=== PATIENT | male | born 1960 | race Caucasian/White ===

== ENCOUNTER 2018-09-13 06:09 | Day surgery (SDC) | payer MEDICARE, BC, OTHER ==
[2018-09-09 17:41] VITALS: BMI 38.8
[~2018-09-13 06:09] MED LIST: DEXAMETHASONE SOD PHOSPHATE 10 MG/ML 1 ML VIAL IV ONE; HEPARIN SODIUM,PORCINE 5,000 UNIT/ML 1 ML VIAL SQ ONE; HYDROmorphone 1 MG/ML 1 ML SYRINGE IVP PRN; LACTATED RINGERS 1,000 ML IV SCH; MIDAZOLAM 2 MG/2 ML VIAL IV PRN; ONDANSETRON 4 MG/2 ML VIAL IVP ONE; Pre Op ABX Message 1 EACH MISC MISCELLANE ONE; SCOPOLAMINE 1.5MG/72HR PATCH TRANSDERM ONE
[2018-09-13] MEDS ORDERED: LIDOCAINE 1% 20 ML VIAL (10MG/ML) FOR IV START INTRADERMA ONE (06:43)
[2018-09-13 06:55] VITALS: TEMP 98.6
[2018-09-13] MEDS ORDERED: SODIUM CHLORIDE 0.9% IV ONE ×2 (08:05)
[2018-09-13] MEDS ORDERED: CEFAZOLIN IV ONE ×2 (08:05)
[2018-09-13] MEDS ORDERED: BUPIVACAINE-EPI 0.5%-1:200,000 10 ML VIAL SQ ONE (08:20)
[2018-09-13] MEDS ORDERED: NALOXONE 0.4 MG/ML 1 ML VIAL IV PRN (09:11)
[2018-09-13] MEDS ORDERED: HYDROcodone/APAP 5-325MG 1 EACH TAB PO PRN (09:11)
[2018-09-13 09:15] VITALS: RESP 16
--- NOTE | 2018-09-13 09:23 | P.OP ---
Date of Procedure: 09/13/18 Procedure(s) Performed: PREOPERATIVE DIAGNOSIS: Posterior neck mass POSTOPERATIVE DIAGNOSIS: Posterior neck sebaceous cyst 8 cm PROCEDURE: Excision posterior neck mass ANESTHESIA: MAC SURGEON: Jefferson Morris M.D. SPECIMENS: Sebaceous cyst ENDOSCOPIC PROCEDURE: The patient was placed on the operating table in the right decubitus position. The posterior neck was prepped and draped in usual sterile fashion. The skin was localized. An elliptical incision was made encompassing a small depression in the skin that was thought to possibly be the initiating site of the sebaceous cyst. The skin was incised using a scalpel. Dissection took place using both blunt dissection and sharp dissection and cautery. The sebaceous cyst was fully excised. This was quite large measuring 8 cm in diameter and about 6 cm in height. This was fully dissected and excised. The saphenous tissues were then reapproximated using 3-0 Vicryl sutures and the skin using a 4-0 nylon suture. Sterile dressings were applied. The patient was taken to the recovery room in stable condition per anesthesia guidelines.
[2018-09-13 09:40] VITALS: BP 129/89; PULSE 90
--- NOTE | 2018-09-17 19:13 | CDI ---
Outpatient Documentation Clarification Form Date: 09/17/18 [employer] Vice President Name: Libra Servin Phone: If any questions, call Maren Estevez [facility] at [phone] Patient Name: Marques Herman Admit Date: 09/13/18 Discharge Date: 09/13/18 ATTENTION: The [facility] Coding Staff appreciate your assistance in clarifying documentation. Please respond to the clarification below the line at the bottom and electronically sign. The [facility] Coding staff will review the response and follow-up if needed. Please note: Queries are made part of the Legal Health Record. If you have any questions, please contact the [facility]. Dear Dr. Morris, What is the size of the closure? Thank you for your kind consideration. MTDD
== END 2018-09-13 10:03 | disposition home or self-care (01) ==
LOC: OR 06:09
PROVIDERS: ATTEND Surgery
DX: L72.0 Epidermal cyst (principal); L92.3 Foreign body granuloma of the skin and subcutaneous tissue; F79 Unspecified intellectual disabilities; H91.90 Unspecified hearing loss, unspecified ear; E66.01 Morbid (severe) obesity due to excess calories; Z68.38 Body mass index [BMI] 38.0-38.9, adult; Z79.899 Other long term (current) drug therapy; Z91.048 Other nonmedicinal substance allergy status; Z85.828 Personal history of other malignant neoplasm of skin
CPT/HCPCS: 11426; 12044; 88304; J1644; J1100; J2405; J0690; 88305

== ENCOUNTER 2020-01-19 00:50 | Emergency (ER) | payer MEDICARE, BC, OTHER ==
[2020-01-19] MEDS ORDERED: IBUPROFEN 600 MG TAB PO STA (01:03)
[2020-01-19] MEDS ORDERED: ACETAMINOPHEN TAB 500 MG TAB PO STA (01:03)
[2020-01-19 01:19] LABS: Basophils % (A) 0 %; Eosinophils % (A) 0 %; HCT 36.7 % (39.0-53.0); HGB 12.2 gm/dL (13.0-17.5); Lymphocytes # (A) 0.3 k/uL (1.0-4.8); Lymphocytes % (A) 3 %; MCH 29.3 pg (25.0-35.0); MCHC 33.3 g/dL (31.0-37.0); Mean Platelet Volume 8.6; Monocytes # (A) 0.4 k/uL (0-1.0); Monocytes % (A) 5 %; Neutrophils # (A) 7.1 k/uL (1.3-7.7); Neutrophils % (A) 90 %; Platelet Count 120 k/uL (150-450); RBC 4.17 m/uL (4.30-5.90); RDW 14.5 % (11.5-15.5); WBC 7.9 k/uL (3.8-10.6)
[2020-01-19] MEDS: SODIUM CHLORIDE 0.9% 500 ML 500 ML IV SCH ×2 (01:22→02:20)
[2020-01-19 01:28] LABS: INR 1.1 (<1.2); Partial Thromboplastin Time 28.7 sec (22.0-30.0); Prothrombin Time 10.8 sec (9.0-12.0)
[2020-01-19 01:29] LABS: Albumin 3.7 g/dL (3.5-5.0); Calcium 8.7 mg/dL (8.4-10.2); Potassium 3.6 mmol/L (3.5-5.1); Total Bilirubin 0.9 mg/dL (0.2-1.3); Total Protein 6.2 g/dL (6.3-8.2)
[2020-01-19] MEDS ORDERED: OSELTAMIVIR 75 MG CAP PO STA (01:33)
[2020-01-19 01:45] LABS: Appearance,Urine Clear (Clear); Bacteria,Urine Rare /hpf; Bilirubin,Urine Negative (Negative); Blood,Urine Moderate (Negative); Color,Urine Yellow; Glucose,Urine (UA) Negative (Negative); Ketones,Urine 1+ (Negative); Leukocyte Esterase,Urine Negative (Negative); Mucus,Urine Rare /hpf; Nitrite,Urine Negative (Negative); PH, Urine 5.5 (5.0-8.0); Protein,Urine 1+ (Negative); RBC,Urine <1 /hpf (0-5); Specific Gravity,Urine 1.033 (1.001-1.035); Squamous Epithelial Cell,Urine 1 /hpf (0-4); WBC,Urine 1 /hpf (0-5)
--- NOTE | 2020-01-19 01:58 | XR ---
EXAMINATION TYPE: XR chest 2V DATE OF EXAM: 01/19/2020 COMPARISON: 10/01/2016 HISTORY: Abdominal pain TECHNIQUE: FINDINGS: There is no heart failure nor confluent pneumonic infiltrate. Costophrenic angles are clear . There are chest leads. Bony thorax is intact. IMPRESSION: No active cardiopulmonary disease. No change
[2020-01-19] MEDS ORDERED: IBUPROFEN 200 MG TAB PO STA (02:05)
--- NOTE | 2020-01-19 03:08 | ED ---
General Adult HPI - General Source: EMS, RN notes reviewed, old records reviewed Mode of arrival: EMS Limitations: no limitations <Luis Fernando Mancera - Last Filed: 01/19/20 03:01> <Charline Bob - Last Filed: 01/19/20 22:48> - General Chief complaint: Weakness Stated complaint: Weakness Time Seen by Provider: 01/19/20 01:01 - History of Present Illness Initial comments: 59-year-old male patient past history significant for developmental delay, presents to ED for chief complaint of weakness. Caregiver mother reports that patient was not eating much today. Reports that she went to check on him before he went to bed he was sitting on a chair and she states that he was weak and will not stand up. At that time she noted that she felt warm. There is 4 days been having some mild coughing. Denies any other complaints at this time. Systemic: Pt denies fatigue, rash. Pt denies weakness, night sweats, weight l oss. Neuro: Pt denies headache, visual disturbances, syncope or pre-syncope. HEENT: Pt denies ocular discharge or irritation, otalgia, rhinorrhea, pharyngitis or notable lymphadenopathy. Cardiopulmonary: Pt denies chest pain, SOB, heart palpitations, dyspnea on exertion. Abdominal/GI: Pt denies abdominal pain, n/v/d. : Pt denies dysuria, burning w/ urination, frequency/urgency. Denies new onset urinary or bowel incontinence. MSK: Pt denies myalgia, loss of strength or function in extremities. Neuro: Pt denies new onset weakness, paresthesias. (Luis Fernando Mancera) - Related Data Home Medications Medication Instructions Recorded Confirmed Topiramate [Topamax] 100 mg PO BID 10/01/16 01/19/20 cloZAPine [Clozapine Odt] 200 mg PO HS 01/19/20 01/19/20 Previous Rx's Medication Instructions Recorded Oseltamivir [Tamiflu] 75 mg PO Q12HR 5 Days #10 cap 01/19/20 Allergies Allergy/AdvReac Type Severity Reaction Status Date / Time silicone AdvReac Body Verified 01/19/20 18:22 rejected finger implants Review of Systems ROS Other: All systems not noted in ROS Statement are negative. <Luis Fernando Mancera - Last Filed: 01/19/20 03:01> ROS Other: All systems not noted in ROS Statement are negative. <Charline Bob - Last Filed: 01/19/20 22:48> ROS Statement: Those systems with pertinent positive or pertinent negative responses have been documented in the HPI. 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 MASS ON POSTERIOR SCALP CURRENTLY. History of Any Multi-Drug Resistant Organisms: None Reported Additional Past Surgical History / Comment(s): RT Hand Surgery. Past Anesthesia/Blood Transfusion Reactions: No Reported Reaction Past Psychological History: No Psychological Hx Reported Smoking Status: Never smoker - Past Family History Mother Family Medical History: Cancer <Luis Fernando Mancera - Last Filed: 01/19/20 03:01> General Exam Limitations: no limitations <Luis Fernando Mancera - Last Filed: 01/19/20 03:01> - General Exam Comments Initial Comments: Constitutional: NAD, Pt has pleasant affect. HEENT: NC/AT, trachea midline, neck supple, no lymphadenopathy. Posterior pharynx non erythematous, without exudates. External ears appear normal, without discharge. Mucous membranes moist. Eyes PERRLA, EOM intact. There is no scleral icterus. No pallor noted. Cardiopulmonary: RRR, no murmurs, rubs or gallops, no JVD noted. Lungs CTAB in anterior and posterior white. No peripheral edema. Abdominal exam: Abdomen soft and non-distended. Abdomen non-tender to palpation in all 4 quadrants. Bowel sounds active in LLQ. No hepatosplenomegaly. No ecchymosis Neuro: CN II-XII grossly intact. No nuchal rigidity. No raccon eyes, no cm sign, no hemotympanum. No cervical spinal tenderness. MSK: No posterior calf tenderness bilaterally, homans sign negative bilaterally. Posterior tibialis and radial pulse +2 bilaterally. Sensation intact in upper and lower extremities. Full active ROM in upper and lower extremities, 5/5 stregnth. (Luis Fernando Mancera) Course Vital Signs 01/19/20 01/19/20 01/19/20 00:51 01:50 02:17 Temperature 102.0 F H 103 F H 99.2 F Pulse Rate 117 H 120 H 115 H Respiratory 22 22 18 Rate Blood Pressure 116/90 125/69 118/60 O2 Sat by Pulse 98 98 96 Oximetry 01/19/20 03:16 Temperature 99.6 F Pulse Rate 108 H Respiratory 24 Rate Blood Pressure 124/78 O2 Sat by Pulse 98 Oximetry Procedures - [place] Protocol (Time Out) Nurse: Nikolas Rosado <Luis Fernando Mancera - Last Filed: 01/19/20 03:01> Medical Decision Making - Lab Data Result diagrams: 01/19/20 00:56 01/19/20 00:56 - EKG Data -: EKG Interpreted by Me (and Dr. Bob ) <Luis Fernando Mancera - Last Filed: 01/19/20 03:01> - Lab Data Result diagrams: 01/19/20 00:56 01/19/20 00:56 <Charline Bob - Last Filed: 01/19/20 22:48> - Medical Decision Making 59-year-old male patient past history significant for developmental delay, pre sents to ED for chief complaint of weakness. Caregiver mother reports that patient was not eating much today. Reports that she went to check on him before he went to bed he was sitting on a chair and she states that he was weak and will not stand up. At that time she noted that she felt warm. There is 4 days been having some mild coughing. Denies any other complaints at this time. Patient vital signs with fever, tachycardia. Physical exam didn't swing acute pathology. Further history taking with family, patient is at his baseline currently. Range of motion of upper and lower extremities is intact. Laboratory investigations were obtained, these were significant for influenza A being positive. Kidney function at baseline. Chest x-ray displayed no acute process. Patient history and paramedics, fluids. Vital signs within acceptable limits. Patient initiated on Tamiflu. Patient is ambulatory, family is comfortable discharge. Patient discharged with close outpatient follow-up. Return to ED if condition worsens. Case discussed with Dr. Bob. (Luis Fernando Mancera) I was available for consultation in the emergency department. The history and physical exam were done by the midlevel provider. I was consulted for this patients care. I reviewed the case with the midlevel provider and based on their presentation of the patient, I agree with the assessment, medical decision making and plan of care as documented. Chart was dictated using Involv[employer] dictation software. Attempts were made to correct any dictation errors however some typographical errors may persist. (Charline Bob) - Lab Data Lab Results 01/19/20 01/19/20 01/19/20 Range/Units 00:56 00:56 00:56 WBC 7.9 (3.8-10.6) k/uL RBC 4.17 L (4.30-5.90) m/uL Hgb 12.2 L (13.0-17.5) gm/dL Hct 36.7 L (39.0-53.0) % MCV 88.0 (80.0-100.0) fL MCH 29.3 (25.0-35.0) pg MCHC 33.3 (31.0-37.0) g/dL RDW 14.5 (11.5-15.5) % Plt Count 120 L (150-450) k/uL Neutrophils % 90 % Lymphocytes % 3 % Monocytes % 5 % Eosinophils % 0 % Basophils % 0 % Neutrophils # 7.1 (1.3-7.7) k/uL Lymphocytes # 0.3 L (1.0-4.8) k/uL Monocytes # 0.4 (0-1.0) k/uL Eosinophils # 0.0 (0-0.7) k/uL Basophils # 0.0 (0-0.2) k/uL PT (9.0-12.0) sec INR (<1.2) APTT (22.0-30.0) sec Sodium 141 (137-145) mmol/L Potassium 3.6 (3.5-5.1) mmol/L Chloride 114 H (98-107) mmol/L Carbon Dioxide 18 L (22-30) mmol/L Anion Gap 9 mmol/L BUN 24 H (9-20) mg/dL Creatinine 1.64 H (0.66-1.25) mg/dL Est GFR (CKD-EPI)AfAm 51 (>60 ml/min/1.73 sqM) Est GFR (CKD-EPI)NonAf 45 (>60 ml/min/1.73 sqM) Glucose 129 H (74-99) mg/dL Plasma Lactic Acid Marco A (0.7-2.0) mmol/L Calcium 8.7 (8.4-10.2) mg/dL Total Bilirubin 0.9 (0.2-1.3) mg/dL AST 30 (17-59) U/L ALT 21 (4-49) U/L Alkaline Phosphatase 27 L (38-126) U/L Troponin I (0.000-0.034) ng/mL Total Protein 6.2 L (6.3-8.2) g/dL Albumin 3.7 (3.5-5.0) g/dL Urine Color Urine Appearance (Clear) Urine pH (5.0-8.0) Ur Specific [place] (1.001-1.035) Urine Protein (Negative) Urine Glucose (UA) (Negative) Urine Ketones (Negative) Urine Blood (Negative) Urine Nitrite (Negative) Urine Bilirubin (Negative) Urine Urobilinogen (<2.0) mg/dL Ur Leukocyte Esterase (Negative) Urine RBC (0-5) /hpf Urine WBC (0-5) /hpf Ur Squamous Epith Cells (0-4) /hpf Urine Bacteria (None) /hpf Urine Mucus (None) /hpf Influenza Type A RNA Detected H (Not Detectd) Influenza Type B (PCR) Not Detected (Not Detectd) 01/19/20 01/19/20 01/19/20 Range/Units 00:56 00:56 00:56 WBC (3.8-10.6) k/uL RBC (4.30-5.90) m/uL Hgb (13.0-17.5) gm/dL Hct (39.0-53.0) % MCV (80.0-100.0) fL MCH (25.0-35.0) pg MCHC (31.0-37.0) g/dL RDW (11.5-15.5) % Plt Count (150-450) k/uL Neutrophils % % Lymphocytes % % Monocytes % % Eosinophils % % Basophils % % Neutrophils # (1.3-7.7) k/uL Lymphocytes # (1.0-4.8) k/uL Monocytes # (0-1.0) k/uL Eosinophils # (0-0.7) k/uL Basophils # (0-0.2) k/uL PT 10.8 (9.0-12.0) sec INR 1.1 (<1.2) APTT 28.7 (22.0-30.0) sec Sodium (137-145) mmol/L Potassium (3.5-5.1) mmol/L Chloride (98-107) mmol/L Carbon Dioxide (22-30) mmol/L Anion Gap mmol/L BUN (9-20) mg/dL Creatinine (0.66-1.25) mg/dL Est GFR (CKD-EPI)AfAm (>60 ml/min/1.73 sqM) Est GFR (CKD-EPI)NonAf (>60 ml/min/1.73 sqM) Glucose (74-99) mg/dL Plasma Lactic Acid Marco A 1.1 (0.7-2.0) mmol/L Calcium (8.4-10.2) mg/dL Total Bilirubin (0.2-1.3) mg/dL AST (17-59) U/L ALT (4-49) U/L Alkaline Phosphatase (38-126) U/L Troponin I 0.015 (0.000-0.034) ng/mL Total Protein (6.3-8.2) g/dL Albumin (3.5-5.0) g/dL Urine Color Urine Appearance (Clear) Urine pH (5.0-8.0) Ur Specific [place] (1.001-1.035) Urine Protein (Negative) Urine Glucose (UA) (Negative) Urine Ketones (Negative) Urine Blood (Negative) Urine Nitrite (Negative) Urine Bilirubin (Negative) Urine Urobilinogen (<2.0) mg/dL Ur Leukocyte Esterase (Negative) Urine RBC (0-5) /hpf Urine WBC (0-5) /hpf Ur Squamous Epith Cells (0-4) /hpf Urine Bacteria (None) /hpf Urine Mucus (None) /hpf Influenza Type A RNA (Not Detectd) Influenza Type B (PCR) (Not Detectd) 01/19/20 Range/Units 01:29 WBC (3.8-10.6) k/uL RBC (4.30-5.90) m/uL Hgb (13.0-17.5) gm/dL Hct (39.0-53.0) % MCV (80.0-100.0) fL MCH (25.0-35.0) pg MCHC (31.0-37.0) g/dL RDW (11.5-15.5) % Plt Count (150-450) k/uL Neutrophils % % Lymphocytes % % Monocytes % % Eosinophils % % Basophils % % Neutrophils # (1.3-7.7) k/uL Lymphocytes # (1.0-4.8) k/uL Monocytes # (0-1.0) k/uL Eosinophils # (0-0.7) k/uL Basophils # (0-0.2) k/uL PT (9.0-12.0) sec INR (<1.2) APTT (22.0-30.0) sec Sodium (137-145) mmol/L Potassium (3.5-5.1) mmol/L Chloride (98-107) mmol/L Carbon Dioxide (22-30) mmol/L Anion Gap mmol/L BUN (9-20) mg/dL Creatinine (0.66-1.25) mg/dL Est GFR (CKD-EPI)AfAm (>60 ml/min/1.73 sqM) Est GFR (CKD-EPI)NonAf (>60 ml/min/1.73 sqM) Glucose (74-99) mg/dL Plasma Lactic Acid Marco A (0.7-2.0) mmol/L Calcium (8.4-10.2) mg/dL Total Bilirubin (0.2-1.3) mg/dL AST (17-59) U/L ALT (4-49) U/L Alkaline Phosphatase (38-126) U/L Troponin I (0.000-0.034) ng/mL Total Protein (6.3-8.2) g/dL Albumin (3.5-5.0) g/dL Urine Color Yellow Urine Appearance Clear (Clear) Urine pH 5.5 (5.0-8.0) Ur Specific [place] 1.033 (1.001-1.035) Urine Protein 1+ H (Negative) Urine Glucose (UA) Negative (Negative) Urine Ketones 1+ H (Negative) Urine Blood Moderate H (Negative) Urine Nitrite Negative (Negative) Urine Bilirubin Negative (Negative) Urine Urobilinogen 2.0 (<2.0) mg/dL Ur Leukocyte Esterase Negative (Negative) Urine RBC <1 (0-5) /hpf Urine WBC 1 (0-5) /hpf Ur Squamous Epith Cells 1 (0-4) /hpf Urine Bacteria Rare H (None) /hpf Urine Mucus Rare H (None) /hpf Influenza Type A RNA (Not Detectd) Influenza Type B (PCR) (Not Detectd) - EKG Data EKG Comments: Ventricular rate 117, UT interval 176, QRS 102, QT/QTc 330/460 sinus tachycardia, no concern for acute ischemia. (Luis Fernando Mancera) Disposition Is patient prescribed a controlled substance at d/c from ED?: No <Luis Fernando Mancera - Last Filed: 01/19/20 03:01> <Charline Bob - Last Filed: 01/19/20 22:48> Clinical Impression: Influenza A Disposition: HOME SELF-CARE Condition: Stable Instructions (If sedation given, give patient instructions): Influenza (ED) Additional Instructions: Follow up with PCP tomorrow. Take tamiflu as directed. Use tylenol and motrin, lots of fluids. Return to ED if condition worsens Prescriptions: Oseltamivir [Tamiflu] 75 mg PO Q12HR 5 Days #10 cap Referrals: Jignesh Nielsen DO [Primary Care Provider] - 1-2 days
[2020-01-19 03:18] VITALS: BP 124/78; PULSE 108; RESP 24; TEMP 99.6
== END 2020-01-19 03:18 | disposition home or self-care (01) ==
LOC: EC 00:50
DX: J10.1 Influenza due to other identified influenza virus with other respiratory manifestations (principal); Z85.828 Personal history of other malignant neoplasm of skin; Z79.899 Other long term (current) drug therapy; Z91.048 Other nonmedicinal substance allergy status
CPT/HCPCS: 36415; 71046; 80053; 81001; 83605; 84484; 85025; 85610; 85730; 87502; 93005; 96360; 99285

== ENCOUNTER 2020-01-19 16:10 | Inpatient (IN) | payer MEDICARE, BC, OTHER ==
[2020-01-19] MEDS ORDERED: ACETAMINOPHEN TAB 500 MG TAB PO STA (16:29)
[2020-01-19] MEDS ORDERED: KETOROLAC 30 MG/ML 1 ML VIAL IVP STA (16:30)
[2020-01-19] MEDS ORDERED: SODIUM CHLORIDE 0.9% 1,000 ML IV STA ×2 (16:32→18:05)
[2020-01-19] MEDS ORDERED: IPRATROPIUM-ALBUTEROL 3 ML NEB INHALATION STA (16:36)
[2020-01-19] MEDS: SODIUM CHLORIDE 0.9% 1,000 ML IV STA ×2 (16:42→22:30)
[2020-01-19 16:55] LABS: Basophils % (A) 0 %; Eosinophils % (A) 0 %; HCT 35.8 % (39.0-53.0); Lymphocytes # (A) 0.3 k/uL (1.0-4.8); Lymphocytes % (A) 3 %; MCH 29.7 pg (25.0-35.0); MCHC 33.7 g/dL (31.0-37.0); MCV 88.3 fL (80.0-100.0); Mean Platelet Volume 8.8; Monocytes # (A) 0.2 k/uL (0-1.0); Monocytes % (A) 3 %; Neutrophils # (A) 7.9 k/uL (1.3-7.7); Neutrophils % (A) 93 %; Platelet Count 101 k/uL (150-450); RBC 4.05 m/uL (4.30-5.90); RDW 14.6 % (11.5-15.5); WBC 8.5 k/uL (3.8-10.6)
[2020-01-19 17:07] LABS: Albumin 3.5 g/dL (3.5-5.0); Calcium 8.3 mg/dL (8.4-10.2); Potassium 3.5 mmol/L (3.5-5.1); Total Protein 5.8 g/dL (6.3-8.2)
--- NOTE | 2020-01-19 17:31 | XR ---
EXAMINATION TYPE: XR chest 2V DATE OF EXAM: 01/19/2020 COMPARISON: 01/19/2020 HISTORY: 59 year-old male shortness of breath TECHNIQUE: AP and lateral views FINDINGS: Heart upper limits of normal in size. Diffuse interstitial densities and peribronchial cuffing. No fr ank consolidation or sizable effusion. IMPRESSION: Interstitial changes. Correlate for possible mild pulmonary vascular congestion versus atypical pneum onias or interstitial pneumonitis.
[2020-01-19] MEDS ORDERED: PIPERACILLIN-TAZOBACTAM 4.5 GM in SODIUM CHLORIDE 0.9% 100 ML IVPB STA (17:57)
--- NOTE | 2020-01-19 18:00 | ED ---
Fever HPI - General Chief Complaint: Fever Stated Complaint: Weakness Time Seen by Provider: 01/19/20 16:22 Source: EMS Mode of arrival: EMS Limitations: altered mental status, physical limitation - History of Present Illness Initial Comments: This 59-year-old white male presents with a complaint of cough as well as shortness of breath and fever. He had symptoms start yesterday. He's been very weak as well. He was seen in the emergency department yesterday and was diagnosed with influenza. Since yesterday, mother relates that he is worse. He is weak to the point that he cannot stand up at this point in time. His temperature at home was 102. He is developmentally delayed and therefore history is somewhat limited. He denies having any chest pain or other areas of pain. No other complaints or modifying factors. - Related Data Home Medications Medication Instructions Recorded Confirmed Topiramate [Topamax] 100 mg PO BID 10/01/16 09/13/18 cloZAPine [Fazaclo] 300 mg PO HS 09/09/18 09/13/18 Previous Rx's Medication Instructions Recorded Hydrocodone/Acetaminophen [[place] 1 - 2 each PO Q4HR PRN #10 tab 09/13/18 5-325] Oseltamivir [Tamiflu] 75 mg PO Q12HR 5 Days #10 cap 01/19/20 Allergies Allergy/AdvReac Type Severity Reaction Status Date / Time silicone AdvReac Body Verified 09/13/18 06:40 rejected finger implants Review of Systems ROS Statement: Those systems with pertinent positive or pertinent negative responses have been documented in the HPI. ROS Other: All systems not noted in ROS Statement are negative. 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 MASS ON POSTERIOR SCALP CURRENTLY. History of Any Multi-Drug Resistant Organisms: None Reported Additional Past Surgical History / Comment(s): RT Hand Surgery. Past Anesthesia/Blood Transfusion Reactions: No Reported Reaction Past Psychological History: No Psychological Hx Reported Smoking Status: Never smoker Past Alcohol Use History: None Reported Past Drug Use History: None Reported - Past Family History Mother Family Medical History: Cancer General Exam - General Exam Comments Initial Comments: GENERAL: The patient is well nourished and well hydrated. VITAL SIGNS: Heart rate, blood pressure, respiratory rate reviewed as recorded in nurse's notes. EYES: Pupils are round and reactive. Extraocular movements are intact. No conjunctival / lid redness or swelling. ENT: No external evidence of injury, swelling, or ecchymosis. Airway is patent. Throat is clear. NECK: Nontender. No swelling or evidence of injury. No subcutaneous emphysema. Trachea is midline. No thyroid mass. HEART: Regular rate and rhythm. Good peripheral pulses. LUNGS/CHEST: Wheezing noted bilateral, patient is tachypneic. No ecchymosis, subcutaneous emphysema, or tenderness. ABDOMEN: Abdomen soft without tenderness. No palpable masses or organomegaly. No peritoneal signs. No abdominal wall swelling or ecchymosis. EXTREMITIES: No extremity tenderness. Normal muscle tone and function. No thorac olumbar tenderness. NEUROLOGIC: Sensation is grossly intact. Cranial nerve exam reveals face is sym metrical, tongue is midline, speech is clear. SKIN: No abrasions or ecchymosis is noted. No induration or masses noted. PSYCHIATRIC: Alert and pleasant, developmentally delayed. Limitations: altered mental status, physical limitation Course Vital Signs 01/19/20 01/19/20 01/19/20 16:15 16:50 17:05 Temperature 104.2 F H Pulse Rate 129 H 124 H 126 H Respiratory 19 Rate Blood Pressure 128/52 O2 Sat by Pulse 97 Oximetry Procedures - [place] Protocol (Time Out) Nurse: Sofía Brown Medical Decision Making - Medical Decision Making The patient is seen and examined. All diagnostics were reviewed. The EKG shows a sinus tachycardia at a heart rate of 128. There is no acute ST-T wave changes identified. The GA intervals 136, QRS duration is 100, and the QTC intervals 513. The laboratory shows a decreased CO2 consistent with dehydration. The lactic acid is mildly elevated. The patient is minimally anemic as well. He has chronic renal insufficiency. Old records were reviewed from yesterday. He did have a positive influenza at that time. The chest x-ray shows interstitial pneumonitis versus possible fluid overload versus other per radiologyplease see report for details. It is felt as though he likely does have an interstitial pneumonitis likely due to the influenza. He does receive multiple breathing treatments. He seems improved on recheck. He is still weak and cannot walk though. It is felt as though he would require admission for further treatment. The case is discussed with Dr. García and he is agreeable with admission and would like Zosyn started. - Lab Data Result diagrams: 01/19/20 16:23 01/19/20 16:23 Lab Results 01/19/20 01/19/20 01/19/20 Range/Units 16:23 16:23 16:23 WBC 8.5 (3.8-10.6) k/uL RBC 4.05 L (4.30-5.90) m/uL Hgb 12.0 L (13.0-17.5) gm/dL Hct 35.8 L (39.0-53.0) % MCV 88.3 (80.0-100.0) fL MCH 29.7 (25.0-35.0) pg MCHC 33.7 (31.0-37.0) g/dL RDW 14.6 (11.5-15.5) % Plt Count 101 L (150-450) k/uL Neutrophils % 93 % Lymphocytes % 3 % Monocytes % 3 % Eosinophils % 0 % Basophils % 0 % Neutrophils # 7.9 H (1.3-7.7) k/uL Lymphocytes # 0.3 L (1.0-4.8) k/uL Monocytes # 0.2 (0-1.0) k/uL Eosinophils # 0.0 (0-0.7) k/uL Basophils # 0.0 (0-0.2) k/uL Sodium 141 (137-145) mmol/L Potassium 3.5 (3.5-5.1) mmol/L Chloride 115 H (98-107) mmol/L Carbon Dioxide 15 L (22-30) mmol/L Anion Gap 11 mmol/L BUN 24 H (9-20) mg/dL Creatinine 1.75 H (0.66-1.25) mg/dL Est GFR (CKD-EPI)AfAm 48 (>60 ml/min/1.73 sqM) Est GFR (CKD-EPI)NonAf 41 (>60 ml/min/1.73 sqM) Glucose 117 H (74-99) mg/dL Plasma Lactic Acid Marco A 2.6 H* (0.7-2.0) mmol/L Calcium 8.3 L (8.4-10.2) mg/dL Total Bilirubin 1.0 (0.2-1.3) mg/dL AST 57 (17-59) U/L ALT 24 (4-49) U/L Alkaline Phosphatase 25 L (38-126) U/L Total Protein 5.8 L (6.3-8.2) g/dL Albumin 3.5 (3.5-5.0) g/dL Disposition Clinical Impression: Interstitial pneumonitis, Hyperpyrexia, Dehydration, Sinus tachycardia, Prolonged QT syndrome, Renal insufficiency, Anemia, Influenza, Weakness, Inability to walk Disposition: ADMITTED IP TO THIS [facility] Condition: Fair Is patient prescribed a controlled substance at d/c from ED?: No Referrals: Jignesh Nielsen DO [Primary Care Provider] - 1-2 days Time of Disposition: 18:08 Decision Date: 01/19/20 Decision Time: 18:08
[2020-01-19] MEDS ORDERED: ALBUTEROL NEBULIZED 2.5 MG/3 ML INHALATION STA (18:10)
[2020-01-19] MEDS ORDERED: MORPHINE SULFATE 4 MG/ML SYRINGE IV PRN (18:37)
[2020-01-19] MEDS ORDERED: NALOXONE 0.4 MG/ML 1 ML VIAL IV PRN (18:37)
[2020-01-19] MEDS ORDERED: ACETAMINOPHEN TAB 325 MG TAB PO PRN (18:37)
[2020-01-19] MEDS: IPRATROPIUM-ALBUTEROL 3 ML NEB INHALATION SCH ×2 (20:19→23:24)
[2020-01-19 21:30] LABS: Glucose,Whole Blood 139 mg/dL (75-99)
[2020-01-19] MEDS: OSELTAMIVIR 75 MG CAP PO SCH (22:28)
[2020-01-19] MEDS: methylPREDNISolone SOD SUCCI 125 MG/2 ML VIAL IV SCH (22:28)
[2020-01-19] MEDS: TOPIRAMATE 100 MG TAB PO SCH (22:29)
[2020-01-19] MEDS: cloZAPine 100 MG TAB PO SCH (23:23)
[2020-01-20] MEDS: IPRATROPIUM-ALBUTEROL 3 ML NEB INHALATION SCH ×5 (02:52→20:07)
[2020-01-20 07:52] LABS: Glucose,Whole Blood 150 mg/dL (75-99)
[2020-01-20] MEDS: OSELTAMIVIR 75 MG CAP PO SCH (08:40)
[2020-01-20] MEDS: TOPIRAMATE 100 MG TAB PO SCH ×2 (08:40→20:43)
[2020-01-20] MEDS: ENOXAPARIN 40 MG/0.4 ML SYRINGE SQ SCH (08:41)
[2020-01-20] MEDS: methylPREDNISolone SOD SUCCI 125 MG/2 ML VIAL IV SCH ×3 (08:41→17:45)
[2020-01-20] MEDS: PANTOPRAZOLE 40 MG TABLET PO SCH (08:41)
[2020-01-20 12:04] LABS: Glucose,Whole Blood 176 mg/dL (75-99)
[2020-01-20 16:54] LABS: Glucose,Whole Blood 365 mg/dL (75-99)
[2020-01-20 18:00] LABS: Glucose,Whole Blood 340 mg/dL (75-99)
[2020-01-20] MEDS ORDERED: INSULIN ASPART (NovoLOG) 100 UNIT/ML VIAL SQ ONE (18:20)
--- NOTE | 2020-01-20 19:18 | P.HPIM ---
History of Present Illness H&P Date: 01/20/20 Chief Complaint: Fever or chills History of presenting complaint: This is a pleasant 59-year-old patient of Dr. Nielsen. History is obtained with his sister the bedside. Patient has been mentally handicapped since childhood. Normally able to walk unassisted. She is hard of hearing. Able to see a few words and there has basically medication. 2 nights ago which was found by the mother to be on the floor. Had a fever of 102. Decreased appetite came to the ER. Found to be positive for influenza A. Sent home on Topamax. Patient started having more chills and rigors. Poor congestion the chest was admitted from the ER again. This time antibiotics were added. IV fluids were given. This morning patient did tolerate some breakfast. Feels a bit better. Review of systems: GEN.: Febrile chills tired EYES: None HEENT: Decreased hearing NECK: None RESPIRATORY: Congested chest CARDIOVASCULAR: None GASTROINTESTINAL: None GENITOURINARY: None MUSCULOSKELETAL: None LYMPHATICS: None HEMATOLOGICAL: None PSYCHIATRY: Able to answer simple questions NEUROLOGICAL: None Past medical history to include: Mentally handicapped, hard of hearing Social history: Does not smoke or drink cold. Lives with mother. Physical examination: VITAL SIGNS: 104.2, 129, 19, 128/52, 97% room air-upon presentation GENERAL: BMI 35.9, laying in bed, tired. EYES: Pupils equal. Conjunctiva normal. HEENT: External appearance of nose and ears normal, oral cavity grossly normal. NECK: JVD not raised; masses not palpable. HEART: First and second heart sounds are normal; no edema. LUNGS: Respiratory rate increased, decreased breath sounds. ABDOMEN: Soft, nontender, liver spleen not palpable, no masses palpable. PSYCH: Answering simple questionsl. NEUROLOGICAL: Cranial nerves grossly intact; no facial asymmetry, power and sensation grossly intact. LYMPHATICS: No lymph nodes palpable in the axilla and neck INVESTIGATIONS, reviewed in the clinical context: White count 8.5 hemoglobin 12 platelets 101 potassium 3.5 x 12 15 BUN 24 crit 1.75 Lactic acid 2.6 Influenza type A RNA detected EKG tracing personally reviewed by me--sinus tachycardia Chest x-ray film personally reviewed by me-bilateral infiltrates Assessment: -Acute bilateral influenza A pneumonitis with possible secondary bacterial infection -Severe sepsis, POA from above -Chronic mental retardation -Obesity BMI 35.9 -Chronic hard of hearing -Thrombocytopenia likely from underlying sepsis -Possibly acute kidney injury from sepsis -Metabolic acidosis from sepsis Plan: -Patient has been on Tamiflu. IV fluids. Has started to eat better this morning. Also in IV Zosyn. Add bicarbonate. Care was discussed with sister the bedside. Repeat labs in the morning. Check pro calcitonin. Past Medical History Past Medical History: Cancer, Hearing Disorder / Deafness, Skin Disorder Additional Past Medical History / Comment(s): "Mentally Challenged"-has outbursts, "DEVELOPMENTALLY DELAYED, LEARNING DISABILITY." MULT SKIN CANCER RE MOVALS, BASAL CELL. MASS ON POSTERIOR SCALP CURRENTLY. History of Any Multi-Drug Resistant Organisms: None Reported Additional Past Surgical History / Comment(s): RT Hand Surgery. Past Anesthesia/Blood Transfusion Reactions: No Reported Reaction Past Psychological History: Unable to Obtain Additional Psychological History / Comment(s): "HX OUTBURSTS" "mentally challanged" Smoking Status: Never smoker Past Alcohol Use History: None Reported Past Drug Use History: None Reported - Past Family History Mother Family Medical History: Cancer Medications and Allergies Home Medications Medication Instructions Recorded Confirmed Type Topiramate [Topamax] 100 mg PO BID 10/01/16 01/19/20 History Oseltamivir [Tamiflu] 75 mg PO Q12HR 5 Days #10 cap 01/19/20 01/19/20 Rx cloZAPine [Clozapine Odt] 200 mg PO HS 01/19/20 01/19/20 History Allergies Allergy/AdvReac Type Severity Reaction Status Date / Time silicone AdvReac Body Verified 01/19/20 18:22 rejected finger implants Physical Exam Vitals: Vital Signs Temp Pulse Pulse Resp BP BP Pulse Ox 01/20/20 07:00 98.2 F 104 H 16 127/78 95 01/20/20 03:06 118 H 01/20/20 02:52 112 H 01/20/20 00:00 114 H 20 01/19/20 23:32 114 H 01/19/20 23:24 112 H 01/19/20 21:00 98.8 F 104 H 20 95/60 95 01/19/20 19:09 115 H 01/19/20 19:00 99.2 F 116 H 22 114/65 93 L 02/24/20 18:58 112 H 01/19/20 17:05 126 H 01/19/20 16:50 124 H 01/19/20 16:15 104.2 F H 129 H 19 128/52 97 Intake and Output 01/19/20 01/20/20 01/20/20 22:59 06:59 14:59 Other: Voiding Method Urinal # Voids 1 2 Weight 113.398 kg Results CBC & Chem 7: 01/19/20 16:23 01/19/20 16:23 Labs: Abnormal Lab Results - Last 24 Hours (Table) 01/19/20 01/19/20 01/19/20 Range/Units 16:23 16:23 16:23 RBC 4.05 L (4.30-5.90) m/uL Hgb 12.0 L (13.0-17.5) gm/dL Hct 35.8 L (39.0-53.0) % Plt Count 101 L (150-450) k/uL Neutrophils # 7.9 H (1.3-7.7) k/uL Lymphocytes # 0.3 L (1.0-4.8) k/uL Chloride 115 H (98-107) mmol/L Carbon Dioxide 15 L (22-30) mmol/L BUN 24 H (9-20) mg/dL Creatinine 1.75 H (0.66-1.25) mg/dL Glucose 117 H (74-99) mg/dL POC Glucose (mg/dL) (75-99) mg/dL Plasma Lactic Acid Marco A 2.6 H* (0.7-2.0) mmol/L Calcium 8.3 L (8.4-10.2) mg/dL Alkaline Phosphatase 25 L (38-126) U/L Total Protein 5.8 L (6.3-8.2) g/dL 01/19/20 01/20/20 Range/Units 21:22 07:27 RBC (4.30-5.90) m/uL Hgb (13.0-17.5) gm/dL Hct (39.0-53.0) % Plt Count (150-450) k/uL Neutrophils # (1.3-7.7) k/uL Lymphocytes # (1.0-4.8) k/uL Chloride (98-107) mmol/L Carbon Dioxide (22-30) mmol/L BUN (9-20) mg/dL Creatinine (0.66-1.25) mg/dL Glucose (74-99) mg/dL POC Glucose (mg/dL) 139 H 150 H (75-99) mg/dL Plasma Lactic Acid Marco A (0.7-2.0) mmol/L Calcium (8.4-10.2) mg/dL Alkaline Phosphatase (38-126) U/L Total Protein (6.3-8.2) g/dL Thrombosis Risk Factor Assmnt - Choose All That Apply Each Risk Factor Represents 2 Points: Age 61-74 years Thrombosis Risk Factor Assessment Total Risk Factor Score: 2 Thrombosis Risk Factor Assessment Level: Low Risk
[2020-01-20] MEDS: cloZAPine 100 MG TAB PO SCH (20:43)
[2020-01-20] MEDS: OSELTAMIVIR 60 MG/10 ML ORAL SYRINGE PO SCH (20:45)
[2020-01-20] MEDS: LACTATED RINGERS 1,000 ML IV SCH (20:46)
[2020-01-20] MEDS: SODIUM BICARBONATE TAB 650 MG TAB PO SCH (20:53)
[2020-01-20] MEDS: INSULIN ASPART (NovoLOG) 100 UNIT/ML VIAL SQ SCH (20:53)
[2020-01-20 21:03] LABS: Glucose,Whole Blood 173 mg/dL (75-99)
[2020-01-20] MEDS: predniSONE 20 MG TAB PO SCH (21:15)
[2020-01-21] MEDS: SODIUM BICARBONATE TAB 650 MG TAB PO SCH ×4 (00:34→22:59)
[2020-01-21] MEDS: IPRATROPIUM-ALBUTEROL 3 ML NEB INHALATION SCH ×6 (00:41→19:53)
[2020-01-21] MEDS: LACTATED RINGERS 1,000 ML IV SCH ×3 (03:48→19:53)
[2020-01-21 06:54] LABS: Glucose,Whole Blood 151 mg/dL (75-99)
[2020-01-21] MEDS: predniSONE 20 MG TAB PO SCH (08:26)
[2020-01-21] MEDS: PANTOPRAZOLE 40 MG TABLET PO SCH (08:26)
[2020-01-21] MEDS: OSELTAMIVIR 60 MG/10 ML ORAL SYRINGE PO SCH ×2 (08:26→20:00)
[2020-01-21] MEDS: TOPIRAMATE 100 MG TAB PO SCH ×2 (08:26→20:00)
[2020-01-21] MEDS: INSULIN ASPART (NovoLOG) 100 UNIT/ML VIAL SQ SCH ×4 (08:27→22:11)
[2020-01-21] MEDS: ENOXAPARIN 40 MG/0.4 ML SYRINGE SQ SCH (08:27)
[2020-01-21 09:13] LABS: Calcium 8.8 mg/dL (8.4-10.2); Potassium 3.3 mmol/L (3.5-5.1)
--- NOTE | 2020-01-21 11:37 | CDI ---
Documentation Clarification Form Date: 01/21/2020 11:26:27 AM From: Susu Branch CCS, CCDS Admit Date: 01/19/2020 06:38:00 PM Patient Name: Marques Herman Visit Number: [id number] Discharge Date: ATTENTION: The Clinical Documentation Specialists (CDI) and [facility] Coding Staff appreciate your assistance in clarifying documentation. Please respond to the clarification below the line at the bottom and electronically sign. The CDI & [facility] Coding staff will review the response and follow-up if needed. Please note: Queries are made part of the Legal Health Record. If you have any questions, please contact the author of this message via ITS. Dr. Akbar García: Patient was admitted with Sepsis secondary to Influenza A & pneumonitis & possible acute renal failure. Per the 01/19 ED note the patient has chronic renal insufficiency, nos with GFR 41. History/Risk Factors: Mentally handicapped since childhood, [place], Obesity w/BMI 35.9. Clinical Indicators: Presented to the ED on 01/19, diagnosed with influenza, treated with IV infusion & discharged home, returned same day, admitted for Influenza A & pneumonitis with IV fluid hydration, IV antibiotics & Tamiflu. Patients Baseline BUN/CR/GFR: Unknown or not documented. LAB 01/19: BUN 24, Cr 1.75, GFR 41. 01/21: BUN 37, Cr 1.58, GFR 47 Treatment 01/19: IV fluid bolus 1,000 mls @ 999/hr x2, IV fluid 1,000 mls @ 100/hr, INH Albuterol, IV Zosyn, Tamiflu. 01/21 Started NaBicarb po 650 mg TID. In order to capture the severity of condition, please clarify if the condition signifies: CKD Stage 2 (GFR 60-89) CKD Stage 3 (GFR 30-59) Other, please specify Unable to determine (Last Revision: February 2018) unable to determine MTDD
[2020-01-21 11:41] LABS: Glucose,Whole Blood 258 mg/dL (75-99)
[2020-01-21 17:06] LABS: Glucose,Whole Blood 184 mg/dL (75-99)
[2020-01-21] MEDS: cloZAPine 100 MG TAB PO SCH (20:00)
--- NOTE | 2020-01-21 20:43 | P.PN ---
Progress Note - Text Progress Note Date: 01/21/20 Chief Complaint: Fever or chills History of presenting complaint: This is a pleasant 59-year-old patient of Dr. Nielsen. History is obtained with his sister the bedside. Patient has been mentally handicapped since childhood. Normally able to walk unassisted. She is hard of hearing. Able to see a few words and there has basically medication. 2 nights ago which was found by the mother to be on the floor. Had a fever of 102. Decreased appetite came to the ER. Found to be positive for influenza A. Sent home on Topamax. Patient started having more chills and rigors. Poor congestion the chest was admitted from the ER again. This time antibiotics were added. IV fluids were given. This morning patient did tolerate some breakfast. Feels a bit better. Admitted with acute influenza A pneumonitis, secondary bacterial infection causing sepsis. Today-doing better. Did tolerate his meals. Less congested. Sister the bedside. Overall feeling better. Review of systems: Was done for constitutional, cardiovascular, GI, pulmonary. relevant finding as above Active Medications Acetaminophen (Tylenol Tab) 650 mg PO Q6HR PRN PRN Reason: Mild Pain or Fever > 100.5 Albuterol/Ipratropium (Duoneb 0.5 Mg-3 Mg/3 Ml Soln) 3 ml INHALATION RT-Q4H [facility] Last Admin: 01/21/20 19:53 Dose: 3 ml Documented by: Clozapine (Clozaril) 200 mg PO [facility] Stop: 01/28/20 23:00 Last Admin: 01/21/20 20:00 Dose: 200 mg Documented by: Enoxaparin Sodium (Lovenox) 40 mg SQ DAILY [facility] Last Admin: 01/21/20 08:27 Dose: 40 mg Documented by: Lactated Ringer's (Lactated Ringers) 1,000 mls @ 125 mls/hr IV .Q8H [facility] Last Admin: 01/21/20 19:53 Dose: 125 mls/hr Documented by: Insulin Aspart (Novolog) 0 unit SQ ACHS [facility]; Protocol Last Admin: 01/21/20 17:21 Dose: 4 unit Documented by: Morphine Sulfate (Morphine Sulfate (Inj)) 4 mg IV Q4HR PRN PRN Reason: Severe Pain Naloxone HCl (Narcan) 0.2 mg IV Q2M PRN PRN Reason: Opioid Reversal Ondansetron HCl (Zofran) 4 mg IVP Q8HR PRN PRN Reason: Nausea And Vomiting Oseltamivir Phosphate (Tamiflu) 30 mg PO Q12HR [facility] Stop: 01/23/20 21:01 Last Admin: 01/21/20 20:00 Dose: 30 mg Documented by: Pantoprazole Sodium (Protonix) 40 mg PO AC-BRKFST [facility] Last Admin: 01/21/20 08:26 Dose: 40 mg Documented by: Prednisone () 40 mg PO DAILY [facility] Last Admin: 01/21/20 08:26 Dose: 40 mg Documented by: Sodium Bicarbonate (Sodium Bicarbonate Tab) 650 mg PO TID [facility] Last Admin: 01/21/20 17:21 Dose: 650 mg Documented by: Topiramate (Topamax) 100 mg PO BID [facility] Last Admin: 01/21/20 20:00 Dose: 100 mg Documented by: Physical examination: VITAL SIGNS: 98.1, 99, 16, 127/69, her percent on room air GENERAL: Sitting upon a chair, looking better.. EYES: Pupils equal. Conjunctiva normal. HEENT: External appearance of nose and ears normal, oral cavity grossly normal. NECK: JVD not raised; masses not palpable. HEART: First and second heart sounds are normal; no edema. LUNGS: Respiratory rate increased, improved air entry ABDOMEN: Soft, nontender, liver spleen not palpable, no masses palpable. PSYCH: Answering simple questionsl. INVESTIGATIONS, reviewed in the clinical context: Potassium 3.3 bun 37 creatinine 1.58 Previous testing White count 8.5 hemoglobin 12 platelets 101 potassium 3.5 x 12 15 BUN 24 crit 1.75 Lactic acid 2.6 Influenza type A RNA detected EKG tracing personally reviewed by me--sinus tachycardia Chest x-ray film personally reviewed by me-bilateral infiltrates Pro calcitonin 4.67 Assessment: -Acute bilateral influenza A pneumonitis with possible secondary bacterial infection, improving -Severe sepsis, POA from above, improving -Chronic mental retardation -Obesity BMI 35.9 -Chronic hard of hearing -Thrombocytopenia likely from underlying sepsis -Possibly acute kidney injury from sepsis, improving -Metabolic acidosis from sepsis Plan: Acute current treatment plan. We'll cut back on IV fluids later today. Repeat labs in the morning. Continue with Tamiflu. IV antibiotics. Care discussed systems the bedside. Overall improved.
[2020-01-21 21:51] LABS: Glucose,Whole Blood 128 mg/dL (75-99)
[2020-01-22] MEDS: ONDANSETRON 4 MG/2 ML VIAL IVP PRN ×2 (01:45→09:12)
[2020-01-22] MEDS: IPRATROPIUM-ALBUTEROL 3 ML NEB INHALATION SCH ×6 (02:03→21:24)
[2020-01-22] MEDS ORDERED: IPRATROPIUM-ALBUTEROL 3 ML NEB ONE (04:00)
[2020-01-22 05:13] LABS: Glucose,Whole Blood 181 mg/dL (75-99)
[2020-01-22 05:13] LABS: Glucose,Whole Blood 192 mg/dL (75-99)
[2020-01-22 07:20] LABS: Glucose,Whole Blood 150 mg/dL (75-99)
[2020-01-22] MEDS: OSELTAMIVIR 60 MG/10 ML ORAL SYRINGE PO SCH ×2 (07:32→21:55)
[2020-01-22] MEDS: TOPIRAMATE 100 MG TAB PO SCH ×2 (07:32→21:55)
[2020-01-22] MEDS: predniSONE 20 MG TAB PO SCH (07:32)
[2020-01-22] MEDS: PANTOPRAZOLE 40 MG TABLET PO SCH (07:32)
[2020-01-22] MEDS: ENOXAPARIN 40 MG/0.4 ML SYRINGE SQ SCH (07:33)
[2020-01-22] MEDS: SODIUM BICARBONATE TAB 650 MG TAB PO SCH ×3 (07:33→21:54)
[2020-01-22] MEDS ORDERED: FUROSEMIDE 10 MG/ML 4 ML VIAL IV STA ×2 (07:34→15:41)
--- NOTE | 2020-01-22 08:13 | XR ---
EXAMINATION TYPE: XR chest 2V DATE OF EXAM: 01/22/2020 COMPARISON: Prior chest x-ray 01/19/2020 HISTORY: Shortness of breath TECHNIQUE: Frontal and lateral views of the chest are obtained. FINDINGS: Lung volumes are low, patient is rotated. Heart size may be accentuated by rotation. There is no evident pneumothorax or pleural effusion. Interstitium appears prominently. IMPRESSION: Expiratory rotated exam. Correlate for pulmonary venous hypertension and interstitial ed padmini.
[2020-01-22] MEDS: INSULIN ASPART (NovoLOG) 100 UNIT/ML VIAL SQ SCH ×4 (08:38→23:45)
--- NOTE | 2020-01-22 08:40 | CT ---
EXAMINATION TYPE: CT angio chest DATE OF EXAM: 01/22/2020 COMPARISON: Chest x-ray earlier today and older x-rays HISTORY: Weakness, difficulty in breathing, fever. Influenza possible pneumonia. CT DLP: 1115.70 mGycm. Automated Exposure Control for Dose Reduction was Utilized. CONTRAST: CTA scan of the thorax is performed with IV Contrast, patient injected with 80 mL of Isovue 370, pulm onary embolism protocol. MIP Images are created on CT scanner and reviewed. FINDINGS: LUNGS: There is significant artifact related to patient's inability to hold breath, this is noted to lower sensitivity for evaluation for subcentimeter nodules. There is tiny right pleural effusion. The re is bibasilar linear atelectasis and/or scarring near diaphragms. No suspicious focal consolidation . No large pulmonary masses. No pneumothorax bilaterally. MEDIASTINUM: There is poor contrast opacification of the pulmonary arteries with most dense contrast in the SVC. There is no large saddle central pulmonary embolism, smaller segmental and subsegmental P E cannot be excluded on this exam. There are no greater than 1 cm hilar or mediastinal lymph nodes. Tiny pericardial effusion is seen. Cardiomegaly is noted. OTHER: Most striking finding is debris filled distended stomach with debris filled distended esophagu s extending to the level of thoracic inlet. Correlate clinically. In the posterior upper thoracic soft tissues there are oval low dense lesions abutting the skin surfa ce thought to reflect sebaceous cysts or other benign etiology. There is prominent multilevel anterior and lateral spurring of the spine raising concern for underlyi ng DISH is disc space heights are fairly well-maintained. IMPRESSION: 1. Markedly suboptimal study without large saddle central pulmonary embolism, smaller segmental and s ubsegmental PE cannot be excluded on this exam. 2. Cardiomegaly with tiny right pleural effusion. Areas of groundglass opacity or mild edema thought present. Correlate for CHF exacerbation. No obvious suspicious focal consolidation. 3. Dilated debris-filled esophagus and debris-filled distended stomach is most striking finding. Poor ly clinically. Differential includes proximal small bowel obstruction, gastroparesis, gastric outlet obstruction, other etiologies not excluded.
[2020-01-22 09:06] LABS: Calcium 8.5 mg/dL (8.4-10.2); Potassium 3.8 mmol/L (3.5-5.1)
--- NOTE | 2020-01-22 11:56 | P.CRDCN ---
History of Present Illness Consult date: 01/22/20 Requesting physician: Akbar García Consult reason: shortness of breath Chief complaint: Cough, fever, shortness of breath and weakness History of present illness: This is a pleasant 59-year-old gentleman who is developmentally delayed, most of the history was obtained from the medical record. He apparently has been dealing with a cough, associated shortness of breath and fever with persistent weakness over the past few days. In the emergency room he was diagnosed with influenza. His temperature at home prior to coming to the emergency room was 102. His chest x-ray on presentation here showed interstitial changes, possible mild pulmonary vascular congestion versus atypical pneumonia. EKG on presentation here shows a sinus tachycardia with left anterior fascicular block. Repeat chest x-ray showed pulmonary venous hypertension and interstitial edema. A CTA of the chest was performed, which was a markedly suboptimal study without large saddle central pulmonary embolism, small segmental and subsegmental PE cannot entirely be excluded. Cardiomegaly with tiny right-sided pleural effusion is noted. Areas of groundglass a pacer the or mild edema thought to be present. Dilated debris-filled esophagus and debris-filled distended stomach is the most striking finding. Blood pressure 106/60 with a heart rate of 120, temperature 97.8. White blood cell count 8.5, hemoglobin 12.0, platelet count 100. Sodium 144, potassium 3.8, BUN this morning is 45 with a creatinine of 2.28 was 24 and 1.7 on admission. Plasma lactic acid 2.2. Pro calcitonin 4.6 no BNP level performed. Blood cultures were performed with no growth after 48 hours. At the time of my examination, patient is quite short of breath, significant scattered rhonchi throughout. 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 MASS ON POSTERIOR SCALP CURRENTLY. History of Any Multi-Drug Resistant Organisms: None Reported Additional Past Surgical History / Comment(s): RT Hand Surgery. Past Anesthesia/Blood Transfusion Reactions: No Reported Reaction Past Psychological History: Unable to Obtain Additional Psychological History / Comment(s): "HX OUTBURSTS" "mentally challanged" Smoking Status: Never smoker Past Alcohol Use History: None Reported Past Drug Use History: None Reported - Past Family History Mother Family Medical History: Cancer Medications and Allergies Home Medications Medication Instructions Recorded Confirmed Type Topiramate [Topamax] 100 mg PO BID 10/01/16 01/19/20 History Oseltamivir [Tamiflu] 75 mg PO Q12HR 5 Days #10 cap 01/19/20 01/19/20 Rx cloZAPine [Clozapine Odt] 200 mg PO HS 01/19/20 01/19/20 History Allergies Allergy/AdvReac Type Severity Reaction Status Date / Time silicone AdvReac Body Verified 01/19/20 18:22 rejected finger implants Physical Exam Vitals: Vital Signs Temp Pulse Pulse Resp BP BP Pulse Ox 01/22/20 08:00 30 H 01/22/20 07:11 128 H 01/22/20 07:01 120 H 01/22/20 07:00 97.8 F 127 H 106/65 01/22/20 03:15 116 H 01/22/20 03:00 118 H 01/22/20 02:55 129 H 142/83 01/22/20 00:52 24 01/21/20 21:12 98.0 F 114 H 22 125/71 95 01/21/20 20:05 102 H 01/21/20 19:53 100 01/21/20 16:18 90 01/21/20 16:06 89 20 99 01/21/20 15:41 16 01/21/20 14:12 98.1 F 90 16 127/69 100 Intake and Output 01/21/20 01/22/20 01/22/20 22:59 06:59 14:59 Other: Voiding Method Urinal Urinal # Voids 3 # Bowel Movements 2 PHYSICAL EXAMINATION: GENERAL: 59-year-old gentleman in respiratory distress at the time of my examination HEENT: Head is atraumatic, normocephalic. Pupils equal, round. Sclera anicteric. Conjunctiva are clear. Mucous membranes of the mouth are moist. Neck is supple. There is no elevated jugular venous pressure. No carotid bruit is heard. HEART EXAMINATION: Heart S1 and S2, tachycardic CHEST EXAMINATION: Lungs reveal scattered coarse rhonchi throughout, expiratory wheezing heard throughout ABDOMEN: Soft, nontender. Bowel sounds are heard. No organomegaly noted. EXTREMITIES: 2+ peripheral pulses with trace evidence of peripheral edema and no calf tenderness noted. NEUROLOGIC patient is awake, alert and oriented 2 . . Results 01/19/20 16:23 01/22/20 08:23 Comprehensive Metabolic Panel 01/22/20 Range/Units 08:23 Sodium 144 (137-145) mmol/L Potassium 3.8 (3.5-5.1) mmol/L Chloride 116 H (98-107) mmol/L Carbon Dioxide 18 L (22-30) mmol/L BUN 45 H (9-20) mg/dL Creatinine 2.20 H (0.66-1.25) mg/dL Glucose 166 H (74-99) mg/dL Calcium 8.5 (8.4-10.2) mg/dL Current Medications Generic Name Dose Route Start Last Admin Trade Name Freq PRN Reason Stop Dose Admin Acetaminophen 650 mg 01/19/20 18:37 Tylenol Tab PO Q6HR PRN Mild Pain or Fever > 100.5 Albuterol/Ipratropium 3 ml 01/19/20 20:00 01/22/20 11:31 Duoneb 0.5 Mg-3 Mg/3 Ml Soln INHALATION 3 ml RT-Q4H [facility] Administration Clozapine 200 mg 01/19/20 21:00 01/21/20 20:00 Clozaril PO 01/28/20 23:00 200 mg HS [facility] Administration Enoxaparin Sodium 40 mg 01/20/20 09:00 01/22/20 07:33 Lovenox SQ 40 mg DAILY [facility] Administration Ceftriaxone Sodium 1 gm/ 50 mls @ 100 mls/hr 01/21/20 21:00 01/21/20 22:18 Sodium Chloride IVPB 100 mls/hr HS [facility] Administration Insulin Aspart 0 unit 01/20/20 21:00 01/22/20 08:38 Novolog SQ Not Given ACHS [facility] Protocol Morphine Sulfate 4 mg 01/19/20 18:37 01/22/20 01:46 Morphine Sulfate (Inj) IV 4 mg Q4HR PRN Administration Severe Pain Naloxone HCl 0.2 mg 01/19/20 18:37 Narcan IV Q2M PRN Opioid Reversal Ondansetron HCl 4 mg 01/19/20 18:37 01/22/20 09:12 Zofran IVP 4 mg Q8HR PRN Administration Nausea And Vomiting Oseltamivir Phosphate 30 mg 01/20/20 21:00 01/22/20 07:32 Tamiflu PO 01/23/20 21:01 30 mg Q12HR [facility] Administration Pantoprazole Sodium 40 mg 01/20/20 07:30 01/22/20 07:32 Protonix PO 40 mg AC-BRKFST [facility] Administration Prednisone 40 mg 01/20/20 21:00 01/22/20 07:32 PO 40 mg DAILY [facility] Administration Sodium Bicarbonate 650 mg 01/20/20 19:30 01/22/20 07:33 Sodium Bicarbonate Tab PO 650 mg TID [facility] Administration Topiramate 100 mg 01/19/20 21:00 01/22/20 07:32 Topamax PO 100 mg BID [facility] Administration Intake and Output 01/21/20 01/22/20 01/22/20 22:59 06:59 14:59 Other: Voiding Method Urinal Urinal # Voids 3 # Bowel Movements 2 01/19/20 16:23 01/22/20 08:23 EKG Interpretations (text) EKG shows a sinus tachycardia with left anterior fascicular block Assessment and Plan Plan: Assessment and plan #1 influenza A #2 acute bilateral pneumonia #3 developmentally delayed #4 sinus tachycardia, likely secondary to underlying sepsis #5 acute renal failure, likely secondary to diuresis #6 hypokalemia Plan Patient does not appear to be in congestive cardiac failure, we will obtain a BNP level. Obtain an echocardiogram with Doppler study. Continue Tamiflu and IV antibiotics. Further recommendations to follow. DNP note has been reviewed, I agree with a documented findings and plan of care. Patient was seen and examined.
[2020-01-22 12:05] LABS: Glucose,Whole Blood 239 mg/dL (75-99)
[2020-01-22] MEDS ORDERED: IPRATROPIUM-ALBUTEROL 3 ML NEB INHALATION PRN (12:13)
[2020-01-22] MEDS ORDERED: SODIUM CHLORIDE 0.9% 1,000 ML IV ONE (12:52)
[2020-01-22 13:24] LABS: ABG Base Excess -9.6 mmol/L; ABG HCO3 15 mmol/L (21-25); ABG Oxygen Saturation 99.7 % (94-97); ABG PCO2 24 mmHg (35-45); ABG PO2 215 mmHg (83-108); ABG TCO2 16 mmol/L (19-24); Allen Test Performed? Yes
--- NOTE | 2020-01-22 13:29 | US ---
EXAMINATION TYPE: US venous doppler duplex LE DATE OF EXAM: 01/22/2020 1:10 PM COMPARISON: NONE CLINICAL HISTORY: rule out DVT. rule out DVT SIDE PERFORMED: bilateral TECHNIQUE: The lower extremity deep venous system is examined utilizing real time linear array sonog penny with graded compression, doppler sonography and color-flow sonography. VESSELS IMAGED: External Iliac Vein (EIV) Common Femoral Vein Deep Femoral Vein Greater Saphenous Vein * Femoral Vein Popliteal Vein Small Saphenous Vein * Proximal Calf Veins (* superficial vessels) Technical limitations due to patient's body habitus Right Leg: no evidence of DVT as visualized Left Leg: no evidence of DVT as visualized IMPRESSION: 1. Lower extremity venous ultrasound negative for deep venous thrombosis
--- NOTE | 2020-01-22 13:50 | P.CNPUL ---
History of Present Illness Consult date: 01/22/20 Reason for consult: dyspnea, hypoxemia, abnormal CXR/CT Chief complaint: Shortness of breath, fever History of present illness: 59-year-old white male patient of Dr. Nielsen with history of developmental delay, hearing disorder, basal cell skin cancer with removal, who resides at home with his mother, was brought in per EMS on O2 2019 for altered mental status, cough, shortness of breath and fever. In addition patient had been very weak. He was diagnosed with influenza A the day prior during his visit to the e mergency department, chest x-ray displayed no acute process, kidney function was at baseline, patient does have history of chronic kidney disease, no leukocytosis, patient was ambulatory, he was discharged home on Tamiflu. However his symptoms continued to progress and he returned to the emergency department by EMS later that day on O2 2019. This time patient was unable to ambulate related to weakness, his temperature was 102F, he denied any chest pain or pain in any other areas. He is a poor historian, and he is currently having increased difficulty breathing, most of the information was obtained from the chart, and the nursing staff, his family is not around. Chest x-ray in the ED showed interstitial changes, mild pulmonary vascular congestion versus atypical pneumonia or interstitial pneumonitis, KG shows sinus tachycardia with a rate of 128, a small to be hypoxemic, he was placed on supplemental oxygen, he is currently on 5 L with a pulse ox of 96%, he was initially placed on medical surgical floor with Tamiflu and IV Rocephin for empiric antibiotic coverage. His admission blood work showed a white blood cell count of 8.5, hemoglobin of 12.0, sodium of 141, potassium is 3.5, chloride was 115, CO2 is 15, acute on chronic kidney failure, with BUN of 24, and creatinine of 1.75, plasma lactic acid was 2.0, proBNP was 553, pro calcitonin level was elevated at 4.67. Pat ient's dyspnea continued to worsen, CT angiogram of the chest was obtained which was a suboptimal study with a lot of artifact related to patient's inability to hold breath it showed tiny right pleural effusion, linear atelectasis, no suspicious focal consolidation, no large pulmonary masses, no large saddle central pulmonary embolism, could not exclude smaller segmental and subsegmental pulmonary embolisms, tiny pericardial effusion, and of note she was noted to have old distended stomach with debris-filled a distended esophagus extending to the level of thoracic inlet. There my evaluation patient is very tachypneic, dyspneic, he is in sinus mechanism with a rate of 134, he has a fever of 100.8F, there is a suspicion of aspiration, patient has audible wheezing and congestion in the upper airways, his respirations are rapid and shallow, he was placed on BiPAP support with pressures of 12 and 6 and FiO2 of 50%, blood gases pending. Review of Systems All systems: negative Constitutional: Reports weakness, Denies chills, Denies fever Eyes: denies blurred vision, denies pain Ears, nose, mouth and throat: Denies headache, Denies sore throat Cardiovascular: Denies chest pain, Denies shortness of breath Respiratory: Reports congestion, Reports cough with sputum, Reports dyspnea, Denies cough Gastrointestinal: Denies abdominal pain, Denies diarrhea, Denies nausea, Denies vomiting Musculoskeletal: Denies myalgias Integumentary: Denies pruritus, Denies rash Neurological: Denies numbness, Denies weakness Psychiatric: Denies anxiety, Denies depression Endocrine: Denies fatigue, Denies weight change Past Medical History Past Medical History: Cancer, Hearing Disorder / Deafness, Skin Disorder Additional Past Medical History / Comment(s): "Mentally Challenged"-has outbursts, "DEVELOPMENTALLY DELAYED, LEARNING DISABILITY." MULT SKIN CANCER REMOVALS, BASAL CELL. MASS ON POSTERIOR SCALP CURRENTLY. History of Any Multi-Drug Resistant Organisms: None Reported Additional Past Surgical History / Comment(s): RT Hand Surgery. Past Anesthesia/Blood Transfusion Reactions: No Reported Reaction Past Psychological History: Unable to Obtain Additional Psychological History / Comment(s): "HX OUTBURSTS" "mentally challanged" Smoking Status: Never smoker Past Alcohol Use History: None Reported Past Drug Use History: None Reported - Past Family History Mother Family Medical History: Cancer Medications and Allergies Home Medications Medication Instructions Recorded Confirmed Type Topiramate [Topamax] 100 mg PO BID 10/01/16 01/19/20 History Oseltamivir [Tamiflu] 75 mg PO Q12HR 5 Days #10 cap 01/19/20 01/19/20 Rx cloZAPine [Clozapine Odt] 200 mg PO HS 01/19/20 01/19/20 History Allergies Allergy/AdvReac Type Severity Reaction Status Date / Time silicone AdvReac Body Verified 01/19/20 18:22 rejected finger implants Physical Exam Vitals: Vital Signs Temp Pulse Pulse Resp BP BP Pulse Ox 01/22/20 12:00 100.8 F H 134 H 36 H 126/76 96 01/22/20 11:46 131 H 01/22/20 11:32 133 H 01/22/20 11:00 100.7 F H 117 H 24 134/94 92 L 01/22/20 08:00 30 H 01/22/20 07:11 128 H 01/22/20 07:01 120 H 01/22/20 07:00 97.8 F 127 H 106/65 01/22/20 03:15 116 H 01/22/20 03:00 118 H 01/22/20 02:55 129 H 142/83 01/22/20 00:52 24 01/21/20 21:12 98.0 F 114 H 22 125/71 95 01/21/20 20:05 102 H 01/21/20 19:53 100 01/21/20 16:18 90 01/21/20 16:06 89 20 99 01/21/20 15:41 16 01/21/20 14:12 98.1 F 90 16 127/69 100 Intake and Output 01/21/20 01/22/20 01/22/20 22:59 06:59 14:59 Other: Voiding Method Urinal Urinal # Voids 3 # Bowel Movements 2 GENERAL EXAM: Alert, 59-year-old obese white male, with chronic developmental delay, very tachypneic and short of breath, unable to give much history, is only given limited verbal responses, comfortable in no apparent distress. HEAD: Normocephalic/atraumatic. EYES: Normal reaction of pupils, equal size. Conjunctiva pink, sclera white. NOSE: Clear with pink turbinates. THROAT: No erythema or exudates. NECK: No masses, no JVD, no thyroid enlargement, no adenopathy. CHEST: No chest wall deformity. Symmetrical expansion. LUNGS: Equal air entry with diffuse wheezes and rhonchi, patient does have an effective cough and she is able to bring up some brown colored sputum CVS: Regular rate and rhythm, normal S1 and S2, no gallops, no murmurs, no rubs ABDOMEN: Soft, nontender. No hepatosplenomegaly, normal bowel sounds, no guarding or rigidity. EXTREMITIES: No clubbing, no edema, no cyanosis, 2+ pulses and upper and lower extremities. MUSCULOSKELETAL: Muscle strength and tone normal. SPINE: No scoliosis or deformity SKIN: No rashes CENTRAL NERVOUS SYSTEM: Alert and oriented -2. No focal deficits, tone is normal in all 4 extremities. PSYCHIATRIC: Alert and oriented -2. Appropriate affect. Intact judgment and insight. Results - Laboratory Findings CBC and BMP: 01/19/20 16:23 01/22/20 08:23 Abnormal lab findings: Abnormal Labs 01/19/20 01/19/20 01/19/20 16:23 16:23 16:23 RBC 4.05 L Hgb 12.0 L Hct 35.8 L Plt Count 101 L Neutrophils # 7.9 H Lymphocytes # 0.3 L Potassium Chloride 115 H Carbon Dioxide 15 L BUN 24 H Creatinine 1.75 H Glucose 117 H POC Glucose (mg/dL) Plasma Lactic Acid Marco A 2.6 H* Calcium 8.3 L Alkaline Phosphatase 25 L Total Protein 5.8 L Procalcitonin 01/19/20 01/19/20 01/20/20 19:17 21:22 07:27 RBC Hgb Hct Plt Count Neutrophils # Lymphocytes # Potassium Chloride Carbon Dioxide BUN Creatinine Glucose POC Glucose (mg/dL) 139 H 150 H Plasma Lactic Acid Marco A Calcium Alkaline Phosphatase Total Protein Procalcitonin 4.67 H 01/20/20 01/20/20 01/20/20 12:00 16:50 17:57 RBC Hgb Hct Plt Count Neutrophils # Lymphocytes # Potassium Chloride Carbon Dioxide BUN Creatinine Glucose POC Glucose (mg/dL) 176 H 365 H 340 H Plasma Lactic Acid Marco A Calcium Alkaline Phosphatase Total Protein Procalcitonin 01/20/20 01/21/20 01/21/20 20:52 06:51 08:40 RBC Hgb Hct Plt Count Neutrophils # Lymphocytes # Potassium 3.3 L Chloride 119 H Carbon Dioxide 16 L BUN 37 H Creatinine 1.58 H Glucose 173 H POC Glucose (mg/dL) 173 H 151 H Plasma Lactic Acid Marco A Calcium Alkaline Phosphatase Total Protein Procalcitonin 01/21/20 01/21/20 01/21/20 11:38 17:04 21:10 RBC Hgb Hct Plt Count Neutrophils # Lymphocytes # Potassium Chloride Carbon Dioxide BUN Creatinine Glucose POC Glucose (mg/dL) 258 H 184 H 128 H Plasma Lactic Acid Marco A Calcium Alkaline Phosphatase Total Protein Procalcitonin 01/22/20 01/22/20 01/22/20 02:39 02:47 07:16 RBC Hgb Hct Plt Count Neutrophils # Lymphocytes # Potassium Chloride Carbon Dioxide BUN Creatinine Glucose POC Glucose (mg/dL) 192 H 181 H 150 H Plasma Lactic Acid Marco A Calcium Alkaline Phosphatase Total Protein Procalcitonin 01/22/20 01/22/20 01/22/20 08:23 08:23 12:04 RBC Hgb Hct Plt Count Neutrophils # Lymphocytes # Potassium Chloride 116 H Carbon Dioxide 18 L BUN 45 H Creatinine 2.20 H Glucose 166 H POC Glucose (mg/dL) 239 H Plasma Lactic Acid Marco A 2.2 H* Calcium Alkaline Phosphatase Total Protein Procalcitonin - Diagnostic Findings Chest x-ray: report reviewed, image reviewed CT scan - chest: report reviewed, image reviewed Additional studies: EKG reviewed Assessment and Plan Plan: Assessment: #1. Acute hypoxemic respiratory failure, multifactorial, related to acute aspiration, sepsis, and acute pulmonary emboli. Chest x-ray showed interstitial changes, possible mild pulmonary vascular congestion versus atypical pneumonia. CT angios chest was suboptimal study but showed possibility of small segmental and subsegmental PE without a large saddle central pulmonary embolism. Showed areas of groundglass opacity or mild edema with a possibility of CHF #2. Acute influenza A infection #3. Acute aspiration likely related to over distended stomach, and distended esophagus #4. Acute kidney injury likely related to ATN and sepsis #5. Chronic kidney disease, stage IIIa #6. Lactic acid acidosis related to sepsis #7. Non-anion gap metabolic acidosis related to acute on chronic kidney disease #8. Thrombocytopenia related to sepsis #9. History of developmental delay #10. Morbid obesity #11. History of multiple skin cancer removals, basal cell carcinoma Plan: Patient has been placed on BiPAP, blood gas was obtained on BiPAP settings of 12 and 6 and 50%, and showed pO2 of 215, pCO2 of 24, and pH of 7.40 consistent with compensated metabolic acidosis. We'll contact her FiO2 to 35%, patient will be given a liter bolus and IV fluids, maintenance IV will be increased to 75 ML per hour, will consider additional 2 L of IV fluid boluses, depending on how he handles the IV fluids. Echocardiogram is currently pending, IV antibiotics will be switched over to Zosyn possibility of aspiration pneumonia, keep patient nothing by mouth. CTA chest has been reviewed and possibility of pulmonary emboli in segmental and subsegmental branches could not be excluded, patient is currently on Lovenox, Doppler ultrasound of lower extremities are pending. Patient will be transferred to the intensive care unit for close monitoring, will consider possibility of adding vancomycin, Ceftin and a new set of blood cultures, urine culture, sputum culture. Keep the patient nothing by mouth. We'll continue to closely follow I performed a history & physical examination of the patient and discussed their management with my nurse practitioner, Carmelina Soliz. I reviewed the nurse practitioner's note and agree with the documented findings and plan of care. Lung sounds are positive for wheezes and congestion The findings and the impression was discussed with the patient. I attest to the documentation by the nurse practitioner. Time with Patient: Greater than 30
[2020-01-22 13:56] LABS: Glucose,Whole Blood 191 mg/dL (75-99)
[2020-01-22] MEDS ORDERED: ACETAMINOPHEN SUPPOSITORY 650 MG SUPP RECTAL PRN (14:28)
[2020-01-22 14:56] LABS: Basophils % (A) 0 %; Eosinophils % (A) 0 %; HCT 41.7 % (39.0-53.0); HGB 13.2 gm/dL (13.0-17.5); Lymphocytes # (A) 0.2 k/uL (1.0-4.8); Lymphocytes % (A) 2 %; MCH 28.6 pg (25.0-35.0); MCHC 31.8 g/dL (31.0-37.0); MCV 90.1 fL (80.0-100.0); Mean Platelet Volume 10.1; Monocytes # (A) 0.6 k/uL (0-1.0); Monocytes % (A) 4 %; Neutrophils # (A) 14.7 k/uL (1.3-7.7); Neutrophils % (A) 94 %; RBC 4.63 m/uL (4.30-5.90); RDW 14.5 % (11.5-15.5); WBC 15.6 k/uL (3.8-10.6)
[2020-01-22 15:06] LABS: Platelet Count 175 k/uL (150-450)
[2020-01-22] MEDS: SODIUM CHLORIDE 0.9% 1,000 ML IV SCH (16:03)
--- NOTE | 2020-01-22 16:31 | XR ---
EXAMINATION TYPE: XR chest 1V portable DATE OF EXAM: 01/22/2020 CLINICAL HISTORY: Difficulty breathing. Pneumonia versus CHF. TECHNIQUE: Single AP portable upright view of the chest is obtained. COMPARISON: CTA chest earlier today FINDINGS: Heart size measures upper limits of normal. Persistent perihilar bilateral Central and rig ht basilar opacities. No large pleural effusion or pneumothorax noted. Underlying scoliosis again see n. IMPRESSION: Bilateral central edema and/or infiltrates with more focal right basilar acute infiltrate and/or atelectasis noted.
--- NOTE | 2020-01-22 16:33 | XR ---
EXAMINATION TYPE: XR abdomen 1V DATE OF EXAM: 01/22/2020 3:59 PM CLINICAL HISTORY: Abdominal distention and pain. TECHNIQUE: Two portable supine images of the abdomen are obtained. COMPARISON: Abdominal x-ray and CT October 01, 2016. CTA chest earlier today. FINDINGS: Gas distended stomach redemonstrated. Below this there are gas-filled dilated small bowel l oops. In the right abdomen there are gas prominent but not suspiciously dilated bowel loops. Some gas prominent bowel loops in the pelvis are seen. Moderate narrowing and spurring both hip joints. Multi level spurring the spine. No suspicious calcifications. IMPRESSION: Overall nonspecific bowel gas pattern. Proximal to mid small bowel obstruction remains in differential.
--- NOTE | 2020-01-22 17:00 | ECHOF ---
Referral Reason:chf MEASUREMENTS -------- HEIGHT: 177.8 cm WEIGHT: 113.4 kg BP: 106/65 IVSd: 1.2 cm (0.6 - 1.1) LVIDd: 5.3 cm (3.9 - 5.3) LVPWd: 1.2 cm (0.6 - 1.1) IVSs: 1.7 cm LVIDs: 3.6 cm LVPWs: 1.4 cm Ao Diam: 3.6 cm (2.0 - 3.7) AV Cusp: 2.1 cm (1.5 - 2.6) %FS: 48.65 % EDV(Teich): 144.41 ml EF(Teich): 79.55 % ESV(Teich): 29.53 ml IVSd: 1.44 cm (0.6 - 1.1) IVSs: 1.99 cm LVIDd: 5.45 cm (3.9 - 5.3) LVIDs: 2.80 cm LVPWd: 1.58 cm (0.6 - 1.1) LVPWs: 2.10 cm SV(Teich): 114.88 ml FINDINGS -------- Resting tachycardia (HR>100bpm). Pt. Very Sob Morbid Obesity There is mild concentric left ventricular hypertrophy. Overall left ventricular systolic function i s mildly impaired with, an EF between 45 - 50 %. Could not estimate diastolic function. Lumason used Interatrial and interventricular septum intact. The aortic valve was not well visualized. The mitral valve was not well visualized. The tricuspid valve was not well visualized. The pulmonic valve was not well visualized. The aortic root, ascending aorta and aortic arch are normal. IVC Not well visulized. There is no pericardial effusion. CONCLUSIONS -------- 1. Resting tachycardia (HR>100bpm). 2. Pt. Very Sob 3. Morbid Obesity 4. There is mild concentric left ventricular hypertrophy. 5. Overall left ventricular systolic function is mildly impaired with, an EF between 45 - 50 %. 6. Lumason used 7. Interatrial and interventricular septum intact. 8. The aortic valve was not well visualized. 9. The mitral valve was not well visualized. 10. The tricuspid valve was not well visualized. 11. The pulmonic valve was not well visualized. 12. The aortic root, ascending aorta and aortic arch are normal. 13. IVC Not well visulized. 14. There is no pericardial effusion. ACCOUNT RETENTION REPRESENTATIVE: Aishwarya Jaquez RDCS
[2020-01-22 17:28] LABS: ABG Base Excess -8.9 mmol/L; ABG HCO3 17 mmol/L (21-25); ABG Oxygen Saturation 89.2 % (94-97); ABG PCO2 31 mmHg (35-45); ABG PH 7.34 (7.35-7.45); ABG TCO2 18 mmol/L (19-24); Allen Test Performed? Yes
[2020-01-22 17:32] LABS: ABG PO2 57 mmHg (83-108)
[2020-01-22 17:44] LABS: HCT 39.6 % (39.0-53.0); HGB 12.8 gm/dL (13.0-17.5); MCH 29.1 pg (25.0-35.0); MCHC 32.4 g/dL (31.0-37.0); MCV 89.9 fL (80.0-100.0); Mean Platelet Volume 9.3; Platelet Count 153 k/uL (150-450); RBC 4.41 m/uL (4.30-5.90); RDW 14.6 % (11.5-15.5)
[2020-01-22 17:58] LABS: Glucose,Whole Blood 140 mg/dL (75-99)
[2020-01-22] MEDS: methylPREDNISolone SOD SUCCI 40 MG/ML 1 ML VIAL IV SCH ×2 (18:31→23:45)
[2020-01-22 18:37] LABS: Appearance,Urine Clear (Clear); Bacteria,Urine Rare /hpf; Bilirubin,Urine Negative (Negative); Blood,Urine Small (Negative); Color,Urine Yellow; Glucose,Urine (UA) Negative (Negative); Ketones,Urine Negative (Negative); Leukocyte Esterase,Urine Negative (Negative); Mucus,Urine Rare /hpf; Nitrite,Urine Negative (Negative); Protein,Urine Trace (Negative); RBC,Urine 5 /hpf (0-5); Specific Gravity,Urine 1.018 (1.001-1.035); Urobilinogen,Urine <2.0 mg/dL (<2.0); WBC,Urine 2 /hpf (0-5)
--- NOTE | 2020-01-22 20:10 | XR ---
EXAMINATION TYPE: XR chest 1V portable DATE OF EXAM: 01/22/2020 COMPARISON: Today HISTORY: Fever and weakness. Tube placement TECHNIQUE: FINDINGS: There is some atelectasis left midlung. There is poor inspiration. There is nasogastric tub e with the tip in the stomach. There is no heart failure. There are no hilar masses. IMPRESSION: Atelectasis at the lung bases improved slightly compared to exam 4 hours ago. Nasogastric tube is in the stomach.
[2020-01-22] MEDS: PIPERACILLIN-TAZOBACTAM 3.375 GM in SODIUM CHLORIDE 0.9% 100 ML IVPB SCH (21:21)
--- NOTE | 2020-01-22 21:21 | P.PN ---
Progress Note - Text Progress Note Date: 01/22/20 Chief Complaint: Fever or chills Critical care note:-45 minutes History of presenting complaint: This is a pleasant 59-year-old patient of Dr. Nielsen. History is obtained with his sister the bedside. Patient has been mentally handicapped since childhood. Normally able to walk unassisted. She is hard of hearing. Able to see a few words and there has basically medication. 2 nights ago which was found by the mother to be on the floor. Had a fever of 102. Decreased appetite came to the ER. Found to be positive for influenza A. Sent home on Topamax. Patient started having more chills and rigors. Poor congestion the chest was admitted from the ER again. This time antibiotics were added. IV fluids were given. This morning patient did tolerate some breakfast. Feels a bit better. Admitted with acute influenza A pneumonitis, secondary bacterial infection causing sepsis. Was put on DuoNeb, IV fluids, Tamiflu, steroids, to which he was responding well. Today- this morning nurse called me that the patient was not looking good more short of breath. Had ordered a computed tomography scan of the chest chest x- ray oxygen and a dose of IV Lasix. I did move the patient to cardiology floor. Saw the patient this morning. Patient is rather short of breath and gurgling the chest. Review of systems: Could not be done as patient rather tired Active Medications Acetaminophen (Tylenol Suppository) 650 mg RECTAL Q6HR PRN PRN Reason: Fever and/ or Pain Albuterol/Ipratropium (Duoneb 0.5 Mg-3 Mg/3 Ml Soln) 3 ml INHALATION RT-QID [facility] Last Admin: 01/22/20 16:13 Dose: 3 ml Documented by: Albuterol/Ipratropium (Duoneb 0.5 Mg-3 Mg/3 Ml Soln) 3 ml INHALATION RT-Q2H PRN PRN Reason: Shortness Of Breath Or Wheezing Clozapine (Clozaril) 200 mg PO HS [facility] Stop: 01/28/20 23:00 Last Admin: 01/21/20 20:00 Dose: 200 mg Documented by: Enoxaparin Sodium (Lovenox) 60 mg SQ Q12HR [facility] Sodium Chloride (Saline 0.9%) 1,000 mls @ 75 mls/hr IV .[id number] [facility] Last Admin: 01/22/20 16:03 Dose: 75 mls/hr Documented by: Piperacillin Sod/Tazobactam (Sod 3.375 gm/ Sodium Chloride) 100 mls @ 25 mls/hr IVPB Q12HR [facility] Insulin Aspart (Novolog) 0 unit SQ Q6H [facility]; Protocol Methylprednisolone Sodium Succinate (Solu-Medrol) 40 mg IV Q8HR [facility] Last Admin: 01/22/20 18:31 Dose: 40 mg Documented by: Morphine Sulfate (Morphine Sulfate (Inj)) 4 mg IV Q4HR PRN PRN Reason: Severe Pain Last Admin: 01/22/20 01:46 Dose: 4 mg Documented by: Naloxone HCl (Narcan) 0.2 mg IV Q2M PRN PRN Reason: Opioid Reversal Ondansetron HCl (Zofran) 4 mg IVP Q8HR PRN PRN Reason: Nausea And Vomiting Last Admin: 01/22/20 09:12 Dose: 4 mg Documented by: Oseltamivir Phosphate (Tamiflu) 30 mg PO Q12HR [facility] Stop: 01/23/20 21:01 Last Admin: 01/22/20 07:32 Dose: 30 mg Documented by: Pantoprazole Sodium (Protonix) 40 mg IVP DAILY [facility] Sodium Bicarbonate (Sodium Bicarbonate Tab) 650 mg PO TID [facility] Last Admin: 01/22/20 16:20 Dose: Not Given Documented by: Topiramate (Topamax) 100 mg PO BID [facility] Last Admin: 01/22/20 07:32 Dose: 100 mg Documented by: Physical examination: VITAL SIGNS: Temperature 100.7, pulse 117, respiration 30, blood pressure 134/94, 92% on nasal cannula GENERAL: Propped up in bed, short of breath tired EYES: Pupils equal. Conjunctiva normal. HEENT: External appearance of nose and ears normal, oral cavity grossly normal. NECK: JVD unable to assess; masses not palpable. HEART: First and second heart sounds are normal; no edema. LUNGS: Respiratory rate increased, accessory muscles the working, not able to speak in full sentences, both expiratory and expiratory audible crackles upper chest ABDOMEN: Soft, nontender, liver spleen not palpable, no masses palpable. PSYCH: Awake but tired. INVESTIGATIONS, reviewed in the clinical context: Potassium 3.8 bun 45 creatinine 2.2 lactic acid 2.2 proBNP 553 Chest x-ray film personally reviewed by me-showed other underpenetration Computed tomography scan of the chest-no obvious PE. Areas of groundglass pasty stool present. Dilated debris-filled esophagus and debris-filled distended stomach. Previous testing White count 8.5 hemoglobin 12 platelets 101 potassium 3.5 x 12 15 BUN 24 crit 1.75 Lactic acid 2.6 Influenza type A RNA detected EKG tracing personally reviewed by me--sinus tachycardia Chest x-ray film personally reviewed by me-bilateral infiltrates Pro calcitonin 4.67 Assessment: -Acute aspiration bilateral pneumonia -Acute severe hypoxic respiratory failure from above -Acute gastric and esophageal distention including temporary likely cause of aspiration -Acute bilateral influenza A pneumonitis with possible secondary bacterial infection, -Acute metabolic encephalopathy from above -Severe sepsis, POA from above, -Chronic mental retardation -Obesity BMI 35.9 -Chronic hard of hearing -Thrombocytopenia likely from underlying sepsis -Possibly acute kidney injury from sepsis, improving -Metabolic acidosis from sepsis Plan: Since PE cannot be ruled out entirely this point will start the patient on Lovenox 60 mg subcu every 12 given the worsening renal function. Aspiration precautions. BiPAP is being ordered. Patient admitted nothing by mouth except for oral medications. IV Zosyn to be started. Dr. Mata from pulmonary was consulted. Spoke to [facility] to transfer the patient to ICU. Currently no family the bedside. Nephrology consultation also done. Critical care time-45 minutes
[2020-01-22] MEDS: cloZAPine 100 MG TAB PO SCH (21:54)
[2020-01-22] MEDS: ENOXAPARIN 60 MG/0.6 ML SYRINGE SQ SCH (21:55)
--- NOTE | 2020-01-22 22:30 | CONS ---
CONSULTATION REASON FOR CONSULT: Renal failure. HISTORY OF PRESENT ILLNESS: Patient is a 59-year-old male who was admitted to the hospital on 01/19/2020 with complaints of fever and weakness. He was also quite short of breath and had cough. The patient tested positive for influenza A on 01/19/2020. He is currently seen in the ICU, as patient was hypoxic and tachypneic and was therefore transferred to the ICU this morning from the floor. Serum creatinine is 2.2 mg/dL today. Previous creatinine was 1.75 on 01/19/2020, and review of previous labs on 10/01/2016 shows creatinine of 1.5. Urine output is currently borderline. Bradford catheter was just going to be placed. Blood pressure has been slightly on the lower side, although not below 100 mmHg systolic. Patient is unable to give me a history. He is currently maintained on BiPAP when he was seen. PAST MEDICAL HISTORY: Hearing loss, deafness, skin disorder. Patient is mentally challenged and developmentally delayed. He had a basal cell cancer which was removed. He also has had right hand surgery. SOCIAL HISTORY: Negative for smoking, drug abuse or alcohol abuse. MEDICATIONS: Medications prior to admission included Topamax, clozapine, Mosquero, Tamiflu. ALLERGIES: INCLUDE SILICON. Patient had rejection for finger implant. PHYSICAL EXAMINATION: Currently patient is on BiPAP. He is in respiratory distress. Blood pressure when he was seen this afternoon was 126/76, heart rate about 124 per minute. Patient is afebrile. EXAMINATION OF THE HEART: S1 and S2. EXAMINATION OF LUNGS: Decreased breath sounds at bases. ABDOMEN: Soft, non-tender. Examination of lower extremities shows edema 1+ bilaterally. CLIPPING MARKER exam cannot be assessed. LABS: Sodium 144, potassium 3.8, chloride 116. CO2 is 18, BUN 45, creatinine 2.2. Lactic acid was 2.2. ASSESSMENT: 1. Acute kidney injury secondary to underlying infection, mainly acute tubular necrosis. Check accurate I&Os. No nephrotoxic medications on board. Patient is maintained on IV fluids. Consider decreasing IV fluids, as patient appears mildly hypervolemic. 2. Lactic acidosis secondary to underlying infection and sepsis. 3. Metabolic acidosis, non gap, secondary to renal failure and lactic acidosis. 4. Influenza A. 5. Chronic kidney disease, NKF stage III, with previous creatinine 1.5 on 10/01/2016. Etiology is likely nephrosclerosis. PLAN: Consider decreasing IV fluids. IV Lasix x1. Repeat labs in a.m. Continue to avoid nephrotoxic agents. Repeat chest x-ray. Continue antibiotics and antiviral medications. May continue with the sodium bicarb as well. Thank you for this consultation. Will continue to follow the patient with you during his hospitalization. MMODL / LYDIAN: [id number] /
[2020-01-22 23:35] LABS: Glucose,Whole Blood 194 mg/dL (75-99)
[2020-01-23] MEDS: SODIUM CHLORIDE 0.9% 1,000 ML IV SCH ×2 (02:58→17:38)
[2020-01-23 03:41] LABS: Basophils % (A) 0 %; Eosinophils # (A) 0.1 k/uL (0-0.7); Eosinophils % (A) 1 %; HCT 36.5 % (39.0-53.0); Lymphocytes # (A) 0.3 k/uL (1.0-4.8); Lymphocytes % (A) 4 %; MCH 29.7 pg (25.0-35.0); MCHC 32.8 g/dL (31.0-37.0); MCV 90.7 fL (80.0-100.0); Mean Platelet Volume 10.2; Monocytes # (A) 0.3 k/uL (0-1.0); Monocytes % (A) 3 %; Neutrophils # (A) 7.5 k/uL (1.3-7.7); Neutrophils % (A) 91 %; Platelet Count 103 k/uL (150-450); RBC 4.02 m/uL (4.30-5.90); RDW 14.4 % (11.5-15.5); WBC 8.2 k/uL (3.8-10.6)
[2020-01-23 03:50] LABS: Calcium 8.1 mg/dL (8.4-10.2); Magnesium 2.6 mg/dL (1.6-2.3); Potassium 3.9 mmol/L (3.5-5.1)
[2020-01-23 06:43] LABS: Glucose,Whole Blood 166 mg/dL (75-99)
[2020-01-23] MEDS: INSULIN ASPART (NovoLOG) 100 UNIT/ML VIAL SQ SCH ×3 (06:55→17:56)
--- NOTE | 2020-01-23 06:57 | P.PN ---
Subjective Progress Note Date: 01/23/20 Principal diagnosis: Acute hypoxic respiratory failure This is a pleasant 59-year-old gentleman who is developmentally delayed, most of the history was obtained from the medical record. He apparently has been dealing with a cough, associated shortness of breath and fe florina with persistent weakness over the past few days. In the emergency room he was diagnosed with influenza. His temperature at home prior to coming to the emergency room was 102. His chest x-ray on presentation here showed interstitial changes, possible mild pulmonary vascular congestion versus a typical pneumonia. EKG on presentation here shows a sinus tachycardia with left anterior fascicular block. Repeat chest x-ray showed pulmonary venous hypertension and interstitial edema. A CTA of the chest was performed, which was a markedly suboptimal study without large saddle central pulmonary embolism, small segmental and subsegmental PE cannot entirely be excluded. Cardiomegaly with tiny right-sided pleural effusion is noted. Areas of groundglass a pacer the or mild edema thought to be present. Dilated debris-filled esophagus and debris-filled distended stomach is the most striking finding. Blood pressure 106/60 with a heart rate of 120, temperature 97.8. White blood cell count 8.5, hemoglobin 12.0, platelet count 100. Sodium 144, potassium 3.8, BUN this morning is 45 with a creatinine of 2.28 was 24 and 1.7 on admission. Plasma lactic acid 2.2. Pro calcitonin 4.6 no BNP level performed. Blood cultures were performed with no growth after 48 hours. At the time of my examination, patient is quite short of breath, significant scattered rhonchi throughout. The patient was seen today, 01/23/2020. Overall clinically he is doing better. He is requiring less oxygen. His heart rate has improved as well as. His wheezing has improved significantly. He is positive for influenza. His creatinine is worse today. I still don't believe that the patient is in congestive heart failure and we should avoid any diuretics on him at this point. The chest x-ray was reviewed today. The echocardiogram was reviewed and showed mildly impaired LV function with EF around 45% was poorly visualized intracardiac valves. Overall, from the cardiovascular standpoint of view, no n eed for any further cardiac workup and will follow-up with the patient on when necessary case Objective - Vital Signs Vital signs: Vital Signs Temp 98.9 F 01/23/20 00:00 Pulse 97 01/23/20 03:00 Resp 20 01/23/20 03:00 BP 126/80 01/23/20 03:00 Pulse Ox 98 01/23/20 03:00 Intake & Output 01/22/20 01/22/20 01/23/20 06:59 18:59 06:59 Intake Total 300 475 Output Total 2250 1445 Balance -1950 -970 Intake: Intake, IV Titration 300 475 Amount Piperacillin-Tazobactam 3 100 .375 gm In Sodium Chloride 0.9% 100 ml @ 25 mls/hr IVPB Q12HR [facility] Rx #:[id number] Sodium Chloride 0.9% 1, 300 375 000 ml @ 75 mls/hr IV . [id number] [facility] Rx#:[id number] Output: Gastric Drainage 1900 800 Urine 350 645 Other: Voiding Method Urinal Indwelling Catheter Indwelling Catheter # Voids 3 # Bowel Movements 2 - Constitutional General appearance: Present: no acute distress - Respiratory Respiratory: bilateral: diminished - Cardiovascular Rhythm: regular Heart sounds: normal: S1, S2 - Labs CBC & Chem 7: 01/23/20 03:31 01/23/20 03:31 Labs: Abnormal Lab Results - Last 24 Hours (Table) 01/22/20 01/22/20 01/22/20 Range/Units 07:16 08:23 08:23 WBC (3.8-10.6) k/uL RBC (4.30-5.90) m/uL Hgb (13.0-17.5) gm/dL Hct (39.0-53.0) % Plt Count (150-450) k/uL Neutrophils # (1.3-7.7) k/uL Lymphocytes # (1.0-4.8) k/uL D-Dimer (<0.60) mg/L FEU ABG pH (7.35-7.45) ABG pCO2 (35-45) mmHg ABG pO2 (83-108) mmHg ABG HCO3 (21-25) mmol/L ABG Total CO2 (19-24) mmol/L ABG O2 Saturation (94-97) % Sodium (137-145) mmol/L Chloride 116 H (98-107) mmol/L Carbon Dioxide 18 L (22-30) mmol/L BUN 45 H (9-20) mg/dL Creatinine 2.20 H (0.66-1.25) mg/dL Glucose 166 H (74-99) mg/dL POC Glucose (mg/dL) 150 H (75-99) mg/dL Plasma Lactic Acid Marco A 2.2 H* (0.7-2.0) mmol/L Calcium (8.4-10.2) mg/dL Magnesium (1.6-2.3) mg/dL Urine Protein (Negative) Urine Blood (Negative) Urine Bacteria (None) /hpf Urine Mucus (None) /hpf 01/22/20 01/22/20 01/22/20 Range/Units 12:04 13:07 13:19 WBC (3.8-10.6) k/uL RBC (4.30-5.90) m/uL Hgb (13.0-17.5) gm/dL Hct (39.0-53.0) % Plt Count (150-450) k/uL Neutrophils # (1.3-7.7) k/uL Lymphocytes # (1.0-4.8) k/uL D-Dimer 3.38 H (<0.60) mg/L FEU ABG pH (7.35-7.45) ABG pCO2 24 L (35-45) mmHg ABG pO2 215 H (83-108) mmHg ABG HCO3 15 L (21-25) mmol/L ABG Total CO2 16 L (19-24) mmol/L ABG O2 Saturation 99.7 H (94-97) % Sodium (137-145) mmol/L Chloride (98-107) mmol/L Carbon Dioxide (22-30) mmol/L BUN (9-20) mg/dL Creatinine (0.66-1.25) mg/dL Glucose (74-99) mg/dL POC Glucose (mg/dL) 239 H (75-99) mg/dL Plasma Lactic Acid Marco A (0.7-2.0) mmol/L Calcium (8.4-10.2) mg/dL Magnesium (1.6-2.3) mg/dL Urine Protein (Negative) Urine Blood (Negative) Urine Bacteria (None) /hpf Urine Mucus (None) /hpf 01/22/20 01/22/20 01/22/20 Range/Units 13:55 14:04 17:17 WBC 15.6 H (3.8-10.6) k/uL RBC (4.30-5.90) m/uL Hgb (13.0-17.5) gm/dL Hct (39.0-53.0) % Plt Count (150-450) k/uL Neutrophils # 14.7 H (1.3-7.7) k/uL Lymphocytes # 0.2 L (1.0-4.8) k/uL D-Dimer (<0.60) mg/L FEU ABG pH 7.34 L (7.35-7.45) ABG pCO2 31 L (35-45) mmHg ABG pO2 57 L* (83-108) mmHg ABG HCO3 17 L (21-25) mmol/L ABG Total CO2 18 L (19-24) mmol/L ABG O2 Saturation 89.2 L (94-97) % Sodium (137-145) mmol/L Chloride (98-107) mmol/L Carbon Dioxide (22-30) mmol/L BUN (9-20) mg/dL Creatinine (0.66-1.25) mg/dL Glucose (74-99) mg/dL POC Glucose (mg/dL) 191 H (75-99) mg/dL Plasma Lactic Acid Marco A (0.7-2.0) mmol/L Calcium (8.4-10.2) mg/dL Magnesium (1.6-2.3) mg/dL Urine Protein (Negative) Urine Blood (Negative) Urine Bacteria (None) /hpf Urine Mucus (None) /hpf 01/22/20 01/22/20 01/22/20 Range/Units 17:35 17:45 18:15 WBC 13.0 H (3.8-10.6) k/uL RBC (4.30-5.90) m/uL Hgb 12.8 L (13.0-17.5) gm/dL Hct (39.0-53.0) % Plt Count (150-450) k/uL Neutrophils # (1.3-7.7) k/uL Lymphocytes # (1.0-4.8) k/uL D-Dimer (<0.60) mg/L FEU ABG pH (7.35-7.45) ABG pCO2 (35-45) mmHg ABG pO2 (83-108) mmHg ABG HCO3 (21-25) mmol/L ABG Total CO2 (19-24) mmol/L ABG O2 Saturation (94-97) % Sodium (137-145) mmol/L Chloride (98-107) mmol/L Carbon Dioxide (22-30) mmol/L BUN (9-20) mg/dL Creatinine (0.66-1.25) mg/dL Glucose (74-99) mg/dL POC Glucose (mg/dL) 140 H (75-99) mg/dL Plasma Lactic Acid Marco A (0.7-2.0) mmol/L Calcium (8.4-10.2) mg/dL Magnesium (1.6-2.3) mg/dL Urine Protein Trace H (Negative) Urine Blood Small H (Negative) Urine Bacteria Rare H (None) /hpf Urine Mucus Rare H (None) /hpf 01/22/20 01/23/20 01/23/20 Range/Units 23:33 03:31 03:31 WBC (3.8-10.6) k/uL RBC 4.02 L (4.30-5.90) m/uL Hgb 12.0 L (13.0-17.5) gm/dL Hct 36.5 L (39.0-53.0) % Plt Count 103 L (150-450) k/uL Neutrophils # (1.3-7.7) k/uL Lymphocytes # 0.3 L (1.0-4.8) k/uL D-Dimer (<0.60) mg/L FEU ABG pH (7.35-7.45) ABG pCO2 (35-45) mmHg ABG pO2 (83-108) mmHg ABG HCO3 (21-25) mmol/L ABG Total CO2 (19-24) mmol/L ABG O2 Saturation (94-97) % Sodium 146 H (137-145) mmol/L Chloride 121 H (98-107) mmol/L Carbon Dioxide 17 L (22-30) mmol/L BUN 59 H (9-20) mg/dL Creatinine 2.80 H (0.66-1.25) mg/dL Glucose 176 H (74-99) mg/dL POC Glucose (mg/dL) 194 H (75-99) mg/dL Plasma Lactic Acid Marco A (0.7-2.0) mmol/L Calcium 8.1 L (8.4-10.2) mg/dL Magnesium 2.6 H (1.6-2.3) mg/dL Urine Protein (Negative) Urine Blood (Negative) Urine Bacteria (None) /hpf Urine Mucus (None) /hpf 01/23/20 Range/Units 06:42 WBC (3.8-10.6) k/uL RBC (4.30-5.90) m/uL Hgb (13.0-17.5) gm/dL Hct (39.0-53.0) % Plt Count (150-450) k/uL Neutrophils # (1.3-7.7) k/uL Lymphocytes # (1.0-4.8) k/uL D-Dimer (<0.60) mg/L FEU ABG pH (7.35-7.45) ABG pCO2 (35-45) mmHg ABG pO2 (83-108) mmHg ABG HCO3 (21-25) mmol/L ABG Total CO2 (19-24) mmol/L ABG O2 Saturation (94-97) % Sodium (137-145) mmol/L Chloride (98-107) mmol/L Carbon Dioxide (22-30) mmol/L BUN (9-20) mg/dL Creatinine (0.66-1.25) mg/dL Glucose (74-99) mg/dL POC Glucose (mg/dL) 166 H (75-99) mg/dL Plasma Lactic Acid Marco A (0.7-2.0) mmol/L Calcium (8.4-10.2) mg/dL Magnesium (1.6-2.3) mg/dL Urine Protein (Negative) Urine Blood (Negative) Urine Bacteria (None) /hpf Urine Mucus (None) /hpf Microbiology - Last 24 Hours (Table) 01/19/20 17:05 Blood Culture - Preliminary Blood No Growth after 72 hours Assessment and Plan Assessment: Assessment #1 influenza A infection #2 possible bilateral pneumonia #3 sinus tachycardia #4 developmental delay #5 mild obesity Plan #1 the patient does not seems to be in heart failure clinically #2 avoid any IV diuretics at this point in view of the worsening kidney function #3 he possibly needs some IV fluid #4 will follow-up with the patient on when necessary case
[2020-01-23] MEDS: IPRATROPIUM-ALBUTEROL 3 ML NEB INHALATION SCH ×4 (07:16→21:38)
--- NOTE | 2020-01-23 07:56 | XR ---
EXAMINATION TYPE: XR chest 1V portable DATE OF EXAM: 01/23/2020 COMPARISON: Prior chest x-ray 01/22/2020 HISTORY: Shortness of breath TECHNIQUE: Single frontal view of the chest is obtained. FINDINGS: Bibasilar increased density has developed. No evident pneumothorax. Heart is stable. NG tu be is present, catheter is coursing to the left upper quadrant, tip is not included IMPRESSION: There are basilar subsegmental atelectatic changes, correlate to exclude pneumonia.
[2020-01-23] MEDS ORDERED: IOPAMIDOL CONTRAST (ORAL USE) VIAL PO PRN (08:06)
[2020-01-23] MEDS ORDERED: SODIUM CHLORIDE 0.9% 1,000 ML IV ONE (08:11)
[2020-01-23] MEDS ORDERED: PROPOFOL 1,000 MG in EMPTY BAG 1 BAG IV SCH (08:15)
[2020-01-23] MEDS: methylPREDNISolone SOD SUCCI 40 MG/ML 1 ML VIAL IV SCH ×2 (08:59→17:55)
[2020-01-23] MEDS: PANTOPRAZOLE 40 MG/10 ML VIAL IVP SCH (08:59)
[2020-01-23] MEDS: PIPERACILLIN-TAZOBACTAM 3.375 GM in SODIUM CHLORIDE 0.9% 100 ML IVPB SCH ×2 (08:59→22:24)
--- NOTE | 2020-01-23 09:00 | P.GSCN ---
History of Present Illness Consult date: 01/23/20 Reason for Consult: Stomach dilation on CT Requesting physician: El Colmenares History of present illness: CHIEF COMPLAINT: Esophageal and stomach dilation HISTORY OF PRESENT ILLNESS: 59-year-old male who was originally admitted to the hospital secondary to influenza. Patient underwent CT of the chest revealing dilated debris-filled esophagus and debris filled distended stomach. Possible small bowel obstruction, gastroparesis, or gastric outlet obstruction per radiology dictation. Patient also had an abdominal x-ray completed yesterday revealing possible proximal to mid small bowel obstruction. General surgery was consulted for further evaluation. Patient examined this morning at the bedside with Dr. Cao. Patient remains in the intensive care unit. He is currently on Bipap. He remains lethargic. NG tube was inserted yesterday with initial return of 1900cc. Nursing reports 1200cc of drainage overnight. PAST MEDICAL HISTORY: See list. PAST SURGICAL HISTORY: See list. SOCIAL HISTORY: No illicit drug use. REVIEW OF SYSTEMS: Review of systems limited secondary to altered mental status PHYSICAL EXAM: VITAL SIGNS: Reviewed. GENERAL: Well-developed in no acute distress. On Bipap. HEENT: No sclera icterus. Extraocular movements grossly intact. Moist buccal mucosa. Head is atraumatic, normocephalic. ABDOMEN: Soft. Distended. NG tube to low intermittent suction with bilious brown drainage. NEUROLOGIC: Lethargic. Opens eyes to verbal commands. Able to nod head to questions. LABORATORY DATA: WBC 8.2. Hemoglobin 12.0. Platelet count 103. Sodium 146. Potassium 3.9. BUN 59. Creatinine 2.80. IMAGING: -CT of the chest revealing dilated debris-filled esophagus and debris filled distended stomach. Possible small bowel obstruction, gastroparesis, or gastric outlet obstruction per radiology dictation. -Abdominal x-ray completed yesterday revealing possible proximal to mid small bowel obstruction. ASSESSMENT: 1. Dilated debris-filled esophagus and distended stomach, possible small bowel obstruction 2. Acute influenza A PLAN: Patient examined at the bedside with Dr. Cao. Case discussed with NEHA Cosme from pulmonary. Plan is to intubate patient this morning. Continue NG to LIS. Continue Zosyn. Will obtain CT abdomen with oral contrast to further evaluate possible bowel obstruction Patient tentatively scheduled for exploratory laparotomy this afternoon with Dr. Cao Nurse practitioner note has been reviewed by physician. Signing provider agrees with the documented findings, assessment, and plan of care. 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 MASS ON POSTERIOR SCALP CURRENTLY. History of Any Multi-Drug Resistant Organisms: None Reported Additional Past Surgical History / Comment(s): RT Hand Surgery. Past Anesthesia/Blood Transfusion Reactions: No Reported Reaction Past Psychological History: Unable to Obtain Additional Psychological History / Comment(s): "HX OUTBURSTS" "mentally challanged" Smoking Status: Never smoker Past Alcohol Use History: None Reported Past Drug Use History: None Reported - Past Family History Mother Family Medical History: Cancer Medications and Allergies Home Medications Medication Instructions Recorded Confirmed Type Topiramate [Topamax] 100 mg PO BID 10/01/16 01/19/20 History Oseltamivir [Tamiflu] 75 mg PO Q12HR 5 Days #10 cap 01/19/20 01/19/20 Rx cloZAPine [Clozapine Odt] 200 mg PO HS 01/19/20 01/19/20 History Allergies Allergy/AdvReac Type Severity Reaction Status Date / Time silicone AdvReac Body Verified 01/19/20 18:22 rejected finger implants Surgical - Exam Vital Signs Temp Pulse Resp BP Pulse Ox 104.2 F H 129 H 19 128/52 97 01/19/20 16:15 01/19/20 16:15 01/19/20 16:15 01/19/20 16:15 01/19/20 16:15 Results - Labs 01/23/20 03:31 01/23/20 03:31 Abnormal Lab Results - Last 24 Hours (Table) 01/22/20 01/22/20 01/22/20 Range/Units 08:23 08:23 12:04 WBC (3.8-10.6) k/uL RBC (4.30-5.90) m/uL Hgb (13.0-17.5) gm/dL Hct (39.0-53.0) % Plt Count (150-450) k/uL Neutrophils # (1.3-7.7) k/uL Lymphocytes # (1.0-4.8) k/uL D-Dimer (<0.60) mg/L FEU ABG pH (7.35-7.45) ABG pCO2 (35-45) mmHg ABG pO2 (83-108) mmHg ABG HCO3 (21-25) mmol/L ABG Total CO2 (19-24) mmol/L ABG O2 Saturation (94-97) % Sodium (137-145) mmol/L Chloride 116 H (98-107) mmol/L Carbon Dioxide 18 L (22-30) mmol/L BUN 45 H (9-20) mg/dL Creatinine 2.20 H (0.66-1.25) mg/dL Glucose 166 H (74-99) mg/dL POC Glucose (mg/dL) 239 H (75-99) mg/dL Plasma Lactic Acid Marco A 2.2 H* (0.7-2.0) mmol/L Calcium (8.4-10.2) mg/dL Magnesium (1.6-2.3) mg/dL Urine Protein (Negative) Urine Blood (Negative) Urine Bacteria (None) /hpf Urine Mucus (None) /hpf 01/22/20 01/22/20 01/22/20 Range/Units 13:07 13:19 13:55 WBC (3.8-10.6) k/uL RBC (4.30-5.90) m/uL Hgb (13.0-17.5) gm/dL Hct (39.0-53.0) % Plt Count (150-450) k/uL Neutrophils # (1.3-7.7) k/uL Lymphocytes # (1.0-4.8) k/uL D-Dimer 3.38 H (<0.60) mg/L FEU ABG pH (7.35-7.45) ABG pCO2 24 L (35-45) mmHg ABG pO2 215 H (83-108) mmHg ABG HCO3 15 L (21-25) mmol/L ABG Total CO2 16 L (19-24) mmol/L ABG O2 Saturation 99.7 H (94-97) % Sodium (137-145) mmol/L Chloride (98-107) mmol/L Carbon Dioxide (22-30) mmol/L BUN (9-20) mg/dL Creatinine (0.66-1.25) mg/dL Glucose (74-99) mg/dL POC Glucose (mg/dL) 191 H (75-99) mg/dL Plasma Lactic Acid Marco A (0.7-2.0) mmol/L Calcium (8.4-10.2) mg/dL Magnesium (1.6-2.3) mg/dL Urine Protein (Negative) Urine Blood (Negative) Urine Bacteria (None) /hpf Urine Mucus (None) /hpf 01/22/20 01/22/20 01/22/20 Range/Units 14:04 17:17 17:35 WBC 15.6 H 13.0 H (3.8-10.6) k/uL RBC (4.30-5.90) m/uL Hgb 12.8 L (13.0-17.5) gm/dL Hct (39.0-53.0) % Plt Count (150-450) k/uL Neutrophils # 14.7 H (1.3-7.7) k/uL Lymphocytes # 0.2 L (1.0-4.8) k/uL D-Dimer (<0.60) mg/L FEU ABG pH 7.34 L (7.35-7.45) ABG pCO2 31 L (35-45) mmHg ABG pO2 57 L* (83-108) mmHg ABG HCO3 17 L (21-25) mmol/L ABG Total CO2 18 L (19-24) mmol/L ABG O2 Saturation 89.2 L (94-97) % Sodium (137-145) mmol/L Chloride (98-107) mmol/L Carbon Dioxide (22-30) mmol/L BUN (9-20) mg/dL Creatinine (0.66-1.25) mg/dL Glucose (74-99) mg/dL POC Glucose (mg/dL) (75-99) mg/dL Plasma Lactic Acid Marco A (0.7-2.0) mmol/L Calcium (8.4-10.2) mg/dL Magnesium (1.6-2.3) mg/dL Urine Protein (Negative) Urine Blood (Negative) Urine Bacteria (None) /hpf Urine Mucus (None) /hpf 01/22/20 01/22/20 01/22/20 Range/Units 17:45 18:15 23:33 WBC (3.8-10.6) k/uL RBC (4.30-5.90) m/uL Hgb (13.0-17.5) gm/dL Hct (39.0-53.0) % Plt Count (150-450) k/uL Neutrophils # (1.3-7.7) k/uL Lymphocytes # (1.0-4.8) k/uL D-Dimer (<0.60) mg/L FEU ABG pH (7.35-7.45) ABG pCO2 (35-45) mmHg ABG pO2 (83-108) mmHg ABG HCO3 (21-25) mmol/L ABG Total CO2 (19-24) mmol/L ABG O2 Saturation (94-97) % Sodium (137-145) mmol/L Chloride (98-107) mmol/L Carbon Dioxide (22-30) mmol/L BUN (9-20) mg/dL Creatinine (0.66-1.25) mg/dL Glucose (74-99) mg/dL POC Glucose (mg/dL) 140 H 194 H (75-99) mg/dL Plasma Lactic Acid Marco A (0.7-2.0) mmol/L Calcium (8.4-10.2) mg/dL Magnesium (1.6-2.3) mg/dL Urine Protein Trace H (Negative) Urine Blood Small H (Negative) Urine Bacteria Rare H (None) /hpf Urine Mucus Rare H (None) /hpf 01/23/20 01/23/20 01/23/20 Range/Units 03:31 03:31 06:42 WBC (3.8-10.6) k/uL RBC 4.02 L (4.30-5.90) m/uL Hgb 12.0 L (13.0-17.5) gm/dL Hct 36.5 L (39.0-53.0) % Plt Count 103 L (150-450) k/uL Neutrophils # (1.3-7.7) k/uL Lymphocytes # 0.3 L (1.0-4.8) k/uL D-Dimer (<0.60) mg/L FEU ABG pH (7.35-7.45) ABG pCO2 (35-45) mmHg ABG pO2 (83-108) mmHg ABG HCO3 (21-25) mmol/L ABG Total CO2 (19-24) mmol/L ABG O2 Saturation (94-97) % Sodium 146 H (137-145) mmol/L Chloride 121 H (98-107) mmol/L Carbon Dioxide 17 L (22-30) mmol/L BUN 59 H (9-20) mg/dL Creatinine 2.80 H (0.66-1.25) mg/dL Glucose 176 H (74-99) mg/dL POC Glucose (mg/dL) 166 H (75-99) mg/dL Plasma Lactic Acid Marco A (0.7-2.0) mmol/L Calcium 8.1 L (8.4-10.2) mg/dL Magnesium 2.6 H (1.6-2.3) mg/dL Urine Protein (Negative) Urine Blood (Negative) Urine Bacteria (None) /hpf Urine Mucus (None) /hpf Microbiology - Last 24 Hours (Table) 01/19/20 17:05 Blood Culture - Preliminary Blood No Growth after 72 hours Diabetes panel 01/22/20 01/23/20 Range/Units 08:23 03:31 Sodium 144 146 H (137-145) mmol/L Potassium 3.8 3.9 (3.5-5.1) mmol/L Chloride 116 H 121 H (98-107) mmol/L Carbon Dioxide 18 L 17 L (22-30) mmol/L BUN 45 H 59 H (9-20) mg/dL Creatinine 2.20 H 2.80 H (0.66-1.25) mg/dL Glucose 166 H 176 H (74-99) mg/dL Calcium 8.5 8.1 L (8.4-10.2) mg/dL Calcium panel 01/22/20 01/23/20 Range/Units 08:23 03:31 Calcium 8.5 8.1 L (8.4-10.2) mg/dL Pituitary panel 01/22/20 01/23/20 Range/Units 08:23 03:31 Sodium 144 146 H (137-145) mmol/L Potassium 3.8 3.9 (3.5-5.1) mmol/L Chloride 116 H 121 H (98-107) mmol/L Carbon Dioxide 18 L 17 L (22-30) mmol/L BUN 45 H 59 H (9-20) mg/dL Creatinine 2.20 H 2.80 H (0.66-1.25) mg/dL Glucose 166 H 176 H (74-99) mg/dL Calcium 8.5 8.1 L (8.4-10.2) mg/dL Adrenal panel 01/22/20 01/23/20 Range/Units 08:23 03:31 Sodium 144 146 H (137-145) mmol/L Potassium 3.8 3.9 (3.5-5.1) mmol/L Chloride 116 H 121 H (98-107) mmol/L Carbon Dioxide 18 L 17 L (22-30) mmol/L BUN 45 H 59 H (9-20) mg/dL Creatinine 2.20 H 2.80 H (0.66-1.25) mg/dL Glucose 166 H 176 H (74-99) mg/dL Calcium 8.5 8.1 L (8.4-10.2) mg/dL
--- NOTE | 2020-01-23 10:54 | CT ---
EXAMINATION TYPE: CT abdomen pelvis wo con DATE OF EXAM: 01/23/2020 COMPARISON: 10/01/2016 HISTORY: 59-year-old male distention, possible SBO CT DLP: 2164.1 mGycm. Automated exposure control for dose reduction was used. TECHNIQUE: Contiguous axial scanning of the abdomen and pelvis without IV contrast. Coronal and sagit joel reconstructions performed. FINDINGS: Generalized breathing motion artifact. Additional limitations due to large patient body habitus and a dditional streak and beam hardening artifact from the patient's arms down by their side. Heart upper limits of normal in size with trace anterior pericardial fluid. Prominent patchy consolidation at the posterior medial lung bases. No significant effusion seen. Small hiatal hernia. NG tube is present terminating in the stomach. Noncontrast, motion artifact limited appearance of the liver, gallbladder, adrenal glands, kidneys an d pancreas show no gross abnormality. Spleen enlarged at 16.1 cm. Prominent congested material, fluid, and contrast distending the stomach. Fluid-filled small bowel loops are present throughout measuring up to 5.7 cm with air-fluid levels. C ollapsed distal ileum is seen in the right side of the abdomen. Scattered mild stool. No pericolonic inflammatory change. No free fluid or free air. Bilateral flank edema. Tiny foci of air within the subcutaneous adipose anterior right lower quadrant suggests subcutaneous injections. No mesenteric or retroperitoneal lymphadenopathy. Bradford catheter decompresses the bladder. No abnormal fluid collection in the pelvis or pelvic lymphad enopathy. Bones: Degenerative changes at the hips. Sclerotic focus superior left acetabulum unchanged back to 2 016 compatible with a bone island. Degenerative changes left SI joint. DISH within the lower thoracic spine. IMPRESSION: 1. Findings compatible with high-grade small bowel obstruction at the distal third small bowel level . There are prominent artifacts and breathing motion limiting clear visualization of the transition p oint. Small bowel loops are dilated up to 5.7 cm. 2. Prominent patchy consolidation at the posterior medial lung bases. Correlate to exclude infectiou s or aspiration pneumonitis. 3. Splenomegaly (16.1 cm).
[2020-01-23] MEDS ORDERED: ENOXAPARIN 120 MG/0.8 ML SYRINGE SQ SCH (11:00)
--- NOTE | 2020-01-23 12:34 | P.PN ---
Subjective Progress Note Date: 01/23/20 Principal diagnosis: Small bowel obstruction and aspiration pneumonia 59-year-old white male patient of Dr. Nielsen with history of developmental delay, hearing disorder, basal cell skin cancer with removal, who resides at home with his mother, was brought in per EMS on O2 2019 for altered mental status, cough, shortness of breath and fever. In addition patient had been very weak. He was diagnosed with influenza A the day prior during his visit to the emergency department, chest x-ray displayed no acute process, kidney function was at baseline, patient does have history of chronic kidney disease, no leukocytosis, patient was ambulatory, he was discharged home on Tamiflu. However his symptoms continued to progress and he returned to the emergency department by EMS later that day on O2 2019. This time patient was unable to ambulate related to weakness, his temperature was 102F, he denied any chest pain or pain in any other areas. He is a poor historian, and he is currently having increased difficulty breathing, most of the information was obtained from the chart, and the nursing staff, his family is not around. Chest x-ray in the ED showed interstitial changes, mild pulmonary vascular congestion versus atypical pneumonia or interstitial pneumonitis, KG shows sinus tachycardia with a rate of 128, a small to be hypoxemic, he was placed on supplemental oxygen, he is currently on 5 L with a pulse ox of 96%, he was initially placed on medical surgical floor with Tamiflu and IV Rocephin for empiric antibiotic coverage. His admission blood work showed a white blood cell count of 8.5, hemoglobin of 12.0, sodium of 141, potassium is 3.5, chloride was 115, CO2 is 15, acute on chronic kidney failure, with BUN of 24, and creatinine of 1.75, plasma lactic acid was 2.0, proBNP was 553, pro calcitonin level was elevated at 4.67. Patient's dyspnea continued to worsen, CT angiogram of the chest was obtained which was a suboptimal study with a lot of artifact related to patient's inability to hold breath it showed tiny right pleural effusion, linear atelectasis, no suspicious focal consolidation, no large pulmonary masses, no large saddle central pulmonary embolism, could not exclude smaller segmental and subsegmental pulmonary embolisms, tiny pericardial effusion, and of note she was noted to have old distended stomach with debris-filled a distended esophagus extending to the level of thoracic inlet. There my evaluation patient is very tachypneic, dyspneic, he is in sinus mechanism with a rate of 134, he has a fever of 100.8F, there is a suspicion of aspiration, patient has audible wheezing and congestion in the upper airways, his respirations are rapid and shallow, he was placed on BiPAP support with pressures of 12 and 6 and FiO2 of 50%, blood gases pending. Patient was reevaluated today on 01/23/20, remains in the ICU. I evaluated the patient late yesterday, and recommended a nasogastric tube placement. His flat plate of the abdomen showed significant dilated bowel loops, after the nasogastric tube was placed, significant amount of fluid was drained from his stomach. Patient felt better, there was a significant relief. Consulted general surgery for possible small bowel obstruction. Patient had a CT of the abdomen and pelvis today, and it is consistent with high-grade obstruction at the level of the distal third of the small bowel. Patient is feeling better, breathing easier although he had a bit of aspiration especially involving the right lower lobe and possibly the left lower lobe. He is covered with ant ibiotics. Remains on BiPAP, surgery has been updated on his condition, and I understand the family requested Dr. medrano to see. Awaiting input from Dr. medrano whether the patient will need to go to surgery anytime soon. WBC count today is 8.2 hemoglobin is 12 electrolytes showed slightly elevated sodium BUN is up to 58 creatinine is 2.80, hence more IV fluid will be given, and would hold on diuretics. Reviewed the issues regarding his questionable pulmonary embolism, strongly doubt pulmonary embolism, there is no evidence of deep vein thrombosis, and the CT of the chest showed no proximal emboli, and the quality was very suboptimal quality for the CT of the chest. Clinically there is no evidence of pulmonary embolism. Hence Lovenox will be changed to 40 mg subcu daily. [place] placed on heparin 5000 units subcu every 12 hours. IV fluid will be increased, and the patient may receive boluses of fluids. CBC today is basically unremarkable. Bicarb is 17. Chest x-ray is consistent with aspiration pneumonia involving lower lobe. And some bibasilar atelectasis. Objective - Vital Signs Vital signs: Vital Signs Temp 98.0 F 01/23/20 08:00 Pulse 106 H 01/23/20 11:19 Resp 24 01/23/20 11:00 BP 140/99 01/23/20 11:00 Pulse Ox 96 01/23/20 11:00 Intake & Output 01/22/20 01/23/20 01/23/20 18:59 06:59 18:59 Intake Total 300 775 150 Output Total 2250 2110 160 Balance -1950 -1335 -10 Weight 123 kg Intake: Intake, IV Titration 300 775 150 Amount Piperacillin-Tazobactam 3 100 .375 gm In Sodium Chloride 0.9% 100 ml @ 25 mls/hr IVPB Q12HR [facility] Rx #:[id number] Sodium Chloride 0.9% 1, 300 675 150 000 ml @ 75 mls/hr IV . [id number] [facility] Rx#:[id number] Output: Gastric Drainage 1900 1200 Urine 350 910 160 Other: Voiding Method Indwelling Catheter Indwelling Catheter - Exam GENERAL EXAM: Alert, 59-year-old obese white male, with chronic developmental delay, in no distress, remains on BiPAP. HEAD: Normocephalic/atraumatic. HEENT: PERRLA, EOMI, no icterus, no neck masses, dry mucous membranes. CHEST: No chest wall deformity. Symmetrical expansion. LUNGS: Diminished breath sounds and crackles at the bases. No rhonchi no wheezes significantly improved compared to yesterday. CVS: Regular rate and rhythm, normal S1 and S2, no gallops, no murmurs, no rubs ABDOMEN: Soft, nontender. No hepatosplenomegaly, normal bowel sounds, no guarding or rigidity. EXTREMITIES: No clubbing, no edema, no cyanosis, 2+ pulses and upper and lower extremities. MUSCULOSKELETAL: Muscle strength and tone normal. SPINE: No scoliosis or deformity SKIN: No rashes CENTRAL NERVOUS SYSTEM: Alert and oriented -2. No focal deficits, tone is normal in all 4 extremities. PSYCHIATRIC: Alert and oriented -2. Appropriate affect. Judgment is questionable. - Labs CBC & Chem 7: 01/23/20 03:31 01/23/20 03:31 Labs: Abnormal Lab Results - Last 24 Hours (Table) 01/22/20 01/22/20 01/22/20 Range/Units 13:07 13:19 13:55 WBC (3.8-10.6) k/uL RBC (4.30-5.90) m/uL Hgb (13.0-17.5) gm/dL Hct (39.0-53.0) % Plt Count (150-450) k/uL Neutrophils # (1.3-7.7) k/uL Lymphocytes # (1.0-4.8) k/uL D-Dimer 3.38 H (<0.60) mg/L FEU ABG pH (7.35-7.45) ABG pCO2 24 L (35-45) mmHg ABG pO2 215 H (83-108) mmHg ABG HCO3 15 L (21-25) mmol/L ABG Total CO2 16 L (19-24) mmol/L ABG O2 Saturation 99.7 H (94-97) % Sodium (137-145) mmol/L Chloride (98-107) mmol/L Carbon Dioxide (22-30) mmol/L BUN (9-20) mg/dL Creatinine (0.66-1.25) mg/dL Glucose (74-99) mg/dL POC Glucose (mg/dL) 191 H (75-99) mg/dL Calcium (8.4-10.2) mg/dL Magnesium (1.6-2.3) mg/dL Urine Protein (Negative) Urine Blood (Negative) Urine Bacteria (None) /hpf Urine Mucus (None) /hpf 01/22/20 01/22/20 01/22/20 Range/Units 14:04 17:17 17:35 WBC 15.6 H 13.0 H (3.8-10.6) k/uL RBC (4.30-5.90) m/uL Hgb 12.8 L (13.0-17.5) gm/dL Hct (39.0-53.0) % Plt Count (150-450) k/uL Neutrophils # 14.7 H (1.3-7.7) k/uL Lymphocytes # 0.2 L (1.0-4.8) k/uL D-Dimer (<0.60) mg/L FEU ABG pH 7.34 L (7.35-7.45) ABG pCO2 31 L (35-45) mmHg ABG pO2 57 L* (83-108) mmHg ABG HCO3 17 L (21-25) mmol/L ABG Total CO2 18 L (19-24) mmol/L ABG O2 Saturation 89.2 L (94-97) % Sodium (137-145) mmol/L Chloride (98-107) mmol/L Carbon Dioxide (22-30) mmol/L BUN (9-20) mg/dL Creatinine (0.66-1.25) mg/dL Glucose (74-99) mg/dL POC Glucose (mg/dL) (75-99) mg/dL Calcium (8.4-10.2) mg/dL Magnesium (1.6-2.3) mg/dL Urine Protein (Negative) Urine Blood (Negative) Urine Bacteria (None) /hpf Urine Mucus (None) /hpf 01/22/20 01/22/20 01/22/20 Range/Units 17:45 18:15 23:33 WBC (3.8-10.6) k/uL RBC (4.30-5.90) m/uL Hgb (13.0-17.5) gm/dL Hct (39.0-53.0) % Plt Count (150-450) k/uL Neutrophils # (1.3-7.7) k/uL Lymphocytes # (1.0-4.8) k/uL D-Dimer (<0.60) mg/L FEU ABG pH (7.35-7.45) ABG pCO2 (35-45) mmHg ABG pO2 (83-108) mmHg ABG HCO3 (21-25) mmol/L ABG Total CO2 (19-24) mmol/L ABG O2 Saturation (94-97) % Sodium (137-145) mmol/L Chloride (98-107) mmol/L Carbon Dioxide (22-30) mmol/L BUN (9-20) mg/dL Creatinine (0.66-1.25) mg/dL Glucose (74-99) mg/dL POC Glucose (mg/dL) 140 H 194 H (75-99) mg/dL Calcium (8.4-10.2) mg/dL Magnesium (1.6-2.3) mg/dL Urine Protein Trace H (Negative) Urine Blood Small H (Negative) Urine Bacteria Rare H (None) /hpf Urine Mucus Rare H (None) /hpf 01/23/20 01/23/20 01/23/20 Range/Units 03:31 03:31 06:42 WBC (3.8-10.6) k/uL RBC 4.02 L (4.30-5.90) m/uL Hgb 12.0 L (13.0-17.5) gm/dL Hct 36.5 L (39.0-53.0) % Plt Count 103 L (150-450) k/uL Neutrophils # (1.3-7.7) k/uL Lymphocytes # 0.3 L (1.0-4.8) k/uL D-Dimer (<0.60) mg/L FEU ABG pH (7.35-7.45) ABG pCO2 (35-45) mmHg ABG pO2 (83-108) mmHg ABG HCO3 (21-25) mmol/L ABG Total CO2 (19-24) mmol/L ABG O2 Saturation (94-97) % Sodium 146 H (137-145) mmol/L Chloride 121 H (98-107) mmol/L Carbon Dioxide 17 L (22-30) mmol/L BUN 59 H (9-20) mg/dL Creatinine 2.80 H (0.66-1.25) mg/dL Glucose 176 H (74-99) mg/dL POC Glucose (mg/dL) 166 H (75-99) mg/dL Calcium 8.1 L (8.4-10.2) mg/dL Magnesium 2.6 H (1.6-2.3) mg/dL Urine Protein (Negative) Urine Blood (Negative) Urine Bacteria (None) /hpf Urine Mucus (None) /hpf Microbiology - Last 24 Hours (Table) 01/19/20 17:05 Blood Culture - Preliminary Blood No Growth after 72 hours Assessment and Plan Assessment: Impression: #1. Acute hypoxemic respiratory failure, multifactorial, related to acute aspiration, pneumonia, and small bowel obstruction high-grade as noted on CT of the abdomen and pelvis. #2. Acute influenza A infection #3. Acute aspiration likely related to over distended stomach, and distended esophagus and also related to small bowel obstruction. #4. Acute kidney injury possible sepsis, #5. Chronic kidney disease, stage IIIa #6. Lactic acid acidosis related to sepsis #7. Non-anion gap metabolic acidosis related to acute on chronic kidney disease #8. Thrombocytopenia related to sepsis #9. History of developmental delay #10. Morbid obesity #11. History of multiple skin cancer removals, basal cell carcinoma Recommendation: Continue nasogastric tube to suction Reviewed the results of the CT of the abdomen and pelvis Surgery was consulted and very well aware of the findings on the CT of the abdomen and pelvis. Antibiotics in the form of Zosyn. Continue bronchodilators. Switched to subcu heparin and monitor platelets. Pulmonary embolism is felt to be extremely less likely based on the findings so far. We'll continue to follow. Family updated on his condition. Time with Patient: Less than 30
[2020-01-23] MEDS: OSELTAMIVIR 60 MG/10 ML ORAL SYRINGE PO SCH ×2 (12:39→22:23)
[2020-01-23] MEDS: TOPIRAMATE 100 MG TAB PO SCH ×2 (12:40→22:24)
[2020-01-23] MEDS: SODIUM BICARBONATE TAB 650 MG TAB PO SCH ×3 (12:40→22:24)
[2020-01-23 12:53] LABS: Glucose,Whole Blood 153 mg/dL (75-99)
--- NOTE | 2020-01-23 12:58 | P.GSCN ---
History of Present Illness Consult date: 01/23/20 History of present illness: This is a 59-year-old male who is currently hospitalized with influenza pneumonia and UTI. Patient was noted to have distended abdomen and distended small bowel loops on x-ray NG tube was placed yesterday with large amount of drainage. History obtained through chart review and discussion with family secondary to patient having developmental delay. There are no reported bowel movements over the last 48 hours. Apparently had a small bowel movement 3 days ago. Patient denies any abdominal pain at this time. He has had a inguinal hernia repair at 5 months of age. The family denies any other past abdominal surgical history. 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 MASS ON POSTERIOR SCALP CURRENTLY. History of Any Multi-Drug Resistant Organisms: None Reported Additional Past Surgical History / Comment(s): RT Hand Surgery. Past Anesthesia/Blood Transfusion Reactions: No Reported Reaction Past Psychological History: Unable to Obtain Additional Psychological History / Comment(s): "HX OUTBURSTS" "mentally challang ed" Smoking Status: Never smoker Past Alcohol Use History: None Reported Past Drug Use History: None Reported - Past Family History Mother Family Medical History: Cancer Medications and Allergies Home Medications Medication Instructions Recorded Confirmed Type Topiramate [Topamax] 100 mg PO BID 10/01/16 01/19/20 History Oseltamivir [Tamiflu] 75 mg PO Q12HR 5 Days #10 cap 01/19/20 01/19/20 Rx cloZAPine [Clozapine Odt] 200 mg PO HS 01/19/20 01/19/20 History Allergies Allergy/AdvReac Type Severity Reaction Status Date / Time silicone AdvReac Body Verified 01/19/20 18:22 rejected finger implants Surgical - Exam Osteopathic Statement: *. No significant issues noted on an osteopathic structural exam other than those noted in the History and Physical/Consult. Vital Signs Temp Pulse Resp BP Pulse Ox 104.2 F H 129 H 19 128/52 97 01/19/20 16:15 01/19/20 16:15 01/19/20 16:15 01/19/20 16:15 01/19/20 16:15 - General well developed, well nourished, no distress - Eyes PERRL - Neck trachea midline - Respiratory On BiPAP - Abdomen Soft mildly distended no tenderness palpation - Neurologic Responds to command - Psychiatric Response to command Results - Labs 01/23/20 03:31 01/23/20 03:31 Abnormal Lab Results - Last 24 Hours (Table) 01/22/20 01/22/20 01/22/20 Range/Units 13:07 13:19 13:55 WBC (3.8-10.6) k/uL RBC (4.30-5.90) m/uL Hgb (13.0-17.5) gm/dL Hct (39.0-53.0) % Plt Count (150-450) k/uL Neutrophils # (1.3-7.7) k/uL Lymphocytes # (1.0-4.8) k/uL D-Dimer 3.38 H (<0.60) mg/L FEU ABG pH (7.35-7.45) ABG pCO2 24 L (35-45) mmHg ABG pO2 215 H (83-108) mmHg ABG HCO3 15 L (21-25) mmol/L ABG Total CO2 16 L (19-24) mmol/L ABG O2 Saturation 99.7 H (94-97) % Sodium (137-145) mmol/L Chloride (98-107) mmol/L Carbon Dioxide (22-30) mmol/L BUN (9-20) mg/dL Creatinine (0.66-1.25) mg/dL Glucose (74-99) mg/dL POC Glucose (mg/dL) 191 H (75-99) mg/dL Calcium (8.4-10.2) mg/dL Magnesium (1.6-2.3) mg/dL Urine Protein (Negative) Urine Blood (Negative) Urine Bacteria (None) /hpf Urine Mucus (None) /hpf 01/22/20 01/22/20 01/22/20 Range/Units 14:04 17:17 17:35 WBC 15.6 H 13.0 H (3.8-10.6) k/uL RBC (4.30-5.90) m/uL Hgb 12.8 L (13.0-17.5) gm/dL Hct (39.0-53.0) % Plt Count (150-450) k/uL Neutrophils # 14.7 H (1.3-7.7) k/uL Lymphocytes # 0.2 L (1.0-4.8) k/uL D-Dimer (<0.60) mg/L FEU ABG pH 7.34 L (7.35-7.45) ABG pCO2 31 L (35-45) mmHg ABG pO2 57 L* (83-108) mmHg ABG HCO3 17 L (21-25) mmol/L ABG Total CO2 18 L (19-24) mmol/L ABG O2 Saturation 89.2 L (94-97) % Sodium (137-145) mmol/L Chloride (98-107) mmol/L Carbon Dioxide (22-30) mmol/L BUN (9-20) mg/dL Creatinine (0.66-1.25) mg/dL Glucose (74-99) mg/dL POC Glucose (mg/dL) (75-99) mg/dL Calcium (8.4-10.2) mg/dL Magnesium (1.6-2.3) mg/dL Urine Protein (Negative) Urine Blood (Negative) Urine Bacteria (None) /hpf Urine Mucus (None) /hpf 01/22/20 01/22/20 01/22/20 Range/Units 17:45 18:15 23:33 WBC (3.8-10.6) k/uL RBC (4.30-5.90) m/uL Hgb (13.0-17.5) gm/dL Hct (39.0-53.0) % Plt Count (150-450) k/uL Neutrophils # (1.3-7.7) k/uL Lymphocytes # (1.0-4.8) k/uL D-Dimer (<0.60) mg/L FEU ABG pH (7.35-7.45) ABG pCO2 (35-45) mmHg ABG pO2 (83-108) mmHg ABG HCO3 (21-25) mmol/L ABG Total CO2 (19-24) mmol/L ABG O2 Saturation (94-97) % Sodium (137-145) mmol/L Chloride (98-107) mmol/L Carbon Dioxide (22-30) mmol/L BUN (9-20) mg/dL Creatinine (0.66-1.25) mg/dL Glucose (74-99) mg/dL POC Glucose (mg/dL) 140 H 194 H (75-99) mg/dL Calcium (8.4-10.2) mg/dL Magnesium (1.6-2.3) mg/dL Urine Protein Trace H (Negative) Urine Blood Small H (Negative) Urine Bacteria Rare H (None) /hpf Urine Mucus Rare H (None) /hpf 01/23/20 01/23/20 01/23/20 Range/Units 03:31 03:31 06:42 WBC (3.8-10.6) k/uL RBC 4.02 L (4.30-5.90) m/uL Hgb 12.0 L (13.0-17.5) gm/dL Hct 36.5 L (39.0-53.0) % Plt Count 103 L (150-450) k/uL Neutrophils # (1.3-7.7) k/uL Lymphocytes # 0.3 L (1.0-4.8) k/uL D-Dimer (<0.60) mg/L FEU ABG pH (7.35-7.45) ABG pCO2 (35-45) mmHg ABG pO2 (83-108) mmHg ABG HCO3 (21-25) mmol/L ABG Total CO2 (19-24) mmol/L ABG O2 Saturation (94-97) % Sodium 146 H (137-145) mmol/L Chloride 121 H (98-107) mmol/L Carbon Dioxide 17 L (22-30) mmol/L BUN 59 H (9-20) mg/dL Creatinine 2.80 H (0.66-1.25) mg/dL Glucose 176 H (74-99) mg/dL POC Glucose (mg/dL) 166 H (75-99) mg/dL Calcium 8.1 L (8.4-10.2) mg/dL Magnesium 2.6 H (1.6-2.3) mg/dL Urine Protein (Negative) Urine Blood (Negative) Urine Bacteria (None) /hpf Urine Mucus (None) /hpf Microbiology - Last 24 Hours (Table) 01/19/20 17:05 Blood Culture - Preliminary Blood No Growth after 72 hours Diabetes panel 01/23/20 Range/Units 03:31 Sodium 146 H (137-145) mmol/L Potassium 3.9 (3.5-5.1) mmol/L Chloride 121 H (98-107) mmol/L Carbon Dioxide 17 L (22-30) mmol/L BUN 59 H (9-20) mg/dL Creatinine 2.80 H (0.66-1.25) mg/dL Glucose 176 H (74-99) mg/dL Calcium 8.1 L (8.4-10.2) mg/dL Calcium panel 01/23/20 Range/Units 03:31 Calcium 8.1 L (8.4-10.2) mg/dL Pituitary panel 01/23/20 Range/Units 03:31 Sodium 146 H (137-145) mmol/L Potassium 3.9 (3.5-5.1) mmol/L Chloride 121 H (98-107) mmol/L Carbon Dioxide 17 L (22-30) mmol/L BUN 59 H (9-20) mg/dL Creatinine 2.80 H (0.66-1.25) mg/dL Glucose 176 H (74-99) mg/dL Calcium 8.1 L (8.4-10.2) mg/dL Adrenal panel 01/23/20 Range/Units 03:31 Sodium 146 H (137-145) mmol/L Potassium 3.9 (3.5-5.1) mmol/L Chloride 121 H (98-107) mmol/L Carbon Dioxide 17 L (22-30) mmol/L BUN 59 H (9-20) mg/dL Creatinine 2.80 H (0.66-1.25) mg/dL Glucose 176 H (74-99) mg/dL Calcium 8.1 L (8.4-10.2) mg/dL Assessment and Plan Assessment: Influenza Pneumonia UTI Ileus versus small bowel obstruction Plan: Patient likely has an ileus secondary to his multiple medical issues including influenza pneumonia and UTI. There are no hernias and he has no past abdominal surgical history. No plans for acute surgical intervention at this time. Recommend continuing NG tube decompression and nothing by mouth.
[2020-01-23] MEDS ORDERED: HEPARIN SODIUM,PORCINE 5,000 UNIT/ML 1 ML VIAL SQ SCH (16:00)
--- NOTE | 2020-01-23 16:21 | PN ---
PROGRESS NOTE Patient is seen for followup for acute kidney injury, mainly ATN, nonoliguric. Patient came in with shortness of breath. He was diagnosed with influenza A. His respiratory status seems to have improved slightly since yesterday. Currently patient is maintained on IV fluids. He is not on any pressors. He is maintained on BiPAP. The patient has been having abdominal pain and distention. Surgical evaluation has been obtained. Repeat CT scan was done which showed high-grade small bowel obstruction and splenomegaly. Heart rate was about 103 per minute. Patient is afebrile. Blood pressure 137/86. EXAMINATION OF THE HEART: S1 and S2. EXAMINATION OF LUNGS: Bilateral breath sounds are heard. ABDOMEN: Soft, non-tender. Examination of lower extremities shows edema 1+ bilaterally. Labs show sodium 146, potassium 3.9, chloride 121, CO2 17, BUN 59, serum creatinine 2.8, hemoglobin 12.0, white cell count 8.2. ASSESSMENT: 1. Acute kidney injury, acute tubular necrosis, nonoliguric, secondary to underlying infection. Patient is not on any nephrotoxic medications. He is maintained on IV fluids, which we will continue for now. 2. Metabolic acidosis, maintained on oral sodium bicarb. 3. Hypoxic respiratory failure secondary to underlying pneumonia and influenza. 4. Pneumonia, viral and possibly bacterial as well, maintained on antibiotics as well as Tamiflu. 5. Bowel obstruction, being followed by General Surgery. PLAN: Continue with IV fluids. Continue to avoid nephrotoxic medications. Repeat labs in a.m. MMCLARISSAL / LYDIAN: [id number] /
--- NOTE | 2020-01-23 16:24 | P.PN ---
Subjective Progress Note Date: 01/23/20 Principal diagnosis: Shortness of breath 59-year-old male with PMH of developmental delay, hearing disorder, basal cell skin cancer with removal was initially brought to the ED for altered mental status, cough, generalized weakness, shortness of breath and fever. Patient was brought to the ED prior to admission for similar symptoms, chest x-ray was within normal limits, kidney function was at baseline. Patient had no leukocytosis and was ambulatory and was able to be discharged home with Tamiflu. However, his symptoms continued to progress which prompted his return to the ED later on that day. At that time, he was noted to have a fever with T-max of 102 Fahrenheit. Chest x-ray at that time showed interstitial changes, mild pulmonary vascular congestion versus atypical pneumonia or interstitial pneumonitis. Patient was noted to be tachycardic and hypoxic for which he was placed on supplemental O2. He was restarted on Tamiflu and Rocephin IV. His dyspnea continued to worsen for which CTA chest was ordered. CTA chest showed of right-sided pleural effusion, atelectasis, no PE and distended stomach with debris-filled and distended esophagus extending to the level of thoracic outlet. Patient had an nasogastric tube placed yesterday and a significant amount of fluid was drained from the abdomen. General surgery was consulted. CT of the abdomen and pelvis was ordered which confirmed high-grade obstruction at the level of the distal third of the small bowel. Patient was seen and examined. Currently on BiPAP at a rate of 12, 14/6 FiO2 40%. Discussed with RN, 2 L initially taken out after insertion of NG tube, another 2 L throughout the day today. Patient is unable to speak but is shaking his head and nodding. He denies any pain. Patient reports his breathing is getting better. Patient denies passing any gas. No bowel movement. Objective - Vital Signs Vital signs: Vital Signs Temp 98.2 F 01/23/20 12:00 Pulse 105 H 01/23/20 13:00 Resp 21 01/23/20 13:00 BP 140/84 01/23/20 13:00 Pulse Ox 97 01/23/20 13:00 Intake & Output 01/22/20 01/23/20 01/23/20 18:59 06:59 18:59 Intake Total 300 775 750 Output Total 2250 2110 1360 Balance -1950 -1335 -610 Weight 123 kg Intake: Intake, IV Titration 300 775 750 Amount Piperacillin-Tazobactam 3 100 .375 gm In Sodium Chloride 0.9% 100 ml @ 25 mls/hr IVPB Q12HR [facility] Rx #:[id number] Sodium Chloride 0.9% 1, 300 675 650 000 ml @ 125 mls/hr IV . Q8H [facility] Rx#:[id number] Sodium Chloride 0.9% 1, 100 000 ml @ 999 mls/hr IV . Q1H1M [facility] Rx#:[id number] Output: Gastric Drainage 1900 1200 800 Urine 350 910 560 Other: Voiding Method Indwelling Catheter Indwelling Catheter Indwelling Catheter - Exam General: [non toxic], [appears distressed on BiPAP], [appears at stated age] Derm: [warm], [dry] Head: [atraumatic], [normocephalic], [symmetric], [NG tube to suction] Eyes: [EOMI], [no lid lag], [anicteric sclera] Mouth: [no lip lesion], [mucus membranes moist] Cardiovascular: [S1S2 reg], [tachycardia], [positive posterior tibial pulse bilateral], Lungs: [Coarse breath sounds bilateral], [no rhonchi, no rales] , [no accessory muscle use] Abdominal: [soft and distended], [tenderness over the epigastric area], [no guarding], [no appreciable organomegaly] Ext: [no gross muscle atrophy], [no edema], [no contractures] Neuro: [no focal neuro deficits] Psych: [Alert], [oriented], [appropriate affect] - Labs CBC & Chem 7: 01/23/20 03:31 01/23/20 03:31 Labs: Abnormal Lab Results - Last 24 Hours (Table) 01/22/20 01/22/20 01/22/20 Range/Units 14:04 17:17 17:35 WBC 15.6 H 13.0 H (3.8-10.6) k/uL RBC (4.30-5.90) m/uL Hgb 12.8 L (13.0-17.5) gm/dL Hct (39.0-53.0) % Plt Count (150-450) k/uL Neutrophils # 14.7 H (1.3-7.7) k/uL Lymphocytes # 0.2 L (1.0-4.8) k/uL ABG pH 7.34 L (7.35-7.45) ABG pCO2 31 L (35-45) mmHg ABG pO2 57 L* (83-108) mmHg ABG HCO3 17 L (21-25) mmol/L ABG Total CO2 18 L (19-24) mmol/L ABG O2 Saturation 89.2 L (94-97) % Sodium (137-145) mmol/L Chloride (98-107) mmol/L Carbon Dioxide (22-30) mmol/L BUN (9-20) mg/dL Creatinine (0.66-1.25) mg/dL Glucose (74-99) mg/dL POC Glucose (mg/dL) (75-99) mg/dL Calcium (8.4-10.2) mg/dL Magnesium (1.6-2.3) mg/dL Urine Protein (Negative) Urine Blood (Negative) Urine Bacteria (None) /hpf Urine Mucus (None) /hpf 01/22/20 01/22/20 01/22/20 Range/Units 17:45 18:15 23:33 WBC (3.8-10.6) k/uL RBC (4.30-5.90) m/uL Hgb (13.0-17.5) gm/dL Hct (39.0-53.0) % Plt Count (150-450) k/uL Neutrophils # (1.3-7.7) k/uL Lymphocytes # (1.0-4.8) k/uL ABG pH (7.35-7.45) ABG pCO2 (35-45) mmHg ABG pO2 (83-108) mmHg ABG HCO3 (21-25) mmol/L ABG Total CO2 (19-24) mmol/L ABG O2 Saturation (94-97) % Sodium (137-145) mmol/L Chloride (98-107) mmol/L Carbon Dioxide (22-30) mmol/L BUN (9-20) mg/dL Creatinine (0.66-1.25) mg/dL Glucose (74-99) mg/dL POC Glucose (mg/dL) 140 H 194 H (75-99) mg/dL Calcium (8.4-10.2) mg/dL Magnesium (1.6-2.3) mg/dL Urine Protein Trace H (Negative) Urine Blood Small H (Negative) Urine Bacteria Rare H (None) /hpf Urine Mucus Rare H (None) /hpf 01/23/20 01/23/20 01/23/20 Range/Units 03:31 03:31 06:42 WBC (3.8-10.6) k/uL RBC 4.02 L (4.30-5.90) m/uL Hgb 12.0 L (13.0-17.5) gm/dL Hct 36.5 L (39.0-53.0) % Plt Count 103 L (150-450) k/uL Neutrophils # (1.3-7.7) k/uL Lymphocytes # 0.3 L (1.0-4.8) k/uL ABG pH (7.35-7.45) ABG pCO2 (35-45) mmHg ABG pO2 (83-108) mmHg ABG HCO3 (21-25) mmol/L ABG Total CO2 (19-24) mmol/L ABG O2 Saturation (94-97) % Sodium 146 H (137-145) mmol/L Chloride 121 H (98-107) mmol/L Carbon Dioxide 17 L (22-30) mmol/L BUN 59 H (9-20) mg/dL Creatinine 2.80 H (0.66-1.25) mg/dL Glucose 176 H (74-99) mg/dL POC Glucose (mg/dL) 166 H (75-99) mg/dL Calcium 8.1 L (8.4-10.2) mg/dL Magnesium 2.6 H (1.6-2.3) mg/dL Urine Protein (Negative) Urine Blood (Negative) Urine Bacteria (None) /hpf Urine Mucus (None) /hpf 01/23/20 Range/Units 12:52 WBC (3.8-10.6) k/uL RBC (4.30-5.90) m/uL Hgb (13.0-17.5) gm/dL Hct (39.0-53.0) % Plt Count (150-450) k/uL Neutrophils # (1.3-7.7) k/uL Lymphocytes # (1.0-4.8) k/uL ABG pH (7.35-7.45) ABG pCO2 (35-45) mmHg ABG pO2 (83-108) mmHg ABG HCO3 (21-25) mmol/L ABG Total CO2 (19-24) mmol/L ABG O2 Saturation (94-97) % Sodium (137-145) mmol/L Chloride (98-107) mmol/L Carbon Dioxide (22-30) mmol/L BUN (9-20) mg/dL Creatinine (0.66-1.25) mg/dL Glucose (74-99) mg/dL POC Glucose (mg/dL) 153 H (75-99) mg/dL Calcium (8.4-10.2) mg/dL Magnesium (1.6-2.3) mg/dL Urine Protein (Negative) Urine Blood (Negative) Urine Bacteria (None) /hpf Urine Mucus (None) /hpf Microbiology - Last 24 Hours (Table) 01/19/20 17:05 Blood Culture - Preliminary Blood No Growth after 72 hours Assessment and Plan Assessment: Acute hypoxic respiratory failure secondary to influenza and possible aspiration pneumonia High-grade small bowel obstruction Sepsis Acute kidney injury on chronic kidney disease stage III Non-anion gap metabolic acidosis Anemia Lactic acidosis has resolved. Patient currently on BiPAP with FiO2 50%. He is being treated for him plans of with Tamiflu. Aspiration pneumonia is being covered by Zosyn IV. Echocardiogram shows EF 45-50% mild systolic dysfunction for which he is being treated with intermittent Lasix. He is being treated with DuoNeb scheduled and as needed for shortness of breath and wheezing. He is on Solu-Medrol IV. Pulmonology and general surgery is following the patient. He is placed on droplet precautions. NG tube to be continued. As seen on CTA chest. As above, NG tube has been inserted. Surgery is following the patient and recommended against surgical intervention at this time. Plan is to continue NG tube decompression and keep the patient nothing by mouth. Patient initially met sepsis criteria. He was febrile, tachycardic with leukocytosis and a positive source of infection. He was initially on normal saline at 125 mL per hour which will be decreased to 75. Blood cultures are negative at 72 hours. Plan is to follow final culture results. Continue IV antibiotics as above pending improvement. Patient with worsening creatinine of 2.80. His creatinine is 1.75 on admission. This is likely related to sepsis. He was also given a couple doses of Lasix intermittently. Plan is to avoid nephrotoxins and repeat BMP on a daily basis. He does have bicarbonate of 18 and chloride of 116. This could be related to infused IVF. Also related to kidney dysfunction. Lactic acid is now within normal limits. Plan is to continue normal saline as above. Repeat BMP on a daily basis. Hemoglobin is 12.8. This is baseline for patient. Likely related to chronic kidney disease. Plan is to repeat CBC on a daily basis and transfuse if hemoglobin less than 7. [Patient admitted for respiratory failure due to influenza. Found to have SBO and possible aspiration pneumonia. Prognosis is guarded.]
[2020-01-23 17:41] LABS: Glucose,Whole Blood 152 mg/dL (75-99)
[2020-01-23] MEDS: HEPARIN SODIUM,PORCINE 5,000 UNIT/ML 1 ML VIAL SQ SCH (22:23)
[2020-01-23] MEDS: cloZAPine 100 MG TAB PO SCH (22:23)
[2020-01-24 00:28] LABS: Glucose,Whole Blood 174 mg/dL (75-99)
[2020-01-24] MEDS: INSULIN ASPART (NovoLOG) 100 UNIT/ML VIAL SQ SCH ×5 (00:53→23:17)
[2020-01-24] MEDS: methylPREDNISolone SOD SUCCI 40 MG/ML 1 ML VIAL IV SCH ×3 (00:53→21:17)
[2020-01-24] MEDS: SODIUM CHLORIDE 0.9% 1,000 ML IV SCH (00:53)
[2020-01-24 06:34] LABS: Glucose,Whole Blood 133 mg/dL (75-99)
[2020-01-24 06:54] LABS: HCT 34.8 % (39.0-53.0); HGB 11.4 gm/dL (13.0-17.5); MCH 29.5 pg (25.0-35.0); MCHC 32.8 g/dL (31.0-37.0); MCV 89.9 fL (80.0-100.0); Mean Platelet Volume 9.3; Platelet Count 123 k/uL (150-450); RBC 3.87 m/uL (4.30-5.90); RDW 14.2 % (11.5-15.5); WBC 8.8 k/uL (3.8-10.6)
[2020-01-24 07:02] LABS: Calcium 8.4 mg/dL (8.4-10.2)
[2020-01-24] MEDS ORDERED: DEXTROSE 5%-0.45% NACL 1,000 ML IV SCH (07:45)
[2020-01-24] MEDS: IPRATROPIUM-ALBUTEROL 3 ML NEB INHALATION SCH ×4 (07:48→20:29)
[2020-01-24] MEDS: SODIUM BICARBONATE TAB 650 MG TAB PO SCH ×3 (08:12→21:00)
[2020-01-24] MEDS: TOPIRAMATE 100 MG TAB PO SCH ×2 (08:13→21:00)
[2020-01-24] MEDS: HEPARIN SODIUM,PORCINE 5,000 UNIT/ML 1 ML VIAL SQ SCH ×2 (08:17→21:18)
[2020-01-24] MEDS: PIPERACILLIN-TAZOBACTAM 3.375 GM in SODIUM CHLORIDE 0.9% 100 ML IVPB SCH ×3 (08:17→23:17)
[2020-01-24] MEDS: PANTOPRAZOLE 40 MG/10 ML VIAL IVP SCH (08:17)
--- NOTE | 2020-01-24 08:59 | P.PN ---
Subjective Progress Note Date: 01/24/20 Principal diagnosis: Shortness of breath 59-year-old male with PMH of developmental delay, hearing disorder, basal cell skin cancer with removal was initially brought to the ED for altered mental status, cough, generalized weakness, shortness of breath and fever. Patient was brought to the ED prior to admission for similar symptoms, chest x-ray was within normal limits, kidney function was at baseline. Patient had no leukocytosis and was ambulatory and was able to be discharged home with Tamiflu. However, his symptoms continued to progress which prompted his return to the ED later on that day. At that time, he was noted to have a fever with T-max of 102 Fahrenheit. Chest x-ray at that time showed interstitial changes, mild pulmonary vascular congestion versus atypical pneumonia or interstitial pneumonitis. Patient was noted to be tachycardic and hypoxic for which he was placed on supplemental O2. He was restarted on Tamiflu and Rocephin IV. His dyspnea continued to worsen for which CTA chest was ordered. CTA chest showed of right-sided pleural effusion, atelectasis, no PE and distended stomach with debris-filled and distended esophagus extending to the level of thoracic outlet. Patient had an nasogastric tube placed yesterday and a significant amount of fluid was drained from the abdomen. General surgery was consulted. CT of the abdomen and pelvis was ordered which confirmed high-grade obstruction at the level of the distal third of the small bowel. Patient was seen and examined. Currently on BiPAP at a rate of 12, 14/6 FiO2 40%. Discussed with RN, 2 L initially taken out after insertion of NG tube, another 2 L throughout the day today. Patient is unable to speak but is shaking his head and nodding. He denies any pain. Patient reports his breathing is getting better. Patient denies passing any gas. No bowel movement. Patient was seen and examined on 01/24/2020. He continues to be on BiPAP with FiO2 40%. Minimal drainage from NG tube currently not on suction. Patient shakes his head no when asked about pain. No bowel movement. CBC shows hemoglobin 11.4 with platelet count 123. CMP shows sodium 151, chloride 125, bicarbonate 17, BUN 69, creatinine 2.38. Glucose 134. Serum osmolality 341. Objective - Vital Signs Vital signs: Vital Signs Temp 98.3 F 01/24/20 08:00 Pulse 97 01/24/20 08:00 Resp 7 L 01/24/20 08:00 BP 136/92 01/24/20 08:00 Pulse Ox 96 01/24/20 08:00 Intake & Output 01/23/20 01/24/20 01/24/20 18:59 06:59 18:59 Intake Total 1375 1025 75 Output Total 1720 875 480 Balance -345 150 -405 Weight 124.8 kg Intake: IV 900 75 Sodium Chloride 0.9% 1, 900 75 000 ml @ 75 mls/hr IV . [id number] [facility] Rx#:[id number] Intake, IV Titration 1375 125 Amount Sodium Chloride 0.9% 1, 1275 125 000 ml @ 75 mls/hr IV . [id number] [facility] Rx#:[id number] Sodium Chloride 0.9% 1, 100 000 ml @ 999 mls/hr IV . Q1H1M [facility] Rx#:[id number] Output: Gastric Drainage 800 400 Urine 920 875 80 Other: Voiding Method Indwelling Catheter Indwelling Catheter - Exam General: [non toxic], [appears distressed on BiPAP], [appears at stated age] Derm: [warm], [dry] Head: [atraumatic], [normocephalic], [symmetric], [NG tube in place] Eyes: [EOMI], [no lid lag], [anicteric sclera] Mouth: [no lip lesion], [mucus membranes moist] Cardiovascular: [S1S2 reg], [tachycardia], [positive DP pulse bilateral], Lungs: [Coarse breath sounds bilateral], [no rhonchi, no rales] , [no accessory muscle use] Abdominal: [soft and distended], [tenderness over the epigastric area], [no gu arding], [no appreciable organomegaly] Ext: [no gross muscle atrophy], [no edema], [no contractures] Neuro: [no focal neuro deficits] Psych: [Unable to determine] - Labs CBC & Chem 7: 01/24/20 06:46 01/24/20 06:46 Labs: Abnormal Lab Results - Last 24 Hours (Table) 01/23/20 01/23/20 01/24/20 Range/Units 12:52 17:40 00:25 RBC (4.30-5.90) m/uL Hgb (13.0-17.5) gm/dL Hct (39.0-53.0) % Plt Count (150-450) k/uL Sodium (137-145) mmol/L Chloride (98-107) mmol/L Carbon Dioxide (22-30) mmol/L BUN (9-20) mg/dL Creatinine (0.66-1.25) mg/dL Glucose (74-99) mg/dL POC Glucose (mg/dL) 153 H 152 H 174 H (75-99) mg/dL Osmolality (280-301) mosm/kg 01/24/20 01/24/20 01/24/20 Range/Units 06:33 06:46 06:46 RBC 3.87 L (4.30-5.90) m/uL Hgb 11.4 L (13.0-17.5) gm/dL Hct 34.8 L (39.0-53.0) % Plt Count 123 L (150-450) k/uL Sodium 151 H (137-145) mmol/L Chloride 125 H (98-107) mmol/L Carbon Dioxide 17 L (22-30) mmol/L BUN 69 H (9-20) mg/dL Creatinine 2.38 H (0.66-1.25) mg/dL Glucose 134 H (74-99) mg/dL POC Glucose (mg/dL) 133 H (75-99) mg/dL Osmolality (280-301) mosm/kg 01/24/20 Range/Units 06:46 RBC (4.30-5.90) m/uL Hgb (13.0-17.5) gm/dL Hct (39.0-53.0) % Plt Count (150-450) k/uL Sodium (137-145) mmol/L Chloride (98-107) mmol/L Carbon Dioxide (22-30) mmol/L BUN (9-20) mg/dL Creatinine (0.66-1.25) mg/dL Glucose (74-99) mg/dL POC Glucose (mg/dL) (75-99) mg/dL Osmolality 341 H* (280-301) mosm/kg Microbiology - Last 24 Hours (Table) 01/19/20 17:05 Blood Culture - Preliminary Blood No Growth after 96 hours 01/22/20 13:07 Blood Culture - Preliminary Blood No Growth after 24 hours Assessment and Plan Assessment: Hypernatremia Acute hypoxic respiratory failure secondary to influenza and possible aspiration pneumonia High-grade small bowel obstruction Sepsis Acute kidney injury on chronic kidney disease stage III Non-anion gap metabolic acidosis Anemia Lactic acidosis has resolved. Sodium 151. Acute change. Likely hypovolemic. Patient does not look fluid overloaded. Serum osmolality elevated. Plans to obtain urine sodium. Switch normal saline to D5 half-normal saline. Plans to repeat BMP tomorrow morning. Patient currently on BiPAP with FiO2 40%. He is being treated for Influenza with Tamiflu. Aspiration pneumonia is being covered by Zosyn IV. Echocardiogram shows EF 45-50% mild systolic dysfunction for which he is being treated with intermittent Lasix. He is being treated with DuoNeb scheduled and as needed for shortness of breath and wheezing. He is on Solu-Medrol IV. Pulmonology and general surgery is following the patient. He is placed on droplet precautions. As seen on CTA chest. As above, NG tube has been inserted. Surgery is following the patient and recommended against surgical intervention at this time. Plan is to continue NG tube decompression and keep the patient nothing by mouth. Patient initially met sepsis criteria. He was febrile, tachycardic with leukocytosis and a positive source of infection. IVF was switched as above. Blood cultures are negative at 96 hours. Plan is to follow final culture results. Continue IV antibiotics as above pending improvement. Patient with worsening creatinine of 2.38. His creatinine is 1.75 on admission. This is likely related to sepsis. He was also given a couple doses of Lasix intermittently. Plan is to avoid nephrotoxins and repeat BMP on a daily basis. He does have bicarbonate of 17 and chloride of 125. This could be related to infused IVF. Also related to kidney dysfunction. Lactic acid is now within normal limits. Plan is to switch IVF as above. Continue sodium bicarbonate by mouth. Repeat BMP on a daily basis. Hemoglobin is 11.4. This is baseline for patient. Likely related to chronic kidney disease. Plan is to repeat CBC on a daily basis and transfuse if hemoglobin less than 7. [Patient admitted for respiratory failure due to influenza. Found to have SBO and possible aspiration pneumonia. Workup for hypernatremia. Prognosis is guarded.]
[2020-01-24] MEDS: DEXTROSE 5% IN WATER 1,000 ML IV SCH ×3 (10:03→23:18)
--- NOTE | 2020-01-24 10:14 | XR ---
EXAMINATION TYPE: XR chest 1V portable DATE OF EXAM: 01/24/2020 HISTORY: Aspiration pneumonia. REFERENCE: Previous study dated 01/23/2020. FINDINGS: The heart is enlarged. Bibasilar airspace disease. There is a small right effusion. The ove rall appearance is very similar to previous. Note is made of an NG tube in place with its tip in the stomach. IMPRESSION: NO SIGNIFICANT INTERVAL CHANGE IN THE APPEARANCE OF THE CHEST.
--- NOTE | 2020-01-24 11:56 | P.PN ---
Subjective Progress Note Date: 01/24/20 Principal diagnosis: Ileus VS small bowel obstruction, Influenza The patient is a 59-year-old man admitted to the hospital with influenza. He had developed nausea and vomiting and a computed tomography scan showed a markedly distended stomach and small bowel. An NG tube was inserted. He had a large volume of output initially. The patient was transferred to the ICU due to respiratory issues. Today the patient is denying pain. Typically the patient will denying any complaints from her sister. The sister feels that he does not look is ill. Objective - Vital Signs Vital signs: Vital Signs Temp 98.3 F 01/24/20 08:00 Pulse 95 01/24/20 11:04 Resp 14 01/24/20 11:00 BP 136/89 01/24/20 11:00 Pulse Ox 99 01/24/20 11:00 Intake & Output 01/23/20 01/24/20 01/24/20 18:59 06:59 18:59 Intake Total 1375 1025 275 Output Total 1720 875 630 Balance -345 150 -355 Weight 124.8 kg Intake: IV 900 275 Dextrose 5%-0.45% NaCl 1, 200 000 ml @ 100 mls/hr IV . Q10H [facility] Rx#:[id number] Sodium Chloride 0.9% 1, 900 75 000 ml @ 75 mls/hr IV . [id number] [facility] Rx#:[id number] Intake, IV Titration 1375 125 Amount Sodium Chloride 0.9% 1, 1275 125 000 ml @ 75 mls/hr IV . [id number] [facility] Rx#:[id number] Sodium Chloride 0.9% 1, 100 000 ml @ 999 mls/hr IV . Q1H1M [facility] Rx#:[id number] Output: Gastric Drainage 800 400 Urine 920 875 230 Other: Voiding Method Indwelling Catheter Indwelling Catheter Indwelling Catheter - Constitutional General appearance: Present: cooperative, no acute distress - Respiratory Respiratory: bilateral: diminished (At the bases), rhonchi - Cardiovascular Rhythm: regular - Gastrointestinal General gastrointestinal: Present: decreased bowel sounds (No active bowel sounds), distended (Softly distended). Absent: tenderness (No guarding or rebound) - Labs CBC & Chem 7: 01/24/20 06:46 01/24/20 06:46 Labs: Abnormal Lab Results - Last 24 Hours (Table) 01/23/20 01/23/20 01/24/20 Range/Units 12:52 17:40 00:25 RBC (4.30-5.90) m/uL Hgb (13.0-17.5) gm/dL Hct (39.0-53.0) % Plt Count (150-450) k/uL Sodium (137-145) mmol/L Chloride (98-107) mmol/L Carbon Dioxide (22-30) mmol/L BUN (9-20) mg/dL Creatinine (0.66-1.25) mg/dL Glucose (74-99) mg/dL POC Glucose (mg/dL) 153 H 152 H 174 H (75-99) mg/dL Osmolality (280-301) mosm/kg 01/24/20 01/24/20 01/24/20 Range/Units 06:33 06:46 06:46 RBC 3.87 L (4.30-5.90) m/uL Hgb 11.4 L (13.0-17.5) gm/dL Hct 34.8 L (39.0-53.0) % Plt Count 123 L (150-450) k/uL Sodium 151 H (137-145) mmol/L Chloride 125 H (98-107) mmol/L Carbon Dioxide 17 L (22-30) mmol/L BUN 69 H (9-20) mg/dL Creatinine 2.38 H (0.66-1.25) mg/dL Glucose 134 H (74-99) mg/dL POC Glucose (mg/dL) 133 H (75-99) mg/dL Osmolality (280-301) mosm/kg 01/24/20 Range/Units 06:46 RBC (4.30-5.90) m/uL Hgb (13.0-17.5) gm/dL Hct (39.0-53.0) % Plt Count (150-450) k/uL Sodium (137-145) mmol/L Chloride (98-107) mmol/L Carbon Dioxide (22-30) mmol/L BUN (9-20) mg/dL Creatinine (0.66-1.25) mg/dL Glucose (74-99) mg/dL POC Glucose (mg/dL) (75-99) mg/dL Osmolality 341 H* (280-301) mosm/kg Microbiology - Last 24 Hours (Table) 01/19/20 17:05 Blood Culture - Preliminary Blood No Growth after 96 hours 01/22/20 13:07 Blood Culture - Preliminary Blood No Growth after 24 hours Assessment and Plan (1) Ileus Current Visit: Yes Status: Acute Code(s): K56.7 - ILEUS, UNSPECIFIED SNOMED Code(s): 231099481 (2) Hypernatremia Current Visit: Yes Status: Acute Code(s): E87.0 - HYPEROSMOLALITY AND HYPERNATREMIA SNOMED Code(s): 544745966 (3) Influenza Current Visit: Yes Status: Acute Code(s): J11.1 - FLU DUE TO UNIDENTIFIED INFLUENZA VIRUS W OTH RESP MANIFEST SNOMED Code(s): 0726965 Plan: Currently the patient has a nonsurgical abdomen. This is likely a severe reactive ileus due to his influenza. At present I would recommend continuing IV fluids (which have been changed due to the increased sodium and chloride). NG tube decompression. Serial exams. Further recommendations to follow.
--- NOTE | 2020-01-24 12:05 | P.PN ---
Subjective Progress Note Date: 01/24/20 Principal diagnosis: Small bowel obstruction and aspiration pneumonia 59-year-old white male patient of Dr. Nielsen with history of developmental delay, hearing disorder, basal cell skin cancer with removal, who resides at home with his mother, was brought in per EMS on O2 2019 for altered mental status, cough, shortness of breath and fever. In addition patient had been very weak. He was diagnosed with influenza A the day prior during his visit to the emergency department, chest x-ray displayed no acute process, kidney function was at baseline, patient does have history of chronic kidney disease, no leukocytosis, patient was ambulatory, he was discharged home on Tamiflu. However his symptoms continued to progress and he returned to the emergency department by EMS later that day on O2 2019. This time patient was unable to ambulate related to weakness, his temperature was 102F, he denied any chest pain or pain in any other areas. He is a poor historian, and he is currently having increased difficulty breathing, most of the information was obtained from the chart, and the nursing staff, his family is not around. Chest x-ray in the ED showed interstitial changes, mild pulmonary vascular congestion versus atypical pneumonia or interstitial pneumonitis, KG shows sinus tachycardia with a rate of 128, a small to be hypoxemic, he was placed on supplemental oxygen, he is currently on 5 L with a pulse ox of 96%, he was initially placed on medical surgical floor with Tamiflu and IV Rocephin for empiric antibiotic coverage. His admission blood work showed a white blood cell count of 8.5, hemoglobin of 12.0, sodium of 141, potassium is 3.5, chloride was 115, CO2 is 15, acute on chronic kidney failure, with BUN of 24, and creatinine of 1.75, plasma lactic acid was 2.0, proBNP was 553, pro calcitonin level was elevated at 4.67. Patient's dyspnea continued to worsen, CT angiogram of the chest was obtained which was a suboptimal study with a lot of artifact related to patient's inability to hold breath it showed tiny right pleural effusion, linear atelectasis, no suspicious focal consolidation, no large pulmonary masses, no large saddle central pulmonary embolism, could not exclude smaller segmental and subsegmental pulmonary embolisms, tiny pericardial effusion, and of note she was noted to have old distended stomach with debris-filled a distended esophagus extending to the level of thoracic inlet. There my evaluation patient is very tachypneic, dyspneic, he is in sinus mechanism with a rate of 134, he has a fever of 100.8F, there is a suspicion of aspiration, patient has audible wheezing and congestion in the upper airways, his respirations are rapid and shallow, he was placed on BiPAP support with pressures of 12 and 6 and FiO2 of 50%, blood gases pending. Patient was reevaluated today on 01/23/20, remains in the ICU. I evaluated the patient late yesterday, and recommended a nasogastric tube placement. His flat plate of the abdomen showed significant dilated bowel loops, after the nasogastric tube was placed, significant amount of fluid was drained from his stomach. Patient felt better, there was a significant relief. Consulted general surgery for possible small bowel obstruction. Patient had a CT of the abdomen and pelvis today, and it is consistent with high-grade obstruction at the level of the distal third of the small bowel. Patient is feeling better, breathing easier although he had a bit of aspiration especially involving the right lower lobe and possibly the left lower lobe. He is covered with ant ibiotics. Remains on BiPAP, surgery has been updated on his condition, and I understand the family requested Dr. medrano to see. Awaiting input from Dr. medrano whether the patient will need to go to surgery anytime soon. WBC count today is 8.2 hemoglobin is 12 electrolytes showed slightly elevated sodium BUN is up to 58 creatinine is 2.80, hence more IV fluid will be given, and would hold on diuretics. Reviewed the issues regarding his questionable pulmonary embolism, strongly doubt pulmonary embolism, there is no evidence of deep vein thrombosis, and the CT of the chest showed no proximal emboli, and the quality was very suboptimal quality for the CT of the chest. Clinically there is no evidence of pulmonary embolism. Hence Lovenox will be changed to 40 mg subcu daily. [place] placed on heparin 5000 units subcu every 12 hours. IV fluid will be increased, and the patient may receive boluses of fluids. CBC today is basically unremarkable. Bicarb is 17. Chest x-ray is consistent with aspiration pneumonia involving lower lobe. And some bibasilar atelectasis. Reevaluated today on 01/24/20, patient remains in the ICU, improving with nasogastric tube suctioning, however his electrolytes are much worse today, and the patient developed hypernatremia most likely secondary to free water fluid deficit, hence I changed his IV fluid to D5W at 150 mL per hour. Patient was evaluated by surgery, planning to continue conservative measures and decompression via nasogastric tube. No plans for surgery today. Patient is off BiPAP, he is on few liters nasal cannula, feeling better, breathing easier, denies any shortness of breath cough or wheezing. His follow-up chest x-ray today showed minimal infiltrate in the right lower lobe, and possible atelectasis. CBC is relatively normal however his sodium is 151 chloride is 125 and his BUN is 69 creatinine 2.38. This is actually improved compared to creatinine yesterday of 2.80. IV fluid was changed to D5W, patient remains on oral bicarb, and he remains on antibiotics in the form of Zosyn. Objective - Vital Signs Vital signs: Vital Signs Temp 98.3 F 01/24/20 08:00 Pulse 95 01/24/20 11:04 Resp 14 01/24/20 11:00 BP 136/89 01/24/20 11:00 Pulse Ox 99 01/24/20 11:00 Intake & Output 01/23/20 01/24/20 01/24/20 18:59 06:59 18:59 Intake Total 1375 1025 275 Output Total 1720 875 630 Balance -345 150 -355 Weight 124.8 kg Intake: IV 900 275 Dextrose 5%-0.45% NaCl 1, 200 000 ml @ 100 mls/hr IV . Q10H [facility] Rx#:[id number] Sodium Chloride 0.9% 1, 900 75 000 ml @ 75 mls/hr IV . [id number] [facility] Rx#:[id number] Intake, IV Titration 1375 125 Amount Sodium Chloride 0.9% 1, 1275 125 000 ml @ 75 mls/hr IV . [id number] [facility] Rx#:[id number] Sodium Chloride 0.9% 1, 100 000 ml @ 999 mls/hr IV . Q1H1M ONE Rx#:[id number] Output: Gastric Drainage 800 400 Urine 920 875 230 Other: Voiding Method Indwelling Catheter Indwelling Catheter Indwelling Catheter - Exam GENERAL EXAM: Alert, 59-year-old obese white male, with chronic developmental delay, in no distress, on nasal cannula, asymptomatic. HEAD: Normocephalic/atraumatic. HEENT: PERRLA, EOMI, no icterus, no neck masses, dry mucous membranes. CHEST: No chest wall deformity. Symmetrical expansion. LUNGS: Diminished breath sounds and crackles at the bases. No rhonchi no wheezes CVS: Regular rate and rhythm, normal S1 and S2, no gallops, no murmurs, no rubs ABDOMEN: Soft, nontender. No hepatosplenomegaly, diminished bowel sounds. EXTREMITIES: No clubbing, no edema, no cyanosis, 2+ pulses and upper and lower extremities. MUSCULOSKELETAL: Muscle strength and tone normal. SPINE: No scoliosis or deformity SKIN: No rashes CENTRAL NERVOUS SYSTEM: Alert and oriented -2. No focal deficits, tone is normal in all 4 extremities. PSYCHIATRIC: Alert and oriented -2. Appropriate affect. Judgment is questionable. - Labs CBC & Chem 7: 01/24/20 06:46 01/24/20 06:46 Labs: Abnormal Lab Results - Last 24 Hours (Table) 01/23/20 01/23/20 01/24/20 Range/Units 12:52 17:40 00:25 RBC (4.30-5.90) m/uL Hgb (13.0-17.5) gm/dL Hct (39.0-53.0) % Plt Count (150-450) k/uL Sodium (137-145) mmol/L Chloride (98-107) mmol/L Carbon Dioxide (22-30) mmol/L BUN (9-20) mg/dL Creatinine (0.66-1.25) mg/dL Glucose (74-99) mg/dL POC Glucose (mg/dL) 153 H 152 H 174 H (75-99) mg/dL Osmolality (280-301) mosm/kg 01/24/20 01/24/20 01/24/20 Range/Units 06:33 06:46 06:46 RBC 3.87 L (4.30-5.90) m/uL Hgb 11.4 L (13.0-17.5) gm/dL Hct 34.8 L (39.0-53.0) % Plt Count 123 L (150-450) k/uL Sodium 151 H (137-145) mmol/L Chloride 125 H (98-107) mmol/L Carbon Dioxide 17 L (22-30) mmol/L BUN 69 H (9-20) mg/dL Creatinine 2.38 H (0.66-1.25) mg/dL Glucose 134 H (74-99) mg/dL POC Glucose (mg/dL) 133 H (75-99) mg/dL Osmolality (280-301) mosm/kg 01/24/20 Range/Units 06:46 RBC (4.30-5.90) m/uL Hgb (13.0-17.5) gm/dL Hct (39.0-53.0) % Plt Count (150-450) k/uL Sodium (137-145) mmol/L Chloride (98-107) mmol/L Carbon Dioxide (22-30) mmol/L BUN (9-20) mg/dL Creatinine (0.66-1.25) mg/dL Glucose (74-99) mg/dL POC Glucose (mg/dL) (75-99) mg/dL Osmolality 341 H* (280-301) mosm/kg Microbiology - Last 24 Hours (Table) 01/19/20 17:05 Blood Culture - Preliminary Blood No Growth after 96 hours 01/22/20 13:07 Blood Culture - Preliminary Blood No Growth after 24 hours Assessment and Plan Assessment: Impression: #1. Acute hypoxemic respiratory failure, multifactorial, related to acute aspiration, pneumonia, and small bowel obstruction high-grade as noted on CT of the abdomen and pelvis. #2. Acute influenza A infection #3. Acute aspiration likely related to over distended stomach, and distended esophagus and also related to small bowel obstruction. #4. Acute kidney injury possible sepsis, patient could have developed acute tubular necrosis #5. Chronic kidney disease, stage IIIa #6. Lactic acid acidosis related to sepsis #7. Non-anion gap metabolic acidosis related to acute on chronic kidney disease #8. Thrombocytopenia related to sepsis #9. History of developmental delay #10. Morbid obesity #11. History of multiple skin cancer removals, basal cell carcinoma #12 electrolytes imbalance, mostly hypernatremia secondary to free water deficit, this should be corrected with D5W at 1 50 mL per hour. Recommendation: Continue nasogastric tube to suction Continue to monitor electrolytes, and IV fluid was changed to D5W. Antibiotics in the form of Zosyn. Continue bronchodilators. Decrease Solu-Medrol to 40 mg IV push every 12 hours. Continue GI and DVT prophylaxis. Pulmonary embolism is felt to be extremely less likely based on the findings so far. Hence no need for treatment for pulmonary embolism but continue GI and DVT prophylaxis We'll continue to follow. Family updated on his condition. No plans for immediate surgery at this point as noted by the surgical note. Time with Patient: Less than 30
--- NOTE | 2020-01-24 12:12 | P.PN ---
Subjective Progress Note Date: 01/24/20 Follow-up for acute kidney injury. NG tube still to suction, on D5 water at 150 ML's an hour. Urine output of 2.5 L in the last 24 hours. Objective - Vital Signs Vital signs: Vital Signs Temp 98.3 F 01/24/20 08:00 Pulse 95 01/24/20 11:04 Resp 14 01/24/20 11:00 BP 136/89 01/24/20 11:00 Pulse Ox 99 01/24/20 11:00 Intake & Output 01/23/20 01/24/20 01/24/20 18:59 06:59 18:59 Intake Total 1375 1025 275 Output Total 1720 875 630 Balance -345 150 -355 Weight 124.8 kg Intake: IV 900 275 Dextrose 5%-0.45% NaCl 1, 200 000 ml @ 100 mls/hr IV . Q10H [facility] Rx#:[id number] Sodium Chloride 0.9% 1, 900 75 000 ml @ 75 mls/hr IV . [id number] [facility] Rx#:[id number] Intake, IV Titration 1375 125 Amount Sodium Chloride 0.9% 1, 1275 125 000 ml @ 75 mls/hr IV . [id number] [facility] Rx#:[id number] Sodium Chloride 0.9% 1, 100 000 ml @ 999 mls/hr IV . Q1H1M ONE Rx#:[id number] Output: Gastric Drainage 800 400 Urine 920 875 230 Other: Voiding Method Indwelling Catheter Indwelling Catheter Indwelling Catheter - Exam No acute distress S1-S2 heard Lungs clear Trace edema - Labs CBC & Chem 7: 01/24/20 06:46 01/24/20 06:46 Labs: Abnormal Lab Results - Last 24 Hours (Table) 01/23/20 01/23/20 01/24/20 Range/Units 12:52 17:40 00:25 RBC (4.30-5.90) m/uL Hgb (13.0-17.5) gm/dL Hct (39.0-53.0) % Plt Count (150-450) k/uL Sodium (137-145) mmol/L Chloride (98-107) mmol/L Carbon Dioxide (22-30) mmol/L BUN (9-20) mg/dL Creatinine (0.66-1.25) mg/dL Glucose (74-99) mg/dL POC Glucose (mg/dL) 153 H 152 H 174 H (75-99) mg/dL Osmolality (280-301) mosm/kg 01/24/20 01/24/20 01/24/20 Range/Units 06:33 06:46 06:46 RBC 3.87 L (4.30-5.90) m/uL Hgb 11.4 L (13.0-17.5) gm/dL Hct 34.8 L (39.0-53.0) % Plt Count 123 L (150-450) k/uL Sodium 151 H (137-145) mmol/L Chloride 125 H (98-107) mmol/L Carbon Dioxide 17 L (22-30) mmol/L BUN 69 H (9-20) mg/dL Creatinine 2.38 H (0.66-1.25) mg/dL Glucose 134 H (74-99) mg/dL POC Glucose (mg/dL) 133 H (75-99) mg/dL Osmolality (280-301) mosm/kg 01/24/20 Range/Units 06:46 RBC (4.30-5.90) m/uL Hgb (13.0-17.5) gm/dL Hct (39.0-53.0) % Plt Count (150-450) k/uL Sodium (137-145) mmol/L Chloride (98-107) mmol/L Carbon Dioxide (22-30) mmol/L BUN (9-20) mg/dL Creatinine (0.66-1.25) mg/dL Glucose (74-99) mg/dL POC Glucose (mg/dL) (75-99) mg/dL Osmolality 341 H* (280-301) mosm/kg Microbiology - Last 24 Hours (Table) 01/19/20 17:05 Blood Culture - Preliminary Blood No Growth after 96 hours 01/22/20 13:07 Blood Culture - Preliminary Blood No Growth after 24 hours Assessment and Plan Assessment: #1 nonoliguric acute kidney injury secondary to ischemic ATN. #2 hyponatremia secondary to decreased oral intake #3 small bowel obstruction #4 hypoxic respiratory failure secondary to pneumonia and influenza #5 chronic kidney disease stage III with a baseline creatinine of 1.5-1.6 MG per DL. Plan: #1 agree with IV fluids, D5 water at 150 ML's an hour. Goal sodium decrease should be around 10 ML's in 24 hours. #2 creatinine improving, sodium bicarbonate for acidosis #3 avoid nephrotoxic agents and hypotensive episodes.
[2020-01-24 12:41] LABS: Glucose,Whole Blood 191 mg/dL (75-99)
[2020-01-24 18:20] LABS: Glucose,Whole Blood 172 mg/dL (75-99)
[2020-01-24] MEDS: cloZAPine 100 MG TAB PO SCH (20:59)
[2020-01-24 23:06] LABS: Glucose,Whole Blood 134 mg/dL (75-99)
[2020-01-25] MEDS: DEXTROSE 5% IN WATER 1,000 ML IV SCH ×3 (05:39→18:03)
[2020-01-25 05:41] LABS: HCT 32.9 % (39.0-53.0); MCH 29.8 pg (25.0-35.0); MCHC 33.4 g/dL (31.0-37.0); MCV 89.1 fL (80.0-100.0); Mean Platelet Volume 9.1; Platelet Count 134 k/uL (150-450); RBC 3.69 m/uL (4.30-5.90); RDW 14.1 % (11.5-15.5); WBC 7.9 k/uL (3.8-10.6)
[2020-01-25 05:52] LABS: Potassium 3.7 mmol/L (3.5-5.1)
[2020-01-25 06:09] LABS: Glucose,Whole Blood 111 mg/dL (75-99)
--- NOTE | 2020-01-25 06:20 | XR ---
EXAMINATION TYPE: XR chest 1V portable DATE OF EXAM: 01/25/2020 HISTORY: dyspnea. REFERENCE: Previous study dated 01/24/2020. FINDINGS: There is an NG tube in place. Its tip is in the stomach. The heart is enlarged IMPRESSION: IMPROVED AERATION, RIGHT LUNG BASE.
[2020-01-25] MEDS: INSULIN ASPART (NovoLOG) 100 UNIT/ML VIAL SQ SCH ×3 (06:27→17:15)
[2020-01-25 07:47] LABS: Magnesium 3.1 mg/dL (1.6-2.3); Phosphorus 2.6 mg/dL (2.5-4.5)
[2020-01-25] MEDS: IPRATROPIUM-ALBUTEROL 3 ML NEB INHALATION SCH ×4 (07:54→20:34)
[2020-01-25] MEDS: PIPERACILLIN-TAZOBACTAM 3.375 GM in SODIUM CHLORIDE 0.9% 100 ML IVPB SCH ×2 (08:39→17:14)
[2020-01-25] MEDS: methylPREDNISolone SOD SUCCI 40 MG/ML 1 ML VIAL IV SCH ×2 (08:40→20:04)
[2020-01-25] MEDS: HEPARIN SODIUM,PORCINE 5,000 UNIT/ML 1 ML VIAL SQ SCH ×2 (08:40→20:04)
[2020-01-25] MEDS: PANTOPRAZOLE 40 MG/10 ML VIAL IVP SCH (08:40)
[2020-01-25] MEDS: TOPIRAMATE 100 MG TAB PO SCH ×2 (09:45→19:58)
[2020-01-25] MEDS: ENOXAPARIN 60 MG/0.6 ML SYRINGE SQ SCH (09:45)
[2020-01-25] MEDS: SODIUM BICARBONATE TAB 650 MG TAB PO SCH ×2 (09:45→16:55)
--- NOTE | 2020-01-25 12:22 | P.PN ---
Subjective Progress Note Date: 01/25/20 Follow-up for acute kidney injury. NG tube still to suction, on D5 water at 150 ML's an hour. Urine output of 2.9 L in the last 24 hours. Objective - Vital Signs Vital signs: Vital Signs Temp 98.6 F 01/25/20 08:00 Pulse 90 01/25/20 11:07 Resp 13 01/25/20 10:00 BP 124/71 01/25/20 10:00 Pulse Ox 97 01/25/20 10:00 Intake & Output 01/24/20 01/25/20 01/25/20 18:59 06:59 18:59 Intake Total 1475 1800 700 Output Total 1605 1300 410 Balance -130 500 290 Weight 122.3 kg Intake: IV 1475 1800 600 Dextrose 5% in Water 1, 1200 1800 600 000 ml @ 150 mls/hr IV . Q6H40M [facility] Rx#:[id number] Dextrose 5%-0.45% NaCl 1, 200 000 ml @ 100 mls/hr IV . Q10H [facility] Rx#:[id number] Sodium Chloride 0.9% 1, 75 000 ml @ 75 mls/hr IV . [id number] [facility] Rx#:[id number] Intake, IV Titration 100 Amount Piperacillin-Tazobactam 3 100 .375 gm In Sodium Chloride 0.9% 100 ml @ 25 mls/hr IVPB Q8HR [facility] Rx# :[id number] Output: Gastric Drainage 700 400 100 Urine 905 900 310 Other: Voiding Method Indwelling Catheter Indwelling Catheter Indwelling Catheter - Exam No acute distress S1-S2 heard Lungs clear Trace edema - Labs CBC & Chem 7: 01/25/20 05:10 01/25/20 05:10 Labs: Abnormal Lab Results - Last 24 Hours (Table) 01/24/20 01/24/20 01/24/20 Range/Units 12:39 18:19 23:04 RBC (4.30-5.90) m/uL Hgb (13.0-17.5) gm/dL Hct (39.0-53.0) % Plt Count (150-450) k/uL Sodium (137-145) mmol/L Chloride (98-107) mmol/L Carbon Dioxide (22-30) mmol/L BUN (9-20) mg/dL Creatinine (0.66-1.25) mg/dL Glucose (74-99) mg/dL POC Glucose (mg/dL) 191 H 172 H 134 H (75-99) mg/dL Calcium (8.4-10.2) mg/dL Magnesium (1.6-2.3) mg/dL 01/25/20 01/25/20 01/25/20 Range/Units 05:10 05:10 05:10 RBC 3.69 L (4.30-5.90) m/uL Hgb 11.0 L (13.0-17.5) gm/dL Hct 32.9 L (39.0-53.0) % Plt Count 134 L (150-450) k/uL Sodium 149 H (137-145) mmol/L Chloride 123 H (98-107) mmol/L Carbon Dioxide 20 L (22-30) mmol/L BUN 57 H (9-20) mg/dL Creatinine 2.08 H (0.66-1.25) mg/dL Glucose 112 H (74-99) mg/dL POC Glucose (mg/dL) (75-99) mg/dL Calcium 8.0 L (8.4-10.2) mg/dL Magnesium 3.1 H (1.6-2.3) mg/dL 01/25/20 Range/Units 06:07 RBC (4.30-5.90) m/uL Hgb (13.0-17.5) gm/dL Hct (39.0-53.0) % Plt Count (150-450) k/uL Sodium (137-145) mmol/L Chloride (98-107) mmol/L Carbon Dioxide (22-30) mmol/L BUN (9-20) mg/dL Creatinine (0.66-1.25) mg/dL Glucose (74-99) mg/dL POC Glucose (mg/dL) 111 H (75-99) mg/dL Calcium (8.4-10.2) mg/dL Magnesium (1.6-2.3) mg/dL Microbiology - Last 24 Hours (Table) 01/19/20 17:05 Blood Culture - Preliminary Blood No Growth after 120 hours 01/22/20 13:07 Blood Culture - Preliminary Blood No Growth after 48 hours Assessment and Plan Assessment: #1 nonoliguric acute kidney injury secondary to ischemic ATN. #2 hypernatremia secondary to decreased oral intake #3 small bowel obstruction #4 hypoxic respiratory failure secondary to pneumonia and influenza #5 chronic kidney disease stage III with a baseline creatinine of 1.5-1.6 MG per DL. Plan: #1 agree with IV fluids, D5 water at 150 ML's an hour. Goal sodium decrease should be around 10 ML's in 24 hours. #2 creatinine improving, sodium bicarbonate for acidosis #3 avoid nephrotoxic agents and hypotensive episodes.
[2020-01-25 12:24] LABS: Glucose,Whole Blood 135 mg/dL (75-99)
--- NOTE | 2020-01-25 12:43 | P.PN ---
Subjective Progress Note Date: 01/25/20 Principal diagnosis: Small bowel obstruction and aspiration pneumonia 59-year-old white male patient of Dr. Nielsen with history of developmental delay, hearing disorder, basal cell skin cancer with removal, who resides at home with his mother, was brought in per EMS on O2 2019 for altered mental status, cough, shortness of breath and fever. In addition patient had been very weak. He was diagnosed with influenza A the day prior during his visit to the emergency department, chest x-ray displayed no acute process, kidney function was at baseline, patient does have history of chronic kidney disease, no leukocytosis, patient was ambulatory, he was discharged home on Tamiflu. However his symptoms continued to progress and he returned to the emergency department by EMS later that day on O2 2019. This time patient was unable to ambulate related to weakness, his temperature was 102F, he denied any chest pain or pain in any other areas. He is a poor historian, and he is currently having increased difficulty breathing, most of the information was obtained from the chart, and the nursing staff, his family is not around. Chest x-ray in the ED showed interstitial changes, mild pulmonary vascular congestion versus atypical pneumonia or interstitial pneumonitis, KG shows sinus tachycardia with a rate of 128, a small to be hypoxemic, he was placed on supplemental oxygen, he is currently on 5 L with a pulse ox of 96%, he was initially placed on medical surgical floor with Tamiflu and IV Rocephin for empiric antibiotic coverage. His admission blood work showed a white blood cell count of 8.5, hemoglobin of 12.0, sodium of 141, potassium is 3.5, chloride was 115, CO2 is 15, acute on chronic kidney failure, with BUN of 24, and creatinine of 1.75, plasma lactic acid was 2.0, proBNP was 553, pro calcitonin level was elevated at 4.67. Patient's dyspnea continued to worsen, CT angiogram of the chest was obtained which was a suboptimal study with a lot of artifact related to patient's inability to hold breath it showed tiny right pleural effusion, linear atelectasis, no suspicious focal consolidation, no large pulmonary masses, no large saddle central pulmonary embolism, could not exclude smaller segmental and subsegmental pulmonary embolisms, tiny pericardial effusion, and of note she was noted to have old distended stomach with debris-filled a distended esophagus extending to the level of thoracic inlet. There my evaluation patient is very tachypneic, dyspneic, he is in sinus mechanism with a rate of 134, he has a fever of 100.8F, there is a suspicion of aspiration, patient has audible wheezing and congestion in the upper airways, his respirations are rapid and shallow, he was placed on BiPAP support with pressures of 12 and 6 and FiO2 of 50%, blood gases pending. Patient was reevaluated today on 01/23/20, remains in the ICU. I evaluated the patient late yesterday, and recommended a nasogastric tube placement. His flat plate of the abdomen showed significant dilated bowel loops, after the nasogastric tube was placed, significant amount of fluid was drained from his stomach. Patient felt better, there was a significant relief. Consulted general surgery for possible small bowel obstruction. Patient had a CT of the abdomen and pelvis today, and it is consistent with high-grade obstruction at the level of the distal third of the small bowel. Patient is feeling better, breathing easier although he had a bit of aspiration especially involving the right lower lobe and possibly the left lower lobe. He is covered with ant ibiotics. Remains on BiPAP, surgery has been updated on his condition, and I understand the family requested Dr. medrano to see. Awaiting input from Dr. medrano whether the patient will need to go to surgery anytime soon. WBC count today is 8.2 hemoglobin is 12 electrolytes showed slightly elevated sodium BUN is up to 58 creatinine is 2.80, hence more IV fluid will be given, and would hold on diuretics. Reviewed the issues regarding his questionable pulmonary embolism, strongly doubt pulmonary embolism, there is no evidence of deep vein thrombosis, and the CT of the chest showed no proximal emboli, and the quality was very suboptimal quality for the CT of the chest. Clinically there is no evidence of pulmonary embolism. Hence Lovenox will be changed to 40 mg subcu daily. [place] placed on heparin 5000 units subcu every 12 hours. IV fluid will be increased, and the patient may receive boluses of fluids. CBC today is basically unremarkable. Bicarb is 17. Chest x-ray is consistent with aspiration pneumonia involving lower lobe. And some bibasilar atelectasis. Reevaluated today on 01/24/20, patient remains in the ICU, improving with nasogastric tube suctioning, however his electrolytes are much worse today, and the patient developed hypernatremia most likely secondary to free water fluid deficit, hence I changed his IV fluid to D5W at 150 mL per hour. Patient was evaluated by surgery, planning to continue conservative measures and decompression via nasogastric tube. No plans for surgery today. Patient is off BiPAP, he is on few liters nasal cannula, feeling better, breathing easier, denies any shortness of breath cough or wheezing. His follow-up chest x-ray today showed minimal infiltrate in the right lower lobe, and possible atelectasis. CBC is relatively normal however his sodium is 151 chloride is 125 and his BUN is 69 creatinine 2.38. This is actually improved compared to creatinine yesterday of 2.80. IV fluid was changed to D5W, patient remains on oral bicarb, and he remains on antibiotics in the form of Zosyn. Reevaluated today on 01/25/20, patient remains in the intensive care unit, he is on few liters nasal cannula, continues to have nasogastric tube in place, and there is a significant nasogastric output over the last 24 hours. Clinically the patient is feeling better, denies any shortness of breath cough or wheezing, denies any abdominal pain or discomfort. Being followed by many consultants. No plans for surgery at least today, he was seen by Dr. medrano and by Dr. Johnson over the last few days. Plan is to continue conservative measures and nasogastric tube decompression. IV fluids remains at 1 50 mL per hour using D5W, his electrolytes are improving sodium is coming down, renal profile is also improving. Patient is not requiring BiPAP at present. Chest x-ray is also showing improvement in his by basilar airspace disease/presumptive aspiration pneumonia. Sodium is 149 chloride is 123 BUN is 57 creatinine 2.08. WBC count is 7.9 hemoglobin is 11. Objective - Vital Signs Vital signs: Vital Signs Temp 98.6 F 01/25/20 08:00 Pulse 90 01/25/20 11:07 Resp 13 01/25/20 10:00 BP 124/71 01/25/20 10:00 Pulse Ox 97 01/25/20 10:00 Intake & Output 01/24/20 01/25/20 01/25/20 18:59 06:59 18:59 Intake Total 1475 1800 700 Output Total 1605 1300 410 Balance -130 500 290 Weight 122.3 kg Intake: IV 1475 1800 600 Dextrose 5% in Water 1, 1200 1800 600 000 ml @ 150 mls/hr IV . Q6H40M [facility] Rx#:[id number] Dextrose 5%-0.45% NaCl 1, 200 000 ml @ 100 mls/hr IV . Q10H [facility] Rx#:[id number] Sodium Chloride 0.9% 1, 75 000 ml @ 75 mls/hr IV . [id number] [facility] Rx#:[id number] Intake, IV Titration 100 Amount Piperacillin-Tazobactam 3 100 .375 gm In Sodium Chloride 0.9% 100 ml @ 25 mls/hr IVPB Q8HR [facility] Rx# :[id number] Output: Gastric Drainage 700 400 100 Urine 905 900 310 Other: Voiding Method Indwelling Catheter Indwelling Catheter Indwelling Catheter - Exam GENERAL EXAM: Alert, 59-year-old obese white male, with chronic developmental delay, in no distress, on nasal cannula, asymptomatic. HEAD: Normocephalic/atraumatic. Nasogastric tube is intact, HEENT: PERRLA, EOMI, no icterus, no neck masses, dry mucous membranes. CHEST: No chest wall deformity. Symmetrical expansion. LUNGS: Diminished breath sounds and crackles at the bases. No rhonchi no wheezes CVS: Regular rate and rhythm, normal S1 and S2, no gallops, no murmurs, no rubs ABDOMEN: Soft, nontender. No hepatosplenomegaly, diminished bowel sounds. EXTREMITIES: No clubbing, no edema, no cyanosis, 2+ pulses and upper and lower extremities. MUSCULOSKELETAL: Muscle strength and tone normal. SPINE: No scoliosis or deformity SKIN: No rashes CENTRAL NERVOUS SYSTEM: Alert and oriented -2. No focal deficits, tone is normal in all 4 extremities. PSYCHIATRIC: Alert and oriented -2. Appropriate affect. Judgment is questionable. - Labs CBC & Chem 7: 01/25/20 05:10 01/25/20 05:10 Labs: Abnormal Lab Results - Last 24 Hours (Table) 01/24/20 01/24/20 01/24/20 Range/Units 12:39 18:19 23:04 RBC (4.30-5.90) m/uL Hgb (13.0-17.5) gm/dL Hct (39.0-53.0) % Plt Count (150-450) k/uL Sodium (137-145) mmol/L Chloride (98-107) mmol/L Carbon Dioxide (22-30) mmol/L BUN (9-20) mg/dL Creatinine (0.66-1.25) mg/dL Glucose (74-99) mg/dL POC Glucose (mg/dL) 191 H 172 H 134 H (75-99) mg/dL Calcium (8.4-10.2) mg/dL Magnesium (1.6-2.3) mg/dL 01/25/20 01/25/20 01/25/20 Range/Units 05:10 05:10 05:10 RBC 3.69 L (4.30-5.90) m/uL Hgb 11.0 L (13.0-17.5) gm/dL Hct 32.9 L (39.0-53.0) % Plt Count 134 L (150-450) k/uL Sodium 149 H (137-145) mmol/L Chloride 123 H (98-107) mmol/L Carbon Dioxide 20 L (22-30) mmol/L BUN 57 H (9-20) mg/dL Creatinine 2.08 H (0.66-1.25) mg/dL Glucose 112 H (74-99) mg/dL POC Glucose (mg/dL) (75-99) mg/dL Calcium 8.0 L (8.4-10.2) mg/dL Magnesium 3.1 H (1.6-2.3) mg/dL 01/25/20 01/25/20 Range/Units 06:07 12:21 RBC (4.30-5.90) m/uL Hgb (13.0-17.5) gm/dL Hct (39.0-53.0) % Plt Count (150-450) k/uL Sodium (137-145) mmol/L Chloride (98-107) mmol/L Carbon Dioxide (22-30) mmol/L BUN (9-20) mg/dL Creatinine (0.66-1.25) mg/dL Glucose (74-99) mg/dL POC Glucose (mg/dL) 111 H 135 H (75-99) mg/dL Calcium (8.4-10.2) mg/dL Magnesium (1.6-2.3) mg/dL Microbiology - Last 24 Hours (Table) 01/19/20 17:05 Blood Culture - Preliminary Blood No Growth after 120 hours 01/22/20 13:07 Blood Culture - Preliminary Blood No Growth after 48 hours Assessment and Plan Assessment: Impression: #1. Acute hypoxemic respiratory failure, multifactorial, related to acute aspiration, pneumonia, and small bowel obstruction high-grade as noted on CT of the abdomen and pelvis. #2. Acute influenza A infection #3. Acute aspiration likely related to over distended stomach, and distended esophagus and also related to small bowel obstruction. #4. Acute kidney injury possible sepsis, patient could have developed acute tubular necrosis #5. Chronic kidney disease, stage IIIa #6. Lactic acid acidosis related to sepsis #7. Non-anion gap metabolic acidosis related to acute on chronic kidney disease #8. Thrombocytopenia related to sepsis #9. History of developmental delay #10. Morbid obesity #11. History of multiple skin cancer removals, basal cell carcinoma #12 electrolytes imbalance, mostly hypernatremia secondary to free water deficit, this should be corrected with D5W at 150 mL per hour. Improving. Recommendation: Continue nasogastric tube to suction Continue to monitor electrolytes, and IV fluid was changed to D5W. Antibiotics in the form of Zosyn. Continue bronchodilators. Continue GI and DVT prophylaxis. Pulmonary embolism is felt to be extremely less likely based on the findings so far. Hence no need for treatment for pulmonary embolism but continue GI and DVT prophylaxis Patient will likely need to be placed on TPN, hence I recommended a PICC line to be placed tomorrow and start TPN tomorrow. We'll continue to follow. Family updated on his condition. Time with Patient: Greater than 30
[2020-01-25 14:10] LABS: HCT 33.9 % (39.0-53.0); HGB 11.3 gm/dL (13.0-17.5); MCH 29.3 pg (25.0-35.0); MCHC 33.4 g/dL (31.0-37.0); MCV 87.7 fL (80.0-100.0); Platelet Count 119 k/uL (150-450); RBC 3.87 m/uL (4.30-5.90); RDW 14.1 % (11.5-15.5); WBC 6.7 k/uL (3.8-10.6)
--- NOTE | 2020-01-25 14:10 | P.PN ---
Subjective Progress Note Date: 01/25/20 Principal diagnosis: SOB Patient is feeling okay, no pain, no shortness of breath or fevers. According to nursing he had a large bowel movement this morning. Objective - Vital Signs Vital signs: Vital Signs Temp 98.6 F 01/25/20 12:00 Pulse 89 01/25/20 13:00 Resp 14 01/25/20 13:00 BP 135/81 01/25/20 13:00 Pulse Ox 96 01/25/20 13:00 Intake & Output 01/24/20 01/25/20 01/25/20 18:59 06:59 18:59 Intake Total 1475 1800 1000 Output Total 1605 1300 635 Balance -130 500 365 Weight 122.3 kg Intake: IV 1475 1800 900 Dextrose 5% in Water 1, 1200 1800 900 000 ml @ 150 mls/hr IV . Q6H40M [facility] Rx#:[id number] Dextrose 5%-0.45% NaCl 1, 200 000 ml @ 100 mls/hr IV . Q10H [facility] Rx#:[id number] Sodium Chloride 0.9% 1, 75 000 ml @ 75 mls/hr IV . [id number] [facility] Rx#:[id number] Intake, IV Titration 100 Amount Piperacillin-Tazobactam 3 100 .375 gm In Sodium Chloride 0.9% 100 ml @ 25 mls/hr IVPB Q8HR [facility] Rx# :[id number] Output: Gastric Drainage 700 400 100 Urine 905 900 535 Other: Voiding Method Indwelling Catheter Indwelling Catheter Indwelling Catheter - Exam General: [non toxic], [appears distressed on BiPAP], [appears at stated age] Derm: [warm], [dry] Head: [atraumatic], [normocephalic], [symmetric], [NG tube in place] Eyes: [EOMI], [no lid lag], [anicteric sclera] Mouth: [no lip lesion], [mucus membranes moist] Cardiovascular: [S1S2 reg], [tachycardia], [positive DP pulse bilateral], Lungs: [Coarse breath sounds bilateral], [no rhonchi, no rales] , [no accessory muscle use] Abdominal: [soft and distended], [tenderness over the epigastric area], [no guarding], [no appreciable organomegaly] Ext: [no gross muscle atrophy], [no edema], [no contractures] Neuro: [no focal neuro deficits] Psych: [Unable to determine] - Labs CBC & Chem 7: 01/25/20 05:10 01/25/20 05:10 Labs: Abnormal Lab Results - Last 24 Hours (Table) 01/24/20 01/24/20 01/25/20 Range/Units 18:19 23:04 05:10 RBC 3.69 L (4.30-5.90) m/uL Hgb 11.0 L (13.0-17.5) gm/dL Hct 32.9 L (39.0-53.0) % Plt Count 134 L (150-450) k/uL Sodium (137-145) mmol/L Chloride (98-107) mmol/L Carbon Dioxide (22-30) mmol/L BUN (9-20) mg/dL Creatinine (0.66-1.25) mg/dL Glucose (74-99) mg/dL POC Glucose (mg/dL) 172 H 134 H (75-99) mg/dL Calcium (8.4-10.2) mg/dL Magnesium (1.6-2.3) mg/dL 01/25/20 01/25/20 01/25/20 Range/Units 05:10 05:10 06:07 RBC (4.30-5.90) m/uL Hgb (13.0-17.5) gm/dL Hct (39.0-53.0) % Plt Count (150-450) k/uL Sodium 149 H (137-145) mmol/L Chloride 123 H (98-107) mmol/L Carbon Dioxide 20 L (22-30) mmol/L BUN 57 H (9-20) mg/dL Creatinine 2.08 H (0.66-1.25) mg/dL Glucose 112 H (74-99) mg/dL POC Glucose (mg/dL) 111 H (75-99) mg/dL Calcium 8.0 L (8.4-10.2) mg/dL Magnesium 3.1 H (1.6-2.3) mg/dL 01/25/20 Range/Units 12:21 RBC (4.30-5.90) m/uL Hgb (13.0-17.5) gm/dL Hct (39.0-53.0) % Plt Count (150-450) k/uL Sodium (137-145) mmol/L Chloride (98-107) mmol/L Carbon Dioxide (22-30) mmol/L BUN (9-20) mg/dL Creatinine (0.66-1.25) mg/dL Glucose (74-99) mg/dL POC Glucose (mg/dL) 135 H (75-99) mg/dL Calcium (8.4-10.2) mg/dL Magnesium (1.6-2.3) mg/dL Microbiology - Last 24 Hours (Table) 01/19/20 17:05 Blood Culture - Preliminary Blood No Growth after 120 hours 01/22/20 13:07 Blood Culture - Preliminary Blood No Growth after 48 hours Assessment and Plan Plan: Hypernatremia and hyperchloremia Acute hypoxic respiratory failure secondary to influenza and possible aspiration pneumonia High-grade small bowel obstruction Sepsis Acute kidney injury on chronic kidney disease stage III Non-anion gap metabolic acidosis Anemia Lactic acidosis has resolved. Sodium improving, continue D5 in water infusion. Plans to repeat BMP tomorrow morning. Continue steroids and antibiotics for respiratory failure/pneumonia. Finished a course of Tamiflu. Continue DuoNeb scheduled and as needed for shortness of breath and wheezing. Continue on droplet precautions. Patient currently on NC 5L, was on BiPAP, currently off. FiO2 40%. Getting intermittent Lasix for fluid overload, Echocardiogram shows EF 45-50% mild systolic dysfunction. Surgery not planning intervention for the bowel obstruction. He will need nutrition through TPN, planning for a PICC line in a.m. Continue NG tube decompression and keep the patient nothing by mouth. Creatinine currently improving. Continue fluids as above. Continue bicarbonate replacement as well.
[2020-01-25 16:53] LABS: Glucose,Whole Blood 135 mg/dL (75-99)
[2020-01-25] MEDS: NYSTATIN 100,000 UNIT/GM POWD 15 GM TOPICAL SCH ×2 (17:16→21:46)
--- NOTE | 2020-01-25 19:42 | P.PN ---
Subjective Progress Note Date: 01/25/20 Principal diagnosis: Ileus VS small bowel obstruction, Influenza The patient was seen on rounds this morning. Seems to respond yes and no appropriately. Denies abdominal pain. More alert according to sister. Objective - Vital Signs Vital signs: Vital Signs Temp 98 F 01/25/20 16:00 Pulse 81 01/25/20 19:00 Resp 18 01/25/20 19:00 BP 137/75 01/25/20 19:00 Pulse Ox 94 L 01/25/20 19:00 Intake & Output 01/25/20 01/25/20 01/26/20 06:59 18:59 06:59 Intake Total 1800 2000 150 Output Total 1300 1545 100 Balance 500 455 50 Weight 122.3 kg 122.3 kg Intake: IV 1800 1800 150 Dextrose 5% in Water 1, 1800 1800 150 000 ml @ 150 mls/hr IV . Q6H40M [facility] Rx#:[id number] Intake, IV Titration 200 Amount Piperacillin-Tazobactam 3 200 .375 gm In Sodium Chloride 0.9% 100 ml @ 25 mls/hr IVPB Q8HR [facility] Rx# :[id number] Output: Gastric Drainage 400 450 Urine 900 1095 100 Other: Voiding Method Indwelling Catheter Indwelling Catheter - Constitutional General appearance: Present: cooperative, no acute distress - Respiratory Respiratory: bilateral: CTA, rhonchi - Gastrointestinal General gastrointestinal: Present: decreased bowel sounds, distended (Some tympa ny to percussion). Absent: tenderness (No peritoneal signs to deep palpation) - Labs CBC & Chem 7: 01/25/20 13:55 01/25/20 05:10 Labs: Abnormal Lab Results - Last 24 Hours (Table) 01/24/20 01/25/20 01/25/20 Range/Units 23:04 05:10 05:10 RBC 3.69 L (4.30-5.90) m/uL Hgb 11.0 L (13.0-17.5) gm/dL Hct 32.9 L (39.0-53.0) % Plt Count 134 L (150-450) k/uL Sodium 149 H (137-145) mmol/L Chloride 123 H (98-107) mmol/L Carbon Dioxide 20 L (22-30) mmol/L BUN 57 H (9-20) mg/dL Creatinine 2.08 H (0.66-1.25) mg/dL Glucose 112 H (74-99) mg/dL POC Glucose (mg/dL) 134 H (75-99) mg/dL Calcium 8.0 L (8.4-10.2) mg/dL Magnesium (1.6-2.3) mg/dL 01/25/20 01/25/20 01/25/20 Range/Units 05:10 06:07 12:21 RBC (4.30-5.90) m/uL Hgb (13.0-17.5) gm/dL Hct (39.0-53.0) % Plt Count (150-450) k/uL Sodium (137-145) mmol/L Chloride (98-107) mmol/L Carbon Dioxide (22-30) mmol/L BUN (9-20) mg/dL Creatinine (0.66-1.25) mg/dL Glucose (74-99) mg/dL POC Glucose (mg/dL) 111 H 135 H (75-99) mg/dL Calcium (8.4-10.2) mg/dL Magnesium 3.1 H (1.6-2.3) mg/dL 01/25/20 01/25/20 Range/Units 13:55 16:52 RBC 3.87 L (4.30-5.90) m/uL Hgb 11.3 L (13.0-17.5) gm/dL Hct 33.9 L (39.0-53.0) % Plt Count 119 L (150-450) k/uL Sodium (137-145) mmol/L Chloride (98-107) mmol/L Carbon Dioxide (22-30) mmol/L BUN (9-20) mg/dL Creatinine (0.66-1.25) mg/dL Glucose (74-99) mg/dL POC Glucose (mg/dL) 135 H (75-99) mg/dL Calcium (8.4-10.2) mg/dL Magnesium (1.6-2.3) mg/dL Microbiology - Last 24 Hours (Table) 01/19/20 17:05 Blood Culture - Final Blood No Growth after 144 hours 01/22/20 13:07 Blood Culture - Preliminary Blood No Growth after 72 hours Assessment and Plan (1) Ileus Current Visit: Yes Status: Acute Code(s): K56.7 - ILEUS, UNSPECIFIED SNOMED Code(s): 286067597 (2) Hypernatremia Current Visit: Yes Status: Acute Code(s): E87.0 - HYPEROSMOLALITY AND HYPERNATREMIA SNOMED Code(s): 981500316 (3) Influenza Current Visit: Yes Status: Acute Code(s): J11.1 - FLU DUE TO UNIDENTIFIED I NFLUENZA VIRUS W OTH RESP MANIFEST SNOMED Code(s): 3759476 Plan: Continue supportive care for influenza A and aspiration pneumonia. Monitor NG output. Serial exams. Currently nonsurgical. Further recommendations to follow
[2020-01-25] MEDS: cloZAPine 100 MG TAB PO SCH (19:58)
[2020-01-25 23:47] LABS: Glucose,Whole Blood 139 mg/dL (75-99)
[2020-01-26] MEDS: INSULIN ASPART (NovoLOG) 100 UNIT/ML VIAL SQ SCH ×4 (00:04→19:53)
[2020-01-26] MEDS: PIPERACILLIN-TAZOBACTAM 3.375 GM in SODIUM CHLORIDE 0.9% 100 ML IVPB SCH ×4 (00:04→23:38)
[2020-01-26] MEDS: DEXTROSE 5% IN WATER 1,000 ML IV SCH ×4 (01:42→20:24)
[2020-01-26 05:18] LABS: Prothrombin Time 10.7 sec (9.0-12.0)
[2020-01-26 05:30] LABS: Basophils % (A) 0 %; Eosinophils % (A) 0 %; HCT 35.6 % (39.0-53.0); HGB 11.6 gm/dL (13.0-17.5); Lymphocytes # (A) 0.4 k/uL (1.0-4.8); Lymphocytes % (A) 4 %; MCH 29.3 pg (25.0-35.0); MCHC 32.5 g/dL (31.0-37.0); MCV 90.3 fL (80.0-100.0); Mean Platelet Volume 8.9; Monocytes # (A) 0.3 k/uL (0-1.0); Monocytes % (A) 4 %; Neutrophils % (A) 91 %; Platelet Count 134 k/uL (150-450); RBC 3.94 m/uL (4.30-5.90); RDW 14.1 % (11.5-15.5); WBC 8.8 k/uL (3.8-10.6)
[2020-01-26 05:32] LABS: Glucose,Whole Blood 111 mg/dL (75-99)
[2020-01-26 05:33] LABS: Calcium 7.9 mg/dL (8.4-10.2); Potassium 3.9 mmol/L (3.5-5.1)
--- NOTE | 2020-01-26 08:03 | XR ---
EXAMINATION TYPE: XR chest 1V portable DATE OF EXAM: 01/26/2020 COMPARISON: 01/25/2020 HISTORY: Shortness of breath TECHNIQUE: Single frontal view of the chest is obtained. FINDINGS: NG tube stable. Bilateral infiltrate and pleural effusion stable. No pneumothorax. Heart s ize is mildly prominent. IMPRESSION: 1. Bilateral airspace disease and pleural effusion are stable without evidence of significant interva l change. Correlate for pneumonia. Underlying venous congestion not excluded.
--- NOTE | 2020-01-26 08:28 | P.PN ---
Subjective Patient is seen in follow-up for acute kidney injury and hyponatremia. Renal function continues to improve. Sodium level down to 145. Patient had 2 bowel movements this morning. Denies chest pain or shortness of breath. Vital signs are stable. General: The patient appeared well nourished and normally developed. HEENT: Head exam is unremarkable. Neck is without jugular venous distension. NG tube noted. LUNGS: Lungs are clear to auscultation and percussion. Breath sounds decreased. HEART: Rate and Rhythm are regular. First and second heart sounds normal. No murmurs, rubs or gallops. ABDOMEN: Bowel sounds present. Nontender. EXTREMITITES: No clubbing, cyanosis, or edema. Objective - Vital Signs Vital signs: Vital Signs Temp 98.0 F 01/26/20 08:00 Pulse 79 01/26/20 08:00 Resp 20 01/26/20 08:00 BP 129/78 01/26/20 08:00 Pulse Ox 94 L 01/26/20 08:00 Intake & Output 01/25/20 01/26/20 01/26/20 18:59 06:59 18:59 Intake Total 2000 1800 300 Output Total 1545 2215 185 Balance 455 -415 115 Weight 122.3 kg 121.88 kg Intake: IV 1800 1800 300 Dextrose 5% in Water 1, 1800 1800 300 000 ml @ 150 mls/hr IV . Q6H40M [facility] Rx#:[id number] Intake, IV Titration 200 Amount Piperacillin-Tazobactam 3 200 .375 gm In Sodium Chloride 0.9% 100 ml @ 25 mls/hr IVPB Q8HR [facility] Rx# :[id number] Output: Gastric Drainage 450 850 Urine 1095 1365 185 Other: Voiding Method Indwelling Catheter Indwelling Catheter Indwelling Catheter # Bowel Movements 1 - Labs CBC & Chem 7: 01/26/20 04:44 01/26/20 04:44 Labs: Abnormal Lab Results - Last 24 Hours (Table) 01/25/20 01/25/20 01/25/20 Range/Units 12:21 13:55 16:52 RBC 3.87 L (4.30-5.90) m/uL Hgb 11.3 L (13.0-17.5) gm/dL Hct 33.9 L (39.0-53.0) % Plt Count 119 L (150-450) k/uL Neutrophils # (1.3-7.7) k/uL Lymphocytes # (1.0-4.8) k/uL Chloride (98-107) mmol/L Carbon Dioxide (22-30) mmol/L BUN (9-20) mg/dL Creatinine (0.66-1.25) mg/dL Glucose (74-99) mg/dL POC Glucose (mg/dL) 135 H 135 H (75-99) mg/dL Calcium (8.4-10.2) mg/dL 01/25/20 01/26/20 01/26/20 Range/Units 23:45 04:44 04:44 RBC 3.94 L (4.30-5.90) m/uL Hgb 11.6 L (13.0-17.5) gm/dL Hct 35.6 L (39.0-53.0) % Plt Count 134 L (150-450) k/uL Neutrophils # 8.0 H (1.3-7.7) k/uL Lymphocytes # 0.4 L (1.0-4.8) k/uL Chloride 119 H (98-107) mmol/L Carbon Dioxide 20 L (22-30) mmol/L BUN 36 H (9-20) mg/dL Creatinine 1.42 H (0.66-1.25) mg/dL Glucose 121 H (74-99) mg/dL POC Glucose (mg/dL) 139 H (75-99) mg/dL Calcium 7.9 L (8.4-10.2) mg/dL 01/26/20 Range/Units 05:30 RBC (4.30-5.90) m/uL Hgb (13.0-17.5) gm/dL Hct (39.0-53.0) % Plt Count (150-450) k/uL Neutrophils # (1.3-7.7) k/uL Lymphocytes # (1.0-4.8) k/uL Chloride (98-107) mmol/L Carbon Dioxide (22-30) mmol/L BUN (9-20) mg/dL Creatinine (0.66-1.25) mg/dL Glucose (74-99) mg/dL POC Glucose (mg/dL) 111 H (75-99) mg/dL Calcium (8.4-10.2) mg/dL Microbiology - Last 24 Hours (Table) 01/19/20 17:05 Blood Culture - Final Blood No Growth after 144 hours 01/22/20 13:07 Blood Culture - Preliminary Blood No Growth after 72 hours Assessment and Plan Plan: Assessment: 1. Acute kidney injury mostly prerenal improving with IV hydration. Creatinine 1.42 today. 2. Chronic kidney disease stage III with baseline creatinine near 1.5. 3. Small bowel obstruction. Currently has NG tube. Patient had 2 bowel movements this morning. 4. Metabolic acidosis secondary to acute kidney injury. Stable. Unable to take oral sodium bicarbonate this time. 5. Hypernatremia secondary to lack of oral water intake. Plan: Maintain D5W at 150 mL an hour. Avoid nephrotoxins. Continue to monitor renal function and urine output.
--- NOTE | 2020-01-26 09:09 | P.PN ---
Subjective Progress Note Date: 01/26/20 Principal diagnosis: SOB Doing well, no overnight issues. No pain. Had 2 BMs today. Still with NG tube. Objective - Vital Signs Vital signs: Vital Signs Temp 98.0 F 01/26/20 08:00 Pulse 79 01/26/20 08:00 Resp 20 01/26/20 08:00 BP 129/78 01/26/20 08:00 Pulse Ox 94 L 01/26/20 08:00 Intake & Output 01/25/20 01/26/20 01/26/20 18:59 06:59 18:59 Intake Total 1999 1800 300 Output Total 1545 2215 185 Balance 455 -415 115 Weight 122.3 kg 121.88 kg Intake: IV 1800 1800 300 Dextrose 5% in Water 1, 1800 1800 300 000 ml @ 150 mls/hr IV . Q6H40M [facility] Rx#:[id number] Intake, IV Titration 200 Amount Piperacillin-Tazobactam 3 200 .375 gm In Sodium Chloride 0.9% 100 ml @ 25 mls/hr IVPB Q8HR [facility] Rx# :[id number] Output: Gastric Drainage 450 850 Urine 1095 1365 185 Other: Voiding Method Indwelling Catheter Indwelling Catheter Indwelling Catheter # Bowel Movements 1 - Exam General: [non toxic], [appears distressed on BiPAP], [appears at stated age] Derm: [warm], [dry] Head: [atraumatic], [normocephalic], [symmetric], [NG tube in place] Eyes: [EOMI], [no lid lag], [anicteric sclera] Mouth: [no lip lesion], [mucus membranes moist] Cardiovascular: [S1S2 reg], [tachycardia], [positive DP pulse bilateral], Lungs: [Coarse breath sounds bilateral], [no rhonchi, no rales] , [no accessory muscle use] Abdominal: [soft and distended], [tenderness over the epigastric area], [no guarding], [no appreciable organomegaly] Ext: [no gross muscle atrophy], [no edema], [no contractures] Neuro: [no focal neuro deficits] Psych: [Unable to determine] - Labs CBC & Chem 7: 01/26/20 04:44 01/26/20 04:44 Labs: Abnormal Lab Results - Last 24 Hours (Table) 01/25/20 01/25/20 01/25/20 Range/Units 12:21 13:55 16:52 RBC 3.87 L (4.30-5.90) m/uL Hgb 11.3 L (13.0-17.5) gm/dL Hct 33.9 L (39.0-53.0) % Plt Count 119 L (150-450) k/uL Neutrophils # (1.3-7.7) k/uL Lymphocytes # (1.0-4.8) k/uL Chloride (98-107) mmol/L Carbon Dioxide (22-30) mmol/L BUN (9-20) mg/dL Creatinine (0.66-1.25) mg/dL Glucose (74-99) mg/dL POC Glucose (mg/dL) 135 H 135 H (75-99) mg/dL Calcium (8.4-10.2) mg/dL 01/25/20 01/26/20 01/26/20 Range/Units 23:45 04:44 04:44 RBC 3.94 L (4.30-5.90) m/uL Hgb 11.6 L (13.0-17.5) gm/dL Hct 35.6 L (39.0-53.0) % Plt Count 134 L (150-450) k/uL Neutrophils # 8.0 H (1.3-7.7) k/uL Lymphocytes # 0.4 L (1.0-4.8) k/uL Chloride 119 H (98-107) mmol/L Carbon Dioxide 20 L (22-30) mmol/L BUN 36 H (9-20) mg/dL Creatinine 1.42 H (0.66-1.25) mg/dL Glucose 121 H (74-99) mg/dL POC Glucose (mg/dL) 139 H (75-99) mg/dL Calcium 7.9 L (8.4-10.2) mg/dL 01/26/20 Range/Units 05:30 RBC (4.30-5.90) m/uL Hgb (13.0-17.5) gm/dL Hct (39.0-53.0) % Plt Count (150-450) k/uL Neutrophils # (1.3-7.7) k/uL Lymphocytes # (1.0-4.8) k/uL Chloride (98-107) mmol/L Carbon Dioxide (22-30) mmol/L BUN (9-20) mg/dL Creatinine (0.66-1.25) mg/dL Glucose (74-99) mg/dL POC Glucose (mg/dL) 111 H (75-99) mg/dL Calcium (8.4-10.2) mg/dL Microbiology - Last 24 Hours (Table) 01/19/20 17:05 Blood Culture - Final Blood No Growth after 144 hours 01/22/20 13:07 Blood Culture - Preliminary Blood No Growth after 72 hours Assessment and Plan Plan: Hypernatremia and hyperchloremia Acute hypoxic respiratory failure secondary to influenza and possible aspiration pneumonia High-grade small bowel obstruction Sepsis Acute kidney injury on chronic kidney disease stage III Non-anion gap metabolic acidosis Anemia Lactic acidosis has resolved. Sodium improving, continue D5 in water infusion. Plans to repeat BMP tomorrow morning. Cr back to baseline. Nephro following. Continue steroids and antibiotics for respiratory failure/pneumonia. Could not finished course of Tamiflu due to being NPO sec to the bowel obstruction. Continue DuoNeb scheduled and as needed for shortness of breath and wheezing. Continue on droplet precautions. Patient currently on NC 5L, was on BiPAP, currently off. Getting intermittent Lasix for fluid overload, Echocardiogram shows EF 45-50% mild systolic dysfunction. Surgery not planning intervention for the bowel obstruction. D/W RN, will call surgery to see if patient really needs TPN, likely can take NG out and start oral feeding, patient has been having BMs and has good bowel sounds.
--- NOTE | 2020-01-26 09:26 | P.PN ---
Subjective Progress Note Date: 01/26/20 Principal diagnosis: Small bowel obstruction and aspiration pneumonia 59-year-old white male patient of Dr. Nielsen with history of developmental delay, hearing disorder, basal cell skin cancer with removal, who resides at home with his mother, was brought in per EMS on O2 2019 for altered mental status, cough, shortness of breath and fever. In addition patient had been very weak. He was diagnosed with influenza A the day prior during his visit to the emergency department, chest x-ray displayed no acute process, kidney function was at baseline, patient does have history of chronic kidney disease, no leukocytosis, patient was ambulatory, he was discharged home on Tamiflu. However his symptoms continued to progress and he returned to the emergency department by EMS later that day on O2 2019. This time patient was unable to ambulate related to weakness, his temperature was 102F, he denied any chest pain or pain in any other areas. He is a poor historian, and he is currently having increased difficulty breathing, most of the information was obtained from the chart, and the nursing staff, his family is not around. Chest x-ray in the ED showed interstitial changes, mild pulmonary vascular congestion versus atypical pneumonia or interstitial pneumonitis, KG shows sinus tachycardia with a rate of 128, a small to be hypoxemic, he was placed on supplemental oxygen, he is currently on 5 L with a pulse ox of 96%, he was initially placed on medical surgical floor with Tamiflu and IV Rocephin for empiric antibiotic coverage. His admission blood work showed a white blood cell count of 8.5, hemoglobin of 12.0, sodium of 141, potassium is 3.5, chloride was 115, CO2 is 15, acute on chronic kidney failure, with BUN of 24, and creatinine of 1.75, plasma lactic acid was 2.0, proBNP was 553, pro calcitonin level was elevated at 4.67. Patient's dyspnea continued to worsen, CT angiogram of the chest was obtained which was a suboptimal study with a lot of artifact related to patient's inability to hold breath it showed tiny right pleural effusion, linear atelectasis, no suspicious focal consolidation, no large pulmonary masses, no large saddle central pulmonary embolism, could not exclude smaller segmental and subsegmental pulmonary embolisms, tiny pericardial effusion, and of note she was noted to have old distended stomach with debris-filled a distended esophagus extending to the level of thoracic inlet. There my evaluation patient is very tachypneic, dyspneic, he is in sinus mechanism with a rate of 134, he has a fever of 100.8F, there is a suspicion of aspiration, patient has audible wheezing and congestion in the upper airways, his respirations are rapid and shallow, he was placed on BiPAP support with pressures of 12 and 6 and FiO2 of 50%, blood gases pending. Patient was reevaluated today on 01/23/20, remains in the ICU. I evaluated the patient late yesterday, and recommended a nasogastric tube placement. His flat plate of the abdomen showed significant dilated bowel loops, after the nasogastric tube was placed, significant amount of fluid was drained from his stomach. Patient felt better, there was a significant relief. Consulted general surgery for possible small bowel obstruction. Patient had a CT of the abdomen and pelvis today, and it is consistent with high-grade obstruction at the level of the distal third of the small bowel. Patient is feeling better, breathing easier although he had a bit of aspiration especially involving the right lower lobe and possibly the left lower lobe. He is covered with an tibiotics. Remains on BiPAP, surgery has been updated on his condition, and I understand the family requested Dr. medrano to see. Awaiting input from Dr. medrano whether the patient will need to go to surgery anytime soon. WBC count today is 8.2 hemoglobin is 12 electrolytes showed slightly elevated sodium BUN is up to 58 creatinine is 2.80, hence more IV fluid will be given, and would hold on diuretics. Reviewed the issues regarding his questionable pulmonary embolism, strongly doubt pulmonary embolism, there is no evidence of deep vein thrombosis, and the CT of the chest showed no proximal emboli, and the quality was very suboptimal quality for the CT of the chest. Clinically there is no evidence of pulmonary embolism. Hence Lovenox will be changed to 40 mg subcu daily. [place] placed on heparin 5000 units subcu every 12 hours. IV fluid will be increased, and the patient may receive boluses of fluids. CBC today is basically unremarkable. Bicarb is 17. Chest x-ray is consistent with aspiration pneumonia involving lower lobe. And some bibasilar atelectasis. Reevaluated today on 01/24/20, patient remains in the ICU, improving with nasogastric tube suctioning, however his electrolytes are much worse today, and the patient developed hypernatremia most likely secondary to free water fluid deficit, hence I changed his IV fluid to D5W at 150 mL per hour. Patient was evaluated by surgery, planning to continue conservative measures and decompression via nasogastric tube. No plans for surgery today. Patient is off BiPAP, he is on few liters nasal cannula, feeling better, breathing easier, denies any shortness of breath cough or wheezing. His follow-up chest x-ray tod laly showed minimal infiltrate in the right lower lobe, and possible atelectasis. CBC is relatively normal however his sodium is 151 chloride is 125 and his BUN is 69 creatinine 2.38. This is actually improved compared to creatinine yesterday of 2.80. IV fluid was changed to D5W, patient remains on oral bicarb, and he remains on antibiotics in the form of Zosyn. Reevaluated today on 01/25/20, patient remains in the intensive care unit, he is on few liters nasal cannula, continues to have nasogastric tube in place, and there is a significant nasogastric output over the last 24 hours. Clinically the patient is feeling better, denies any shortness of breath cough or wheezing, denies any abdominal pain or discomfort. Being followed by many consultants. No plans for surgery at least today, he was seen by Dr. medrano and by Dr. Johnson over the last few days. Plan is to continue conservative measures and nasogastric tube decompression. IV fluids remains at 1 50 mL per hour using D5W, his electrolytes are improving sodium is coming down, renal profile is also improving. Patient is not requiring BiPAP at present. Chest x-ray is also showing improvement in his by basilar airspace disease/presumptive aspiration pneumonia. Sodium is 149 chloride is 123 BUN is 57 creatinine 2.08. WBC count is 7.9 hemoglobin is 11. On 01/26/2020 patient seen in follow-up in the intensive care unit, he is awake and alert, oriented to person and place. Answers questions appropriate, in no acute distress. Room air pulse ox is 94%, patient is afebrile, he is in sinus mechanism with a controlled rate in the heart rate of 79 BPM, hemodynamically stable, breathing is nonlabored, comfortable, not required BiPAP support for last 2 days, D5W infusing at a rate of 150 ML per hour. No other drips, remains on Zosyn for antibiotic coverage. Abdomen is soft, nontender, NG tube remains in place, I'll sounds are still hypoactive but of note patient was able to pass 2 large bowel movements early this morning, still having significant drainage from the gastric tube, and had a total of 1300 mL over the last 24 hours. Abdomen is significantly less distended. Patient denies any shortness of breath, denies any specific complaints. Today's labs have been reviewed, showing white blood cell, of 8.8, hemoglobin of 11.6, sodium of 145, potassium is 3.9, chloride is 119, CO2 is 20, BUN of 36 and creatinine 1.46. Lung sounds positive for a few bibasilar crackles. Objective - Vital Signs Vital signs: Vital Signs Temp 98.0 F 01/26/20 08:00 Pulse 79 01/26/20 08:00 Resp 20 01/26/20 08:00 BP 129/78 01/26/20 08:00 Pulse Ox 94 L 01/26/20 08:00 Intake & Output 01/25/20 01/26/20 01/26/20 18:59 06:59 18:59 Intake Total 2000 1800 300 Output Total 1545 2215 185 Balance 455 -415 115 Weight 122.3 kg 121.88 kg Intake: IV 1800 1800 300 Dextrose 5% in Water 1, 1800 1800 300 000 ml @ 150 mls/hr IV . Q6H40M [facility] Rx#:[id number] Intake, IV Titration 200 Amount Piperacillin-Tazobactam 3 200 .375 gm In Sodium Chloride 0.9% 100 ml @ 25 mls/hr IVPB Q8HR [facility] Rx# :[id number] Output: Gastric Drainage 450 850 Urine 1095 1365 185 Other: Voiding Method Indwelling Catheter Indwelling Catheter Indwelling Catheter # Bowel Movements 1 - Exam GENERAL EXAM: Alert, 59-year-old obese white male, with chronic developmental delay, room air pulse ox is 94%, in no distress, asymptomatic. NG tube in place, to low intermittent suction HEAD: Normocephalic/atraumatic. Nasogastric tube is intact, HEENT: PERRLA, EOMI, no icterus, no neck masses, dry mucous membranes. CHEST: No chest wall deformity. Symmetrical expansion. LUNGS: Diminished breath sounds and crackles at the bases. No rhonchi no wheezes CVS: Regular rate and rhythm, normal S1 and S2, no gallops, no murmurs, no rubs ABDOMEN: Soft, nontender. No hepatosplenomegaly, diminished bowel sounds. EXTREMITIES: No clubbing, no edema, no cyanosis, 2+ pulses and upper and lower extremities. MUSCULOSKELETAL: Muscle strength and tone normal. SPINE: No scoliosis or deformity SKIN: No rashes CENTRAL NERVOUS SYSTEM: Alert and oriented -2. No focal deficits, tone is normal in all 4 extremities. PSYCHIATRIC: Alert and oriented -2. Appropriate affect. Judgment is questionable. - Labs CBC & Chem 7: 01/26/20 04:44 01/26/20 04:44 Labs: Abnormal Lab Results - Last 24 Hours (Table) 01/25/20 01/25/20 01/25/20 Range/Units 12:21 13:55 16:52 RBC 3.87 L (4.30-5.90) m/uL Hgb 11.3 L (13.0-17.5) gm/dL Hct 33.9 L (39.0-53.0) % Plt Count 119 L (150-450) k/uL Neutrophils # (1.3-7.7) k/uL Lymphocytes # (1.0-4.8) k/uL Chloride (98-107) mmol/L Carbon Dioxide (22-30) mmol/L BUN (9-20) mg/dL Creatinine (0.66-1.25) mg/dL Glucose (74-99) mg/dL POC Glucose (mg/dL) 135 H 135 H (75-99) mg/dL Calcium (8.4-10.2) mg/dL 01/25/20 01/26/20 01/26/20 Range/Units 23:45 04:44 04:44 RBC 3.94 L (4.30-5.90) m/uL Hgb 11.6 L (13.0-17.5) gm/dL Hct 35.6 L (39.0-53.0) % Plt Count 134 L (150-450) k/uL Neutrophils # 8.0 H (1.3-7.7) k/uL Lymphocytes # 0.4 L (1.0-4.8) k/uL Chloride 119 H (98-107) mmol/L Carbon Dioxide 20 L (22-30) mmol/L BUN 36 H (9-20) mg/dL Creatinine 1.42 H (0.66-1.25) mg/dL Glucose 121 H (74-99) mg/dL POC Glucose (mg/dL) 139 H (75-99) mg/dL Calcium 7.9 L (8.4-10.2) mg/dL 01/26/20 Range/Units 05:30 RBC (4.30-5.90) m/uL Hgb (13.0-17.5) gm/dL Hct (39.0-53.0) % Plt Count (150-450) k/uL Neutrophils # (1.3-7.7) k/uL Lymphocytes # (1.0-4.8) k/uL Chloride (98-107) mmol/L Carbon Dioxide (22-30) mmol/L BUN (9-20) mg/dL Creatinine (0.66-1.25) mg/dL Glucose (74-99) mg/dL POC Glucose (mg/dL) 111 H (75-99) mg/dL Calcium (8.4-10.2) mg/dL Microbiology - Last 24 Hours (Table) 01/19/20 17:05 Blood Culture - Final Blood No Growth after 144 hours 01/22/20 13:07 Blood Culture - Preliminary Blood No Growth after 72 hours Assessment and Plan Plan: Assessment: #1. Acute hypoxemic respiratory failure, multifactorial, related to acute aspiration, pneumonia and small bowel obstruction, high-grade as noted on CT of the abdomen and pelvis #2. Acute influenza A infection #3. Acute aspiration likely related to over distended stomach, and distended esophagus and also related to high-grade small bowel obstruction #4. Acute kidney injury likely related to ATN and sepsis #5. Chronic kidney disease, stage IIIa #6. Lactic acid acidosis related to sepsis, and proved #7. Non-anion gap metabolic acidosis related to acute on chronic kidney disease, improved #8. Thrombocytopenia related to sepsis, improving #9. History of developmental delay #10. Morbid obesity #11. History of multiple skin cancer removals, basal cell carcinoma #12. Electrolyte imbalance, mostly hypernatremia secondary to free water deficit and patient is receiving D5 WA to 150 ML per hour, improved on today's labs Plan: Continue current medical treatment, breathing treatments, we'll decrease the IV fluids to 100 ML per hour, patient is passing bowel movements, abdomen is nondistended and nontender, surgery is following, and we will await their further recommendations in terms of possibility of clamping the NG tube. Afebrile, no signs of respiratory distress, has not required BiPAP support in last couple of days. Remains nothing by mouth, no vomiting, no abdominal pain. No leukocytosis, renal profile is improving hyponatremia has resolved. We'll continue to follow. Increase activity as tolerated, provide incentive spirometer. I performed a history & physical examination of the patient and discussed their management with my nurse practitioner, Carmelina Soliz. I reviewed the nurse practitioner's note and agree with the documented findings and plan of care. Lung sounds are positive for wheezes and congestion The findings and the impression was discussed with the patient. I attest to the documentation by the nurse practitioner. Time with Patient: Less than 30
[2020-01-26] MEDS: IPRATROPIUM-ALBUTEROL 3 ML NEB INHALATION SCH ×4 (09:35→21:06)
[2020-01-26] MEDS: methylPREDNISolone SOD SUCCI 40 MG/ML 1 ML VIAL IV SCH ×2 (10:30→20:24)
[2020-01-26] MEDS: PANTOPRAZOLE 40 MG/10 ML VIAL IVP SCH (10:31)
[2020-01-26] MEDS: HEPARIN SODIUM,PORCINE 5,000 UNIT/ML 1 ML VIAL SQ SCH ×2 (10:31→20:24)
[2020-01-26] MEDS: TOPIRAMATE 100 MG TAB PO SCH ×2 (10:32→20:24)
[2020-01-26] MEDS: SODIUM BICARBONATE TAB 650 MG TAB PO SCH ×3 (10:32→22:11)
[2020-01-26] MEDS: NYSTATIN 100,000 UNIT/GM POWD 15 GM TOPICAL SCH ×3 (10:33→20:25)
[2020-01-26 11:53] LABS: Glucose,Whole Blood 121 mg/dL (75-99)
--- NOTE | 2020-01-26 12:33 | P.GSCN ---
History of Present Illness Consult date: 01/26/20 History of present illness: Patient is doing well today. 2 large bowel movements this morning. NG tube was clamped. He is tolerating this well with no nausea. 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 MASS ON POSTERIOR SCALP CURRENTLY. History of Any Multi-Drug Resistant Organisms: None Reported Additional Past Surgical History / Comment(s): RT Hand Surgery. Past Anesthesia/Blood Transfusion Reactions: No Reported Reaction Smoking Status: Never smoker - Past Family History Mother Family Medical History: Cancer Medications and Allergies Home Medications Medication Instructions Recorded Confirmed Type Topiramate [Topamax] 100 mg PO BID 10/01/16 01/19/20 History Oseltamivir [Tamiflu] 75 mg PO Q12HR 5 Days #10 cap 01/19/20 01/19/20 Rx cloZAPine [Clozapine Odt] 200 mg PO HS 01/19/20 01/19/20 History Allergies Allergy/AdvReac Type Severity Reaction Status Date / Time silicone AdvReac Body Verified 01/19/20 18:22 rejected finger implants Surgical - Exam Osteopathic Statement: *. No significant issues noted on an osteopathic structural exam other than those noted in the History and Physical/Consult. Vital Signs Temp Pulse Resp BP Pulse Ox 104.2 F H 129 H 19 128/52 97 01/19/20 16:15 01/19/20 16:15 01/19/20 16:15 01/19/20 16:15 01/19/20 16:15 - General well developed, well nourished, no distress - Eyes PERRL - Neck trachea midline - Cardiovascular Rhythm: regular - Abdomen Abdomen: soft, non tender Results - Labs 01/26/20 04:44 01/26/20 04:44 Abnormal Lab Results - Last 24 Hours (Table) 01/25/20 01/25/20 01/25/20 Range/Units 13:55 16:52 23:45 RBC 3.87 L (4.30-5.90) m/uL Hgb 11.3 L (13.0-17.5) gm/dL Hct 33.9 L (39.0-53.0) % Plt Count 119 L (150-450) k/uL Neutrophils # (1.3-7.7) k/uL Lymphocytes # (1.0-4.8) k/uL Chloride (98-107) mmol/L Carbon Dioxide (22-30) mmol/L BUN (9-20) mg/dL Creatinine (0.66-1.25) mg/dL Glucose (74-99) mg/dL POC Glucose (mg/dL) 135 H 139 H (75-99) mg/dL Calcium (8.4-10.2) mg/dL 01/26/20 01/26/20 01/26/20 Range/Units 04:44 04:44 05:30 RBC 3.94 L (4.30-5.90) m/uL Hgb 11.6 L (13.0-17.5) gm/dL Hct 35.6 L (39.0-53.0) % Plt Count 134 L (150-450) k/uL Neutrophils # 8.0 H (1.3-7.7) k/uL Lymphocytes # 0.4 L (1.0-4.8) k/uL Chloride 119 H (98-107) mmol/L Carbon Dioxide 20 L (22-30) mmol/L BUN 36 H (9-20) mg/dL Creatinine 1.42 H (0.66-1.25) mg/dL Glucose 121 H (74-99) mg/dL POC Glucose (mg/dL) 111 H (75-99) mg/dL Calcium 7.9 L (8.4-10.2) mg/dL 01/26/20 Range/Units 11:50 RBC (4.30-5.90) m/uL Hgb (13.0-17.5) gm/dL Hct (39.0-53.0) % Plt Count (150-450) k/uL Neutrophils # (1.3-7.7) k/uL Lymphocytes # (1.0-4.8) k/uL Chloride (98-107) mmol/L Carbon Dioxide (22-30) mmol/L BUN (9-20) mg/dL Creatinine (0.66-1.25) mg/dL Glucose (74-99) mg/dL POC Glucose (mg/dL) 121 H (75-99) mg/dL Calcium (8.4-10.2) mg/dL Microbiology - Last 24 Hours (Table) 01/19/20 17:05 Blood Culture - Final Blood No Growth after 144 hours 01/22/20 13:07 Blood Culture - Preliminary Blood No Growth after 72 hours Diabetes panel 01/26/20 Range/Units 04:44 Sodium 145 (137-145) mmol/L Potassium 3.9 (3.5-5.1) mmol/L Chloride 119 H (98-107) mmol/L Carbon Dioxide 20 L (22-30) mmol/L BUN 36 H (9-20) mg/dL Creatinine 1.42 H (0.66-1.25) mg/dL Glucose 121 H (74-99) mg/dL Calcium 7.9 L (8.4-10.2) mg/dL Calcium panel 01/26/20 Range/Units 04:44 Calcium 7.9 L (8.4-10.2) mg/dL Pituitary panel 01/26/20 Range/Units 04:44 Sodium 145 (137-145) mmol/L Potassium 3.9 (3.5-5.1) mmol/L Chloride 119 H (98-107) mmol/L Carbon Dioxide 20 L (22-30) mmol/L BUN 36 H (9-20) mg/dL Creatinine 1.42 H (0.66-1.25) mg/dL Glucose 121 H (74-99) mg/dL Calcium 7.9 L (8.4-10.2) mg/dL Adrenal panel 01/26/20 Range/Units 04:44 Sodium 145 (137-145) mmol/L Potassium 3.9 (3.5-5.1) mmol/L Chloride 119 H (98-107) mmol/L Carbon Dioxide 20 L (22-30) mmol/L BUN 36 H (9-20) mg/dL Creatinine 1.42 H (0.66-1.25) mg/dL Glucose 121 H (74-99) mg/dL Calcium 7.9 L (8.4-10.2) mg/dL Assessment and Plan Assessment: Influenza Pneumonia UTI Ileus versus small bowel obstruction Plan: Patient had a large bowel movement 2 today. NG tube is clamped if patient tolerates this NG tube may be DC'd and from a surgical standpoint he may start on clears as tolerated once cleared by speech pathology.
[2020-01-26 17:19] LABS: Glucose,Whole Blood 123 mg/dL (75-99)
[2020-01-26 19:47] LABS: Glucose,Whole Blood 112 mg/dL (75-99)
[2020-01-26] MEDS: cloZAPine 100 MG TAB PO SCH (20:24)
[2020-01-27 04:51] LABS: Basophils % (A) 0 %; Eosinophils % (A) 0 %; HCT 34.2 % (39.0-53.0); Lymphocytes # (A) 0.6 k/uL (1.0-4.8); Lymphocytes % (A) 6 %; MCH 28.7 pg (25.0-35.0); MCHC 32.1 g/dL (31.0-37.0); MCV 89.4 fL (80.0-100.0); Mean Platelet Volume 8.9; Monocytes # (A) 0.4 k/uL (0-1.0); Monocytes % (A) 4 %; Neutrophils % (A) 89 %; Platelet Count 121 k/uL (150-450); RBC 3.83 m/uL (4.30-5.90); RDW 13.9 % (11.5-15.5); WBC 10.1 k/uL (3.8-10.6)
[2020-01-27 04:55] LABS: Calcium 7.9 mg/dL (8.4-10.2); Magnesium 2.5 mg/dL (1.6-2.3); Potassium 3.8 mmol/L (3.5-5.1)
[2020-01-27] MEDS: DEXTROSE 5% IN WATER 1,000 ML IV SCH ×3 (05:16→20:15)
[2020-01-27 06:26] LABS: Glucose,Whole Blood 115 mg/dL (75-99)
[2020-01-27] MEDS: INSULIN ASPART (NovoLOG) 100 UNIT/ML VIAL SQ SCH ×4 (06:26→20:12)
--- NOTE | 2020-01-27 07:51 | XR ---
EXAMINATION TYPE: XR chest 1V portable DATE OF EXAM: 01/27/2020 COMPARISON: 01/26/2020 HISTORY: Shortness of breath TECHNIQUE: Single frontal view of the chest is obtained. FINDINGS: NG tube has been removed. Bilateral infiltrate and pleural effusion stable. Cardiomegaly s table. No sizable pneumothorax. IMPRESSION: Stable bilateral airspace disease with pleural effusion.
--- NOTE | 2020-01-27 08:29 | P.PN ---
Subjective Progress Note Date: 01/27/20 Principal diagnosis: Small bowel obstruction and aspiration pneumonia 59-year-old white male patient of Dr. Nielsen with history of developmental delay, hearing disorder, basal cell skin cancer with removal, who resides at home with his mother, was brought in per EMS on O2 2019 for altered mental status, cough, shortness of breath and fever. In addition patient had been very weak. He was diagnosed with influenza A the day prior during his visit to the emergency department, chest x-ray displayed no acute process, kidney function was at baseline, patient does have history of chronic kidney disease, no leukocytosis, patient was ambulatory, he was discharged home on Tamiflu. However his symptoms continued to progress and he returned to the emergency department by EMS later that day on O2 2019. This time patient was unable to ambulate related to weakness, his temperature was 102F, he denied any chest pain or pain in any other areas. He is a poor historian, and he is currently having increased difficulty breathing, most of the information was obtained from the chart, and the nursing staff, his family is not around. Chest x-ray in the ED showed interstitial changes, mild pulmonary vascular congestion versus atypical pneumonia or interstitial pneumonitis, KG shows sinus tachycardia with a rate of 128, a small to be hypoxemic, he was placed on supplemental oxygen, he is currently on 5 L with a pulse ox of 96%, he was initially placed on medical surgical floor with Tamiflu and IV Rocephin for empiric antibiotic coverage. His admission blood work showed a white blood cell count of 8.5, hemoglobin of 12.0, sodium of 141, potassium is 3.5, chloride was 115, CO2 is 15, acute on chronic kidney failure, with BUN of 24, and creatinine of 1.75, plasma lactic acid was 2.0, proBNP was 553, pro calcitonin level was elevated at 4.67. Patient's dyspnea continued to worsen, CT angiogram of the chest was obtained which was a suboptimal study with a lot of artifact related to patient's inability to hold breath it showed tiny right pleural effusion, linear atelectasis, no suspicious focal consolidation, no large pulmonary masses, no large saddle central pulmonary embolism, could not exclude smaller segmental and subsegmental pulmonary embolisms, tiny pericardial effusion, and of note she was noted to have old distended stomach with debris-filled a distended esophagus extending to the level of thoracic inlet. There my evaluation patient is very tachypneic, dyspneic, he is in sinus mechanism with a rate of 134, he has a fever of 100.8F, there is a suspicion of aspiration, patient has audible wheezing and congestion in the upper airways, his respirations are rapid and shallow, he was placed on BiPAP support with pressures of 12 and 6 and FiO2 of 50%, blood gases pending. Patient was reevaluated today on 01/23/20, remains in the ICU. I evaluated the patient late yesterday, and recommended a nasogastric tube placement. His flat plate of the abdomen showed significant dilated bowel loops, after the nasogastric tube was placed, significant amount of fluid was drained from his stomach. Patient felt better, there was a significant relief. Consulted general surgery for possible small bowel obstruction. Patient had a CT of the abdomen and pelvis today, and it is consistent with high-grade obstruction at the level of the distal third of the small bowel. Patient is feeling better, breathing easier although he had a bit of aspiration especially involving the right lower lobe and possibly the left lower lobe. He is covered with an tibiotics. Remains on BiPAP, surgery has been updated on his condition, and I understand the family requested Dr. medrano to see. Awaiting input from Dr. medrano whether the patient will need to go to surgery anytime soon. WBC count today is 8.2 hemoglobin is 12 electrolytes showed slightly elevated sodium BUN is up to 58 creatinine is 2.80, hence more IV fluid will be given, and would hold on diuretics. Reviewed the issues regarding his questionable pulmonary embolism, strongly doubt pulmonary embolism, there is no evidence of deep vein thrombosis, and the CT of the chest showed no proximal emboli, and the quality was very suboptimal quality for the CT of the chest. Clinically there is no evidence of pulmonary embolism. Hence Lovenox will be changed to 40 mg subcu daily. [place] placed on heparin 5000 units subcu every 12 hours. IV fluid will be increased, and the patient may receive boluses of fluids. CBC today is basically unremarkable. Bicarb is 17. Chest x-ray is consistent with aspiration pneumonia involving lower lobe. And some bibasilar atelectasis. Reevaluated today on 01/24/20, patient remains in the ICU, improving with nasogastric tube suctioning, however his electrolytes are much worse today, and the patient developed hypernatremia most likely secondary to free water fluid deficit, hence I changed his IV fluid to D5W at 150 mL per hour. Patient was evaluated by surgery, planning to continue conservative measures and decompression via nasogastric tube. No plans for surgery today. Patient is off BiPAP, he is on few liters nasal cannula, feeling better, breathing easier, denies any shortness of breath cough or wheezing. His follow-up chest x-ray tod laly showed minimal infiltrate in the right lower lobe, and possible atelectasis. CBC is relatively normal however his sodium is 151 chloride is 125 and his BUN is 69 creatinine 2.38. This is actually improved compared to creatinine yesterday of 2.80. IV fluid was changed to D5W, patient remains on oral bicarb, and he remains on antibiotics in the form of Zosyn. Reevaluated today on 01/25/20, patient remains in the intensive care unit, he is on few liters nasal cannula, continues to have nasogastric tube in place, and there is a significant nasogastric output over the last 24 hours. Clinically the patient is feeling better, denies any shortness of breath cough or wheezing, denies any abdominal pain or discomfort. Being followed by many consultants. No plans for surgery at least today, he was seen by Dr. medrano and by Dr. Johnson over the last few days. Plan is to continue conservative measures and nasogastric tube decompression. IV fluids remains at 1 50 mL per hour using D5W, his electrolytes are improving sodium is coming down, renal profile is also improving. Patient is not requiring BiPAP at present. Chest x-ray is also showing improvement in his by basilar airspace disease/presumptive aspiration pneumonia. Sodium is 149 chloride is 123 BUN is 57 creatinine 2.08. WBC count is 7.9 hemoglobin is 11. On 01/26/2020 patient seen in follow-up in the intensive care unit, he is awake and alert, oriented to person and place. Answers questions appropriate, in no acute distress. Room air pulse ox is 94%, patient is afebrile, he is in sinus mechanism with a controlled rate in the heart rate of 79 BPM, hemodynamically stable, breathing is nonlabored, comfortable, not required BiPAP support for last 2 days, D5W infusing at a rate of 150 ML per hour. No other drips, remains on Zosyn for antibiotic coverage. Abdomen is soft, nontender, NG tube remains in place, I'll sounds are still hypoactive but of note patient was able to pass 2 large bowel movements early this morning, still having significant drainage from the gastric tube, and had a total of 1300 mL over the last 24 hours. Abdomen is significantly less distended. Patient denies any shortness of breath, denies any specific complaints. Today's labs have been reviewed, showing white blood cell, of 8.8, hemoglobin of 11.6, sodium of 145, potassium is 3.9, chloride is 119, CO2 is 20, BUN of 36 and creatinine 1.46. Lung sounds positive for a few bibasilar crackles. On 01/27/2020 patient seen in follow-up in the intensive care unit, he is awake and alert, oriented 2, in no acute distress, NG tube has been discontinued per surgery, yesterday patient had 2 very large bowel movements, he has had no nausea or vomiting. No complaints of abdominal pain, abdomen is soft, nontender, nondistended. Bowel sounds are more active on today's exam, patient is tolerating clear liquid diet. Ulnar perspective patient has no acute complaints, no shortness of breath, no cough, or congestion, on today's exam lung sounds reveal some mild scattered wheezes over anterior right upper and middle lobe. Patient is on room air with a pulse ox of 97%, hemodynamically patient is stable, non-tachycardic, in sinus mechanism, no fever or chills remains on Zosyn for aspiration pneumonia, breathing treatments and IV Solu- Medrol at 40 mg every 12 hours. Objective - Vital Signs Vital signs: Vital Signs Temp 98.4 F 01/27/20 04:00 Pulse 73 01/27/20 07:00 Resp 17 01/27/20 07:00 BP 132/80 01/27/20 07:00 Pulse Ox 97 01/27/20 07:00 Intake & Output 01/26/20 01/27/20 01/27/20 18:59 06:59 18:59 Intake Total 2400 1800 75 Output Total 1045 2360 145 Balance 1355 -560 -70 Weight 121.88 kg 119.522 kg Intake: IV 1800 1800 75 Dextrose 5% in Water 1, 1800 1800 000 ml @ 150 mls/hr IV . Q6H40M [facility] Rx#:[id number] Dextrose 5% in Water 1, 75 000 ml @ 75 mls/hr IV . [id number] [facility] Rx#:[id number] Intake, IV Titration 100 Amount Piperacillin-Tazobactam 3 100 .375 gm In Sodium Chloride 0.9% 100 ml @ 25 mls/hr IVPB Q8HR [facility] Rx# :[id number] Oral 500 Output: Urine 1045 2360 145 Other: Voiding Method Indwelling Catheter Indwelling Catheter Indwelling Catheter - Exam GENERAL EXAM: Alert, 59-year-old obese white male, with chronic developmental delay, room air pulse ox is 97%, in no distress, asymptomatic. Interval removal of NG tube HEAD: Normocephalic/atraumatic. Nasogastric tube is intact, HEENT: PERRLA, EOMI, no icterus, no neck masses, dry mucous membranes. CHEST: No chest wall deformity. Symmetrical expansion. LUNGS: Diminished breath sounds and and mild wheezing in the anterior right upper and middle lobe. No rhonchi CVS: Regular rate and rhythm, normal S1 and S2, no gallops, no murmurs, no rubs ABDOMEN: Soft, nontender. No hepatosplenomegaly, diminished bowel sounds. EXTREMITIES: No clubbing, no edema, no cyanosis, 2+ pulses and upper and lower extremities. MUSCULOSKELETAL: Muscle strength and tone normal. SPINE: No scoliosis or deformity SKIN: No rashes CENTRAL NERVOUS SYSTEM: Alert and oriented -2. No focal deficits, tone is normal in all 4 extremities. PSYCHIATRIC: Alert and oriented -2. Appropriate affect. Judgment is questionable. - Labs CBC & Chem 7: 01/27/20 04:18 01/27/20 04:18 Labs: Abnormal Lab Results - Last 24 Hours (Table) 01/26/20 01/26/20 01/26/20 Range/Units 11:50 17:17 19:46 RBC (4.30-5.90) m/uL Hgb (13.0-17.5) gm/dL Hct (39.0-53.0) % Plt Count (150-450) k/uL Neutrophils # (1.3-7.7) k/uL Lymphocytes # (1.0-4.8) k/uL Chloride (98-107) mmol/L Carbon Dioxide (22-30) mmol/L BUN (9-20) mg/dL Glucose (74-99) mg/dL POC Glucose (mg/dL) 121 H 123 H 112 H (75-99) mg/dL Calcium (8.4-10.2) mg/dL Magnesium (1.6-2.3) mg/dL 01/27/20 01/27/20 01/27/20 Range/Units 04:18 04:18 06:25 RBC 3.83 L (4.30-5.90) m/uL Hgb 11.0 L (13.0-17.5) gm/dL Hct 34.2 L (39.0-53.0) % Plt Count 121 L (150-450) k/uL Neutrophils # 9.0 H (1.3-7.7) k/uL Lymphocytes # 0.6 L (1.0-4.8) k/uL Chloride 117 H (98-107) mmol/L Carbon Dioxide 19 L (22-30) mmol/L BUN 25 H (9-20) mg/dL Glucose 148 H (74-99) mg/dL POC Glucose (mg/dL) 115 H (75-99) mg/dL Calcium 7.9 L (8.4-10.2) mg/dL Magnesium 2.5 H (1.6-2.3) mg/dL Microbiology - Last 24 Hours (Table) 01/22/20 13:07 Blood Culture - Preliminary Blood No Growth after 96 hours Assessment and Plan Plan: Assessment: #1. Acute hypoxemic respiratory failure, multifactorial, related to acute aspiration, pneumonia and small bowel obstruction, high-grade as noted on CT of the abdomen and pelvis #2. Acute influenza A infection #3. Acute aspiration likely related to over distended stomach, and distended esophagus and also related to high-grade small bowel obstruction #4. Acute kidney injury likely related to ATN and sepsis #5. Chronic kidney disease, stage IIIa #6. Lactic acid acidosis related to sepsis, and proved #7. Non-anion gap metabolic acidosis related to acute on chronic kidney disease, improved #8. Thrombocytopenia related to sepsis, improving #9. History of developmental delay #10. Morbid obesity #11. History of multiple skin cancer removals, basal cell carcinoma #12. Electrolyte imbalance, mostly hypernatremia secondary to free water deficit and patient is receiving D5 WA to 150 ML per hour, resolved, and D5W will be decreased down to 75 ML per hour Plan: Continue with current medical treatment, decrease IV fluids to 75 ML per hour, NG tube has been discontinued, patient has had no nausea vomiting or abdominal pain, abdomen is nontender, nondistended, more active bowel sounds on today's exam. No shortness of breath; mild wheezing heard on today's exam, continue with IV steroids and breathing treatments, continue with IV Zosyn. Today's chest x-ray has been reviewed, showing stable bilateral airspace disease with pleural effusion. No fever or chills, increase activity as tolerated, deep breathing and coughing, patient is stable to be transferred out of the intensive care unit today to general medical floor. I performed a history & physical examination of the patient and discussed their management with my nurse practitioner, Carmelina Soliz. I reviewed the nurse practitioner's note and agree with the documented findings and plan of care. Lung sounds are positive for wheezes and congestion The findings and the impression was discussed with the patient. I attest to the documentation by the nurse practitioner. Time with Patient: Less than 30
[2020-01-27] MEDS ORDERED: POTASSIUM CHLORIDE ER 20 MEQ TAB.ER PO SCH (09:00)
[2020-01-27] MEDS: HEPARIN SODIUM,PORCINE 5,000 UNIT/ML 1 ML VIAL SQ SCH ×2 (09:07→20:15)
[2020-01-27] MEDS: methylPREDNISolone SOD SUCCI 40 MG/ML 1 ML VIAL IV SCH ×2 (09:07→20:14)
[2020-01-27] MEDS: PIPERACILLIN-TAZOBACTAM 3.375 GM in SODIUM CHLORIDE 0.9% 100 ML IVPB SCH ×3 (09:07→23:49)
[2020-01-27] MEDS: PANTOPRAZOLE 40 MG/10 ML VIAL IVP SCH (09:07)
[2020-01-27] MEDS: TOPIRAMATE 100 MG TAB PO SCH ×2 (09:08→20:15)
[2020-01-27] MEDS: SODIUM BICARBONATE TAB 650 MG TAB PO SCH ×3 (09:08→23:44)
[2020-01-27] MEDS: NYSTATIN 100,000 UNIT/GM POWD 15 GM TOPICAL SCH ×3 (09:08→20:15)
[2020-01-27] MEDS: IPRATROPIUM-ALBUTEROL 3 ML NEB INHALATION SCH ×4 (09:54→20:12)
--- NOTE | 2020-01-27 10:21 | P.PN ---
Subjective Progress Note Date: 01/27/20 tolerating clears no NV Objective - Vital Signs Vital signs: Vital Signs Temp 97.9 F 01/27/20 08:00 Pulse 76 01/27/20 08:00 Resp 21 01/27/20 08:00 BP 125/75 01/27/20 08:00 Pulse Ox 96 01/27/20 08:00 Intake & Output 01/26/20 01/27/20 01/27/20 18:59 06:59 18:59 Intake Total 2400 1800 75 Output Total 1045 2360 145 Balance 1355 -560 -70 Weight 121.88 kg 119.522 kg Intake: IV 1800 1800 75 Dextrose 5% in Water 1, 1800 1800 000 ml @ 150 mls/hr IV . Q6H40M [facility] Rx#:[id number] Dextrose 5% in Water 1, 75 000 ml @ 75 mls/hr IV . [id number] [facility] Rx#:[id number] Intake, IV Titration 100 Amount Piperacillin-Tazobactam 3 100 .375 gm In Sodium Chloride 0.9% 100 ml @ 25 mls/hr IVPB Q8HR [facility] Rx# :[id number] Oral 500 Output: Urine 1045 2360 145 Other: Voiding Method Indwelling Catheter Indwelling Catheter Indwelling Catheter - Constitutional General appearance: Present: cooperative - Respiratory Details: nonlabored - Cardiovascular Rhythm: regular - Gastrointestinal Gastrointestinal Comment(s): S/NT/ND - Psychiatric Psychiatric: Present: A&O x's 3 - Labs CBC & Chem 7: 01/27/20 04:18 01/27/20 04:18 Labs: Abnormal Lab Results - Last 24 Hours (Table) 01/26/20 01/26/20 01/26/20 Range/Units 11:50 17:17 19:46 RBC (4.30-5.90) m/uL Hgb (13.0-17.5) gm/dL Hct (39.0-53.0) % Plt Count (150-450) k/uL Neutrophils # (1.3-7.7) k/uL Lymphocytes # (1.0-4.8) k/uL Chloride (98-107) mmol/L Carbon Dioxide (22-30) mmol/L BUN (9-20) mg/dL Glucose (74-99) mg/dL POC Glucose (mg/dL) 121 H 123 H 112 H (75-99) mg/dL Calcium (8.4-10.2) mg/dL Magnesium (1.6-2.3) mg/dL 01/27/20 01/27/20 01/27/20 Range/Units 04:18 04:18 06:25 RBC 3.83 L (4.30-5.90) m/uL Hgb 11.0 L (13.0-17.5) gm/dL Hct 34.2 L (39.0-53.0) % Plt Count 121 L (150-450) k/uL Neutrophils # 9.0 H (1.3-7.7) k/uL Lymphocytes # 0.6 L (1.0-4.8) k/uL Chloride 117 H (98-107) mmol/L Carbon Dioxide 19 L (22-30) mmol/L BUN 25 H (9-20) mg/dL Glucose 148 H (74-99) mg/dL POC Glucose (mg/dL) 115 H (75-99) mg/dL Calcium 7.9 L (8.4-10.2) mg/dL Magnesium 2.5 H (1.6-2.3) mg/dL Microbiology - Last 24 Hours (Table) 01/22/20 13:07 Blood Culture - Preliminary Blood No Growth after 96 hours Assessment and Plan Assessment: Influenza Pneumonia UTI Ileus versus small bowel obstruction Plan: Advance diet as tolerated. No plans for surgical intervention. Please contact directly with any further surgical concerns or questions
--- NOTE | 2020-01-27 11:10 | P.PN ---
Subjective Patient is seen in follow-up for acute kidney injury and hypernatremia. Renal function continues to improve. Sodium level down to 143. He is now tolerating clear liquid diet. Vital signs are stable. General: The patient appeared well nourished and normally developed. HEENT: Head exam is unremarkable. Neck is without jugular venous distension. NG tube noted. LUNGS: Lungs are clear to auscultation and percussion. Breath sounds decreased. HEART: Rate and Rhythm are regular. First and second heart sounds normal. No murmurs, rubs or gallops. ABDOMEN: Bowel sounds present. Nontender. EXTREMITITES: No clubbing, cyanosis, or edema. Objective - Vital Signs Vital signs: Vital Signs Temp 97.9 F 01/27/20 08:00 Pulse 76 01/27/20 08:00 Resp 21 01/27/20 08:00 BP 125/75 01/27/20 08:00 Pulse Ox 96 01/27/20 08:00 Intake & Output 01/26/20 01/27/20 01/27/20 18:59 06:59 18:59 Intake Total 2400 1800 75 Output Total 1045 2360 145 Balance 1355 -560 -70 Weight 121.88 kg 119.522 kg Intake: IV 1800 1800 75 Dextrose 5% in Water 1, 1800 1800 000 ml @ 150 mls/hr IV . Q6H40M [facility] Rx#:[id number] Dextrose 5% in Water 1, 75 000 ml @ 75 mls/hr IV . [id number] [facility] Rx#:[id number] Intake, IV Titration 100 Amount Piperacillin-Tazobactam 3 100 .375 gm In Sodium Chloride 0.9% 100 ml @ 25 mls/hr IVPB Q8HR [facility] Rx# :[id number] Oral 500 Output: Urine 1045 2360 145 Other: Voiding Method Indwelling Catheter Indwelling Catheter Indwelling Catheter - Labs CBC & Chem 7: 01/27/20 04:18 01/27/20 04:18 Labs: Abnormal Lab Results - Last 24 Hours (Table) 01/26/20 01/26/20 01/26/20 Range/Units 11:50 17:17 19:46 RBC (4.30-5.90) m/uL Hgb (13.0-17.5) gm/dL Hct (39.0-53.0) % Plt Count (150-450) k/uL Neutrophils # (1.3-7.7) k/uL Lymphocytes # (1.0-4.8) k/uL Chloride (98-107) mmol/L Carbon Dioxide (22-30) mmol/L BUN (9-20) mg/dL Glucose (74-99) mg/dL POC Glucose (mg/dL) 121 H 123 H 112 H (75-99) mg/dL Calcium (8.4-10.2) mg/dL Magnesium (1.6-2.3) mg/dL 01/27/20 01/27/20 01/27/20 Range/Units 04:18 04:18 06:25 RBC 3.83 L (4.30-5.90) m/uL Hgb 11.0 L (13.0-17.5) gm/dL Hct 34.2 L (39.0-53.0) % Plt Count 121 L (150-450) k/uL Neutrophils # 9.0 H (1.3-7.7) k/uL Lymphocytes # 0.6 L (1.0-4.8) k/uL Chloride 117 H (98-107) mmol/L Carbon Dioxide 19 L (22-30) mmol/L BUN 25 H (9-20) mg/dL Glucose 148 H (74-99) mg/dL POC Glucose (mg/dL) 115 H (75-99) mg/dL Calcium 7.9 L (8.4-10.2) mg/dL Magnesium 2.5 H (1.6-2.3) mg/dL Microbiology - Last 24 Hours (Table) 01/22/20 13:07 Blood Culture - Preliminary Blood No Growth after 96 hours Assessment and Plan Plan: Assessment: 1. Acute kidney injury mostly prerenal improving with IV hydration. Creatinine 1.21 today. 2. Chronic kidney disease stage III with baseline creatinine near 1.5. 3. Small bowel obstruction. Now tolerating clear liquid diet. 4. Metabolic acidosis secondary to acute kidney injury. 5. Hypernatremia secondary to lack of oral water intake. Better. Plan: Maintain D5W at 75 mL an hour. Avoid nephrotoxins. Continue to monitor renal function and urine output. Maintain oral bicarb.
[2020-01-27 11:36] LABS: Glucose,Whole Blood 125 mg/dL (75-99)
[2020-01-27 17:40] LABS: Glucose,Whole Blood 138 mg/dL (75-99)
--- NOTE | 2020-01-27 19:53 | P.PN ---
Subjective Progress Note Date: 01/27/20 (delayed charting seen at 1430) Principal diagnosis: abdominal pain Patient is a 59-year-old male with a past medical history of intellectual disability, skin cancer, and hearing difficulties who presented due to worsening chest congestion. Ultimately found to have small bowel obstruction treated conservatively with nasogastric tube. Patient seen and examined at bedside. He is awake and alert and feeling well. Denies any chest pain, shortness breath, nausea, or vomiting. He had tomato soup for lunch and tolerated that well. 2 large bowel movements yesterday. We discussed that he will likely need to go to rehab after his acute hospital stay to regain strength. He typically lives at home with his mother who is 89 years old. Patient's sister at bedside and updated on plan of care. Objective - Vital Signs Vital signs: Vital Signs Temp 98.6 F 01/27/20 14:32 Pulse 72 01/27/20 16:03 Resp 20 01/27/20 14:32 BP 132/75 01/27/20 14:32 Pulse Ox 96 01/27/20 14:32 Intake & Output 01/26/20 01/27/20 01/27/20 18:59 06:59 18:59 Intake Total 2400 1800 1100 Output Total 1045 2360 895 Balance 1355 -560 205 Weight 121.88 kg 119.522 kg Intake: IV 1800 1800 600 Dextrose 5% in Water 1, 1800 1800 000 ml @ 150 mls/hr IV . Q6H40M [facility] Rx#:[id number] Dextrose 5% in Water 1, 600 000 ml @ 75 mls/hr IV . [id number] [facility] Rx#:[id number] Intake, IV Titration 100 Amount Piperacillin-Tazobactam 3 100 .375 gm In Sodium Chloride 0.9% 100 ml @ 25 mls/hr IVPB Q8HR [facility] Rx# :[id number] Oral 500 500 Output: Urine 1045 2360 895 Other: Voiding Method Indwelling Catheter Indwelling Catheter Indwelling Catheter - Exam General: non toxic, no distress, appears at stated age Derm: warm, dry Head: atraumatic, normocephalic, symmetric Eyes: EOMI, no lid lag, anicteric sclera Mouth: no lip lesion, mucus membranes moist Cardiovascular: S1S2 reg, no murmur, positive posterior tibial pulse bilateral, Lungs: Decreased breath sounds bilateral, no rhonchi, no rales , no accessory muscle use Abdominal: soft, nontender to palpation, no guarding, no appreciable organomegaly Ext: no gross muscle atrophy, no edema, no contractures Neuro: CN II-XI grossly intact, no focal neuro deficits Psych: Alert, oriented, appropriate affect - Labs CBC & Chem 7: 01/27/20 04:18 01/27/20 04:18 Labs: Abnormal Lab Results - Last 24 Hours (Table) 01/26/20 01/27/20 01/27/20 Range/Units 19:46 04:18 04:18 RBC 3.83 L (4.30-5.90) m/uL Hgb 11.0 L (13.0-17.5) gm/dL Hct 34.2 L (39.0-53.0) % Plt Count 121 L (150-450) k/uL Neutrophils # 9.0 H (1.3-7.7) k/uL Lymphocytes # 0.6 L (1.0-4.8) k/uL Chloride 117 H (98-107) mmol/L Carbon Dioxide 19 L (22-30) mmol/L BUN 25 H (9-20) mg/dL Glucose 148 H (74-99) mg/dL POC Glucose (mg/dL) 112 H (75-99) mg/dL Calcium 7.9 L (8.4-10.2) mg/dL Magnesium 2.5 H (1.6-2.3) mg/dL 01/27/20 01/27/20 01/27/20 Range/Units 06:25 11:34 17:38 RBC (4.30-5.90) m/uL Hgb (13.0-17.5) gm/dL Hct (39.0-53.0) % Plt Count (150-450) k/uL Neutrophils # (1.3-7.7) k/uL Lymphocytes # (1.0-4.8) k/uL Chloride (98-107) mmol/L Carbon Dioxide (22-30) mmol/L BUN (9-20) mg/dL Glucose (74-99) mg/dL POC Glucose (mg/dL) 115 H 125 H 138 H (75-99) mg/dL Calcium (8.4-10.2) mg/dL Magnesium (1.6-2.3) mg/dL Microbiology - Last 24 Hours (Table) 01/22/20 13:07 Blood Culture - Preliminary Blood No Growth after 120 hours Assessment and Plan Assessment: Small bowel obstruction, improved -Status post bowel movement 2 -NG tube has been removed -Tolerating full liquid diet -Surgery has signed off Obesity with BMI 37.8 -Structured outpatient weight loss LETY on chronic kidney disease stage III with Hyperchloremia Metabolic acidosis - LETY resolved - nephro recs appreciated - IV fluids - encouraged oral fluid intake Probable Aspiration PNA - On Zosyn day #6 -Pulmonary recommendations appreciated -Chest x-ray with mild changes Anemia - undetermined etiology - follow CBC - outpatient follow-up - ? due to clozapine Thrombocytopenia - acute on chronic - follow CBC - could be due to splenomegaly - ? due to clozapine Hypernatremia, resolved Influenza A, resolved Severe sepsis, resolved Acute hypoxic respiratory failure resolved Chronic: Intellectual disability Hard of hearing DVT prophylaxis: Heparin Discussed with: patient, nursing Anticipated discharge: 1-[address]: home A total of 25 minutes was spent on the care of this complex patient more than 50% of the time was spent in counseling and care coordination.
[2020-01-27 20:14] LABS: Glucose,Whole Blood 131 mg/dL (75-99)
[2020-01-27] MEDS: cloZAPine 100 MG TAB PO SCH (20:15)
[2020-01-27 23:02] LABS: Glucose,Whole Blood 146 mg/dL (75-99)
[2020-01-28 07:06] LABS: Glucose,Whole Blood 109 mg/dL (75-99)
[2020-01-28] MEDS: IPRATROPIUM-ALBUTEROL 3 ML NEB INHALATION SCH ×4 (07:28→19:23)
[2020-01-28] MEDS: INSULIN ASPART (NovoLOG) 100 UNIT/ML VIAL SQ SCH ×4 (08:09→20:39)
[2020-01-28] MEDS: PANTOPRAZOLE 40 MG/10 ML VIAL IVP SCH (08:20)
[2020-01-28] MEDS: HEPARIN SODIUM,PORCINE 5,000 UNIT/ML 1 ML VIAL SQ SCH ×2 (08:20→21:13)
[2020-01-28] MEDS: SODIUM BICARBONATE TAB 650 MG TAB PO SCH ×3 (08:20→21:13)
[2020-01-28] MEDS: TOPIRAMATE 100 MG TAB PO SCH ×2 (08:20→21:13)
[2020-01-28] MEDS: NYSTATIN 100,000 UNIT/GM POWD 15 GM TOPICAL SCH ×3 (08:21→22:04)
[2020-01-28] MEDS: DEXTROSE 5% IN WATER 1,000 ML IV SCH (08:33)
[2020-01-28 08:48] LABS: Basophils % (A) 0 %; Eosinophils % (A) 0 %; HCT 35.9 % (39.0-53.0); HGB 11.7 gm/dL (13.0-17.5); Lymphocytes # (A) 0.7 k/uL (1.0-4.8); Lymphocytes % (A) 5 %; MCHC 32.7 g/dL (31.0-37.0); MCV 88.8 fL (80.0-100.0); Mean Platelet Volume 8.8; Monocytes # (A) 0.5 k/uL (0-1.0); Monocytes % (A) 3 %; Neutrophils # (A) 13.5 k/uL (1.3-7.7); Neutrophils % (A) 91 %; Platelet Count 132 k/uL (150-450); RBC 4.04 m/uL (4.30-5.90); RDW 14.3 % (11.5-15.5); WBC 14.8 k/uL (3.8-10.6)
[2020-01-28 09:00] LABS: Potassium 3.6 mmol/L (3.5-5.1)
[2020-01-28] MEDS ORDERED: POTASSIUM CHLORIDE ER 20 MEQ TAB.ER PO STA (09:20)
--- NOTE | 2020-01-28 09:54 | P.PN ---
Subjective Progress Note Date: 01/28/20 Principal diagnosis: Small bowel obstruction and aspiration pneumonia 59-year-old white male patient of Dr. Nielsen with history of developmental delay, hearing disorder, basal cell skin cancer with removal, who resides at home with his mother, was brought in per EMS on O2 2019 for altered mental status, cough, shortness of breath and fever. In addition patient had been very weak. He was diagnosed with influenza A the day prior during his visit to the emergency department, chest x-ray displayed no acute process, kidney function was at baseline, patient does have history of chronic kidney disease, no leukocytosis, patient was ambulatory, he was discharged home on Tamiflu. However his symptoms continued to progress and he returned to the emergency department by EMS later that day on O2 2019. This time patient was unable to ambulate related to weakness, his temperature was 102F, he denied any chest pain or pain in any other areas. He is a poor historian, and he is currently having increased difficulty breathing, most of the information was obtained from the chart, and the nursing staff, his family is not around. Chest x-ray in the ED showed interstitial changes, mild pulmonary vascular congestion versus atypical pneumonia or interstitial pneumonitis, KG shows sinus tachycardia with a rate of 128, a small to be hypoxemic, he was placed on supplemental oxygen, he is currently on 5 L with a pulse ox of 96%, he was initially placed on medical surgical floor with Tamiflu and IV Rocephin for empiric antibiotic coverage. His admission blood work showed a white blood cell count of 8.5, hemoglobin of 12.0, sodium of 141, potassium is 3.5, chloride was 115, CO2 is 15, acute on chronic kidney failure, with BUN of 24, and creatinine of 1.75, plasma lactic acid was 2.0, proBNP was 553, pro calcitonin level was elevated at 4.67. Patient's dyspnea continued to worsen, CT angiogram of the chest was obtained which was a suboptimal study with a lot of artifact related to patient's inability to hold breath it showed tiny right pleural effusion, linear atelectasis, no suspicious focal consolidation, no large pulmonary masses, no large saddle central pulmonary embolism, could not exclude smaller segmental and subsegmental pulmonary embolisms, tiny pericardial effusion, and of note she was noted to have old distended stomach with debris-filled a distended esophagus extending to the level of thoracic inlet. There my evaluation patient is very tachypneic, dyspneic, he is in sinus mechanism with a rate of 134, he has a fever of 100.8F, there is a suspicion of aspiration, patient has audible wheezing and congestion in the upper airways, his respirations are rapid and shallow, he was placed on BiPAP support with pressures of 12 and 6 and FiO2 of 50%, blood gases pending. Patient was reevaluated today on 01/23/20, remains in the ICU. I evaluated the patient late yesterday, and recommended a nasogastric tube placement. His flat plate of the abdomen showed significant dilated bowel loops, after the nasogastric tube was placed, significant amount of fluid was drained from his stomach. Patient felt better, there was a significant relief. Consulted general surgery for possible small bowel obstruction. Patient had a CT of the abdomen and pelvis today, and it is consistent with high-grade obstruction at the level of the distal third of the small bowel. Patient is feeling better, breathing easier although he had a bit of aspiration especially involving the right lower lobe and possibly the left lower lobe. He is covered with an tibiotics. Remains on BiPAP, surgery has been updated on his condition, and I understand the family requested Dr. medrano to see. Awaiting input from Dr. medrano whether the patient will need to go to surgery anytime soon. WBC count today is 8.2 hemoglobin is 12 electrolytes showed slightly elevated sodium BUN is up to 58 creatinine is 2.80, hence more IV fluid will be given, and would hold on diuretics. Reviewed the issues regarding his questionable pulmonary embolism, strongly doubt pulmonary embolism, there is no evidence of deep vein thrombosis, and the CT of the chest showed no proximal emboli, and the quality was very suboptimal quality for the CT of the chest. Clinically there is no evidence of pulmonary embolism. Hence Lovenox will be changed to 40 mg subcu daily. [place] placed on heparin 5000 units subcu every 12 hours. IV fluid will be increased, and the patient may receive boluses of fluids. CBC today is basically unremarkable. Bicarb is 17. Chest x-ray is consistent with aspiration pneumonia involving lower lobe. And some bibasilar atelectasis. Reevaluated today on 01/24/20, patient remains in the ICU, improving with nasogastric tube suctioning, however his electrolytes are much worse today, and the patient developed hypernatremia most likely secondary to free water fluid deficit, hence I changed his IV fluid to D5W at 150 mL per hour. Patient was evaluated by surgery, planning to continue conservative measures and decompression via nasogastric tube. No plans for surgery today. Patient is off BiPAP, he is on few liters nasal cannula, feeling better, breathing easier, denies any shortness of breath cough or wheezing. His follow-up chest x-ray tod laly showed minimal infiltrate in the right lower lobe, and possible atelectasis. CBC is relatively normal however his sodium is 151 chloride is 125 and his BUN is 69 creatinine 2.38. This is actually improved compared to creatinine yesterday of 2.80. IV fluid was changed to D5W, patient remains on oral bicarb, and he remains on antibiotics in the form of Zosyn. Reevaluated today on 01/25/20, patient remains in the intensive care unit, he is on few liters nasal cannula, continues to have nasogastric tube in place, and there is a significant nasogastric output over the last 24 hours. Clinically the patient is feeling better, denies any shortness of breath cough or wheezing, denies any abdominal pain or discomfort. Being followed by many consultants. No plans for surgery at least today, he was seen by Dr. medrano and by Dr. Johnson over the last few days. Plan is to continue conservative measures and nasogastric tube decompression. IV fluids remains at 1 50 mL per hour using D5W, his electrolytes are improving sodium is coming down, renal profile is also improving. Patient is not requiring BiPAP at present. Chest x-ray is also showing improvement in his by basilar airspace disease/presumptive aspiration pneumonia. Sodium is 149 chloride is 123 BUN is 57 creatinine 2.08. WBC count is 7.9 hemoglobin is 11. On 01/26/2020 patient seen in follow-up in the intensive care unit, he is awake and alert, oriented to person and place. Answers questions appropriate, in no acute distress. Room air pulse ox is 94%, patient is afebrile, he is in sinus mechanism with a controlled rate in the heart rate of 79 BPM, hemodynamically stable, breathing is nonlabored, comfortable, not required BiPAP support for last 2 days, D5W infusing at a rate of 150 ML per hour. No other drips, remains on Zosyn for antibiotic coverage. Abdomen is soft, nontender, NG tube remains in place, I'll sounds are still hypoactive but of note patient was able to pass 2 large bowel movements early this morning, still having significant drainage from the gastric tube, and had a total of 1300 mL over the last 24 hours. Abdomen is significantly less distended. Patient denies any shortness of breath, denies any specific complaints. Today's labs have been reviewed, showing white blood cell, of 8.8, hemoglobin of 11.6, sodium of 145, potassium is 3.9, chloride is 119, CO2 is 20, BUN of 36 and creatinine 1.46. Lung sounds positive for a few bibasilar crackles. On 01/27/2020 patient seen in follow-up in the intensive care unit, he is awake and alert, oriented 2, in no acute distress, NG tube has been discontinued per surgery, yesterday patient had 2 very large bowel movements, he has had no nausea or vomiting. No complaints of abdominal pain, abdomen is soft, nontender, nondistended. Bowel sounds are more active on today's exam, patient is tolerating clear liquid diet. Ulnar perspective patient has no acute complaints, no shortness of breath, no cough, or congestion, on today's exam lung sounds reveal some mild scattered wheezes over anterior right upper and middle lobe. Patient is on room air with a pulse ox of 97%, hemodynamically patient is stable, non-tachycardic, in sinus mechanism, no fever or chills remains on Zosyn for aspiration pneumonia, breathing treatments and IV Solu- Medrol at 40 mg every 12 hours. On 01/28/2020 patient seen in follow-up on medical surgical floor. he is calm and comfortable, resting comfortably in bed, denies any distress, room air pulse ox is 97%, afebrile, denies any shortness of breath, lung sounds are positive for a few scattered wheezes, but improved since yesterday. Patient remains on Zosyn for us will aspiration pneumonia, he has been afebrile, his last chest x- ray was done yesterday showing stable bilateral airspace disease. Clinically stable, abdomen is soft, no complaints of abdominal pain, she is tolerating oral diet. Today's labs have been reviewed, showing white blood cell count of 14.8, hemoglobin of 11.7, sodium of 144, potassium is 3.6, chloride is 1:15, CO2 is 21, B1 is 22, and creatinine is 1.38. Objective - Vital Signs Vital signs: Vital Signs Temp 98.7 F 01/28/20 05:53 Pulse 79 01/28/20 07:39 Resp 22 01/28/20 05:53 BP 133/74 01/28/20 05:53 Pulse Ox 97 01/28/20 05:53 Intake & Output 01/27/20 01/28/20 01/28/20 18:59 06:59 18:59 Intake Total 1100 Output Total 895 325 Balance 205 -325 Intake: IV 600 Dextrose 5% in Water 1, 600 000 ml @ 75 mls/hr IV . [id number] [facility] Rx#:[id number] Oral 500 Output: Urine 895 325 Other: Voiding Method Indwelling Catheter # Voids 1 # Bowel Movements 1 - Exam GENERAL EXAM: Alert, 59-year-old obese white male, with chronic developmental delay, room air pulse ox is 97%, in no distress, asymptomatic. Interval removal of NG tube HEAD: Normocephalic/atraumatic. Nasogastric tube is intact, HEENT: PERRLA, EOMI, no icterus, no neck masses, dry mucous membranes. CHEST: No chest wall deformity. Symmetrical expansion. LUNGS: Diminished breath sounds and and mild wheezing in the anterior right upper and middle lobe. No rhonchi CVS: Regular rate and rhythm, normal S1 and S2, no gallops, no murmurs, no rubs ABDOMEN: Soft, nontender. No hepatosplenomegaly, diminished bowel sounds. EXTREMITIES: No clubbing, no edema, no cyanosis, 2+ pulses and upper and lower extremities. MUSCULOSKELETAL: Muscle strength and tone normal. SPINE: No scoliosis or deformity SKIN: No rashes CENTRAL NERVOUS SYSTEM: Alert and oriented -2. No focal deficits, tone is n ormal in all 4 extremities. PSYCHIATRIC: Alert and oriented -2. Appropriate affect. Judgment is q uestionable. - Labs CBC & Chem 7: 01/28/20 08:12 01/28/20 08:12 Labs: Abnormal Lab Results - Last 24 Hours (Table) 01/27/20 01/27/20 01/27/20 Range/Units 11:34 17:38 20:12 WBC (3.8-10.6) k/uL RBC (4.30-5.90) m/uL Hgb (13.0-17.5) gm/dL Hct (39.0-53.0) % Plt Count (150-450) k/uL Neutrophils # (1.3-7.7) k/uL Lymphocytes # (1.0-4.8) k/uL Chloride (98-107) mmol/L Carbon Dioxide (22-30) mmol/L BUN (9-20) mg/dL Creatinine (0.66-1.25) mg/dL POC Glucose (mg/dL) 125 H 138 H 131 H (75-99) mg/dL Calcium (8.4-10.2) mg/dL 01/27/20 01/28/20 01/28/20 Range/Units 22:57 06:59 08:12 WBC 14.8 H (3.8-10.6) k/uL RBC 4.04 L (4.30-5.90) m/uL Hgb 11.7 L (13.0-17.5) gm/dL Hct 35.9 L (39.0-53.0) % Plt Count 132 L (150-450) k/uL Neutrophils # 13.5 H (1.3-7.7) k/uL Lymphocytes # 0.7 L (1.0-4.8) k/uL Chloride (98-107) mmol/L Carbon Dioxide (22-30) mmol/L BUN (9-20) mg/dL Creatinine (0.66-1.25) mg/dL POC Glucose (mg/dL) 146 H 109 H (75-99) mg/dL Calcium (8.4-10.2) mg/dL 01/28/20 Range/Units 08:12 WBC (3.8-10.6) k/uL RBC (4.30-5.90) m/uL Hgb (13.0-17.5) gm/dL Hct (39.0-53.0) % Plt Count (150-450) k/uL Neutrophils # (1.3-7.7) k/uL Lymphocytes # (1.0-4.8) k/uL Chloride 115 H (98-107) mmol/L Carbon Dioxide 21 L (22-30) mmol/L BUN 22 H (9-20) mg/dL Creatinine 1.38 H (0.66-1.25) mg/dL POC Glucose (mg/dL) (75-99) mg/dL Calcium 8.0 L (8.4-10.2) mg/dL Microbiology - Last 24 Hours (Table) 01/22/20 13:07 Blood Culture - Preliminary Blood No Growth after 120 hours Assessment and Plan Plan: Assessment: #1. Acute hypoxemic respiratory failure, multifactorial, related to acute aspiration, pneumonia and small bowel obstruction, high-grade as noted on CT of the abdomen and pelvis #2. Acute influenza A infection #3. Acute aspiration likely related to over distended stomach, and distended esophagus and also related to high-grade small bowel obstruction #4. Acute kidney injury likely related to ATN and sepsis #5. Chronic kidney disease, stage IIIa #6. Lactic acid acidosis related to sepsis, and proved #7. Non-anion gap metabolic acidosis related to acute on chronic kidney disease, improved #8. Thrombocytopenia related to sepsis, improving #9. History of developmental delay #10. Morbid obesity #11. History of multiple skin cancer removals, basal cell carcinoma #12. Electrolyte imbalance, mostly hypernatremia secondary to free water deficit and patient is receiving D5 WA to 150 ML per hour, resolved, and D5W will be decreased down to 75 ML per hour Plan: Patient is doing well from pulmonary perspective, we can stop his IV steroids, continue breathing treatments, maintain aspiration precautions, discontinue Zosyn, vital signs are stable, no fever or chills. Increase activity as tolerated. Positive service will follow the patient on as-needed basis I performed a history & physical examination of the patient and discussed their management with my nurse practitioner, Carmelina Soliz. I reviewed the nurse practitioner's note and agree with the documented findings and plan of care. Lung sounds are positive for wheezes and congestion The findings and the impression was discussed with the patient. I attest to the documentation by the nurse practitioner. Time with Patient: Less than 30
[2020-01-28 11:25] LABS: Glucose,Whole Blood 98 mg/dL (75-99)
--- NOTE | 2020-01-28 11:33 | P.PN ---
Subjective Patient is seen in follow-up for acute kidney injury and hypernatremia. Renal function stable. Sodium level stable at 144. He is now tolerating full liquid diet. Vital signs are stable. General: The patient appeared well nourished and normally developed. HEENT: Head exam is unremarkable. Neck is without jugular venous distension. NG tube noted. LUNGS: Lungs are clear to auscultation and percussion. Breath sounds decreased. HEART: Rate and Rhythm are regular. First and second heart sounds normal. No murmurs, rubs or gallops. ABDOMEN: Bowel sounds present. Nontender. EXTREMITITES: No clubbing, cyanosis, or edema. Objective - Vital Signs Vital signs: Vital Signs Temp 98.7 F 01/28/20 05:53 Pulse 82 01/28/20 11:03 Resp 22 01/28/20 05:53 BP 133/74 01/28/20 05:53 Pulse Ox 97 01/28/20 05:53 Intake & Output 01/27/20 01/28/20 01/28/20 18:59 06:59 18:59 Intake Total 1100 Output Total 895 325 Balance 205 -325 Intake: IV 600 Dextrose 5% in Water 1, 600 000 ml @ 75 mls/hr IV . [id number] [facility] Rx#:[id number] Oral 500 Output: Urine 895 325 Other: Voiding Method Indwelling Catheter Toilet # Voids 1 # Bowel Movements 1 1 - Labs CBC & Chem 7: 01/28/20 08:12 01/28/20 08:12 Labs: Abnormal Lab Results - Last 24 Hours (Table) 01/27/20 01/27/20 01/27/20 Range/Units 11:34 17:38 20:12 WBC (3.8-10.6) k/uL RBC (4.30-5.90) m/uL Hgb (13.0-17.5) gm/dL Hct (39.0-53.0) % Plt Count (150-450) k/uL Neutrophils # (1.3-7.7) k/uL Lymphocytes # (1.0-4.8) k/uL Chloride (98-107) mmol/L Carbon Dioxide (22-30) mmol/L BUN (9-20) mg/dL Creatinine (0.66-1.25) mg/dL POC Glucose (mg/dL) 125 H 138 H 131 H (75-99) mg/dL Calcium (8.4-10.2) mg/dL 01/27/20 01/28/20 01/28/20 Range/Units 22:57 06:59 08:12 WBC 14.8 H (3.8-10.6) k/uL RBC 4.04 L (4.30-5.90) m/uL Hgb 11.7 L (13.0-17.5) gm/dL Hct 35.9 L (39.0-53.0) % Plt Count 132 L (150-450) k/uL Neutrophils # 13.5 H (1.3-7.7) k/uL Lymphocytes # 0.7 L (1.0-4.8) k/uL Chloride (98-107) mmol/L Carbon Dioxide (22-30) mmol/L BUN (9-20) mg/dL Creatinine (0.66-1.25) mg/dL POC Glucose (mg/dL) 146 H 109 H (75-99) mg/dL Calcium (8.4-10.2) mg/dL 01/28/20 Range/Units 08:12 WBC (3.8-10.6) k/uL RBC (4.30-5.90) m/uL Hgb (13.0-17.5) gm/dL Hct (39.0-53.0) % Plt Count (150-450) k/uL Neutrophils # (1.3-7.7) k/uL Lymphocytes # (1.0-4.8) k/uL Chloride 115 H (98-107) mmol/L Carbon Dioxide 21 L (22-30) mmol/L BUN 22 H (9-20) mg/dL Creatinine 1.38 H (0.66-1.25) mg/dL POC Glucose (mg/dL) (75-99) mg/dL Calcium 8.0 L (8.4-10.2) mg/dL Microbiology - Last 24 Hours (Table) 01/22/20 13:07 Blood Culture - Preliminary Blood No Growth after 120 hours Assessment and Plan Plan: Assessment: 1. Acute kidney injury mostly prerenal improved with IV hydration. Creatinine 1.38 today. 2. Chronic kidney disease stage III with baseline creatinine near 1.5. 3. Small bowel obstruction. Now tolerating full liquid diet. 4. Metabolic acidosis secondary to acute kidney injury maintained on oral sodium bicarbonate. 5. Hypernatremia secondary to lack of oral water intake. Better. Plan: Maintain D5W at 75 mL an hour. Avoid nephrotoxins. Continue to monitor renal function and urine output. Maintain oral bicarb.
[2020-01-28 16:48] LABS: Glucose,Whole Blood 105 mg/dL (75-99)
--- NOTE | 2020-01-28 17:59 | P.PN ---
Subjective Progress Note Date: 01/28/20 (delayed charting seen at 1130) Principal diagnosis: abdominal pain Patient is a 59-year-old male with a past medical history of intellectual disability, skin cancer, and hearing difficulties who presented due to worsening chest congestion. Patient is a 59-year-old male with a past medical history of intellectual disability, skin cancer, and hearing difficulties who presented due to worsening chest congestion. On arrival to the ER he was found to be febrile with a temperature of 104.2 and tachycardic with a pulse of 129. Initial labs showed hemoglobin 12, platelets 101, chloride 115, carbon dioxide 15, BUN 24, creatinine 1.75 of a baseline of 1.4, plasma lactic acid 2.6, alk phos 25, total protein 5.8. Initial chest x-ray showed interstitial changes and mild pulmonary vascular congestion versus atypical pneumonia. Initially he was worked up her bilateral influenza A pneumonia with sepsis. He was placed on Tamiflu IV fluids. He didn't improve and a CT of the chest was done which did not show any large PE but could not exclude subsegmental PE. He was found have cardiomegaly with tiny right-sided pleural effusion and areas of groundglass opacity. He was also noted to have dilated debris within the esophagus, debris filled distended stomach, with possible small polyp structure versus gastroparesis versus gastric outlet obstruction. Echocardiogram-ejection fraction 45-50% Collection and a venous Doppler negative for DVT bilateral. Pulmonary was consulted and the patient was placed on BiPAP secondary to respiratory distress. He was transferred to the ICU. Cultures were obtained. Antibiotics were broadened to Zosyn with concern for aspiration PNA based on CT findings. Abdominal x-ray showed nonspecific bowel gas pattern. Patient underwent a CT abdomen and pelvis which showed a high-grade small bowel obstruction of the distal third of the small bowels. He was seen by surgery who initially recommended surgery. A second opinion was obtained from Dr. medrano who recommended conservative management with a nasogastric tube which was placed. Patient was made nothing by mouth Unable to tolerate the Tamiflu. Nephrology consulted on have acute kidney injury on chronic kidney disease stage III secondary to underlying infection mostly acute tubular necrosis. They recommended continuing IV fluids, but decreasing the amount. He was able to come off BiPAP 01/24/20. He did develop some worsening creatinine. His fluids were changed to D5W secondary hypernatremia. His lab work continued to improve. He did have 2 bowel movements on 01/25 and his nasogastric tube was discontinued on 01/26. He completed 7 days of treatment with Zosyn for his aspiration pneumonia. Patient seen and examined at bedside. No chest pain, shortness breath, nausea, vomiting, or abdominal pain. Objective - Vital Signs Vital signs: Vital Signs Temp 97.5 F L 01/28/20 13:39 Pulse 90 01/28/20 15:34 Resp 16 01/28/20 13:39 BP 153/70 01/28/20 13:39 Pulse Ox 99 01/28/20 15:24 Intake & Output 01/27/20 01/28/20 01/28/20 18:59 06:59 18:59 Intake Total 1100 Output Total 895 325 Balance 205 -325 Intake: IV 600 Dextrose 5% in Water 1, 600 000 ml @ 75 mls/hr IV . [id number] [facility] Rx#:[id number] Oral 500 Output: Urine 895 325 Other: Voiding Method Indwelling Catheter Toilet # Voids 1 2 # Bowel Movements 1 1 - Exam General: non toxic, no distress, appears at stated age Derm: warm, dry Head: atraumatic, normocephalic, symmetric Eyes: EOMI, no lid lag, anicteric sclera Mouth: no lip lesion, mucus membranes dry Cardiovascular: S1S2 reg, no murmur, positive posterior tibial pulse bilateral, Lungs: Decreased breath sounds bilateral, no rhonchi, no rales , no accessory muscle use Abdominal: soft, nontender to palpation, no guarding, no appreciable organomegaly Ext: no gross muscle atrophy, 1+ edema, no contractures Neuro: CN II-XI grossly intact, no focal neuro deficits Psych: Alert, oriented, appropriate affect - Labs CBC & Chem 7: 01/28/20 08:12 01/28/20 08:12 Labs: Abnormal Lab Results - Last 24 Hours (Table) 01/27/20 01/27/20 01/28/20 Range/Units 20:12 22:57 06:59 WBC (3.8-10.6) k/uL RBC (4.30-5.90) m/uL Hgb (13.0-17.5) gm/dL Hct (39.0-53.0) % Plt Count (150-450) k/uL Neutrophils # (1.3-7.7) k/uL Lymphocytes # (1.0-4.8) k/uL Chloride (98-107) mmol/L Carbon Dioxide (22-30) mmol/L BUN (9-20) mg/dL Creatinine (0.66-1.25) mg/dL POC Glucose (mg/dL) 131 H 146 H 109 H (75-99) mg/dL Calcium (8.4-10.2) mg/dL 01/28/20 01/28/20 01/28/20 Range/Units 08:12 08:12 16:46 WBC 14.8 H (3.8-10.6) k/uL RBC 4.04 L (4.30-5.90) m/uL Hgb 11.7 L (13.0-17.5) gm/dL Hct 35.9 L (39.0-53.0) % Plt Count 132 L (150-450) k/uL Neutrophils # 13.5 H (1.3-7.7) k/uL Lymphocytes # 0.7 L (1.0-4.8) k/uL Chloride 115 H (98-107) mmol/L Carbon Dioxide 21 L (22-30) mmol/L BUN 22 H (9-20) mg/dL Creatinine 1.38 H (0.66-1.25) mg/dL POC Glucose (mg/dL) 105 H (75-99) mg/dL Calcium 8.0 L (8.4-10.2) mg/dL Microbiology - Last 24 Hours (Table) 01/22/20 13:07 Blood Culture - Final Blood No Growth after 144 hours Assessment and Plan Assessment: Small bowel obstruction, improved -Status post bowel movement 2 -NG tube has been removed -Tolerating full liquid diet -Surgery has signed off LETY on chronic kidney disease stage III with Hyperchloremia Metabolic acidosis - LETY resolved - nephro recs appreciated - IV fluids discontinued as tolerating orals - encouraged oral fluid intake Probable Aspiration PNA - completed zosyn treatment, WBC increasing continue to monitor -Pulmonary recommendations appreciated -Chest x-ray with mild changes Anemia - undetermined etiology - follow CBC - outpatient follow-up - ? due to clozapine Thrombocytopenia - acute on chronic - follow CBC - could be due to splenomegaly - ? due to clozapine Cardiomyopathy with EF 45%, no over heart failure - likely due to recent Flu, will need repeat echo - cardio recs appreciated - monitor fluid management - start metoprolol - no DEVAN/ARB due to recent LETY - outpatient cardio follow-up Hypernatremia, resolved Influenza A, resolved Severe sepsis, resolved Acute hypoxic respiratory failure resolved Obesity with BMI 37.8 -Structured outpatient weight loss Chronic: Intellectual disability Hard of hearing DVT prophylaxis: Heparin Discussed with: patient, nursing Anticipated discharge: 1-[address]: home A total of 25 minutes was spent on the care of this complex patient more than 50% of the time was spent in counseling and care coordination.
[2020-01-28 20:36] LABS: Glucose,Whole Blood 104 mg/dL (75-99)
[2020-01-28] MEDS: cloZAPine 100 MG TAB PO SCH (21:13)
[2020-01-29] MEDS: DEXTROSE 5% IN WATER 1,000 ML IV SCH (00:10)
[2020-01-29 05:25] VITALS: RESP 20
[2020-01-29 07:36] LABS: Glucose,Whole Blood 109 mg/dL (75-99)
[2020-01-29] MEDS: INSULIN ASPART (NovoLOG) 100 UNIT/ML VIAL SQ SCH ×2 (07:36→13:13)
[2020-01-29] MEDS: IPRATROPIUM-ALBUTEROL 3 ML NEB INHALATION SCH ×3 (08:28→15:52)
[2020-01-29] MEDS ORDERED: PANTOPRAZOLE 40 MG TABLET PO SCH (09:00)
[2020-01-29 09:11] LABS: HCT 34.9 % (39.0-53.0); HGB 11.5 gm/dL (13.0-17.5); MCH 29.1 pg (25.0-35.0); MCHC 32.9 g/dL (31.0-37.0); MCV 88.4 fL (80.0-100.0); Mean Platelet Volume 8.8; Platelet Count 104 k/uL (150-450); RBC 3.95 m/uL (4.30-5.90); RDW 14.5 % (11.5-15.5); WBC 9.8 k/uL (3.8-10.6)
[2020-01-29] MEDS: HEPARIN SODIUM,PORCINE 5,000 UNIT/ML 1 ML VIAL SQ SCH (09:18)
[2020-01-29] MEDS: TOPIRAMATE 100 MG TAB PO SCH (09:18)
[2020-01-29] MEDS: SODIUM BICARBONATE TAB 650 MG TAB PO SCH ×2 (09:18→16:13)
[2020-01-29] MEDS: NYSTATIN 100,000 UNIT/GM POWD 15 GM TOPICAL SCH ×2 (09:20→16:14)
[2020-01-29 09:29] LABS: Calcium 8.4 mg/dL (8.4-10.2); Magnesium 2.3 mg/dL (1.6-2.3); Potassium 3.8 mmol/L (3.5-5.1)
[2020-01-29 10:01] VITALS: BMI 37.8
[2020-01-29 11:56] LABS: Glucose,Whole Blood 104 mg/dL (75-99)
[2020-01-29 13:13] VITALS: BP 143/68; TEMP 97.8
--- NOTE | 2020-01-29 14:08 | P.DS ---
Providers Date of admission: 01/19/20 18:38 Expected date of discharge: 01/29/20 Attending physician: Elie Santamaria MD Consults: 01/22/20 09:15 Consult Physician Routine Consulting Provider: Domo Gonsales Consult Reason/Comments: chf Do you want consulting provider notified?: Yes 01/22/20 12:21 Consult Physician Routine Consulting Provider: Allison Young Consult Reason/Comments: LETY Do you want consulting provider notified?: Yes 01/22/20 12:22 Consult Physician Routine Consulting Provider: El Colmenares Consult Reason/Comments: resp distress Do you want consulting provider notified?: Yes 01/23/20 08:46 Consult Physician Urgent Consulting Provider: Edwar Ann Consult Reason/Comments: possible bowel obstruction/2nd opinion Do you want consulting provider notified?: Yes Primary care physician: [facility] Course: Discharge Diagnosis: Small bowel obstruction, improved LETY on CKD stage III with hyperchloremic metabolic acidosis Aspiration pneumonia, probable gram negative Anemia and thrombocytopenia, chronic likely related to clozapine Cardiomyopathy with EF 45% Hypernatremia, resolved Influenza A, resolved Severe sepsis, resolved Acute hypoxic respiratory failure resolved Intellectual disability Hard of hearing Morbid obesity Hospital Course: Patient is a 59-year-old male with a past medical history of intellectual disability, skin cancer, and hearing difficulties who presented due to worsening chest congestion. On arrival to the ER he was found to be febrile with a temperature of 104.2 and tachycardic with a pulse of 129. Initial labs showed hemoglobin 12, platelets 101, chloride 115, carbon dioxide 15, BUN 24, creatinine 1.75 of a baseline of 1.4, plasma lactic acid 2.6, alk phos 25, total protein 5.8. Initial chest x-ray showed interstitial changes and mild pulmonary vascular congestion versus atypical pneumonia. Initially he was worked up her bilateral influenza A pneumonia with sepsis. He was placed on Tamiflu IV fluids. He didn't improve and a CT of the chest was done which did not show any large PE but could not exclude subsegmental PE. He was found have cardiomegaly with tiny right-sided pleural effusion and areas of groundglass opacity. Echocardiogram-ejection fraction 45-50% without right heart strain, and pulmonary embolism ruled out. Lower extremity venous Doppler negative for DVT bilateral. He was also noted to have dilated debris within the esophagus, debris filled distended stomach, with possible small polyp structure versus gastroparesis versus gastric outlet obstruction. Pulmonary was consulted and the patient was placed on BiPAP secondary to respiratory distress. He was transferred to the ICU. Cultures were obtained. Antibiotics were broadened to Zosyn with concern for aspiration PNA based on CT findings. Abdominal x-ray showed nonspecific bowel gas pattern. Patient underwent a CT abdomen and pelvis which showed a high-grade small bowel obstruction of the distal third of the small bowels. He was seen by surgery who initially recommended surgery. A second opinion was obtained from Dr. Ann who recommended conservative management with a nasogastric tube which was placed. Patient was made nothing by mouth and thus was unable to complete the Tamiflu. Nephrology consulted on have acute kidney injury on chronic kidney disease stage III secondary to underlying infection mostly acute tubular necrosis. They recommended continuing IV fluids, but decreasing the amount. He was able to come off BiPAP 01/24/20. He did develop some worsening creatinine and hypernatremia. His fluids were changed to D5W. His lab work continued to improve. He did have 2 bowel movements on 01/25 and his nasogastric tube was discontinued on 01/26. He completed 7 days of treatment with Zosyn for his aspiration pneumonia. He was able to continue to tolerate a diet and had bowel movements. He was detemined stable for discharge. Patient seen and examined at bedside. No chest pain, no shrotness of breath, no abdominal pain, + BM, + ate good breakfast. Eating and drinking well per nursing. Vital signs reviewed and stable. General: non toxic, no distress, appears at stated age Derm: warm, dry Head: atraumatic, normocephalic, symmetric Eyes: EOMI, no lid lag, anicteric sclera Mouth: no lip lesion, mucus membranes moist Cardiovascular: S1S2 reg, no murmur, positive posterior tibial pulse bilateral, Lungs: CTA bilateral, no rhonchi, no rales , no accessory muscle use Abdominal: soft, nontender to palpation, no guarding, no appreciable organomegaly Ext: no gross muscle atrophy, 2+ edema, no contractures Neuro: CN II-XI grossly intact, no focal neuro deficits Psych: Alert, oriented, appropriate affect A total of 35 minutes of time were spent preparing this complex discharge summary . Patient Condition at Discharge: Fair Plan - Discharge Summary Discharge Rx Participant: No New Discharge Prescriptions: New Ipratropium-Albuterol Nebulize [Duoneb 0.5 mg-3 mg/3 ml Soln] 3 ml INHALATION RT-QID ml Ipratropium-Albuterol Nebulize [Duoneb 0.5 mg-3 mg/3 ml Soln] 3 ml INHALATION RT-Q2H PRN ml PRN Reason: Shortness Of Breath Or Wheezing Furosemide [Lasix] 20 mg PO DAILY 3 Days #3 tab Sodium Bicarbonate Tab 650 mg PO TID tab Acetaminophen Suppository [Tylenol Suppository] 650 mg PO Q6HR PRN supp PRN Reason: Fever And/ Or Pain Continue Topiramate [Topamax] 100 mg PO BID cloZAPine [Clozapine Odt] 200 mg PO HS Discontinued Oseltamivir [Tamiflu] 75 mg PO Q12HR 5 Days #10 cap Discharge Medication List Topiramate [Topamax] 100 mg PO BID 10/01/16 [History] cloZAPine [Clozapine Odt] 200 mg PO HS 01/19/20 [History] Acetaminophen Suppository [Tylenol Suppository] 650 mg PO Q6HR PRN supp 01/29/20 [Rx] Furosemide [Lasix] 20 mg PO DAILY 3 Days #3 tab 01/29/20 [Rx] Ipratropium-Albuterol Nebulize [Duoneb 0.5 mg-3 mg/3 ml Soln] 3 ml INHALATION RT-Q2H PRN ml 01/29/20 [Rx] Ipratropium-Albuterol Nebulize [Duoneb 0.5 mg-3 mg/3 ml Soln] 3 ml INHALATION RT-QID ml 01/29/20 [Rx] Sodium Bicarbonate Tab 650 mg PO TID tab 01/29/20 [Rx] Follow up Appointment(s)/Referral(s): Jignesh Nielsen DO [Primary Care Provider] - 1-2 days [facility] [NON-STAFF] - 1 Week Seun Carlton MD [STAFF PHYSICIAN] - 4 Weeks Damian Munoz DO [STAFF PHYSICIAN] - 2 Weeks Patient Instructions/Handouts: Influenza (DC) Activity/Diet/Wound Care/Special Instructions: Up with assist, fall precautions. Regular diet. Elevate legs at rest. Flu precautions. BMP in 3 days DX: LETY on CKD Monitor for bowel movement Discharge Disposition: TRANSFER TO SNF/ECF
[2020-01-29 16:06] VITALS: PULSE 80
== END 2020-01-29 16:16 | DRG 871 ==
LOC: EC 16:10 → 6NMEDSUR 18:38 → EEVIPCON 18:38 → 3SCARD 01-22 10:20 → 2SICU 01-22 14:09 → 6NMEDSUR 01-27 20:54
PROVIDERS: ADMIT Family Medicine; ATTEND Family Medicine
PROC: 5A09357 Assistance with Respiratory Ventilation, Less than 24 Consecutive Hours, Continuous Positive Airway Pressure (ICD-10-PCS; principal; 2020-01-22)
DX: A41.9 Sepsis, unspecified organism (principal); G93.41 Metabolic encephalopathy; N17.0 Acute kidney failure with tubular necrosis; J10.08 Influenza due to other identified influenza virus with other specified pneumonia; J69.0 Pneumonitis due to inhalation of food and vomit; J96.01 Acute respiratory failure with hypoxia; E87.0 Hyperosmolality and hypernatremia; E87.2 Acidosis; I42.9 Cardiomyopathy, unspecified; K56.609 Unspecified intestinal obstruction, unspecified as to partial versus complete obstruction; N39.0 Urinary tract infection, site not specified; E66.01 Morbid (severe) obesity due to excess calories; D69.59 Other secondary thrombocytopenia; D64.9 Anemia, unspecified; E86.0 Dehydration; E86.1 Hypovolemia; E87.6 Hypokalemia; E87.8 Other disorders of electrolyte and fluid balance, not elsewhere classified; F79 Unspecified intellectual disabilities; H91.90 Unspecified hearing loss, unspecified ear; I13.10 Hypertensive heart and chronic kidney disease without heart failure, with stage 1 through stage 4 chronic kidney disease, or unspecified chronic kidney disease; N18.3 Chronic kidney disease, stage 3 (moderate); I44.4 Left anterior fascicular block; K22.8 Other specified diseases of esophagus; R65.20 Severe sepsis without septic shock; T50.2X5A Adverse effect of carbonic-anhydrase inhibitors, benzothiadiazides and other diuretics, initial encounter; Z68.37 Body mass index [BMI] 37.0-37.9, adult; Z79.899 Other long term (current) drug therapy; Z85.828 Personal history of other malignant neoplasm of skin; T42.4X5A Adverse effect of benzodiazepines, initial encounter; I34.0 Nonrheumatic mitral (valve) insufficiency; Z53.8 Procedure and treatment not carried out for other reasons; R22.0 Localized swelling, mass and lump, head; Z88.8 Allergy status to other drugs, medicaments and biological substances
CPT/HCPCS: 36415; 36600; 71045; 71046; 71275; 74018; 74176; 80048; 80053; 81001; 82805; 83605; 83735; 83880; 83930; 83935; 84100; 84145; 84300; 84484; 85025; 85027; 85379; 85610; 85730; 87040; 87502; 93005; 93306; 93970; 94640; 94660; 94760; 96360; 96361; 96365; 96375; 99285

== ENCOUNTER 2022-09-17 13:52 | Inpatient (IN) | payer MEDICARE, BC, OTHER ==
[2022-09-17] MEDS ORDERED: SODIUM CHLORIDE 0.9% 1,000 ML IV STA (14:29)
--- NOTE | 2022-09-17 14:29 | ED ---
General Adult HPI - General Chief complaint: Altered Mental Status Stated complaint: AMS Time Seen by Provider: 09/17/22 13:54 Source: EMS Mode of arrival: EMS Limitations: no limitations - History of Present Illness Initial comments: Dictation was produced using [employer] dictation software. please excuse any grammatical, word or spelling errors. Chief Complaint: 61-year-old male presents to emergency department for altered mental status and being found down. History of Present Illness: Patient is 61-year-old male past medical history of mental disability, cardiomyopathy. He lives at home with his sister and mother. Patient is usually able to care for himself with minimal assistance. Yesterday he has been having some bilateral conjunctivitis. He normally gets up in the morning to make his own breakfast however they noticed that he wasn't down stairs. They went to check on him and found him on the ground. He was last s een normal at approximately 1 AM. He was found to be lethargic and not as active as he normally is. Sisters is the guardian provides history of present illness. Mother is also at the bedside. Family reports the patient has had a mild nonproductive cough. No obvious sick exposures. The ROS documented in this emergency department record has been reviewed and confirmed by me. Those systems with pertinent positive or negative responses have been documented in the HPI. All other systems are other negative and/or noncontributory. PHYSICAL EXAM: General Impression: Alert and oriented x3, not in acute distress HEENT: Normocephalic atraumatic, extra-ocular movements intact, pupils equal and reactive to light bilaterally, mucous membranes moist, bilateral conjunctivitis Cardiovascular: Heart regular rate and rhythm Chest: no retractions, no tachypnea Abdomen: abdomen soft, non-tender, non-distended, no organomegaly Musculoskeletal: Pulses present and equal in all extremities, no peripheral edema Motor: no focal deficits noted Neurological: CN II-XII grossly intact, no focal motor or sensory deficits noted Skin: Intact with no visualized rashes Psych: Normal affect and mood ED course: 61-year-old male found today on the ground at home. He has history of mental debility and cardiomyopathy. He allegedly has an ejection fraction of 45%. Subcu clear if patient had a syncopal event. It seemingly weak all day today and lethargic and not his usual baseline. He has bilateral conjunctivitis as upon arrival shows heart rate of 113, rest of vital signs within acceptable limits. Laboratory evaluation obtained. Initial CBC showed hemoglobin 4.8 however redraw shows hemoglobin 12.2. No leukocytosis. Coag panel is unremarkable. Metabolic panel is within acceptable limits. Mild rhabdo with the level MCCLII. Urinalysis negative. Stool occult blood is negative. Chest x-ray shows bilateral lower lobe pneumonia which is improved on the left side but worse in the right side compared to old exam. Computed tomography scan of brain is unremarkable. Patient with antibiotics. Given patient's clinical presentation he'll be admitted for medical monitoring. Admitted to city call Dr. Decker. - Related Data Home Medications Medication Instructions Recorded Confirmed Topiramate [Topamax] 25 mg PO HS 09/17/22 09/17/22 Allergies Allergy/AdvReac Type Severity Reaction Status Date / Time silicone AdvReac Body Verified 09/17/22 14:50 rejected finger implants Review of Systems ROS Statement: Those systems with pertinent positive or pertinent negative responses have been documented in the HPI. ROS Other: All systems not noted in ROS Statement are negative. Past Medical History Past Medical History: Cancer, Hearing Disorder / Deafness, Skin Disorder Additional Past Medical History / Comment(s): "Mentally Challenged"-has outburs ts, "DEVELOPMENTALLY DELAYED, LEARNING DISABILITY." MULT SKIN CANCER REMOVALS, BASAL CELL. MASS ON POSTERIOR SCALP CURRENTLY. History of Any Multi-Drug Resistant Organisms: None Reported Additional Past Surgical History / Comment(s): RT Hand Surgery. Past Anesthesia/Blood Transfusion Reactions: No Reported Reaction Past Psychological History: Unable to Obtain Past Alcohol Use History: None Reported Past Drug Use History: None Reported - Past Family History Mother Family Medical History: Cancer General Exam Limitations: no limitations Course Vital Signs 09/17/22 14:02 Temperature 97.9 F Pulse Rate 113 H Respiratory 18 Rate Blood Pressure 143/87 O2 Sat by Pulse 96 Oximetry Medical Decision Making - Lab Data Result diagrams: 09/17/22 16:17 09/17/22 15:35 Lab Results 09/17/22 09/17/22 09/17/22 Range/Units 15:35 15:35 15:35 WBC 14.2 H (3.8-10.6) k/uL RBC 1.64 L (4.30-5.90) m/uL Hgb 4.8 L* (13.0-17.5) gm/dL Hct 14.3 L* (39.0-53.0) % MCV 86.8 (80.0-100.0) fL MCH 29.0 (25.0-35.0) pg MCHC 33.4 (31.0-37.0) g/dL RDW 14.6 (11.5-15.5) % Plt Count 324 (150-450) k/uL MPV 8.9 Neutrophils % 86 % Lymphocytes % 7 % Monocytes % 5 % Eosinophils % 0 % Basophils % 0 % Neutrophils # 12.2 H (1.3-7.7) k/uL Lymphocytes # 1.0 (1.0-4.8) k/uL Monocytes # 0.7 (0-1.0) k/uL Eosinophils # 0.0 (0-0.7) k/uL Basophils # 0.0 (0-0.2) k/uL PT 11.3 (9.0-12.0) sec INR 1.0 (<1.2) APTT 25.0 (22.0-30.0) sec Sodium (137-145) mmol/L Potassium (3.5-5.1) mmol/L Chloride (98-107) mmol/L Carbon Dioxide (22-30) mmol/L Anion Gap mmol/L BUN (9-20) mg/dL Creatinine (0.66-1.25) mg/dL Est GFR (CKD-EPI)AfAm (>60 ml/min/1.73 sqM) Est GFR (CKD-EPI)NonAf (>60 ml/min/1.73 sqM) Glucose (74-99) mg/dL Plasma Lactic Acid Marco A (0.7-2.0) mmol/L Calcium (8.4-10.2) mg/dL Total Bilirubin (0.2-1.3) mg/dL AST (17-59) U/L ALT (4-49) U/L Alkaline Phosphatase (38-126) U/L Ammonia (<30) umol/L Creatine Kinase (55-170) U/L Troponin I (0.000-0.034) ng/mL Total Protein (6.3-8.2) g/dL Albumin (3.5-5.0) g/dL Urine Color Yellow Urine Appearance Cloudy (Clear) Urine pH 5.5 (5.0-8.0) Ur Specific [place] 1.032 (1.001-1.035) Urine Protein 2+ H (Negative) Urine Glucose (UA) Negative (Negative) Urine Ketones 1+ H (Negative) Urine Blood Large H (Negative) Urine Nitrite Negative (Negative) Urine Bilirubin Negative (Negative) Urine Urobilinogen <2.0 (<2.0) mg/dL Ur Leukocyte Esterase Negative (Negative) Urine RBC 2 (0-5) /hpf Urine WBC 3 (0-5) /hpf Ur Squamous Epith Cells 2 (0-4) /hpf Amorphous Sediment Rare H (None) /hpf Hyaline Casts 1 (0-2) /lpf Urine Mucus Few H (None) /hpf Urine Yeast (Budding) Rare H (None) /hpf Stool Occult Blood (Negative) Blood Type Blood Type Confirm Blood Type Recheck Bld Type Recheck Status Antibody Screen Spec Expiration Date 09/17/22 09/17/22 09/17/22 Range/Units 15:35 15:35 15:35 WBC (3.8-10.6) k/uL RBC (4.30-5.90) m/uL Hgb (13.0-17.5) gm/dL Hct (39.0-53.0) % MCV (80.0-100.0) fL MCH (25.0-35.0) pg MCHC (31.0-37.0) g/dL RDW (11.5-15.5) % Plt Count (150-450) k/uL MPV Neutrophils % % Lymphocytes % % Monocytes % % Eosinophils % % Basophils % % Neutrophils # (1.3-7.7) k/uL Lymphocytes # (1.0-4.8) k/uL Monocytes # (0-1.0) k/uL Eosinophils # (0-0.7) k/uL Basophils # (0-0.2) k/uL PT (9.0-12.0) sec INR (<1.2) APTT (22.0-30.0) sec Sodium 145 (137-145) mmol/L Potassium 4.1 (3.5-5.1) mmol/L Chloride 110 H (98-107) mmol/L Carbon Dioxide 22 (22-30) mmol/L Anion Gap 13 mmol/L BUN 27 H (9-20) mg/dL Creatinine 1.40 H (0.66-1.25) mg/dL Est GFR (CKD-EPI)AfAm 62 (>60 ml/min/1.73 sqM) Est GFR (CKD-EPI)NonAf 53 (>60 ml/min/1.73 sqM) Glucose 125 H (74-99) mg/dL Plasma Lactic Acid Marco A 1.7 (0.7-2.0) mmol/L Calcium 8.4 (8.4-10.2) mg/dL Total Bilirubin 1.2 (0.2-1.3) mg/dL AST 51 (17-59) U/L ALT 38 (4-49) U/L Alkaline Phosphatase 29 L (38-126) U/L Ammonia <9 (<30) umol/L Creatine Kinase 1252 H* (55-170) U/L Troponin I 0.013 (0.000-0.034) ng/mL Total Protein 6.2 L (6.3-8.2) g/dL Albumin 3.7 (3.5-5.0) g/dL Urine Color Urine Appearance (Clear) Urine pH (5.0-8.0) Ur Specific [place] (1.001-1.035) Urine Protein (Negative) Urine Glucose (UA) (Negative) Urine Ketones (Negative) Urine Blood (Negative) Urine Nitrite (Negative) Urine Bilirubin (Negative) Urine Urobilinogen (<2.0) mg/dL Ur Leukocyte Esterase (Negative) Urine RBC (0-5) /hpf Urine WBC (0-5) /hpf Ur Squamous Epith Cells (0-4) /hpf Amorphous Sediment (None) /hpf Hyaline Casts (0-2) /lpf Urine Mucus (None) /hpf Urine Yeast (Budding) (None) /hpf Stool Occult Blood (Negative) Blood Type Blood Type Confirm Blood Type Recheck Bld Type Recheck Status Antibody Screen Spec Expiration Date 09/17/22 09/17/22 09/17/22 Range/Units 16:04 16:10 16:17 WBC 9.1 (3.8-10.6) k/uL RBC 4.22 L (4.30-5.90) m/uL Hgb 12.2 L D (13.0-17.5) gm/dL Hct 36.8 L (39.0-53.0) % MCV 87.2 (80.0-100.0) fL MCH 29.0 (25.0-35.0) pg MCHC 33.3 (31.0-37.0) g/dL RDW 14.1 (11.5-15.5) % Plt Count 174 (150-450) k/uL MPV 8.9 Neutrophils % % Lymphocytes % % Monocytes % % Eosinophils % % Basophils % % Neutrophils # (1.3-7.7) k/uL Lymphocytes # (1.0-4.8) k/uL Monocytes # (0-1.0) k/uL Eosinophils # (0-0.7) k/uL Basophils # (0-0.2) k/uL PT (9.0-12.0) sec INR (<1.2) APTT (22.0-30.0) sec Sodium (137-145) mmol/L Potassium (3.5-5.1) mmol/L Chloride (98-107) mmol/L Carbon Dioxide (22-30) mmol/L Anion Gap mmol/L BUN (9-20) mg/dL Creatinine (0.66-1.25) mg/dL Est GFR (CKD-EPI)AfAm (>60 ml/min/1.73 sqM) Est GFR (CKD-EPI)NonAf (>60 ml/min/1.73 sqM) Glucose (74-99) mg/dL Plasma Lactic Acid Marco A (0.7-2.0) mmol/L Calcium (8.4-10.2) mg/dL Total Bilirubin (0.2-1.3) mg/dL AST (17-59) U/L ALT (4-49) U/L Alkaline Phosphatase (38-126) U/L Ammonia (<30) umol/L Creatine Kinase (55-170) U/L Troponin I (0.000-0.034) ng/mL Total Protein (6.3-8.2) g/dL Albumin (3.5-5.0) g/dL Urine Color Urine Appearance (Clear) Urine pH (5.0-8.0) Ur Specific [place] (1.001-1.035) Urine Protein (Negative) Urine Glucose (UA) (Negative) Urine Ketones (Negative) Urine Blood (Negative) Urine Nitrite (Negative) Urine Bilirubin (Negative) Urine Urobilinogen (<2.0) mg/dL Ur Leukocyte Esterase (Negative) Urine RBC (0-5) /hpf Urine WBC (0-5) /hpf Ur Squamous Epith Cells (0-4) /hpf Amorphous Sediment (None) /hpf Hyaline Casts (0-2) /lpf Urine Mucus (None) /hpf Urine Yeast (Budding) (None) /hpf Stool Occult Blood (Negative) Blood Type A Negative Blood Type Confirm A Negative Blood Type Recheck No Previous Record Bld Type Recheck Status CABO Indicated Antibody Screen NEGATIVE Spec Expiration Date 09/20/2022 - 230309/17/22 Range/Units 16:17 WBC (3.8-10.6) k/uL RBC (4.30-5.90) m/uL Hgb (13.0-17.5) gm/dL Hct (39.0-53.0) % MCV (80.0-100.0) fL MCH (25.0-35.0) pg MCHC (31.0-37.0) g/dL RDW (11.5-15.5) % Plt Count (150-450) k/uL MPV Neutrophils % % Lymphocytes % % Monocytes % % Eosinophils % % Basophils % % Neutrophils # (1.3-7.7) k/uL Lymphocytes # (1.0-4.8) k/uL Monocytes # (0-1.0) k/uL Eosinophils # (0-0.7) k/uL Basophils # (0-0.2) k/uL PT (9.0-12.0) sec INR (<1.2) APTT (22.0-30.0) sec Sodium (137-145) mmol/L Potassium (3.5-5.1) mmol/L Chloride (98-107) mmol/L Carbon Dioxide (22-30) mmol/L Anion Gap mmol/L BUN (9-20) mg/dL Creatinine (0.66-1.25) mg/dL Est GFR (CKD-EPI)AfAm (>60 ml/min/1.73 sqM) Est GFR (CKD-EPI)NonAf (>60 ml/min/1.73 sqM) Glucose (74-99) mg/dL Plasma Lactic Acid Marco A (0.7-2.0) mmol/L Calcium (8.4-10.2) mg/dL Total Bilirubin (0.2-1.3) mg/dL AST (17-59) U/L ALT (4-49) U/L Alkaline Phosphatase (38-126) U/L Ammonia (<30) umol/L Creatine Kinase (55-170) U/L Troponin I (0.000-0.034) ng/mL Total Protein (6.3-8.2) g/dL Albumin (3.5-5.0) g/dL Urine Color Urine Appearance (Clear) Urine pH (5.0-8.0) Ur Specific [place] (1.001-1.035) Urine Protein (Negative) Urine Glucose (UA) (Negative) Urine Ketones (Negative) Urine Blood (Negative) Urine Nitrite (Negative) Urine Bilirubin (Negative) Urine Urobilinogen (<2.0) mg/dL Ur Leukocyte Esterase (Negative) Urine RBC (0-5) /hpf Urine WBC (0-5) /hpf Ur Squamous Epith Cells (0-4) /hpf Amorphous Sediment (None) /hpf Hyaline Casts (0-2) /lpf Urine Mucus (None) /hpf Urine Yeast (Budding) (None) /hpf Stool Occult Blood Negative (Negative) Blood Type Blood Type Confirm Blood Type Recheck Bld Type Recheck Status Antibody Screen Spec Expiration Date Disposition Clinical Impression: Pneumonia Disposition: ADMITTED IP TO THIS [facility] Condition: Serious Referrals: Jignesh Nielsen DO [STAFF PHYSICIAN] - 1-2 days Decision Time: 17:48
--- NOTE | 2022-09-17 15:07 | CT ---
EXAMINATION TYPE: CT brain abby esteban con DATE OF EXAM: 09/17/2022 COMPARISON: None HISTORY: fall CT DLP: 1741.2 mGycm Automated exposure control for dose reduction was used. There is cerebral cortical atrophy. There is no mass effect or midline shift. No sign of intracranial hemorrhage. The calvarium is intact. There is opacification of the mastoid sinuses. The cervical vertebra have normal alignment. No compression fracture. Posterior elements are intact. Facet joints are intact. No significant disc space narrowing. The skull base is intact. There is calc ification in the posterior longitudinal ligament. IMPRESSION: Minor degenerative hypertrophic changes in the cervical spine. No fracture. There is cerebral cortical atrophy. No acute intracranial abnormality. Bilateral mastoiditis. Bilater al maxillary sinusitis. Ethmoid and sphenoid sinusitis.
[2022-09-17 15:50] LABS: Basophils % (A) 0 %; Eosinophils % (A) 0 %; Lymphocytes % (A) 7 %; MCHC 33.4 g/dL (31.0-37.0); MCV 86.8 fL (80.0-100.0); Mean Platelet Volume 8.9; Monocytes # (A) 0.7 k/uL (0-1.0); Monocytes % (A) 5 %; Neutrophils # (A) 12.2 k/uL (1.3-7.7); Neutrophils % (A) 86 %; Platelet Count 324 k/uL (150-450); RBC 1.64 m/uL (4.30-5.90); RDW 14.6 % (11.5-15.5); WBC 14.2 k/uL (3.8-10.6)
[2022-09-17 15:53] LABS: Lactic Acid, Venous 1.7 mmol/L (0.7-2.0); Prothrombin Time 11.3 sec (9.0-12.0)
[2022-09-17 15:57] LABS: Amorphous Sediment,Urine Rare /hpf; Appearance,Urine Cloudy (Clear); Bilirubin,Urine Negative (Negative); Blood,Urine Large (Negative); Budding Yeast,Urine Rare /hpf; Color,Urine Yellow; Glucose,Urine (UA) Negative (Negative); Hyaline Casts,Urine 1 /lpf (0-2); Ketones,Urine 1+ (Negative); Leukocyte Esterase,Urine Negative (Negative); Mucus,Urine Few /hpf; Nitrite,Urine Negative (Negative); PH, Urine 5.5 (5.0-8.0); Protein,Urine 2+ (Negative); RBC,Urine 2 /hpf (0-5); Specific Gravity,Urine 1.032 (1.001-1.035); Squamous Epithelial Cell,Urine 2 /hpf (0-4); Urobilinogen,Urine <2.0 mg/dL (<2.0); WBC,Urine 3 /hpf (0-5)
[2022-09-17] MEDS: POLYMYXIN B-TRIMETHOPRIM SULF (10,000-1) OPHTH DROPS 10 ML BTL BOTH EYES SCH ×2 (15:58→19:12)
[2022-09-17 15:59] LABS: HCT 14.3 % (39.0-53.0); HGB 4.8 gm/dL (13.0-17.5)
[2022-09-17 16:00] LABS: Albumin 3.7 g/dL (3.5-5.0); Total Bilirubin 1.2 mg/dL (0.2-1.3); Total Protein 6.2 g/dL (6.3-8.2)
[2022-09-17 16:01] LABS: Calcium 8.4 mg/dL (8.4-10.2); Potassium 4.1 mmol/L (3.5-5.1)
[2022-09-17 16:22] LABS: HCT 36.8 % (39.0-53.0); MCHC 33.3 g/dL (31.0-37.0); MCV 87.2 fL (80.0-100.0); Mean Platelet Volume 8.9; Platelet Count 174 k/uL (150-450); RBC 4.22 m/uL (4.30-5.90); RDW 14.1 % (11.5-15.5); WBC 9.1 k/uL (3.8-10.6)
[2022-09-17 16:30] LABS: HGB 12.2 gm/dL (13.0-17.5)
[2022-09-17] MEDS ORDERED: ONDANSETRON 4 MG/2 ML VIAL IVP PRN (17:37)
[2022-09-17] MEDS ORDERED: ACETAMINOPHEN TAB 325 MG TAB PO PRN (17:37)
[2022-09-17] MEDS ORDERED: NALOXONE 0.4 MG/ML 1 ML VIAL IV PRN (17:37)
--- NOTE | 2022-09-17 17:37 | XR ---
EXAMINATION TYPE: XR chest 1V portable DATE OF EXAM: 09/17/2022 COMPARISON: 01/27/2020 HISTORY: Cough TECHNIQUE: Oral view FINDINGS: There is airspace infiltrate in both lower lobes. There is some consolidation right lung ba se. No obvious heart failure. Heart is top normal in size. Bony thorax is intact IMPRESSION: Bilateral lower lobe pneumonia which is improved on the left side but worse on the right side compared to old exam.
[2022-09-17] MEDS ORDERED: cefTRIAXone IN SWFI 1,000 MG/10 ML SYRINGE IVP STA (17:45)
[2022-09-17] MEDS: SODIUM CHLORIDE 0.9% 1,000 ML IV SCH (19:13)
[2022-09-17] MEDS: AZITHROMYCIN 500 MG in SODIUM CHLORIDE 0.9% 250 ML IVPB SCH (19:13)
[2022-09-18] MEDS: POLYMYXIN B-TRIMETHOPRIM SULF (10,000-1) OPHTH DROPS 10 ML BTL BOTH EYES SCH ×4 (06:05→21:04)
[2022-09-18] MEDS: SODIUM CHLORIDE 0.9% 1,000 ML IV SCH ×3 (06:05→17:58)
[2022-09-18 06:40] LABS: Basophils % (A) 0 %; Eosinophils % (A) 0 %; HCT 36.8 % (39.0-53.0); HGB 12.6 gm/dL (13.0-17.5); Hypochromasia Slight; Lymphocytes # (A) 0.7 k/uL (1.0-4.8); Lymphocytes % (A) 7 %; MCH 30.4 pg (25.0-35.0); MCHC 34.1 g/dL (31.0-37.0); MCV 89.1 fL (80.0-100.0); Monocytes # (A) 0.5 k/uL (0-1.0); Monocytes % (A) 6 %; Neutrophils # (A) 8.1 k/uL (1.3-7.7); Neutrophils % (A) 86 %; Platelet Count 202 k/uL (150-450); RBC 4.13 m/uL (4.30-5.90); RDW 14.2 % (11.5-15.5); WBC 9.5 k/uL (3.8-10.6)
[2022-09-18 07:00] LABS: ALT 43 U/L (4-49); AST 63 U/L (17-59); African American GFR (CKD) 70 (>60 ml/min/1.73 sqM); Albumin 3.4 g/dL (3.5-5.0); Albumin/Globulin Ratio 1.5; Alkaline Phosphatase 31 U/L (38-126); Anion Gap 13 mmol/L; Blood Urea Nitrogen 28 mg/dL (9-20); Calcium 8.4 mg/dL (8.4-10.2); Carbon Dioxide 21 mmol/L (22-30); Chloride 113 mmol/L (98-107); Globulin 2.3 g/dL; Glucose 130 mg/dL (74-99); Non-African American GFR(CKD) 60 (>60 ml/min/1.73 sqM); Potassium 3.7 mmol/L (3.5-5.1); Sodium 147 mmol/L (137-145); Total Bilirubin 0.9 mg/dL (0.2-1.3); Total Protein 5.7 g/dL (6.3-8.2)
--- NOTE | 2022-09-18 14:44 | CT ---
EXAMINATION TYPE: CT chest wo con DATE OF EXAM: 09/18/2022 COMPARISON: 01/22/2020 HISTORY: Community acquired pneumonia CT DLP: 927.[address] of the chest was performed with lung and mediastinal window settings submitted. The la ck of contrast limits evaluation of the vascular, mediastinal and parenchymal structures including th e upper abdomen. LUNGS: Bilateral basilar atelectasis and/or infiltrates. Air bronchograms noted particularly on the l eft. Correlate for pneumonia or aspiration pneumonia. Additional groundglass infiltrate within the ri ght upper lobe. Additional patchy density left upper lobe medially. No sizable pleural effusion. No e vidence for distinct nodule or mass. MEDIASTINUM/ALISIA: Thoracic aorta is of normal caliber with limited evaluation given lack of contrast . The heart is enlarged. No evidence for mediastinal mass. No lymph nodes greater than 1cm. UPPER ABDOMEN: No significant abnormality is seen. OTHER: No significant other abnormality. IMPRESSION: 1. Correlate for basilar infectious pneumonia and/or aspiration pneumonia.
[2022-09-18] MEDS ORDERED: METOCLOPRAMIDE 5 MG/ML 2 ML VIAL IVP PRN (16:48)
--- NOTE | 2022-09-18 17:57 | CT ---
EXAMINATION TYPE: CT abdomen pelvis wo con DATE OF EXAM: 09/18/2022 COMPARISON: 01/23/2020 HISTORY: lethargic, vomiting CT DLP: 2031.4 mGycm Automated exposure control for dose reduction was used. Images obtained from the diaphragm to the floor the pelvis without contrast. Lung bases show bilateral pleural effusions with basilar infiltrates and atelectasis. Heart is enlarg ed. No definite pericardial effusion. Liver is intact. Spleen is intact there is dilated stomach with fluid level. There is dilated proxima l small bowel. The jejunum measures up to almost 5 cm. The distal small bowel is not dilated. Transit ion point not seen. No evidence of a pancreatic mass. The bile ducts are not dilated. Gallbladder is intact. There is no adrenal mass. Kidneys have normal size. No hydronephrosis. Ureters are not dilated. Appen alexandra not definitely seen. No sign of thickened appendix. The lumbar vertebrae have normal alignment. No compression fracture. There is spurring in the lumbar spine. Posterior elements are intact. The bony pelvis is intact. Hip joints are intact. There is no a scites or free air. IMPRESSION: Dilated stomach and proximal small bowel. Transition point not seen. Dilation appears improved involv ing the small bowel compared to old exam. This is likely related to small bowel ileus and gastropares is. Bilateral lower lobe infiltrates and atelectasis with pleural effusions which is worse than last CT scan.
[2022-09-18] MEDS: AZITHROMYCIN 500 MG in SODIUM CHLORIDE 0.9% 250 ML IVPB SCH (18:56)
[2022-09-19] MEDS: AMPICILLIN-SULBACTAM 3 GM in SODIUM CHLORIDE 0.9% 100 ML IVPB SCH ×3 (03:10→13:12)
[2022-09-19] MEDS: POLYMYXIN B-TRIMETHOPRIM SULF (10,000-1) OPHTH DROPS 10 ML BTL BOTH EYES SCH ×4 (03:11→20:19)
--- NOTE | 2022-09-19 06:07 | HP ---
HISTORY AND PHYSICAL HISTORY OF PRESENT ILLNESS: A 61-year-old white male mental disability, cardiomyopathy cough, congestion, shortness of breath over the past 3-4 days, found on the ground. He might have been asleep in his bed for a day and a half, not sure. He has cough, congestion, and shortness of breath. He has congestive cough sitting here. MEDICINES: Reviewed. REVIEW OF SYSTEMS: A 14-point review of systems is reviewed. PHYSICAL EXAMINATION: CARDIOVASCULAR: S1, S2. LUNGS: Scattered rhonchi and wheeze. HEMATOLOGY: Negative Homans. PSYCH: Fair mood and affect. NEUROLOGIC: Alert and oriented x3. Mild rhabdomyolysis. Chest x-ray shows bilateral lower lobe pneumonia, possible aspiration. Continue broad- spectrum antibiotics. Rehydrate. Steroids. Prognosis guarded. Follow up in next 24 to 48 hours. Please see further orders and tests. Gastroparesis on CT scan of the abdomen with progressive vomiting. Start him on Reglan 5 mg a.c. t.i.d. Prognosis guarded. MMODL / IJN: [id number] /
--- NOTE | 2022-09-19 07:16 | P.CONS ---
History of Present Illness - Reason for Consult Consult date: 09/18/22 Pneumonia/mastoiditis Requesting physician: Emmett Decker - Chief Complaint Weakness and fall x one day - History of Present Illness Patient is a 61-year-old male with a past medical history significant for developmental delay learning disability multiple skin cancers has been brought into the ER after the patient was noticed to be on the ground apparently the patient gets up around 7 and makes his breakfast however the patient did not get up that morning and went family went to check on him around noon the patient was on the floor patient last seen approximately 1 in the morning and seems to be doing okay patient been feeling lethargic and not as active as the patient normally is patient recently being treated for bilateral conjunctivitis patient also have a mild cough not bring up any sputum the and denies having any chest pain no significant shortness of breath patient did have an episode of coffee- ground emesis while in the ER per the nursing staff however the patient denies having any abdominal pain or any diarrhea with the symptom the patient has been evaluated by the ER physician on arrival to the ER patient was afebrile he did have low-grade fever of 99.9 F last night patient did have mild hypoxemia and need for supplemental oxygen patient did have white count of 14.2 and was noticed to be mildly anemic BUN/creatinine is mildly elevated liver enzymes are normal urine was negative influenza and COVID testing was negative patient did have a chest x-ray bilateral lower lobe pneumonia mostly on the left side the patient was started on Rocephin and Zithromax infectious disease was consulted for further management of antibiotic therapy , patient currently denies having any pain behind the ear no pain or drainage from his ears Review of Systems Positive point has been mentioned in the HPI rest of the systems are negative Past Medical History Past Medical History: Cancer, Hearing Disorder / Deafness, Skin Disorder Additional Past Medical History / Comment(s): "Mentally Challenged"-has outbursts, "DEVELOPMENTALLY DELAYED, LEARNING DISABILITY." MULT SKIN CANCER REMOVALS, BASAL CELL. MASS ON POSTERIOR SCALP CURRENTLY. History of Any Multi-Drug Resistant Organisms: None Reported Additional Past Surgical History / Comment(s): RT Hand Surgery. Past Anesthesia/Blood Transfusion Reactions: No Reported Reaction Past Psychological History: Unable to Obtain Past Alcohol Use History: None Reported Past Drug Use History: None Reported - Past Family History Mother Family Medical History: Cancer Medications and Allergies Home Medications Medication Instructions Recorded Confirmed Type Topiramate [Topamax] 25 mg PO HS 09/17/22 09/17/22 History Allergies Allergy/AdvReac Type Severity Reaction Status Date / Time silicone AdvReac Body Verified 09/17/22 14:50 rejected finger implants Physical Exam Vitals: Vital Signs Temp Pulse Resp BP Pulse Ox 09/18/22 02:08 84 18 133/77 96 09/17/22 23:58 99.9 F H 94 20 139/74 94 L 09/17/22 19:18 98 F 100 20 132/81 99 09/17/22 14:02 97.9 F 113 H 18 143/87 96 GENERAL DESCRIPTION: Middle-aged male lying in bed, no distress. No tachypnea or accessory muscle of respiration use. HEENT: Shows Pallor , no scleral icterus. Oral mucous membrane is dry. No pharyngeal erythema or thrush NECK: Trachea central, no thyromegaly. LUNGS: Unlabored breathing. Decreased breath sounds at the bases bilaterally HEART: S1, S2, regular rate and rhythm. No loud murmur ABDOMEN: Soft, no tenderness , guarding or rigidity, no organomegaly EXTREMITIES: No edema of feet. SKIN: No rash, no masses palpable. NEUROLOGICAL: The patient is awake, alert, oriented x3, mood and affect normal. Results CBC & Chem 7: 09/18/22 06:11 09/18/22 06:11 Labs: Abnormal Lab Results - Last 24 Hours (Table) 09/17/22 09/17/22 09/17/22 Range/Units 15:35 15:35 15:35 WBC 14.2 H (3.8-10.6) k/uL RBC 1.64 L (4.30-5.90) m/uL Hgb 4.8 L* (13.0-17.5) gm/dL Hct 14.3 L* (39.0-53.0) % Neutrophils # 12.2 H (1.3-7.7) k/uL Lymphocytes # (1.0-4.8) k/uL Sodium (137-145) mmol/L Chloride 110 H (98-107) mmol/L Carbon Dioxide (22-30) mmol/L BUN 27 H (9-20) mg/dL Creatinine 1.40 H (0.66-1.25) mg/dL Glucose 125 H (74-99) mg/dL AST (17-59) U/L Alkaline Phosphatase 29 L (38-126) U/L Creatine Kinase 1252 H* (55-170) U/L Total Protein 6.2 L (6.3-8.2) g/dL Albumin (3.5-5.0) g/dL Urine Protein 2+ H (Negative) Urine Ketones 1+ H (Negative) Urine Blood Large H (Negative) Amorphous Sediment Rare H (None) /hpf Urine Mucus Few H (None) /hpf Urine Yeast (Budding) Rare H (None) /hpf 09/17/22 09/18/22 09/18/22 Range/Units 16:17 06:11 06:11 WBC (3.8-10.6) k/uL RBC 4.22 L 4.13 L (4.30-5.90) m/uL Hgb 12.2 L D 12.6 L (13.0-17.5) gm/dL Hct 36.8 L 36.8 L (39.0-53.0) % Neutrophils # 8.1 H (1.3-7.7) k/uL Lymphocytes # 0.7 L (1.0-4.8) k/uL Sodium 147 H (137-145) mmol/L Chloride 113 H (98-107) mmol/L Carbon Dioxide 21 L (22-30) mmol/L BUN 28 H (9-20) mg/dL Creatinine 1.26 H (0.66-1.25) mg/dL Glucose 130 H (74-99) mg/dL AST 63 H (17-59) U/L Alkaline Phosphatase 31 L (38-126) U/L Creatine Kinase (55-170) U/L Total Protein 5.7 L (6.3-8.2) g/dL Albumin 3.4 L (3.5-5.0) g/dL Urine Protein (Negative) Urine Ketones (Negative) Urine Blood (Negative) Amorphous Sediment (None) /hpf Urine Mucus (None) /hpf Urine Yeast (Budding) (None) /hpf Assessment and Plan (1) Pneumonia Current Visit: Yes Status: Acute Code(s): J18.9 - PNEUMONIA, UNSPECIFIED ORGANISM SNOMED Code(s): 210336665 Plan: 1patient presented to hospital after the patient has been found on the floor that this patient has been complaining of generalized weakness to have a mild cough not bring up any sputum and episode of vomiting concerning for possible aspiration pneumonia patient abdominal was soft on clinical examination urine has been negative and no evidence of any cellulitis. 2discontinue Rocephin and Zithromax. 3we will start the patient on Unasyn 3 g every 6 hours. 4obtain sputum for gram stain and culture check a CRP and a procalcitonin. 5GI evaluation for coffee-ground emesis. We will follow on clinical condition and cultures to further adjust medication if needed Thank you for this consultation will follow this patient along with you Time with Patient: Greater than 30
[2022-09-19 08:53] LABS: Basophils # (A) 0.02 X 10*3/uL (0.00-0.10); Basophils % (A) 0.1 %; Eosinophils # (A) 0 X 10*3/uL (0.04-0.35); Eosinophils % (A) 0 %; HCT 34.1 % (39.6-50.0); HGB 11.1 g/dL (13.0-17.0); Immature Grans, Automated 0.4 %; Lymphocytes # (A) 0.59 X 10*3/uL (0.90-5.00); Lymphocytes % (A) 4.2 %; MCH 28.8 pg (27.0-32.0); MCHC 32.6 g/dL (32.0-37.0); MCV 88.3 fL (80.0-97.0); Mean Platelet Volume 11.5 fL (9.5-12.2); Monocytes # (A) 0.61 X 10*3/uL (0.20-1.00); Monocytes % (A) 4.4 %; NRBC Per 100 WBC 0 /100 WBCS (0.0-0.0); Neutrophils # (A) 12.68 X 10*3/uL (1.80-7.70); Neutrophils % (A) 90.9 %; Platelet Count 239 X 10*3/uL (140-440); RBC 3.86 X 10*6/uL (4.40-5.60); RDW 14.4 % (11.5-14.5); WBC 13.96 X 10*3/uL (4.50-10.00)
[2022-09-19 10:20] LABS: C Reactive Protein 16.2 mg/dL (0.00-0.80)
[2022-09-19 10:26] LABS: African American GFR (CKD) 56.6 (60.0-200.0); Albumin 3.4 g/dL (3.8-4.9); Albumin/Globulin Ratio 1.55 (1.60-3.17); Anion Gap 14.5 mmol/L (10.00-18.00); BUN/Creat Ratio 25.6 Ratio (12.00-20.00); Blood Urea Nitrogen 38.4 mg/dL (9.0-27.0); Calcium 8.3 mg/dL (8.7-10.3); Carbon Dioxide 18.5 mmol/L (20.0-27.5); Globulin 2.2 g/dL (1.6-3.3); Non-African American GFR(CKD) 48.8 (60.0-200.0); Total Bilirubin 0.5 mg/dL (0.30-1.20); Total Protein 5.6 g/dL (6.2-8.2)
[2022-09-19] MEDS: SODIUM CHLORIDE 0.9% 1,000 ML IV SCH ×2 (13:17→13:18)
--- NOTE | 2022-09-19 13:25 | XR ---
EXAMINATION TYPE: XR chest 1V portable DATE OF EXAM: 09/19/2022 COMPARISON: Chest x-ray 09/17/2022, CT chest 09/18/2022 HISTORY: NG tube placement TECHNIQUE: Single frontal view of the chest is obtained. FINDINGS: There is been interval placement of an NG tube, distal tip is within the stomach, stomach. The gas distended. No other significant interval change. IMPRESSION: NG tube as described.
--- NOTE | 2022-09-19 16:19 | P.GSCN ---
History of Present Illness Consult date: 09/19/22 History of present illness: CHIEF COMPLAINT: Mental status changes Reason for consult: Dilated stomach HISTORY OF PRESENT ILLNESS: This is a 61-year-old male who is brought to the emergency room due to altered mental status changes. He was found down on the ground at home. Patient is confused. Most of history was obtained from patient's chart. He does have evidence of a distended abdomen. Patient did have an episode of nausea and vomiting at home with concerns of possible coffee ground emesis. Since hospitalization no further vomiting. He has had bowel mov ements. Computed tomography scan abdomen and pelvis without contrast showing dilated stomach and proximal small bowel. Patient seen and examined with Dr. barboza. NG tube has been ordered. No prior abdominal surgical history noted PAST MEDICAL HISTORY: Mentally challenged, developmental delay. PAST SURGICAL HISTORY: See list. MEDICATIONS: See list. ALLERGIES: See list. SOCIAL HISTORY: No illicit drug use. REVIEW OF SYSTEMS: CONSTITUTIONAL: Denies fever or chills. HEENT: Denies blurred vision, vision changes, or eye pain. Denies hemoptysis CARDIOVASCULAR: Denies chest pain or pressure. RESPIRATORY: No shortness of breath. GASTROINTESTINAL: See HPI for pertinent findings HEMATOLOGIC: Denies bleeding disorders. GENITOURINARY: Denies any blood in urine or increased urinary frequency. SKIN: Denies pruitis. Denies rash. PHYSICAL EXAM: VITAL SIGNS: Reviewed GENERAL: Well-developed in no acute distress. HEENT: No sclera icterus. Extraocular movements grossly intact. Moist buccal mucosa. Head is atraumatic, normocephalic. No nasal drainage. ABDOMEN: Distended with mild diffuse tenderness NEUROLOGIC: Alert and oriented. Cranial nerves II through XII grossly intact. LABORATORY DATA: WBC is 13.96 hemoglobin 11.1 there was a noted hemoglobin of 4.8 on admission but recheck was 12.2 likely a lab error Sodium 149 potassium 4.0 creatinine 1.4 on admission Creatinine kinase 1000 1252 and a 729 Stool for occult blood negative Influenza, RSV and Covid screening are not detected IMAGING: Computed tomography scan abdomen and pelvis showing a dilated stomach and proximal small bowel. Transition point not seen. Dilation appears improved involving the small bowel compared to old exam. There is likely related to small bowel ileus and gastroparesis. Bilateral lower lobe infiltrates and atelectasis with pleural effusion which is worse the last CAT scan. CT chest correlate for basilar infectious pneumonia and/or aspiration pneumonia ASSESSMENT: 1. Abdominal distention with dilated stomach and proximal small bowel noted on CAT scan 2. Possible small bowel ileus 3. Possible pneumonia 5. Acute rhabdomyolysis PLAN: -NG tube placed for decompression -Keep patient nothing by mouth -Continue IV fluids -Continue antiemetics -Continue supportive care Thank you for this consultation Physician [employer] Burn[employer] Operator note has been reviewed by physician. Signing provider agrees with the documented findings, assessment, and plan of care. 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 MASS ON POSTERIOR SCALP CURRENTLY. History of Any Multi-Drug Resistant Organisms: None Reported Additional Past Surgical History / Comment(s): RT Hand Surgery. Past Anesthesia/Blood Transfusion Reactions: No Reported Reaction Past Psychological History: Unable to Obtain Past Alcohol Use History: None Reported Past Drug Use History: None Reported - Past Family History Mother Family Medical History: Cancer Medications and Allergies Home Medications Medication Instructions Recorded Confirmed Type cloZAPine [cloZAPine ODT] 200 mg PO HS 09/19/22 09/19/22 History Allergies Allergy/AdvReac Type Severity Reaction Status Date / Time silicone AdvReac Body Verified 09/17/22 14:50 rejected finger implants Surgical - Exam Vital Signs Temp Pulse Resp BP Pulse Ox 97.9 F 113 H 18 143/87 96 09/17/22 14:02 09/17/22 14:02 09/17/22 14:02 09/17/22 14:02 09/17/22 14:02 Results - Labs 09/19/22 05:40 09/19/22 05:40 Abnormal Lab Results - Last 24 Hours (Table) 09/19/22 09/19/22 09/19/22 Range/Units 05:40 05:40 05:40 WBC 13.96 H (4.50-10.00) X 10*3/uL RBC 3.86 L (4.40-5.60) X 10*6/uL Hgb 11.1 L (13.0-17.0) g/dL Hct 34.1 L (39.6-50.0) % Immature Gran # 0.06 H (0.00-0.04) X 10*3/uL Neutrophils # 12.68 H (1.80-7.70) X 10*3/uL Lymphocytes # 0.59 L (0.90-5.00) X 10*3/uL Eosinophils # 0 L (0.04-0.35) X 10*3/uL Sodium 149 H (135-145) mmol/L Chloride 116 H (96-109) mmol/L Carbon Dioxide 18.5 L (20.0-27.5) mmol/L BUN 38.4 H (9.0-27.0) mg/dL Est GFR (CKD-EPI)AfAm 56.6 L (60.0-200.0) Est GFR (CKD-EPI)NonAf 48.8 L (60.0-200.0) BUN/Creatinine Ratio 25.60 H (12.00-20.00) Ratio Glucose 132 H (70-110) mg/dL Calcium 8.3 L (8.7-10.3) mg/dL AST 44 H (14-35) U/L Alkaline Phosphatase 28 L (41-126) U/L Creatine Kinase 729 H (35-257) U/L C-Reactive Protein 16.20 H (0.00-0.80) mg/dL Total Protein 5.6 L (6.2-8.2) g/dL Albumin 3.4 L (3.8-4.9) g/dL Albumin/Globulin Ratio 1.55 L (1.60-3.17) g/dL Procalcitonin 0.23 H (0.02-0.09) ng/mL Diabetes panel 09/19/22 Range/Units 05:40 Sodium 149 H (135-145) mmol/L Potassium 4.0 (3.5-5.5) mmol/L Chloride 116 H (96-109) mmol/L Carbon Dioxide 18.5 L (20.0-27.5) mmol/L BUN 38.4 H (9.0-27.0) mg/dL Creatinine 1.5 (0.6-1.5) mg/dL Glucose 132 H (70-110) mg/dL Calcium 8.3 L (8.7-10.3) mg/dL AST 44 H (14-35) U/L ALT 38 (10-49) U/L Alkaline Phosphatase 28 L (41-126) U/L Total Protein 5.6 L (6.2-8.2) g/dL Albumin 3.4 L (3.8-4.9) g/dL Calcium panel 09/19/22 Range/Units 05:40 Calcium 8.3 L (8.7-10.3) mg/dL Albumin 3.4 L (3.8-4.9) g/dL Pituitary panel 09/19/22 Range/Units 05:40 Sodium 149 H (135-145) mmol/L Potassium 4.0 (3.5-5.5) mmol/L Chloride 116 H (96-109) mmol/L Carbon Dioxide 18.5 L (20.0-27.5) mmol/L BUN 38.4 H (9.0-27.0) mg/dL Creatinine 1.5 (0.6-1.5) mg/dL Glucose 132 H (70-110) mg/dL Calcium 8.3 L (8.7-10.3) mg/dL Adrenal panel 09/19/22 Range/Units 05:40 Sodium 149 H (135-145) mmol/L Potassium 4.0 (3.5-5.5) mmol/L Chloride 116 H (96-109) mmol/L Carbon Dioxide 18.5 L (20.0-27.5) mmol/L BUN 38.4 H (9.0-27.0) mg/dL Creatinine 1.5 (0.6-1.5) mg/dL Glucose 132 H (70-110) mg/dL Calcium 8.3 L (8.7-10.3) mg/dL Total Bilirubin 0.50 (0.30-1.20) mg/dL AST 44 H (14-35) U/L ALT 38 (10-49) U/L Alkaline Phosphatase 28 L (41-126) U/L Total Protein 5.6 L (6.2-8.2) g/dL Albumin 3.4 L (3.8-4.9) g/dL
[2022-09-19 17:40] LABS: Glucose,Whole Blood 106 mg/dL (70-110)
[2022-09-19] MEDS ORDERED: ACETAMINOPHEN IV (For NPO) 1,000 MG in EMPTY BAG 1 BAG IVPB PRN (18:31)
[2022-09-19] MEDS: PIPERACILLIN-TAZOBACTAM 3.375 GM in SODIUM CHLORIDE 0.9% 100 ML IVPB SCH (20:22)
[2022-09-19] MEDS: cloZAPine 100 MG TAB PO SCH (21:00)
[2022-09-20] MEDS: POLYMYXIN B-TRIMETHOPRIM SULF (10,000-1) OPHTH DROPS 10 ML BTL BOTH EYES SCH ×4 (00:37→17:44)
[2022-09-20] MEDS: PIPERACILLIN-TAZOBACTAM 3.375 GM in SODIUM CHLORIDE 0.9% 100 ML IVPB SCH ×3 (03:46→20:48)
[2022-09-20] MEDS: SODIUM CHLORIDE 0.9% 1,000 ML IV SCH ×5 (06:34→20:50)
--- NOTE | 2022-09-20 11:27 | P.GSCN ---
History of Present Illness Consult date: 09/20/22 Reason for Consult: Abdominal distention History of present illness: Patient is a 61-year-old gentleman admitted to [facility] on 09/18/2022 after being found down on the floor at his home by family members. He suffers with some manner of developmental delay. There are reports of question of coffee-ground emesis. Initial workup showed evidence of bilateral pneumonia on CT chest with significant bibasilar atelectasis. Computed tomography scan of the abdomen showed a markedly dilated stomach and proximal small bowel but no transition point no significant free fluid no pneumatosis, no pneumobilia, no free air. Review of the images there is a [id number] amount of stool and air seen throughout the colon and rectum. Findings were interpreted as consistent with ileus. Had a mild presenting leukocytosis at dc und 14,000 but there is evidence of pneumaturia granulocytes. Hemoglobin was slightly low at 11.1, platelet count 239. MCV, MCH, and RDW indices were within normal limits. Metabolic panel shows a slightly high sodium and nausea and 49, potassium 4.0, CO2 18.5, creatinine 1.5. AST was minimally elevated at 44, a LT normal at 38. Alkaline phosphatase 28. CK today is slightly elevated at 729, C RP elevated at 16.2, Pro calcitonin elevated at 0.23. Lipase level yesterday was normal range at 71. Urinalysis on presentation reportedly showed budding yeast. He is presently on IV Zosyn. Patient denies any abdominal pain, nausea or emesis. No bowel movement recorded today. A nasogastric tube is in place, to suction with 1000 mL of gastric output in the canister. No previous abdominal surgeries reported. The majority of the HPI is taken from the medical record, patient only offers one-word responses to questioning, unable to provide a comprehensive history on his own. I don't see evidence of ongoing upper GI bleed. Dr. Parmar was initially consulted, family has declined and requested a second opinion. As such I'm asked to see the patient today. Review of Systems All systems: negative - Constitutional Reports as per HPI Past Medical History Past Medical History: Cancer, Hearing Disorder / Deafness, Skin Disorder Additional Past Medical History / Comment(s): "Mentally Challenged"-has outbursts, "DEVELOPMENTALLY DELAYED, LEARNING DISABILITY." MULT SKIN CANCER REMOVALS, BASAL CELL. MASS ON POSTERIOR SCALP CURRENTLY. History of Any Multi-Drug Resistant Organisms: None Reported Additional Past Surgical History / Comment(s): RT Hand Surgery. Past Anesthesia/Blood Transfusion Reactions: No Reported Reaction Past Psychological History: Unable to Obtain Past Alcohol Use History: None Reported Past Drug Use History: None Reported - Past Family History Mother Family Medical History: Cancer Medications and Allergies Home Medications Medication Instructions Recorded Confirmed Type cloZAPine [cloZAPine ODT] 200 mg PO HS 09/19/22 09/19/22 History Allergies Allergy/AdvReac Type Severity Reaction Status Date / Time silicone AdvReac Body Verified 09/17/22 14:50 rejected finger implants Surgical - Exam Osteopathic Statement: *. No significant issues noted on an osteopathic structural exam other than those noted in the History and Physical/Consult. Vital Signs Temp Pulse Resp BP Pulse Ox 97.9 F 113 H 18 143/87 96 09/17/22 14:02 09/17/22 14:02 09/17/22 14:02 09/17/22 14:02 09/17/22 14:02 - General well developed, well nourished, no distress - Eyes PERRL, normal ocular movement - ENT normal pinna, normal nares, normal mucosa - Abdomen Abdomen is soft, nontender to palpation, no guarding or rebound. There may be minimal distention with tympany but I suspect his exam is improving with nasogastric decompression. NG tube is in place and functioning well without signs of upper GI bleed at the canister. Abdominal exam is entirely benign. Abdomen: soft, non tender - Psychiatric Patient offers blunted one-word responses to some questions, appears somewhat hard of hearing. Results - Labs 09/19/22 05:40 09/19/22 05:40 - Imaging Chest x-ray: report reviewed CT scan - abdomen: report reviewed, image reviewed CT scan - chest: report reviewed, image reviewed Assessment and Plan Assessment: 61-year-old gentleman with clinical presentation, imaging, and exam consistent with community-acquired bilateral pneumonia versus aspiration pneumonia and associated ileus. No evidence of bowel obstruction seen on CT in the sense that there is no transition point visualized. I suspect a degree of dilation seen at the stomach and proximal small bowel has a chronic element. Appears to be im proving with nasogastric decompression and IV antibiotics. Abdominal exam today is benign. Mild absolute anemia on CBC, question of upper GI bleed on initial presentation. Question of fungal infection on urinalysis. Plan: Continue with medical treatment for pneumonia, nasogastric decompression and IV fluids. No urgent indications for surgical intervention for now. GI consultation requested for reports of upper GI bleed, this is something that likely would not be pursued until he has signs of improvement in ileus unless he has more hard signs of ongoing upper GI bleed. For now his nasogastric tube output does not have a concerning appearance for bleeding. If this is of concern I'd consider empiric Protonix drip equivalent with 40 mg twice a day. Would also give consideration to adding fluconazole or micafungin and given budding yeast seen on presenting urinalysis. Will follow. Time with Patient: Greater than 30
--- NOTE | 2022-09-20 14:07 | P.CNPUL ---
History of Present Illness Consult date: 09/19/22 Reason for consult: dyspnea, cough Chief complaint: Altered mental status, pneumonia likely aspiration History of present illness: Patient is a 61-year-old male with a past medical history significant for developmental delay learning disability multiple skin cancers has been brought into the ER after the patient was noticed to be on the ground. Data mostly obtained from the chart as patient unable to give any detailed history, apparently the patient gets up around 7 and makes his breakfast however the pa tient did not get up that morning, family went to check on him around noon the patient was on the floor patient last seen approximately 1 in the morning and seems to be doing okay patient been feeling lethargic and not as active as the patient normally is patient recently being treated for bilateral conjunctivitis patient also have a mild cough. Patient is not bringing up any sputum the and denies having any chest pain no significant shortness of breath patient did have an episode of coffee-ground emesis. Patient was evaluated while in the ER per the nursing staff however the patient denies having any abdominal pain or any diarrhea with the symptom the patient has been evaluated by the ER physician on arrival to the ER patient was afebrile he did have low-grade fever of 99.9 F last night patient did have mild hypoxemia and need for supplemental oxygen patient did have white count of 14.2 and was noticed to be mildly anemic BUN/creatinine is mildly elevated liver enzymes are normal urine was negative influenza and COVID testing was negative patient did have a chest x-ray bilateral lower lobe pneumonia mostly on the left side the patient was started on Rocephin and Zithromax pulmonary was consulted for further management of respiratory status and antibiotic therapy , patient currently denies having any pain behind the ear no pain or drainage from his ears workup and evaluation in the emergency department includes a CBC with a rising WBC count of 13.9, stable hemoglobin of 11.1 slight drop likely due to hemodilution, mild hyponatremia with sodium of 149 BUN/creatinine remains stable 38/1.5, total CK is 729 consistent with fall stool for occult blood is negative, influenza A and B as well as COVID-19 and RSV has been negative as well. Radiographic studies including C-spine as well as computed tomography scan of the head negative for fracture or acute changes, chest x-ray bilateral lower lobe infiltrate, computed tomography scan of the chest confirmed presence of pneumonia, computed tomography scan of the abdominal pelvis revealed dilated stomach and proximal small bowel general surgery has been following, repeat chest x-ray earlier this morning noted to have a NG tube and for gastric decompression appears to have distention Review of Systems ROS unobtainable: due to mental status All systems: negative Past Medical History Past Medical History: Cancer, Hearing Disorder / Deafness, Skin Disorder Additional Past Medical History / Comment(s): "Mentally Challenged"-has outbursts, "DEVELOPMENTALLY DELAYED, LEARNING DISABILITY." MULT SKIN CANCER REMOVALS, BASAL CELL. MASS ON POSTERIOR SCALP CURRENTLY. History of Any Multi-Drug Resistant Organisms: None Reported Additional Past Surgical History / Comment(s): RT Hand Surgery. Past Anesthesia/Blood Transfusion Reactions: No Reported Reaction Past Psychological History: Unable to Obtain Past Alcohol Use History: None Reported Past Drug Use History: None Reported - Past Family History Mother Family Medical History: Cancer Medications and Allergies Home Medications Medication Instructions Recorded Confirmed Type cloZAPine [cloZAPine ODT] 200 mg PO HS 09/19/22 09/19/22 History Allergies Allergy/AdvReac Type Severity Reaction Status Date / Time silicone AdvReac Body Verified 09/17/22 14:50 rejected finger implants Physical Exam Vitals: Vital Signs Temp Pulse Pulse Resp BP Pulse Ox 09/19/22 08:00 98.9 F 90 18 126/92 91 L 09/19/22 03:18 92 L 09/18/22 19:23 93 92 L Intake and Output 09/18/22 09/19/22 09/19/22 22:59 06:59 14:59 Other: # Voids 1 # Bowel Movements 1 - Constitutional General appearance: average body habitus, cooperative, disheveled - EENT Eyes: PERRLA Ears: bilateral: normal - Neck Neck: normal ROM Carotids: bilateral: upstroke normal Thyroid: bilateral: normal size - Respiratory Respiratory: bilateral: diminished, dullness, rales - Cardiovascular Rhythm: regular Heart sounds: normal: S1, S2 - Gastrointestinal General gastrointestinal: decreased bowel sounds - Integumentary Integumentary: normal turgor - Musculoskeletal Musculoskeletal: generalized weakness, strength equal bilaterally Results - Laboratory Findings CBC and BMP: 09/19/22 05:40 09/19/22 05:40 PT/INR, D-dimer PT 11.3 sec (9.0-12.0) 09/17/22 15:35 INR 1.0 (<1.2) 09/17/22 15:35 Abnormal lab findings: Abnormal Labs 09/17/22 09/17/22 09/17/22 15:35 15:35 15:35 WBC 14.2 H RBC 1.64 L Hgb 4.8 L* Hct 14.3 L* Immature Gran # Neutrophils # 12.2 H Lymphocytes # Eosinophils # Sodium Chloride 110 H Carbon Dioxide BUN 27 H Creatinine 1.40 H Est GFR (CKD-EPI)AfAm Est GFR (CKD-EPI)NonAf BUN/Creatinine Ratio Glucose 125 H Calcium AST Alkaline Phosphatase 29 L Creatine Kinase 1252 H* C-Reactive Protein Total Protein 6.2 L Albumin Albumin/Globulin Ratio Procalcitonin Urine Protein 2+ H Urine Ketones 1+ H Urine Blood Large H Amorphous Sediment Rare H Urine Mucus Few H Urine Yeast (Budding) Rare H 09/17/22 09/18/22 09/18/22 16:17 06:11 06:11 WBC RBC 4.22 L 4.13 L Hgb 12.2 L D 12.6 L Hct 36.8 L 36.8 L Immature Gran # Neutrophils # 8.1 H Lymphocytes # 0.7 L Eosinophils # Sodium 147 H Chloride 113 H Carbon Dioxide 21 L BUN 28 H Creatinine 1.26 H Est GFR (CKD-EPI)AfAm Est GFR (CKD-EPI)NonAf BUN/Creatinine Ratio Glucose 130 H Calcium AST 63 H Alkaline Phosphatase 31 L Creatine Kinase C-Reactive Protein Total Protein 5.7 L Albumin 3.4 L Albumin/Globulin Ratio Procalcitonin Urine Protein Urine Ketones Urine Blood Amorphous Sediment Urine Mucus Urine Yeast (Budding) 09/19/22 09/19/22 09/19/22 05:40 05:40 05:40 WBC 13.96 H RBC 3.86 L Hgb 11.1 L Hct 34.1 L Immature Gran # 0.06 H Neutrophils # 12.68 H Lymphocytes # 0.59 L Eosinophils # 0 L Sodium 149 H Chloride 116 H Carbon Dioxide 18.5 L BUN 38.4 H Creatinine Est GFR (CKD-EPI)AfAm 56.6 L Est GFR (CKD-EPI)NonAf 48.8 L BUN/Creatinine Ratio 25.60 H Glucose 132 H Calcium 8.3 L AST 44 H Alkaline Phosphatase 28 L Creatine Kinase 729 H C-Reactive Protein 16.20 H Total Protein 5.6 L Albumin 3.4 L Albumin/Globulin Ratio 1.55 L Procalcitonin 0.23 H Urine Protein Urine Ketones Urine Blood Amorphous Sediment Urine Mucus Urine Yeast (Budding) - Diagnostic Findings Chest x-ray: report reviewed, image reviewed (Findings as noted above) CT scan - chest: report reviewed, image reviewed (As noted in dictated above) Assessment and Plan Assessment: Bilateral aspiration pneumonia, on broad-spectrum antibiotics with IV Zosyn Abdominal distention with dilated gastric and small bowel surgery following being treated with conservative care Acute rhabdomyolysis due to fall Possible sepsis with leukocytosis Developed mentally delayed Plan: Continue broad-spectrum antibiotics Supplemental oxygen Deep breathing exercise incentive spirometry Continue and monitor and practice aspiration precautions Continue to rehydrate Further recommendations pending plan of care as per clinical response of the patient Time with Patient: Greater than 30
--- NOTE | 2022-09-20 14:11 | P.PN ---
Subjective Progress Note Date: 09/20/22 Principal diagnosis: Bilateral aspiration pneumonia, on broad-spectrum antibiotics with IV Zosyn Abdominal distention with dilated gastric and small bowel surgery following being treated with conservative care Acute rhabdomyolysis due to fall Possible sepsis with leukocytosis Developed mentally delayed 09/20/2022, patient seen eval examined during rounds labs reviewed medications reviewed she has been evaluated by surgery considered for conservative care for gastric dilatation likely some component of gastroparesis, patient overall hemodynamically stable, now on room air breathing comfortably, remains afebrile T-max was 100.4 now 98.2, hemodynamic is stable with blood pressure 116/88 oxygen saturation is 94% room air, labs are not done today Patient is a 61-year-old male with a past medical history significant for developmental delay learning disability multiple skin cancers has been brought into the ER after the patient was noticed to be on the ground. Data mostly obtained from the chart as patient unable to give any detailed history, apparently the patient gets up around 7 and makes his breakfast however the patient did not get up that morning, family went to check on him around noon the patient was on the floor patient last seen approximately 1 in the morning and seems to be doing okay patient been feeling lethargic and not as active as the patient normally is patient recently being treated for bilateral conjunctivitis patient also have a mild cough. Patient is not bringing up any sputum the and denies having any chest pain no significant shortness of breath patient did have an episode of coffee-ground emesis. Patient was evaluated while in the ER per the nursing staff however the patient denies having any abdominal pain or any diarrhea with the symptom the patient has been evaluated by the ER physician on arrival to the ER patient was afebrile he did have low-grade fever of 99.9 F last night patient did have mild hypoxemia and need for supplemental oxygen patient did have white count of 14.2 and was noticed to be mildly anemic BUN/creatinine is mildly elevated liver enzymes are normal urine was negative influenza and COVID testing was negative patient did have a chest x-ray bilateral lower lobe pneumonia mostly on the left side the patient was started on Rocephin and Zithromax pulmonary was consulted for further management of respiratory status and antibiotic therapy , patient currently denies having any pain behind the ear no pain or drainage from his ears workup and evaluation in the emergency department includes a CBC with a rising WBC count of 13.9, stable hemoglobin of 11.1 slight drop likely due to hemodilution, mild hyponatremia with sodium of 149 BUN/creatinine remains stable 38/1.5, total CK is 729 consistent with fall stool for occult blood is negative, influenza A and B as well as COVID-19 and RSV has been negative as well. Radiographic studies including C-spine as well as computed tomography scan of the head negative for fracture or acute changes, chest x-ray bilateral lower lobe infiltrate, computed tomography scan of the chest confirmed presence of pneumonia, computed tomography scan of the abdominal pelvis revealed dilated stomach and proximal small bowel general surgery has been following, repeat chest x-ray earlier this morning noted to have a NG tube and for gastric decompression appears to have distention Objective - Vital Signs Vital signs: Vital Signs Temp 98.2 F 09/20/22 08:00 Pulse 83 09/20/22 08:00 Resp 16 09/20/22 08:00 BP 116/88 09/20/22 08:00 Pulse Ox 94 L 09/20/22 08:00 FiO2 Intake & Output 09/19/22 09/20/22 09/20/22 18:59 06:59 18:59 Output Total 400 500 Balance -400 -500 Weight 136.078 kg Output: Gastric Drainage 400 500 Other: Voiding Method Diaper Diaper Diaper Incontinent Incontinent Incontinent # Voids 1 # Bowel Movements 1 - Exam - Constitutional General appearance: average body habitus, cooperative, disheveled - EENT Eyes: PERRLA Ears: bilateral: normal - Neck Neck: normal ROM Carotids: bilateral: upstroke normal Thyroid: bilateral: normal size - Respiratory Respiratory: bilateral: diminished, dullness, rales - Cardiovascular Rhythm: regular Heart sounds: normal: S1, S2 - Gastrointestinal General gastrointestinal: decreased bowel sounds - Integumentary Integumentary: normal turgor - Musculoskeletal Musculoskeletal: generalized weakness, strength equal bilaterally - Labs CBC & Chem 7: 09/19/22 05:40 09/19/22 05:40 Assessment and Plan Assessment: Bilateral aspiration pneumonia, on broad-spectrum antibiotics with IV Zosyn Abdominal distention with dilated gastric and small bowel surgery following being treated with conservative care, with NG tube responding Acute rhabdomyolysis due to fall, severe CKs have been improving Possible sepsis with leukocytosis Developed mentally delayed Plan: Continue broad-spectrum antibiotics Monitor off of oxygen Deep breathing exercise incentive spirometry Continue and monitor and practice aspiration precautions, may benefit from swallow evaluation Continue to rehydrate Further recommendations pending plan of care as per clinical response of the patient Time with Patient: Greater than 30
--- NOTE | 2022-09-20 14:51 | P.PN ---
Subjective Progress Note Date: 09/20/22 CHIEF COMPLAINT: Altered mental status HISTORY OF PRESENT ILLNESS: Surgical service following in regards to patient's dilated stomach and ileus. Patient is in the ICU as a MedSurg overflow. Patient did have a bowel movement yesterday. NG tube with 500 ML of bilious output . Additional 250 mL bilious output this morning. No evidence of blood noted in NG tube. Abdomen appears less distended. He did have a low-grade temp of 100.4 last night. He is being treated for pneumonia. No new labs from jenae kirkpatrick. Patient seen and examined with Dr. barboza PHYSICAL EXAM: VITAL SIGNS: Reviewed. GENERAL: Well-developed in no acute distress. ABDOMEN: Soft. Abdomen less distended. Nontender. NEUROLOGIC: Alert and oriented [address] ASSESSMENT: 1. Abdominal distention with dilated stomach and proximal small bowel noted on CAT scan 2. Small bowel ileus 3. Pneumonia PLAN: -Continue NG tube for decompression -Keep patient nothing by mouth -Continue IV fluids -Continue supportive care Physician Etl Developer note has been reviewed by physician. Signing provider agrees with the documented findings, assessment, and plan of care. Objective - Vital Signs Vital signs: Vital Signs Temp 98.2 F 09/20/22 08:00 Pulse 83 09/20/22 08:00 Resp 16 09/20/22 08:00 BP 116/88 09/20/22 08:00 Pulse Ox 94 L 09/20/22 08:00 FiO2 Intake & Output 09/19/22 09/20/22 09/20/22 18:59 06:59 18:59 Output Total 400 500 Balance -400 -500 Weight 136.078 kg Output: Gastric Drainage 400 500 Other: Voiding Method Diaper Diaper Diaper Incontinent Incontinent Incontinent # Voids 1 # Bowel Movements 1 - Labs CBC & Chem 7: 09/19/22 05:40 09/19/22 05:40
[2022-09-20] MEDS: cloZAPine 100 MG TAB PO SCH (20:49)
[2022-09-21] MEDS: POLYMYXIN B-TRIMETHOPRIM SULF (10,000-1) OPHTH DROPS 10 ML BTL BOTH EYES SCH ×4 (00:23→17:11)
[2022-09-21] MEDS: PIPERACILLIN-TAZOBACTAM 3.375 GM in SODIUM CHLORIDE 0.9% 100 ML IVPB SCH ×3 (03:19→21:26)
[2022-09-21 04:26] LABS: Basophils % (A) 0 %; Eosinophils % (A) 0 %; HCT 35.1 % (39.0-53.0); HGB 11.2 gm/dL (13.0-17.5); Hypochromasia Slight; Lymphocytes # (A) 0.6 k/uL (1.0-4.8); Lymphocytes % (A) 5 %; MCH 28.7 pg (25.0-35.0); MCHC 31.8 g/dL (31.0-37.0); MCV 90.3 fL (80.0-100.0); Monocytes # (A) 0.5 k/uL (0-1.0); Monocytes % (A) 4 %; Neutrophils # (A) 10.1 k/uL (1.3-7.7); Neutrophils % (A) 88 %; Platelet Count 207 k/uL (150-450); RBC 3.89 m/uL (4.30-5.90); RDW 14.6 % (11.5-15.5); WBC 11.4 k/uL (3.8-10.6)
[2022-09-21 04:45] LABS: Calcium 8.3 mg/dL (8.4-10.2); Potassium 3.7 mmol/L (3.5-5.1); Total Protein 5.4 g/dL (6.3-8.2)
--- NOTE | 2022-09-21 09:24 | PN ---
PROGRESS NOTE SUBJECTIVE: A 61-year-old white male remains on Zosyn for community-acquired pneumonia, on Polytrim for bacterial conjunctivitis, Reglan for gastroparesis, has NG tube in place, Clozaril for his mood disorder, feels better. O2 is 93% on 2 L. OBJECTIVE: VITAL SIGNS: Temperature 99.2, pulse 94, respiratory rate 14 to 16. CARDIOVASCULAR: S1, S2. LUNGS: Scattered rhonchi and wheeze. HEMATOLOGY: Negative Homans. PSYCH: Fair mood and affect. ASSESSMENT: Possible ileus versus bowel obstruction, appears to be improving. Aspiration pneumonia, hypoxic respiratory failure, improving. CT scan of the chest reviewed. Infectious Disease consult is done. Prognosis is guarded. Continue with antibiotics and NG tube. MMODL / IJN: [id number] /
--- NOTE | 2022-09-21 10:51 | CDI ---
Documentation Clarification Form Date: 09/21/2022 10:39:07 AM From: Susu BranchIFEOMA duong, CCDS Admit Date: 09/17/2022 05:40:00 PM Patient Name: Marques Herman Visit Number: [id number] Discharge Date: ATTENTION: The Clinical Documentation Specialists (CDI) and [facility] Coding Staff appreciate your assistance in clarifying documentation. Please respond to the clarification below the line at the bottom and electronically sign. The CDI & [facility] Coding staff will review the response and follow-up if needed. Please note: Queries are made part of the Legal Health Record. If you have any questions, please contact the author of this message via ITS. Dr. Emmett Decker: The patient presented with the following clinical indicators. Additional clarification regarding the etiology/cause of the clinical indicators is requested. History/Risk Factors per the 09/19 H/P: Mental disability, Cardiomyopathy. Per the 09/17 ED Note: Skin cancer removed, [place]. Clinical Indicators: Presented to the ED on 09/17 with Altered Mental Status via EMS and was found down at home, lives with his sister and mother. Has bilateral conjunctivitis, found to be lethargic and not as active as normal. Mild nonproductive cough. 09/17 VS: T 97.9, 99.9; P 113, 94, R 18, 20; BP 143/67, PO 96 RA, 94 RA, BMI: 40.7 09/17 LAB: WBC 14.2, RBC 1.64, Hgb 4.8, Hct 14.3, Neutrophils 12.2; Chloride 110, BUN 27, Creatinine 1.40, Glucose 125, Alk Phos 29, Creatine Kinase 1252, Total Protein 6.2. 09/17 UA: Cloudy, 2+ protein, 1+ ketones, large blood No cultures. (Sputum culture ordered 09/18). 09/17 Stool Occult Blood: negative 09/17 Influenza A/B: negative, RSV: negative, COVID: negative. 09/17 CT Brain/C Spine: Minor degenerative changes in cervical spine. Bilateral mastoiditis, Bilateral maxillary sinusitis, Ethmoid & sphenoid sinusitis. 09/17 CXR: Bilateral lower lobe pneumonia Treatment 09/17: IV Na Chl 1,000 mls @ 999 mls/hr q1H, IV Zofran 4 mg q8H/prn, IV Rocephin 1,000 mg x1, IV Na Chl 1,000 mls @ 130 mls/hr q7H, IV Azithromycin 500 mg 250 mls @ 250 mls/hr q24H. In your professional opinion, please clarify if these findings signify one of the following conditions: [ ] Sepsis POA [ ] Sepsis, Not POA [ ] Sepsis ruled out [ ] Severe Sepsis with organ failure [ ] Other, please specify: [ ] Unable to determine (Template Last Reviewed: December 2020) ELEANORD
--- NOTE | 2022-09-21 11:01 | CDI ---
Documentation Clarification Form Date: 09/21/2022 10:52:09 AM From: Susu Branch CCS, CCDS Admit Date: 09/17/2022 05:40:00 PM Patient Name: Marques Herman Visit Number: [id number] Discharge Date: ATTENTION: The Clinical Documentation Specialists (CDI) and [facility] Coding Staff appreciate your assistance in clarifying documentation. Please respond to the clarification below the line at the bottom and electronically sign. The CDI & [facility] Coding staff will review the response and follow-up if needed. Please note: Queries are made part of the Legal Health Record. If you have any questions, please contact the author of this message via ITS. Dr. Emmett Decker: Aspiration Pneumonia and Hypoxic Respiratory Failure is documented in the 09/19 Attending Progress Note. The patient was admitted on 09/17 with Bilateral Lower Lobe Pneumonia, Possible Aspiration. Additional clarification of the acuity of the Respiratory Failure is requested. History/Risk Factors per the 09/19 H/P: Mentally disabled, Cardiomyopathy. Clinical Indicators: Presented to the ED on 09/17 via EMS from home with altered mental status after being found down, lives with his sister and his mother. Bilateral conjunctivis, lethargy and mild nonproductive cough. Admit with Pneumonia. 09/17 VS: T 97.9, P 113, R 18 - 20, BP 143/87, PO 96 RA - 94 RA. 09/19 VS: T 98.9, P 90 - 103, R 18, BP 126/92, PO 92 2Lnc - 91 3Lnc 09/17 LAB: CO2 22. 10 CO2 21. 09/19 CO2 18.5. Treatment 09/17: IV Na Chl 1,000 mls @ 999 mls/hr q1H, IV Zofran 4 mg q8H, IV rocephin 1,000 mg x1, IV Na Chl 1,000 mls @ 130 mls/hr q7H, IV Azithromycin 500 mg 250 mls @ 250 mls/hr q24H. Can you please clarify the acuity of the documented Hypoxic Respiratory Failure and please specify if Present on Admission: [ ] Acute, Present on Admission [ ] Acute, Not Present on Admission [ ] Other, please specify: [ ] Unable to determine (Template Last Revised: January 2021) MTDD
[2022-09-21] MEDS: SODIUM CHLORIDE 0.9% 1,000 ML IV SCH ×2 (11:55→17:18)
--- NOTE | 2022-09-21 13:33 | P.PN ---
Subjective Progress Note Date: 09/21/22 Principal diagnosis: Pneumonia, ileus, hypernatremia Patient seen and examined at bedside. No complaints today. Still somewhat hard of hearing, unable to elaborate on at length as to how he is feeling. He denies pain, appears comfortable at rest. Nasogastric tube remains in place, there is another 400 mL of dark bilious aspirate per the canister, no obvious signs of bleeding. Abdomen some mildly distended, improved compared to yesterday, no tenderness to palpation. He admits to flatus, bowel movement was charted within the past 24 hours or so. Doesn't seem to be hungry. Has had a hemodynamically stable and afebrile appearance over the past 24 hours. Laboratory studies show a blood cell count 11.4, hemoglobin 11.2, platelet count of 207. Metabolic panel shows a high sodium at 155, potassium normal at 3.7, CO2 normalizing at 22, creatinine slightly elevated at 1.48. Liver functions were within normal limits. Creatinine kinase is continuing to trend down to 254. Objective - Vital Signs Vital signs: Vital Signs Temp 99.5 F 09/21/22 08:00 Pulse 87 09/21/22 08:00 Resp 16 09/21/22 08:00 BP 137/77 09/21/22 08:00 Pulse Ox 96 09/21/22 08:00 FiO2 Intake & Output 09/20/22 09/21/22 09/21/22 18:59 06:59 18:59 Intake Total 1660 1630 Output Total 600 100 Balance 1060 1530 Intake: Intake, IV Titration 1660 1630 Amount Piperacillin-Tazobactam 3 100 200 .375 gm In Sodium Chloride 0.9% 100 ml @ 25 mls/hr IVPB Q8H [facility] Rx#: [id number] Sodium Chloride 0.9% 1, 1560 1430 000 ml @ 130 mls/hr IV . Q7H42M [facility] Rx#:[id number] Output: Gastric Drainage 600 100 Other: Voiding Method Diaper Diaper Diaper Incontinent Incontinent Incontinent # Voids 2 # Bowel Movements 1 - Constitutional General appearance: Present: average body habitus, no acute distress - EENT Eyes: Present: EOMI, PERRLA ENT: Present: hard of hearing, NA/AT - Respiratory Details: Lung sounds coarse and slightly rhonchorous bilaterally. Intermittent nonproductive cough at rest. No conversational dyspnea, no jugular venous d istention. Respiratory: bilateral: rhonchi - Cardiovascular Rhythm: regular - Gastrointestinal Gastrointestinal Comment(s): Abdomen is soft with slight improvement in distention as compared to yesterday. No guarding or rebound. Abdominal exam is benign. No clinical signs of jaundice. - Labs CBC & Chem 7: 09/21/22 03:41 09/21/22 03:41 Labs: Abnormal Lab Results - Last 24 Hours (Table) 09/20/22 09/21/22 09/21/22 Range/Units 15:56 03:41 03:41 WBC 11.4 H (3.8-10.6) k/uL RBC 3.89 L (4.30-5.90) m/uL Hgb 11.2 L (13.0-17.5) gm/dL Hct 35.1 L (39.0-53.0) % Neutrophils # 10.1 H (1.3-7.7) k/uL Lymphocytes # 0.6 L (1.0-4.8) k/uL Sodium 155 H (137-145) mmol/L Chloride 122 H (98-107) mmol/L BUN 38 H (9-20) mg/dL Creatinine 1.48 H (0.66-1.25) mg/dL Calcium 8.3 L (8.4-10.2) mg/dL Alkaline Phosphatase 28 L (38-126) U/L Creatine Kinase 254 H (55-170) U/L Total Protein 5.4 L (6.3-8.2) g/dL Albumin 3.0 L (3.5-5.0) g/dL Assessment and Plan Assessment: 61-year-old gentleman with clinical presentation, imaging, and exam consistent with community-acquired bilateral pneumonia versus aspiration pneumonia and associated ileus. No evidence of bowel obstruction seen on CT in the sense that there is no transition point visualized. I suspect the degree of dilation seen at the stomach and proximal small bowel has a chronic element. Appears to be improving with nasogastric decompression and IV antibiotics. Abdominal exam today is benign. Mild absolute anemia on CBC, question of upper GI bleed on initial presentation. Question of fungal infection on urinalysis. Plan: Continue with medical treatment for pneumonia, nasogastric decompression and IV fluids. Needs incentive spirometry while awake, chest physiotherapy 3 times daily to help clear the lungs. Recommend follow-up chest x-ray tomorrow to assess for progress. No urgent indications for surgical intervention for now. GI consultation requested for reports of upper GI bleed, this is something that likely would not be pursued until he has signs of improvement in ileus unless he has more hard signs of ongoing upper GI bleed. For now his nasogastric tube output does not have a concerning appearance for bleeding. If this is of concern I'd consider empiric Protonix drip equivalent with 40 mg twice a day. Would also give consideration to adding fluconazole or micafungin and given budding yeast seen on presenting urinalysis. Will follow. Time with Patient: Greater than 30
--- NOTE | 2022-09-21 14:38 | P.PN ---
Subjective Progress Note Date: 09/19/22 Principal diagnosis: Pneumonia Patient is a 61-year-old male with a past medical history significant for developmental delay presenting to the ER after the patient was found to be on the floor did have episodes of vomiting coffee-ground NS chest x-ray with bilateral lower lobe pneumonia concerning for possible aspiration. On today's evaluation that is 09/19/2022 the patient is afebrile, the patient is currently breathing comfortably nasal cannula oxygen he did have the NG no further vomiting no abdominal pain no diarrhea Objective - Vital Signs Vital signs: Vital Signs Temp 98.9 F 09/19/22 08:00 Pulse 90 09/19/22 08:00 Resp 18 09/19/22 08:00 BP 126/92 09/19/22 08:00 Pulse Ox 91 L 09/19/22 08:00 FiO2 Intake & Output 09/18/22 09/19/22 09/19/22 18:59 06:59 18:59 Other: # Voids 1 # Bowel Movements 1 - Exam GENERAL DESCRIPTION: Middle-aged male lying in bed, no distress. No tachypnea or accessory muscle of respiration use. LUNGS: Unlabored breathing. Decreased breath sound at the base HEART: S1, S2, regular rate and rhythm. No loud murmur ABDOMEN: Soft, no tenderness , guarding or rigidity, no organomegaly EXTREMITIES: No edema of feet. - Labs CBC & Chem 7: 09/21/22 03:41 09/21/22 03:41 Labs: Abnormal Lab Results - Last 24 Hours (Table) 09/19/22 09/19/22 09/19/22 Range/Units 05:40 05:40 05:40 WBC 13.96 H (4.50-10.00) X 10*3/uL RBC 3.86 L (4.40-5.60) X 10*6/uL Hgb 11.1 L (13.0-17.0) g/dL Hct 34.1 L (39.6-50.0) % Immature Gran # 0.06 H (0.00-0.04) X 10*3/uL Neutrophils # 12.68 H (1.80-7.70) X 10*3/uL Lymphocytes # 0.59 L (0.90-5.00) X 10*3/uL Eosinophils # 0 L (0.04-0.35) X 10*3/uL Sodium 149 H (135-145) mmol/L Chloride 116 H (96-109) mmol/L Carbon Dioxide 18.5 L (20.0-27.5) mmol/L BUN 38.4 H (9.0-27.0) mg/dL Est GFR (CKD-EPI)AfAm 56.6 L (60.0-200.0) Est GFR (CKD-EPI)NonAf 48.8 L (60.0-200.0) BUN/Creatinine Ratio 25.60 H (12.00-20.00) Ratio Glucose 132 H (70-110) mg/dL Calcium 8.3 L (8.7-10.3) mg/dL AST 44 H (14-35) U/L Alkaline Phosphatase 28 L (41-126) U/L Creatine Kinase 729 H (35-257) U/L C-Reactive Protein 16.20 H (0.00-0.80) mg/dL Total Protein 5.6 L (6.2-8.2) g/dL Albumin 3.4 L (3.8-4.9) g/dL Albumin/Globulin Ratio 1.55 L (1.60-3.17) g/dL Procalcitonin 0.23 H (0.02-0.09) ng/mL Assessment and Plan (1) Pneumonia Current Visit: Yes Status: Acute Code(s): J18.9 - PNEUMONIA, UNSPECIFIED ORGANISM SNOMED Code(s): 178088693 Plan: 1patient presented to hospital after the patient has been found on the floor that this patient has been complaining of generalized weakness to have a mild cough not bring up any sputum and episode of vomiting concerning for possible aspiration pneumonia patient abdominal was soft on clinical examination urine has been negative and no evidence of any cellulitis. 2Patient to continue with Unasyn while waiting for the culture to finalize and monitor clinical course closely Time with Patient: Less than 30
--- NOTE | 2022-09-21 14:41 | P.PN ---
Subjective Progress Note Date: 09/20/22 Principal diagnosis: Pneumonia Patient is a 61-year-old male with a past medical history significant for developmental delay presenting to the ER after the patient was found to be on the floor did have episodes of vomiting coffee-ground NS chest x-ray with bilateral lower lobe pneumonia concerning for possible aspiration. On today's evaluation that is 09/20/2022, the patient did have low-grade fever 100.4 last night the patient is afebrile this morning the patient is currently breathing comfortably on 2 L nasal cannula denies any chest pain no worsening cough or sputum production still have the NG no further vomiting or diarrhea has been reported Objective - Vital Signs Vital signs: Vital Signs Temp 99.8 F H 09/20/22 20:00 Pulse 84 09/20/22 20:00 Resp 16 09/20/22 20:00 BP 140/75 09/20/22 20:00 Pulse Ox 93 L 09/20/22 20:00 FiO2 Intake & Output 09/20/22 09/20/22 09/21/22 06:59 18:59 06:59 Intake Total 1660 Output Total 500 600 Balance -500 1060 Intake: Intake, IV Titration 1660 Amount Piperacillin-Tazobactam 3 100 .375 gm In Sodium Chloride 0.9% 100 ml @ 25 mls/hr IVPB Q8H [facility] Rx#: [id number] Sodium Chloride 0.9% 1, 1560 000 ml @ 130 mls/hr IV . Q7H42M [facility] Rx#:[id number] Output: Gastric Drainage 500 600 Other: Voiding Method Diaper Diaper Diaper Incontinent Incontinent Incontinent # Voids 2 # Bowel Movements 1 - Exam GENERAL DESCRIPTION: Middle-aged male lying in bed, no distress. No tachypnea or accessory muscle of respiration use. LUNGS: Unlabored breathing. Decreased breath sound at the base HEART: S1, S2, regular rate and rhythm. No loud murmur ABDOMEN: Soft, no tenderness , guarding or rigidity, no organomegaly EXTREMITIES: No edema of feet. - Labs CBC & Chem 7: 09/21/22 03:41 09/21/22 03:41 Labs: Abnormal Lab Results - Last 24 Hours (Table) 09/20/22 Range/Units 15:56 Creatine Kinase 254 H (55-170) U/L Assessment and Plan (1) Pneumonia Current Visit: Yes Status: Acute Code(s): J18.9 - PNEUMONIA, UNSPECIFIED ORGANISM SNOMED Code(s): 462764835 Plan: 1patient presented to hospital after the patient has been found on the floor that this patient has been complaining of generalized weakness to have a mild cough not bring up any sputum and episode of vomiting concerning for possible aspiration pneumonia patient abdominal was soft on clinical examination urine has been negative and no evidence of any cellulitis. 2patient did have elevated CRP and procalcitonin unfortunately cultures were not done. 3patient to continue with the Unasyn in view of clinical response and will monitor clinical course closely Time with Patient: Less than 30
--- NOTE | 2022-09-21 14:42 | P.PN ---
Subjective Progress Note Date: 09/21/22 Principal diagnosis: Pneumonia Patient is a 61-year-old male with a past medical history significant for developmental delay presenting to the ER after the patient was found to be on the floor did have episodes of vomiting coffee-ground NS chest x-ray with bilateral lower lobe pneumonia concerning for possible aspiration. On today's evaluation that is 09/21/2022 the patient overall fever pattern has improved, patient is breathing comfortably on a 2 L nasal cannula denies any chest pain still have the NG no further vomiting has been reported or any diarrhea by the nursing staff Objective - Vital Signs Vital signs: Vital Signs Temp 99.5 F 09/21/22 08:00 Pulse 87 09/21/22 08:00 Resp 16 09/21/22 08:00 BP 137/77 09/21/22 08:00 Pulse Ox 96 09/21/22 08:00 FiO2 Intake & Output 09/20/22 09/21/22 09/21/22 18:59 06:59 18:59 Intake Total 1660 1630 Output Total 600 100 Balance 1060 1530 Intake: Intake, IV Titration 1660 1630 Amount Piperacillin-Tazobactam 3 100 200 .375 gm In Sodium Chloride 0.9% 100 ml @ 25 mls/hr IVPB Q8H [facility] Rx#: [id number] Sodium Chloride 0.9% 1, 1560 1430 000 ml @ 130 mls/hr IV . Q7H42M [facility] Rx#:[id number] Output: Gastric Drainage 600 100 Other: Voiding Method Diaper Diaper Diaper Incontinent Incontinent Incontinent # Voids 2 # Bowel Movements 1 - Exam GENERAL DESCRIPTION: Middle-aged male lying in bed, no distress. No tachypnea or accessory muscle of respiration use. LUNGS: Unlabored breathing. Decreased breath sound at the base HEART: S1, S2, regular rate and rhythm. No loud murmur ABDOMEN: Soft, no tenderness , guarding or rigidity, no organomegaly EXTREMITIES: No edema of feet. - Labs CBC & Chem 7: 09/21/22 03:41 09/21/22 03:41 Labs: Abnormal Lab Results - Last 24 Hours (Table) 09/20/22 09/21/22 09/21/22 Range/Units 15:56 03:41 03:41 WBC 11.4 H (3.8-10.6) k/uL RBC 3.89 L (4.30-5.90) m/uL Hgb 11.2 L (13.0-17.5) gm/dL Hct 35.1 L (39.0-53.0) % Neutrophils # 10.1 H (1.3-7.7) k/uL Lymphocytes # 0.6 L (1.0-4.8) k/uL Sodium 155 H (137-145) mmol/L Chloride 122 H (98-107) mmol/L BUN 38 H (9-20) mg/dL Creatinine 1.48 H (0.66-1.25) mg/dL Calcium 8.3 L (8.4-10.2) mg/dL Alkaline Phosphatase 28 L (38-126) U/L Creatine Kinase 254 H (55-170) U/L Total Protein 5.4 L (6.3-8.2) g/dL Albumin 3.0 L (3.5-5.0) g/dL Assessment and Plan (1) Pneumonia Current Visit: Yes Status: Acute Code(s): J18.9 - PNEUMONIA, UNSPECIFIED ORGANISM SNOMED Code(s): 031406326 Plan: 1patient presented to hospital after the patient has been found on the floor that this patient has been complaining of generalized weakness to have a mild cough not bring up any sputum and episode of vomiting concerning for possible aspiration pneumonia patient abdominal was soft on clinical examination urine has been negative and no evidence of any cellulitis. 2The patient fever has resolved and the white count is trending down we will continue with the Unasyn and monitor clinical course closely Time with Patient: Less than 30
--- NOTE | 2022-09-21 15:05 | P.PN ---
Subjective Progress Note Date: 09/21/22 Principal diagnosis: Bilateral aspiration pneumonia, on broad-spectrum antibiotics with IV Zosyn Abdominal distention with dilated gastric and small bowel surgery following being treated with conservative care Acute rhabdomyolysis due to fall Possible sepsis with leukocytosis Developed mentally delayed 09/21/2022, patient seen eval examined during the rounds labs reviewed medications reviewed, patient is awake on supplemental oxygen, patient is still have NG tube with low intermittent suction, some gurgling and upper airway has been noted, hemodynamic status however remains stable, current temperature 99.5, blood pressure is 137/77, respiratory 16, she is on 2 L oxygen saturation is sent, labs from today reviewed white cell count 11.4, hemoglobin hematocrit 11/35, chemistry reviewed BUN/creatinine 38/1.48, potassium 3.7 sodium up to 155, which is up from 149 yesterday, BUN/creatinine fluctuating lower remained stable patient remains nothing by mouth, remains on Zosyn every 8 hourly and IV fluid normal saline 09/20/2022, patient seen eval examined during rounds labs reviewed medications reviewed she has been evaluated by surgery considered for conservative care for gastric dilatation likely some component of gastroparesis, patient overall hemodynamically stable, now on room air breathing comfortably, remains afebrile T-max was 100.4 now 98.2, hemodynamic is stable with blood pressure 116/88 oxygen saturation is 94% room air, labs are not done today Patient is a 61-year-old male with a past medical history significant for developmental delay learning disability multiple skin cancers has been brought into the ER after the patient was noticed to be on the ground. Data mostly obtained from the chart as patient unable to give any detailed history, apparently the patient gets up around 7 and makes his breakfast however the patient did not get up that morning, family went to check on him around noon the patient was on the floor patient last seen approximately 1 in the morning and seems to be doing okay patient been feeling lethargic and not as active as the patient normally is patient recently being treated for bilateral conjunctivitis patient also have a mild cough. Patient is not bringing up any sputum the and denies having any chest pain no significant shortness of breath patient did have an episode of coffee-ground emesis. Patient was evaluated while in the ER per the nursing staff however the patient denies having any abdominal pain or any diarrhea with the symptom the patient has been evaluated by the ER physician on arrival to the ER patient was afebrile he did have low-grade fever of 99.9 F last night patient did have mild hypoxemia and need for supplemental oxygen patient did have white count of 14.2 and was noticed to be mildly anemic BUN/creatinine is mildly elevated liver enzymes are normal urine was negative influenza and COVID testing was negative patient did have a chest x-ray bilateral lower lobe pneumonia mostly on the left side the patient was started on Rocephin and Zithromax pulmonary was consulted for further management of respiratory status and antibiotic therapy , patient currently denies having any pain behind the ear no pain or drainage from his ears workup and evaluation in the emergency department includes a CBC with a rising WBC count of 13.9, stable hemoglobin of 11.1 slight drop likely due to hemodilution, mild hyponatremia with sodium of 149 BUN/creatinine remains stable 38/1.5, total CK is 729 consistent with fall stool for occult blood is negative, influenza A and B as well as COVID-19 and RSV has been negative as well. Radiographic studies including C-spine as well as computed tomography scan of the head negative for fracture or acute changes, chest x-ray bilateral lower lobe infiltrate, computed tomography scan of the chest confirmed presence of pneumonia, computed tomography scan of the abdominal pelvis revealed dilated stomach and proximal small bowel general surgery has been following, repeat chest x-ray earlier this morning noted to have a NG tube and for gastric decompression appears to have distention Objective - Vital Signs Vital signs: Vital Signs Temp 99.5 F 09/21/22 08:00 Pulse 87 09/21/22 08:00 Resp 16 09/21/22 08:00 BP 137/77 09/21/22 08:00 Pulse Ox 96 09/21/22 08:00 FiO2 Intake & Output 09/20/22 09/21/22 09/21/22 18:59 06:59 18:59 Intake Total 1660 1630 Output Total 600 100 Balance 1060 1530 Intake: Intake, IV Titration 1660 1630 Amount Piperacillin-Tazobactam 3 100 200 .375 gm In Sodium Chloride 0.9% 100 ml @ 25 mls/hr IVPB Q8H [facility] Rx#: [id number] Sodium Chloride 0.9% 1, 1560 1430 000 ml @ 130 mls/hr IV . Q7H42M [facility] Rx#:[id number] Output: Gastric Drainage 600 100 Other: Voiding Method Diaper Diaper Diaper Incontinent Incontinent Incontinent # Voids 2 # Bowel Movements 1 - Exam - Constitutional General appearance: average body habitus, cooperative, disheveled - EENT Eyes: PERRLA Ears: bilateral: normal - Neck Neck: normal ROM Carotids: bilateral: upstroke normal Thyroid: bilateral: normal size - Respiratory Respiratory: bilateral: diminished, dullness, rales - Cardiovascular Rhythm: regular Heart sounds: normal: S1, S2 - Gastrointestinal General gastrointestinal: decreased bowel sounds - Integumentary Integumentary: normal turgor - Musculoskeletal Musculoskeletal: generalized weakness, strength equal bilaterally - Labs CBC & Chem 7: 09/21/22 03:41 09/21/22 03:41 Labs: Abnormal Lab Results - Last 24 Hours (Table) 09/20/22 09/21/22 09/21/22 Range/Units 15:56 03:41 03:41 WBC 11.4 H (3.8-10.6) k/uL RBC 3.89 L (4.30-5.90) m/uL Hgb 11.2 L (13.0-17.5) gm/dL Hct 35.1 L (39.0-53.0) % Neutrophils # 10.1 H (1.3-7.7) k/uL Lymphocytes # 0.6 L (1.0-4.8) k/uL Sodium 155 H (137-145) mmol/L Chloride 122 H (98-107) mmol/L BUN 38 H (9-20) mg/dL Creatinine 1.48 H (0.66-1.25) mg/dL Calcium 8.3 L (8.4-10.2) mg/dL Alkaline Phosphatase 28 L (38-126) U/L Creatine Kinase 254 H (55-170) U/L Total Protein 5.4 L (6.3-8.2) g/dL Albumin 3.0 L (3.5-5.0) g/dL Assessment and Plan Assessment: Hypernatremia Bilateral aspiration pneumonia, on broad-spectrum antibiotics with IV Zosyn Abdominal distention with dilated gastric and small bowel surgery following bein g treated with conservative care, with NG tube responding Acute rhabdomyolysis due to fall, severe CKs have been improving Possible sepsis with leukocytosis Developed mentally delayed Plan: We'll change fluid to D5 Patient will need swallow evaluation once NG tube was removed Continue broad-spectrum antibiotics Monitor on supplemental oxygen DVT prophylaxis with heparin subcu and peptic ulcer disease prophylaxis with Protonix 40 mg IV every 12 Deep breathing exercise incentive spirometry Continue and monitor and practice aspiration precautions, may benefit from swallow evaluation Further recommendations pending plan of care as per clinical response of the patient Time with Patient: Greater than 30
[2022-09-21] MEDS: DEXTROSE 5% IN WATER 1,000 ML IV SCH (17:11)
--- NOTE | 2022-09-21 18:45 | PN ---
PROGRESS NOTE SUBJECTIVE: A white male with ileus versus early bowel obstruction, mental health disorder or mental slowing process, and aspiration pneumonia. Remains in ICU. He is improving on a daily basis. Saturating 92% to 94% on 2 L. Temperature 99. He has been afebrile. Blood pressure 130s over 70s, respiratory rate 16 to 18. Seen by Surgery today, who recommends a continuing NG tube for decompression. Nothing by mouth. IV fluids. He had 250 mL of bilious output this morning. No blood. T-max was 100.4 last night. He has been treated for aspiration pneumonia and ileus versus small-bowel obstruction. He is talking more appropriately. OBJECTIVE: CARDIOVASCULAR: S1, S2. LUNGS: Transmitted upper airway sounds. GI: Soft. HEMATOLOGY: Negative Homans. LABS: White count 13.96 with hemoglobin 11.1. ASSESSMENT AND PLAN: He can continue broad-spectrum antibiotics. Monitor off oxygen. Deep breathing exercises. Abdominal distention, treated with conservative treatment with NG tube. Acute rhabdomyolysis, CKs have been improving. Sepsis. Leukocytosis improved. . Bilateral aspiration pneumonia. Continue with Zosyn. Check labs in the morning. Prognosis guarded. MMODL / IJN: [id number] /
[2022-09-21] MEDS: cloZAPine 100 MG TAB PO SCH (21:25)
[2022-09-21] MEDS: HEPARIN SODIUM,PORCINE/PF 5,000 UNIT/0.5 ML SYRINGE SQ SCH (21:26)
[2022-09-22 04:18] LABS: Calcium 8.5 mg/dL (8.4-10.2); Magnesium 2.8 mg/dL (1.6-2.3); Phosphorus 4.1 mg/dL (2.5-4.5); Potassium 3.8 mmol/L (3.5-5.1); Total Bilirubin 1.3 mg/dL (0.2-1.3); Total Protein 5.3 g/dL (6.3-8.2)
[2022-09-22] MEDS: POLYMYXIN B-TRIMETHOPRIM SULF (10,000-1) OPHTH DROPS 10 ML BTL BOTH EYES SCH ×4 (07:45→17:02)
--- NOTE | 2022-09-22 08:09 | XR ---
EXAMINATION TYPE: XR chest 1V DATE OF EXAM: 09/22/2022 5:52 AM COMPARISON: Chest radiographs from 09/19/2022. TECHNIQUE: XR chest 1V Portable AP radiograph of the chest. CLINICAL INDICATION:Male, 61 years old with history of Follow-up pneumonia; FINDINGS: Lungs/Pleura: Low lung volumes are present. There is no evidence of pleural effusion, focal consolida tion, or pneumothorax. Pulmonary vascularity: Unremarkable. Heart/mediastinum: Cardiomediastinal silhouette is enlarged and stable. Musculoskeletal: No acute osseous pathology. Lines/Tubes: Nasogastric tube with side-port projecting over the distal esophagus. IMPRESSION: 1. No acute cardiopulmonary disease/process. 2. Nasogastric tube side-port near the distal esophagus advancement of 6 cm is recommended for optim al placement.
[2022-09-22] MEDS: PIPERACILLIN-TAZOBACTAM 3.375 GM in SODIUM CHLORIDE 0.9% 100 ML IVPB SCH ×3 (08:21→16:01)
[2022-09-22] MEDS: HEPARIN SODIUM,PORCINE/PF 5,000 UNIT/0.5 ML SYRINGE SQ SCH ×2 (08:22→21:03)
[2022-09-22] MEDS: PANTOPRAZOLE 40 MG/10 ML VIAL IVP SCH (08:22)
[2022-09-22 10:59] VITALS: BMI 40.6
--- NOTE | 2022-09-22 12:27 | XR ---
2 view abdomen HISTORY: Pain and distention 2 views the abdomen are correlated to CT scan 09/18/2022 Exam is somewhat limited technically. There is no evident bowel obstruction or pneumoperitoneum. Ther e is an NG tube in place the distal tip overlying the region of the stomach. Patchy basilar density p resent within the lungs. Entire abdomen is not included on exam. IMPRESSION: Basilar atelectasis versus pneumonia possible effusion. NG tube in place, limitations as described.
[2022-09-22] MEDS: DEXTROSE 5% IN WATER 1,000 ML IV SCH ×2 (13:45→21:02)
--- NOTE | 2022-09-22 17:13 | P.PN ---
Subjective Progress Note Date: 09/22/22 Principal diagnosis: Bilateral aspiration pneumonia, on broad-spectrum antibiotics with IV Zosyn Abdominal distention with dilated gastric and small bowel surgery following being treated with conservative care Acute rhabdomyolysis due to fall Possible sepsis with leukocytosis Developed mentally delayed 09/22/2022 patient seen eval examined awake and alert on supplemental oxygen, is present at bedside, NG tube aspirate dark but proximal tubing is clear, general surgery following patient still low intermittent suction, patient is hyponatremic has been on D5 which have been escalated 100 mL an hour, magnesium slightly elevated phosphorous normal, patient was 3.8, BUN/creatinine stable 37/1.49, patient remains on Zithromax, DVT prophylaxis and PPI along with Zosyn, last chest x-ray performed earlier this morning compared with prior x-ray of the right remains stable, the NG tube with the distal esophagus which has been advanced by RN, 09/21/2022, patient seen eval examined during the rounds labs reviewed medications reviewed, patient is awake on supplemental oxygen, patient is still have NG tube with low intermittent suction, some gurgling and upper airway has been noted, hemodynamic status however remains stable, current temperature 99.5, blood pressure is 137/77, respiratory 16, she is on 2 L oxygen saturation is sent, labs from today reviewed white cell count 11.4, hemoglobin hematocrit 11/35, chemistry reviewed BUN/creatinine 38/1.48, potassium 3.7 sodium up to 155, which is up from 149 yesterday, BUN/creatinine fluctuating lower remained stable patient remains nothing by mouth, remains on Zosyn every 8 hourly and IV fluid normal saline 09/20/2022, patient seen eval examined during rounds labs reviewed medications reviewed she has been evaluated by surgery considered for conservative care for gastric dilatation likely some component of gastroparesis, patient overall hemodynamically stable, now on room air breathing comfortably, remains afebrile T-max was 100.4 now 98.2, hemodynamic is stable with blood pressure 116/88 oxygen saturation is 94% room air, labs are not done today Patient is a 61-year-old male with a past medical history significant for developmental delay learning disability multiple skin cancers has been brought into the ER after the patient was noticed to be on the ground. Data mostly obtained from the chart as patient unable to give any detailed history, apparently the patient gets up around 7 and makes his breakfast however the patient did not get up that morning, family went to check on him around noon the patient was on the floor patient last seen approximately 1 in the morning and seems to be doing okay patient been feeling lethargic and not as active as the patient normally is patient recently being treated for bilateral conjunctivitis patient also have a mild cough. Patient is not bringing up any sputum the and denies having any chest pain no significant shortness of breath patient did have an episode of coffee-ground emesis. Patient was evaluated while in the ER per the nursing staff however the patient denies having any abdominal pain or any diarrhea with the symptom the patient has been evaluated by the ER physician on arrival to the ER patient was afebrile he did have low-grade fever of 99.9 F last night patient did have mild hypoxemia and need for supplemental oxygen patient did have white count of 14.2 and was noticed to be mildly anemic BUN/creatinine is mildly elevated liver enzymes are normal urine was negative influenza and COVID testing was negative patient did have a chest x-ray bilateral lower lobe pneumonia mostly on the left side the patient was started on Rocephin and Zithromax pulmonary was consulted for further management of respiratory status and antibiotic therapy , patient currently denies having any pain behind the ear no pain or drainage from his ears workup and evaluation in the emergency department includes a CBC with a rising WBC count of 13.9, stable hemoglobin of 11.1 slight drop likely due to hemodilution, mild hyponatremia with sodium of 149 BUN/creatinine remains stable 38/1.5, total CK is 729 consistent with fall stool for occult blood is negative, influenza A and B as well as COVID-19 and RSV has been negative as well. Radiographic studies including C-spine as well as computed tomography scan of the head negative for fracture or acute changes, chest x-ray bilateral lower lobe infiltrate, computed tomography scan of the chest confirmed presence of pneumonia, computed tomography scan of the abdominal pelvis revealed dilated stomach and proximal small bowel general surgery has been following, repeat chest x-ray earlier this morning noted to have a NG tube and for gastric decompression appears to have distention Objective - Vital Signs Vital signs: Vital Signs Temp 99.3 F 09/22/22 14:00 Pulse 80 09/22/22 14:00 Resp 19 09/22/22 14:00 BP 128/68 09/22/22 14:00 Pulse Ox 95 10/28/22 07:47 FiO2 Intake & Output 09/21/22 09/22/22 09/22/22 18:59 06:59 18:59 Intake Total 50 500 Output Total 800 500 Balance -750 0 Weight 136.078 kg Intake: IV 500 D5W 400 Zosyn 100 Intake, IV Titration 50 Amount Dextrose 5% in Water 1, 50 000 ml @ 50 mls/hr IV . Q20H [facility] Rx#:[id number] Output: Gastric Drainage 800 500 Other: Voiding Method Diaper Diaper External Catheter Incontinent Incontinent External Catheter # Voids 0 2 # Bowel Movements 0 0 - Exam - Constitutional General appearance: average body habitus, cooperative, disheveled - EENT Eyes: PERRLA Ears: bilateral: normal - Neck Neck: normal ROM Carotids: bilateral: upstroke normal Thyroid: bilateral: normal size - Respiratory Respiratory: bilateral: diminished, dullness, rales - Cardiovascular Rhythm: regular Heart sounds: normal: S1, S2 - Gastrointestinal General gastrointestinal: decreased bowel sounds - Integumentary Integumentary: normal turgor - Musculoskeletal Musculoskeletal: generalized weakness, strength equal bilaterally - Labs CBC & Chem 7: 09/21/22 03:41 09/22/22 03:39 Labs: Abnormal Lab Results - Last 24 Hours (Table) 09/22/22 Range/Units 03:39 Sodium 158 H (137-145) mmol/L Chloride 121 H (98-107) mmol/L BUN 37 H (9-20) mg/dL Creatinine 1.49 H (0.66-1.25) mg/dL Glucose 113 H (74-99) mg/dL Magnesium 2.8 H (1.6-2.3) mg/dL Alkaline Phosphatase 25 L (38-126) U/L Total Protein 5.3 L (6.3-8.2) g/dL Albumin 3.0 L (3.5-5.0) g/dL Assessment and Plan Assessment: Hypernatremia Bilateral aspiration pneumonia, on broad-spectrum antibiotics with IV Zosyn Abdominal distention with dilated gastric and small bowel surgery following being treated with conservative care, with NG tube responding Acute rhabdomyolysis due to fall, severe CKs have been improving Possible sepsis with leukocytosis Developed mentally delayed Plan: We'll increase D5 100 mL an hour Patient will need swallow evaluation once NG tube was removed Continue broad-spectrum antibiotics Monitor on supplemental oxygen DVT prophylaxis with heparin subcu and peptic ulcer disease prophylaxis with Protonix 40 mg IV every 12 Deep breathing exercise incentive spirometry Continue and monitor and practice aspiration precautions, may benefit from swallow evaluation Further recommendations pending plan of care as per clinical response of the p atient Time with Patient: Greater than 30
[2022-09-22] MEDS: cloZAPine 100 MG TAB PO SCH (21:03)
[2022-09-23] MEDS: PIPERACILLIN-TAZOBACTAM 3.375 GM in SODIUM CHLORIDE 0.9% 100 ML IVPB SCH ×3 (00:43→17:34)
[2022-09-23] MEDS: POLYMYXIN B-TRIMETHOPRIM SULF (10,000-1) OPHTH DROPS 10 ML BTL BOTH EYES SCH ×4 (00:43→17:35)
[2022-09-23 04:53] LABS: Calcium 8.2 mg/dL (8.4-10.2)
[2022-09-23 04:58] LABS: Potassium 4.6 mmol/L (3.5-5.1)
[2022-09-23 05:16] LABS: Basophils % (A) 0 %; Eosinophils % (A) 0 %; HCT 35.5 % (39.0-53.0); HGB 11.3 gm/dL (13.0-17.5); Hypochromasia Slight; Lymphocytes # (A) 0.6 k/uL (1.0-4.8); Lymphocytes % (A) 7 %; MCV 90.6 fL (80.0-100.0); Monocytes # (A) 0.3 k/uL (0-1.0); Monocytes % (A) 4 %; Neutrophils # (A) 7.6 k/uL (1.3-7.7); Neutrophils % (A) 88 %; Platelet Count 166 k/uL (150-450); RBC 3.91 m/uL (4.30-5.90); RDW 14.7 % (11.5-15.5); WBC 8.6 k/uL (3.8-10.6)
[2022-09-23] MEDS: DEXTROSE 5% IN WATER 1,000 ML IV SCH ×2 (06:43→17:33)
--- NOTE | 2022-09-23 09:40 | P.PN ---
Subjective Progress Note Date: 09/22/22 Principal diagnosis: Pneumonia Patient is a 61-year-old male with a past medical history significant for developmental delay presenting to the ER after the patient was found to be on the floor did have episodes of vomiting coffee-ground NS chest x-ray with bilateral lower lobe pneumonia concerning for possible aspiration. On today's evaluation that is 09/22/2022 the patient is afebrile, patient is breathing comfortably on a 2 L nasal cannula , the patient denies any chest pain still have the NG no further vomiting has been reported or any diarrhea by the nursing staff Objective - Vital Signs Vital signs: Vital Signs Temp 98.8 F 09/22/22 04:00 Pulse 79 09/22/22 04:00 Resp 18 09/22/22 08:00 BP 144/78 09/22/22 04:00 Pulse Ox 95 09/22/22 07:47 FiO2 Intake & Output 09/21/22 09/22/22 09/22/22 18:59 06:59 18:59 Intake Total 50 500 Output Total 800 500 Balance -750 0 Weight 136.078 kg Intake: IV 500 D5W 400 Zosyn 100 Intake, IV Titration 50 Amount Dextrose 5% in Water 1, 50 000 ml @ 50 mls/hr IV . Q20H [facility] Rx#:[id number] Output: Gastric Drainage 800 500 Other: Voiding Method Diaper Diaper External Catheter Incontinent Incontinent External Catheter # Voids 0 2 # Bowel Movements 0 0 - Exam GENERAL DESCRIPTION: Middle-aged male lying in bed, no distress. No tachypnea or accessory muscle of respiration use. LUNGS: Unlabored breathing. Decreased breath sound at the base HEART: S1, S2, regular rate and rhythm. No loud murmur ABDOMEN: Soft, no tenderness , guarding or rigidity, no organomegaly EXTREMITIES: No edema of feet. - Labs CBC & Chem 7: 09/23/22 04:56 09/23/22 03:36 Labs: Abnormal Lab Results - Last 24 Hours (Table) 09/22/22 Range/Units 03:39 Sodium 158 H (137-145) mmol/L Chloride 121 H (98-107) mmol/L BUN 37 H (9-20) mg/dL Creatinine 1.49 H (0.66-1.25) mg/dL Glucose 113 H (74-99) mg/dL Magnesium 2.8 H (1.6-2.3) mg/dL Alkaline Phosphatase 25 L (38-126) U/L Total Protein 5.3 L (6.3-8.2) g/dL Albumin 3.0 L (3.5-5.0) g/dL Assessment and Plan (1) Pneumonia Current Visit: Yes Status: Acute Code(s): J18.9 - PNEUMONIA, UNSPECIFIED ORGANISM SNOMED Code(s): 135752620 Plan: 1patient presented to hospital after the patient has been found on the floor that this patient has been complaining of generalized weakness to have a mild cough not bring up any sputum and episode of vomiting concerning for possible aspiration pneumonia patient abdominal was soft on clinical examination urine has been negative and no evidence of any cellulitis. 2The patient fever has resolved and the white count is trending down the patient will continue with the current antibiotic treatment of Unasyn and monitor clinical course closely Time with Patient: Less than 30
[2022-09-23] MEDS: PANTOPRAZOLE 40 MG/10 ML VIAL IVP SCH (09:41)
[2022-09-23] MEDS: HEPARIN SODIUM,PORCINE/PF 5,000 UNIT/0.5 ML SYRINGE SQ SCH ×2 (09:41→21:47)
--- NOTE | 2022-09-23 10:51 | P.PN ---
Subjective Progress Note Date: 09/23/22 Patient seen and examined at bedside. Answering in one-word answers. Denies any nausea or vomiting. NG tube output has greatly decreased over the past 2 days. Abdominal x-ray was ordered yesterday which does show air in the colon, however entire abdomen was not able to be visualized on x-ray. There has been no obvious bowel movement per nursing staff. It is difficult to assess from patient whether he is having any flatus. Objective - Vital Signs Vital signs: Vital Signs Temp 99.4 F 09/23/22 08:00 Pulse 82 09/23/22 08:00 Resp 19 09/23/22 08:00 BP 129/78 09/23/22 08:00 Pulse Ox 93 L 09/23/22 08:00 FiO2 Intake & Output 09/22/22 09/23/22 09/23/22 18:59 06:59 18:59 Intake Total 1100 1400 Output Total 500 870 Balance 600 530 Weight 136.078 kg Intake: IV 900 1300 D5W 900 Dextrose 5% in Water 1, 1200 000 ml @ 100 mls/hr IV . Q10H [facility] Rx#:[id number] Piperacillin-Tazobactam 3 100 .375 gm In Sodium Chloride 0.9% 100 ml @ 25 mls/hr IVPB Q8H [facility] Rx#: [id number] Intake, IV Titration 200 100 Amount Piperacillin-Tazobactam 3 200 100 .375 gm In Sodium Chloride 0.9% 100 ml @ 25 mls/hr IVPB Q8HR [facility] Rx# :[id number] Oral 0 Output: Gastric Drainage 170 Urine 500 700 Other: Voiding Method External Catheter External Catheter External Catheter - Constitutional General appearance: Present: cooperative - Respiratory Details: No difficulty with respiration - Gastrointestinal Gastrointestinal Comment(s): Soft, nontender, nondistended, no rebound, no guarding - Labs CBC & Chem 7: 09/23/22 04:56 09/23/22 03:36 Labs: Abnormal Lab Results - Last 24 Hours (Table) 09/23/22 09/23/22 Range/Units 03:36 04:56 RBC 3.91 L (4.30-5.90) m/uL Hgb 11.3 L (13.0-17.5) gm/dL Hct 35.5 L (39.0-53.0) % Lymphocytes # 0.6 L (1.0-4.8) k/uL Sodium 155 H (137-145) mmol/L Chloride 122 H (98-107) mmol/L BUN 33 H (9-20) mg/dL Creatinine 1.32 H (0.66-1.25) mg/dL Calcium 8.2 L (8.4-10.2) mg/dL Assessment and Plan Plan: 61-year-old male with resolving ileus. Patient is noted to have air in his colon on abdominal x-ray. Patient does have a charted bowel movement within the last 48 hours. Based on his mental capacity, it is difficult to assess whether he is having any flatus. At this point, with continued decrease NG tube output and air in the colon on imaging, we will clamp the NG tube and begin a clear liquid diet. This was discussed with nursing staff. Based on tolerance, we will make a decision on removing nasogastric tube.
--- NOTE | 2022-09-23 14:29 | PN ---
PROGRESS NOTE Sepsis ruled in. MMODL / IJN: [id number] /
--- NOTE | 2022-09-23 14:29 | PN ---
PROGRESS NOTE He has altered mental status. Acute hypoxic respiratory failure was present on admission, acute. MMODL / IJN: [id number] /
--- NOTE | 2022-09-23 14:32 | P.PN ---
Subjective Progress Note Date: 09/23/22 Principal diagnosis: Bilateral aspiration pneumonia, on broad-spectrum antibiotics with IV Zosyn Abdominal distention with dilated gastric and small bowel surgery following being treated with conservative care Acute rhabdomyolysis due to fall Possible sepsis with leukocytosis Developed mentally delayed 09/23/2022, patient seen eval examined during rounds labs reviewed medications reviewed And discussed, patient mostly nonverbal but does respond however with single word responses, Chantelle output continued decline, T-max is 90) 4 hemodynamic stable saturation 93%. Sodium has been starting to trend back down today however is still elevated 155 with chloride of 122 BUN/creatinine 33/1.3 09/22/2022 patient seen eval examined awake and alert on supplemental oxygen, is present at bedside, NG tube aspirate dark but proximal tubing is clear, general surgery following patient still low intermittent suction, patient is hyponatremic has been on D5 which have been escalated 100 mL an hour, magnesium slightly elevated phosphorous normal, patient was 3.8, BUN/creatinine stable 37/1.49, patient remains on Zithromax, DVT prophylaxis and PPI along with Zosyn, last chest x-ray performed earlier this morning compared with prior x-ray of the right remains stable, the NG tube with the distal esophagus which has been advanced by RN, 09/21/2022, patient seen eval examined during the rounds labs reviewed medications reviewed, patient is awake on supplemental oxygen, patient is still have NG tube with low intermittent suction, some gurgling and upper airway has been noted, hemodynamic status however remains stable, current temperature 99.5, blood pressure is 137/77, respiratory 16, she is on 2 L oxygen saturation is sent, labs from today reviewed white cell count 11.4, hemoglobin hematocrit 11/35, chemistry reviewed BUN/creatinine 38/1.48, potassium 3.7 sodium up to 155, which is up from 149 yesterday, BUN/creatinine fluctuating lower remained stable patient remains nothing by mouth, remains on Zosyn every 8 hourly and IV fluid normal saline 09/20/2022, patient seen eval examined during rounds labs reviewed medications reviewed she has been evaluated by surgery considered for conservative care for gastric dilatation likely some component of gastroparesis, patient overall hemodynamically stable, now on room air breathing comfortably, remains afebrile T-max was 100.4 now 98.2, hemodynamic is stable with blood pressure 116/88 oxygen saturation is 94% room air, labs are not done today Patient is a 61-year-old male with a past medical history significant for developmental delay learning disability multiple skin cancers has been brought into the ER after the patient was noticed to be on the ground. Data mostly obtained from the chart as patient unable to give any detailed history, apparently the patient gets up around 7 and makes his breakfast however the patient did not get up that morning, family went to check on him around noon the patient was on the floor patient last seen approximately 1 in the morning and seems to be doing okay patient been feeling lethargic and not as active as the patient normally is patient recently being treated for bilateral conjunctivitis patient also have a mild cough. Patient is not bringing up any sputum the and denies having any chest pain no significant shortness of breath patient did have an episode of coffee-ground emesis. Patient was evaluated while in the ER per the nursing staff however the patient denies having any abdominal pain or any diarrhea with the symptom the patient has been evaluated by the ER physician on arrival to the ER patient was afebrile he did have low-grade fever of 99.9 F last night patient did have mild hypoxemia and need for supplemental oxygen patient did have white count of 14.2 and was noticed to be mildly anemic BUN/creatinine is mildly elevated liver enzymes are normal urine was negative influenza and COVID testing was negative patient did have a chest x-ray bilateral lower lobe pneumonia mostly on the left side the patient was started on Rocephin and Zithromax pulmonary was consulted for further management of respiratory status and antibiotic therapy , patient currently denies having any pain behind the ear no pain or drainage from his ears workup and evaluation in the emergency department includes a CBC with a rising WBC count of 13.9, stable hemoglobin of 11.1 slight drop likely due to hemodilution, mild hyponatremia with sodium of 149 BUN/creatinine remains stable 38/1.5, total CK is 729 consistent with fall stool for occult blood is negative, influenza A and B as well as COVID-19 and RSV has been negative as well. Radiographic studies including C-spine as well as computed tomography scan of the head negative for fracture or acute changes, chest x-ray bilateral lower lobe infiltrate, computed tomography scan of the chest confirmed presence of pneumonia, computed tomography scan of the abdominal pelvis revealed dilated stomach and proximal small bowel general surgery has been following, repeat chest x-ray earlier this morning noted to have a NG tube and for gastric decompression appears to have distention Objective - Vital Signs Vital signs: Vital Signs Temp 99.4 F 09/23/22 08:00 Pulse 82 09/23/22 08:00 Resp 19 09/23/22 08:00 BP 129/78 09/23/22 08:00 Pulse Ox 93 L 09/23/22 08:00 FiO2 Intake & Output 09/22/22 09/23/22 09/23/22 18:59 06:59 18:59 Intake Total 1100 1400 Output Total 500 870 Balance 600 530 Weight 136.078 kg Intake: IV 900 1300 D5W 900 Dextrose 5% in Water 1, 1200 000 ml @ 100 mls/hr IV . Q10H [facility] Rx#:[id number] Piperacillin-Tazobactam 3 100 .375 gm In Sodium Chloride 0.9% 100 ml @ 25 mls/hr IVPB Q8H [facility] Rx#: [id number] Intake, IV Titration 200 100 Amount Piperacillin-Tazobactam 3 200 100 .375 gm In Sodium Chloride 0.9% 100 ml @ 25 mls/hr IVPB Q8HR [facility] Rx# :[id number] Oral 0 Output: Gastric Drainage 170 Urine 500 700 Other: Voiding Method External Catheter External Catheter External Catheter - Exam - Constitutional General appearance: average body habitus, cooperative, disheveled - EENT Eyes: PERRLA Ears: bilateral: normal - Neck Neck: normal ROM Carotids: bilateral: upstroke normal Thyroid: bilateral: normal size - Respiratory Respiratory: bilateral: diminished, dullness, rales - Cardiovascular Rhythm: regular Heart sounds: normal: S1, S2 - Gastrointestinal General gastrointestinal: decreased bowel sounds - Integumentary Integumentary: normal turgor - Musculoskeletal Musculoskeletal: generalized weakness, strength equal bilaterally - Labs CBC & Chem 7: 09/23/22 04:56 09/23/22 03:36 Labs: Abnormal Lab Results - Last 24 Hours (Table) 09/23/22 09/23/22 Range/Units 03:36 04:56 RBC 3.91 L (4.30-5.90) m/uL Hgb 11.3 L (13.0-17.5) gm/dL Hct 35.5 L (39.0-53.0) % Lymphocytes # 0.6 L (1.0-4.8) k/uL Sodium 155 H (137-145) mmol/L Chloride 122 H (98-107) mmol/L BUN 33 H (9-20) mg/dL Creatinine 1.32 H (0.66-1.25) mg/dL Calcium 8.2 L (8.4-10.2) mg/dL Assessment and Plan Assessment: Hypernatremia Bilateral aspiration pneumonia, on broad-spectrum antibiotics with IV Zosyn Abdominal distention with dilated gastric and small bowel surgery following being treated with conservative care, with NG tube responding Acute rhabdomyolysis due to fall, severe CKs have been improving Possible sepsis with leukocytosis Developed mentally delayed Plan: We'll continue D5 100 mL an hour Patient will need swallow evaluation once NG tube was removed Continue broad-spectrum antibiotics Monitor on supplemental oxygen DVT prophylaxis with heparin subcu and peptic ulcer disease prophylaxis with Protonix 40 mg IV every 12 Deep breathing exercise incentive spirometry Continue and monitor and practice aspiration precautions, may benefit from swallow evaluation Further recommendations pending plan of care as per clinical response of the patient Time with Patient: Greater than 30
--- NOTE | 2022-09-23 15:33 | P.PN ---
Subjective Progress Note Date: 09/23/22 Principal diagnosis: Pneumonia Patient is a 61-year-old male with a past medical history significant for developmental delay presenting to the ER after the patient was found to be on the floor did have episodes of vomiting coffee-ground NS chest x-ray with bilateral lower lobe pneumonia concerning for possible aspiration. On today's evaluation that is 09/23/2022 the patient remains to be afebrile, patient is breathing comfortably on a 2 L nasal cannula , the patient denies any chest pain , no further vomiting or any diarrhea by the nursing staff Objective - Vital Signs Vital signs: Vital Signs Temp 99.4 F 09/23/22 08:00 Pulse 82 09/23/22 08:00 Resp 19 09/23/22 08:00 BP 129/78 09/23/22 08:00 Pulse Ox 93 L 09/23/22 08:00 FiO2 Intake & Output 09/22/22 09/23/22 09/23/22 18:59 06:59 18:59 Intake Total 1100 1400 Output Total 500 870 Balance 600 530 Weight 136.078 kg Intake: IV 900 1300 D5W 900 Dextrose 5% in Water 1, 1200 000 ml @ 100 mls/hr IV . Q10H [facility] Rx#:[id number] Piperacillin-Tazobactam 3 100 .375 gm In Sodium Chloride 0.9% 100 ml @ 25 mls/hr IVPB Q8H [facility] Rx#: [id number] Intake, IV Titration 200 100 Amount Piperacillin-Tazobactam 3 200 100 .375 gm In Sodium Chloride 0.9% 100 ml @ 25 mls/hr IVPB Q8HR [facility] Rx# :[id number] Oral 0 Output: Gastric Drainage 170 Urine 500 700 Other: Voiding Method External Catheter External Catheter External Catheter - Exam GENERAL DESCRIPTION: Middle-aged male lying in bed, no distress. No tachypnea or accessory muscle of respiration use. LUNGS: Unlabored breathing. Decreased breath sound at the base HEART: S1, S2, regular rate and rhythm. No loud murmur ABDOMEN: Soft, no tenderness , guarding or rigidity, no organomegaly EXTREMITIES: No edema of feet. - Labs CBC & Chem 7: 09/23/22 04:56 09/23/22 03:36 Labs: Abnormal Lab Results - Last 24 Hours (Table) 10/29/22 10/29/22 Range/Units 03:36 04:56 RBC 3.91 L (4.30-5.90) m/uL Hgb 11.3 L (13.0-17.5) gm/dL Hct 35.5 L (39.0-53.0) % Lymphocytes # 0.6 L (1.0-4.8) k/uL Sodium 155 H (137-145) mmol/L Chloride 122 H (98-107) mmol/L BUN 33 H (9-20) mg/dL Creatinine 1.32 H (0.66-1.25) mg/dL Calcium 8.2 L (8.4-10.2) mg/dL Assessment and Plan (1) Pneumonia Current Visit: Yes Status: Acute Code(s): J18.9 - PNEUMONIA, UNSPECIFIED ORGANISM SNOMED Code(s): 944253517 Plan: 1patient presented to hospital after the patient has been found on the floor that this patient has been complaining of generalized weakness to have a mild cough not bring up any sputum and episode of vomiting concerning for possible aspiration pneumonia patient abdominal was soft on clinical examination urine has been negative and no evidence of any cellulitis. 2The patient fever has resolved and the white count has normalized the patient will continue with Unasyn and monitor clinical course closely
[2022-09-23] MEDS: AMPICILLIN-SULBACTAM 3 GM in SODIUM CHLORIDE 0.9% 100 ML IVPB SCH (17:18)
--- NOTE | 2022-09-23 20:56 | PN ---
PROGRESS NOTE DATE OF SERVICE: 09/22/2022 SUBJECTIVE: The patient remains in the ICU. He has a lot of black bile-like fluid coming out of his NG tube, although he feels better every day. He is mentally disabled, but he is toxic. He says he is breathing better. He has been treated for bilateral pneumonia and bowel obstruction. Slightly elevated phosphorus. His BUN and creatinine are 37 and 1.49. He is on azithromycin and Zosyn. Chest x-ray shows stable NG tube in the distal esophagus OBJECTIVE: VITAL SIGNS: Blood pressure 120s/50s, temperature 99.2, respiratory rate 16 to 19, pulse 70 to 80, O2 of 95%. CARDIOVASCULAR: S1 and S2. LUNGS: Diminished breath sounds. PSYCHIATRIC: Giving appropriate answers. NG tube in place. EXTREMITIES: No edema. LABORATORY DATA: Sodium is 158, chloride 121, BUN is 37, creatinine 1.49. ASSESSMENT: 1. Hypernatremia. 2. Bilateral aspiration pneumonia. 3. Abdominal distention with dilated gastric and small bowel surgery, being treated with conservative care and NG tube. 4. Rhabdomyolysis. CKs have been improving. 5. Probable sepsis. Leukocytosis . Broad-spectrum antibiotics. 6. Swallow evaluation. Increase to D5 water at 100 mL an hour. Monitor low sodium levels and high sodium levels. Continue broad-spectrum antibiotics. Wait for surgical interventions. MMODL / IJN: [id number] /
[2022-09-23] MEDS: cloZAPine 100 MG TAB PO SCH (21:46)
[2022-09-24] MEDS: PIPERACILLIN-TAZOBACTAM 3.375 GM in SODIUM CHLORIDE 0.9% 100 ML IVPB SCH ×4 (00:03→23:26)
[2022-09-24] MEDS: POLYMYXIN B-TRIMETHOPRIM SULF (10,000-1) OPHTH DROPS 10 ML BTL BOTH EYES SCH ×5 (00:04→23:26)
[2022-09-24] MEDS: DEXTROSE 5% IN WATER 1,000 ML IV SCH ×3 (00:04→21:13)
--- NOTE | 2022-09-24 07:42 | P.PN ---
Subjective Progress Note Date: 09/24/22 Principal diagnosis: Bilateral aspiration pneumonia, on broad-spectrum antibiotics with IV Zosyn Abdominal distention with dilated gastric and small bowel surgery following being treated with conservative care Acute rhabdomyolysis due to fall Possible sepsis with leukocytosis Developed mentally delayed 09/24/2022, patient seen eval examined during the rounds labs reviewed medications reviewed, patient respond with one word, respiratory status marginal get short of breath activity and exertion, patient is gently being rehydrated, oxygen saturation is 92% on 3 L nasal cannula, down from 4 L, labs from today is pending , surgery following gastric output NG, likely will be removed later on today and patient will be started by mouth discussion with the RN revealed that patient can't swallow well will hold on swallow evaluation as patient able to do bedside swallow 09/23/2022, patient seen eval examined during rounds labs reviewed medications reviewed And discussed, patient mostly nonverbal but does respond however with single word responses, Chantelle output continued decline, T-max is 90) 4 hemodynamic stable saturation 93%. Sodium has been starting to trend back down today however is still elevated 155 with chloride of 122 BUN/creatinine 33/1.3 09/22/2022 patient seen eval examined awake and alert on supplemental oxygen, is present at bedside, NG tube aspirate dark but proximal tubing is clear, general surgery following patient still low intermittent suction, patient is hyponatremic has been on D5 which have been escalated 100 mL an hour, magnesium slightly elevated phosphorous normal, patient was 3.8, BUN/creatinine stable 37/1.49, patient remains on Zithromax, DVT prophylaxis and PPI along with Zosyn, last chest x-ray performed earlier this morning compared with prior x-ray of the right remains stable, the NG tube with the distal esophagus which has been advanced by RN, 09/21/2022, patient seen eval examined during the rounds labs reviewed medications reviewed, patient is awake on supplemental oxygen, patient is still have NG tube with low intermittent suction, some gurgling and upper airway has been noted, hemodynamic status however remains stable, current temperature 99.5, blood pressure is 137/77, respiratory 16, she is on 2 L oxygen saturation is sent, labs from today reviewed white cell count 11.4, hemoglobin hematocrit 11/ 35, chemistry reviewed BUN/creatinine 38/1.48, potassium 3.7 sodium up to 155, which is up from 149 yesterday, BUN/creatinine fluctuating lower remained stable patient remains nothing by mouth, remains on Zosyn every 8 hourly and IV fluid normal saline 09/20/2022, patient seen micah examined during rounds labs reviewed medications reviewed she has been evaluated by surgery considered for conservative care for gastric dilatation likely some component of gastroparesis, patient overall hemodynamically stable, now on room air breathing comfortably, remains afebrile T-max was 100.4 now 98.2, hemodynamic is stable with blood pressure 116/88 oxygen saturation is 94% room air, labs are not done today Patient is a 61-year-old male with a past medical history significant for developmental delay learning disability multiple skin cancers has been brought into the ER after the patient was noticed to be on the ground. Data mostly obtained from the chart as patient unable to give any detailed history, apparently the patient gets up around 7 and makes his breakfast however the patient did not get up that morning, family went to check on him around noon the patient was on the floor patient last seen approximately 1 in the morning and seems to be doing okay patient been feeling lethargic and not as active as the patient normally is patient recently being treated for bilateral conjunctivitis patient also have a mild cough. Patient is not bringing up any sputum the and denies having any chest pain no significant shortness of breath patient did have an episode of coffee-ground emesis. Patient was evaluated while in the ER per the nursing staff however the patient denies having any abdominal pain or any diarrhea with the symptom the patient has been evaluated by the ER physician on arrival to the ER patient was afebrile he did have low-grade fever of 99.9 F last night patient did have mild hypoxemia and need for supplemental oxygen patient did have white count of 14.2 and was noticed to be mildly anemic BUN/creatinine is mildly elevated liver enzymes are normal urine was negative influenza and COVID testing was negative patient did have a chest x-ray bilateral lower lobe pneumonia mostly on the left side the patient was started on Rocephin and Zithromax pulmonary was consulted for further management of respiratory status and antibiotic therapy , patient currently denies having any pain behind the ear no pain or drainage from his ears workup and evaluation in the emergency department includes a CBC with a rising WBC count of 13.9, stable hemoglobin of 11.1 slight drop likely due to hemodilution, mild hyponatremia with sodium of 149 BUN/creatinine remains stable 38/1.5, total CK is 729 consistent with fall stool for occult blood is negative, influenza A and B as well as COVID-19 and RSV has been negative as well. Radiographic studies including C-spine as well as computed tomography scan of the head negative for fracture or acute changes, chest x-ray bilateral lower lobe infiltrate, computed tomography scan of the chest confirmed presence of pneumonia, computed tomography scan of the abdominal pelvis revealed dilated stomach and proximal small bowel general surgery has been following, repeat chest x-ray earlier this morning noted to have a NG tube and for gastric decompression appears to have distention Objective - Vital Signs Vital signs: Vital Signs Temp 98.7 F 09/24/22 04:51 Pulse 87 09/24/22 04:51 Resp 16 09/24/22 04:51 BP 113/73 09/24/22 04:51 Pulse Ox 92 L 09/24/22 04:51 FiO2 Intake & Output 09/23/22 09/24/22 09/24/22 18:59 06:59 18:59 Output Total 200 400 Balance -200 -400 Output: Urine 200 400 Other: Voiding Method External Catheter External Catheter - Exam - Constitutional General appearance: average body habitus, cooperative, disheveled - EENT Eyes: PERRLA Ears: bilateral: normal - Neck Neck: normal ROM Carotids: bilateral: upstroke normal Thyroid: bilateral: normal size - Respiratory Respiratory: bilateral: diminished, dullness, rales - Cardiovascular Rhythm: regular Heart sounds: normal: S1, S2 - Gastrointestinal General gastrointestinal: decreased bowel sounds - Integumentary Integumentary: normal turgor - Musculoskeletal Musculoskeletal: generalized weakness, strength equal bilaterally - Labs CBC & Chem 7: 09/23/22 04:56 09/23/22 03:36 Assessment and Plan Assessment: Hypernatremia Bilateral aspiration pneumonia, on broad-spectrum antibiotics with IV Zosyn Abdominal distention with dilated gastric and small bowel surgery following being treated with conservative care, with NG tube responding Acute rhabdomyolysis due to fall, severe CKs have been improving Possible sepsis with leukocytosis Developed mentally delayed Plan: We'll continue D5 100 mL an hour, however as per sodium and by mouth intake we'll decrease it Continue broad-spectrum antibiotics Monitor on supplemental oxygen DVT prophylaxis with heparin subcu and peptic ulcer disease prophylaxis with Protonix 40 mg IV every 12 Deep breathing exercise incentive spirometry Continue and monitor and practice aspiration precautions, may benefit from swallow evaluation Further recommendations pending plan of care as per clinical response of the patient Time with Patient: Greater than 30
[2022-09-24] MEDS: PANTOPRAZOLE 40 MG/10 ML VIAL IVP SCH (08:44)
[2022-09-24] MEDS: HEPARIN SODIUM,PORCINE/PF 5,000 UNIT/0.5 ML SYRINGE SQ SCH ×2 (08:45→21:18)
[2022-09-24 11:16] LABS: Basophils # (A) 0.05 X 10*3/uL (0.00-0.10); Basophils % (A) 0.5 %; Eosinophils # (A) 0 X 10*3/uL (0.04-0.35); Eosinophils % (A) 0 %; HCT 34.3 % (39.6-50.0); HGB 10.5 g/dL (13.0-17.0); Lymphocytes # (A) 0.91 X 10*3/uL (0.90-5.00); Lymphocytes % (A) 9.5 %; MCH 28.2 pg (27.0-32.0); MCHC 30.6 g/dL (32.0-37.0); MCV 92.2 fL (80.0-97.0); Mean Platelet Volume 11.5 fL (9.5-12.2); Monocytes % (A) 4.2 %; NRBC Per 100 WBC 0 /100 WBCS (0.0-0.0); Neutrophils # (A) 8.09 X 10*3/uL (1.80-7.70); Neutrophils % (A) 84.8 %; Platelet Count 188 X 10*3/uL (140-440); RBC 3.72 X 10*6/uL (4.40-5.60); RDW 14.9 % (11.5-14.5); WBC 9.55 X 10*3/uL (4.50-10.00)
--- NOTE | 2022-09-24 11:50 | P.PN ---
Subjective Progress Note Date: 09/24/22 Patient seen and examined at bedside. States abdominal pain is much improved. Having flatus. Denies nausea or vomiting. Nasogastric tube was removed yesterday after patient tolerated trial of clear liquid diet. Objective - Vital Signs Vital signs: Vital Signs Temp 98.2 F 09/24/22 11:40 Pulse 84 09/24/22 11:40 Resp 18 09/24/22 11:40 BP 123/80 09/24/22 11:40 Pulse Ox 97 09/24/22 11:40 FiO2 Intake & Output 09/23/22 09/24/22 09/24/22 18:59 06:59 18:59 Output Total 200 400 Balance -200 -400 Output: Urine 200 400 Other: Voiding Method External Catheter External Catheter - Constitutional General appearance: Present: cooperative - Gastrointestinal General gastrointestinal: Present: soft. Absent: tenderness - Labs CBC & Chem 7: 09/24/22 07:11 09/23/22 03:36 Labs: Abnormal Lab Results - Last 24 Hours (Table) 09/24/22 Range/Units 07:11 RBC 3.72 L (4.40-5.60) X 10*6/uL Hgb 10.5 L (13.0-17.0) g/dL Hct 34.3 L (39.6-50.0) % MCHC 30.6 L (32.0-37.0) g/dL RDW 14.9 H (11.5-14.5) % Immature Gran # 0.10 H (0.00-0.04) X 10*3/uL Neutrophils # 8.09 H (1.80-7.70) X 10*3/uL Eosinophils # 0 L (0.04-0.35) X 10*3/uL Assessment and Plan Plan: Patient's ileus appears to be resolving. Patient is to remain on clear liquid diet and he can be advanced as tolerated with further bowel function. Currently, no plan for acute surgical intervention as he appears to be improving.
[2022-09-24 12:22] LABS: African American GFR (CKD) 62.6 (60.0-200.0); Albumin 3.1 g/dL (3.8-4.9); Albumin/Globulin Ratio 1.5 (1.60-3.17); Anion Gap 11.2 mmol/L (10.00-18.00); BUN/Creat Ratio 18.26 Ratio (12.00-20.00); Blood Urea Nitrogen 25.2 mg/dL (9.0-27.0); Carbon Dioxide 24.1 mmol/L (20.0-27.5); Globulin 2.1 g/dL (1.6-3.3); Potassium 3.6 mmol/L (3.5-5.5); Total Bilirubin 2.2 mg/dL (0.30-1.20); Total Protein 5.1 g/dL (6.2-8.2)
[2022-09-24] MEDS: cloZAPine 100 MG TAB PO SCH (21:18)
[2022-09-25] MEDS: DEXTROSE 5% IN WATER 1,000 ML IV SCH ×2 (06:08→16:58)
[2022-09-25] MEDS: POLYMYXIN B-TRIMETHOPRIM SULF (10,000-1) OPHTH DROPS 10 ML BTL BOTH EYES SCH ×3 (06:08→17:01)
--- NOTE | 2022-09-25 06:25 | PN ---
PROGRESS NOTE SUBJECTIVE: A 61-year-old white male, nearly handicapped, NG tube removed. NG tube was removed. The patient remains on treatment for pneumonia with Zosyn, clearly improved. He is on clear liquid diet and advance diet, possible discharge home in next 24 to 48 hours on oral antibiotics. OBJECTIVE: CARDIOVASCULAR: S1, S2. LUNGS: Scattered rhonchi. HEMATOLOGY: Negative Homans. VITAL SIGNS: Temperature 97.5, blood pressure is 141/80, pulse 74, and respiratory rate 18. ASSESSMENT: Aspiration pneumonia, ileus versus bowel obstruction all improved, probably discharge on oral antibiotics in next 24 to 48 hours. Advance diet. If Zenaida tolerates it well without nausea, vomiting. MMODL / IJN: [id number] /
[2022-09-25 07:06] LABS: Basophils % (A) 0 %; Eosinophils % (A) 0 %; HCT 34.4 % (39.0-53.0); HGB 11.4 gm/dL (13.0-17.5); Hypochromasia Slight; Lymphocytes # (A) 0.6 k/uL (1.0-4.8); Lymphocytes % (A) 8 %; MCH 29.7 pg (25.0-35.0); MCHC 33.1 g/dL (31.0-37.0); MCV 89.9 fL (80.0-100.0); Mean Platelet Volume 8.8; Monocytes # (A) 0.3 k/uL (0-1.0); Monocytes % (A) 4 %; Neutrophils # (A) 6.9 k/uL (1.3-7.7); Neutrophils % (A) 87 %; Platelet Count 119 k/uL (150-450); RBC 3.82 m/uL (4.30-5.90); RDW 15.1 % (11.5-15.5); WBC 7.9 k/uL (3.8-10.6)
[2022-09-25] MEDS: PIPERACILLIN-TAZOBACTAM 3.375 GM in SODIUM CHLORIDE 0.9% 100 ML IVPB SCH ×2 (08:26→16:58)
[2022-09-25] MEDS: PANTOPRAZOLE 40 MG/10 ML VIAL IVP SCH (08:26)
[2022-09-25] MEDS: HEPARIN SODIUM,PORCINE/PF 5,000 UNIT/0.5 ML SYRINGE SQ SCH ×2 (08:26→20:47)
[2022-09-25 10:51] LABS: African American GFR (CKD) 67.3 (60.0-200.0); Albumin/Globulin Ratio 1.36 (1.60-3.17); Anion Gap 8.7 mmol/L (10.00-18.00); BUN/Creat Ratio 13.38 Ratio (12.00-20.00); Blood Urea Nitrogen 17.4 mg/dL (9.0-27.0); Carbon Dioxide 23.3 mmol/L (20.0-27.5); Globulin 2.2 g/dL (1.6-3.3); Non-African American GFR(CKD) 58.1 (60.0-200.0); Potassium 4.1 mmol/L (3.5-5.5); Total Bilirubin 1.5 mg/dL (0.30-1.20); Total Protein 5.2 g/dL (6.2-8.2)
--- NOTE | 2022-09-25 10:56 | P.PN ---
Subjective Progress Note Date: 09/25/22 Patient seen and examined at bedside. States abdominal pain is much better. Having flatus. Unclear if having a bowel movement. Tolerating clear liquid diet without any nausea or vomiting. Objective - Vital Signs Vital signs: Vital Signs Temp 97.8 F 09/25/22 05:05 Pulse 88 09/25/22 05:05 Resp 18 09/25/22 05:05 BP 134/89 09/25/22 05:05 Pulse Ox 96 09/25/22 05:05 FiO2 Intake & Output 09/24/22 09/25/22 09/25/22 18:59 06:59 18:59 Intake Total 100 2230 Output Total 1100 Balance 100 1130 Intake: IV 100 1100 Dextrose 5% in Water 1, 1000 000 ml @ 100 mls/hr IV . [facility] Rx#:[id number] Zosyn 100 100 Oral 1130 Output: Urine 1100 Other: Voiding Method External Catheter External Catheter External Catheter - Constitutional General appearance: Present: cooperative - Gastrointestinal General gastrointestinal: Present: soft. Absent: tenderness - Labs CBC & Chem 7: 09/25/22 06:49 09/25/22 06:02 Labs: Abnormal Lab Results - Last 24 Hours (Table) 09/24/22 09/24/22 09/25/22 Range/Units 07:11 07:11 06:02 RBC 3.72 L (4.40-5.60) X 10*6/uL Hgb 10.5 L (13.0-17.0) g/dL Hct 34.3 L (39.6-50.0) % MCHC 30.6 L (32.0-37.0) g/dL RDW 14.9 H (11.5-14.5) % Plt Count (150-450) k/uL Immature Gran # 0.10 H (0.00-0.04) X 10*3/uL Neutrophils # 8.09 H (1.80-7.70) X 10*3/uL Lymphocytes # (1.0-4.8) k/uL Eosinophils # 0 L (0.04-0.35) X 10*3/uL Sodium 148 H (135-145) mmol/L Chloride 113 H 110 H (96-109) mmol/L Anion Gap 8.70 L (10.00-18.00) mmol/L Est GFR (CKD-EPI)NonAf 54.0 L 58.1 L (60.0-200.0) Glucose 115 H 132 H (70-110) mg/dL Calcium 8.0 L 8.0 L (8.7-10.3) mg/dL Total Bilirubin 2.20 H 1.50 H (0.30-1.20) mg/dL AST 86 H 78 H (14-35) U/L ALT 78 H 84 H (10-49) U/L Alkaline Phosphatase 28 L 27 L (41-126) U/L Total Protein 5.1 L 5.2 L (6.2-8.2) g/dL Albumin 3.1 L 3.0 L (3.8-4.9) g/dL Albumin/Globulin Ratio 1.50 L 1.36 L (1.60-3.17) g/dL 09/25/22 Range/Units 06:49 RBC 3.82 L (4.40-5.60) X 10*6/uL Hgb 11.4 L (13.0-17.0) g/dL Hct 34.4 L (39.6-50.0) % MCHC (32.0-37.0) g/dL RDW (11.5-14.5) % Plt Count 119 L (150-450) k/uL Immature Gran # (0.00-0.04) X 10*3/uL Neutrophils # (1.80-7.70) X 10*3/uL Lymphocytes # 0.6 L (1.0-4.8) k/uL Eosinophils # (0.04-0.35) X 10*3/uL Sodium (135-145) mmol/L Chloride (96-109) mmol/L Anion Gap (10.00-18.00) mmol/L Est GFR (CKD-EPI)NonAf (60.0-200.0) Glucose (70-110) mg/dL Calcium (8.7-10.3) mg/dL Total Bilirubin (0.30-1.20) mg/dL AST (14-35) U/L ALT (10-49) U/L Alkaline Phosphatase (41-126) U/L Total Protein (6.2-8.2) g/dL Albumin (3.8-4.9) g/dL Albumin/Globulin Ratio (1.60-3.17) g/dL Assessment and Plan Plan: Ileus appears to be resolving. Tolerating clear liquid diet without any nausea or vomiting. Having bowel function in the form of flatus. Okay to advance diet to full liquid diet. Medical management.
--- NOTE | 2022-09-25 11:04 | P.CONS ---
History of Present Illness - Reason for Consult Consult date: 09/25/22 Vomiting Requesting physician: Emmett Decker - Chief Complaint Altered mental status changes - History of Present Illness This is 61-year-old male who presented to the emergency department on 09/17/2022 with altered mental status changes. Patient has a history of mental disability, cardiomyopathy and resides with his sister and mother. Apparently patient was having some changes in his mental status and inability to care for himself. Apparently family had found him on the ground and brought him into the emergency department for further evaluation. When he came into the emergency department he was noted to have abdominal distention. He had a CT of the abdomen and pelvis that reported dilated stomach and proximal small bowel. Likely related to small bowel ileus and gastroparesis. Gastroenterology was consulted for vomiting consult was put in on 09/18/2022 however there is no gastroenterology in-house until today. Patient was seen by general surgery for ileus, NG tube was placed. He had decompression. NG tube was discontinued on 09/23/2022. Abdomen is soft. He denies any abdominal pain, no nausea or vomiting. He was started on a clear liquid diet yesterday by general surgery and advanced to full liquid today. Patient was admitted with pneumonia as well. Review of Systems REVIEW OF SYSTEMS: CARDIOPULMONARY: No chest pain or shortness of breath. Gastrointestinal: No abdominal pain. No nausea or vomiting. No hematemesis, coffee-ground emesis. No rectal bleeding, or melena. GENITOURINARY: No dysuria or hematuria. MUSCULOSKELETAL: Reports normal range of motion., Joint pain. SKIN: No rashes. No jaundice. ENDOCRINE: No chills, fevers. No excessive weight gain or loss. No polydipsia or polyuria. PSYCHIATRIC: Unremarkable. NEUROLOGY: No change in mental status. Denies dizziness, headache. ENT: Vision unremarkable. CONSTITUTIONAL: No recent weight loss. No fever, chills, night sweats. Past Medical History Past Medical History: Cancer, Hearing Disorder / Deafness, Skin Disorder Additional Past Medical History / Comment(s): "Mentally Challenged"-has outbursts, "DEVELOPMENTALLY DELAYED, LEARNING DISABILITY." MULT SKIN CANCER RE MOVALS, BASAL CELL. MASS ON POSTERIOR SCALP CURRENTLY. History of Any Multi-Drug Resistant Organisms: None Reported Additional Past Surgical History / Comment(s): RT Hand Surgery. Past Anesthesia/Blood Transfusion Reactions: No Reported Reaction Past Psychological History: Unable to Obtain Past Alcohol Use History: None Reported Past Drug Use History: None Reported - Past Family History Mother Family Medical History: Cancer Medications and Allergies Home Medications Medication Instructions Recorded Confirmed Type cloZAPine [cloZAPine ODT] 200 mg PO HS 09/19/22 09/19/22 History Allergies Allergy/AdvReac Type Severity Reaction Status Date / Time silicone AdvReac Body Verified 09/17/22 14:50 rejected finger implants Physical Exam Vitals: Vital Signs Temp Pulse Resp BP BP Pulse Ox 09/25/22 05:05 97.8 F 88 18 134/89 96 09/24/22 18:14 97.5 F L 94 18 141/80 98 09/24/22 11:40 98.2 F 84 18 123/80 97 Intake and Output 09/24/22 09/25/22 09/25/22 22:59 06:59 14:59 Intake Total 100 2230 Output Total 1100 Balance 100 1130 Intake: IV 100 1100 Dextrose 5% in Water 1, 1000 000 ml @ 100 mls/hr IV . Q10H [facility] Rx#:[id number] Zosyn 100 100 Oral 1130 Output: Urine 1100 Other: Voiding Method External Catheter External Catheter General appearance: The patient is alert, oriented to self, appears in no acute distress. HET: Head is normocephalic and atraumatic. Conjunctiva pink. Sclera anicteric. Neck: Supple without lymphadenopathy. Trachea midline. Heart: S1 S2. Regular rate and rhythm. Lungs: Clear to auscultation. Abdomen: Soft, nontender, nondistended with bowel sounds. No guarding or rig idity. Skin: No rashes. No jaundice. Extremities: Normal skin color and turgor. No pedal edema. Neurological: No focal deficits. Alert and oriented to self. Results CBC & Chem 7: 09/25/22 06:49 09/25/22 06:02 Labs: Abnormal Lab Results - Last 24 Hours (Table) 09/24/22 09/24/22 09/25/22 Range/Units 07:11 07:11 06:02 RBC 3.72 L (4.40-5.60) X 10*6/uL Hgb 10.5 L (13.0-17.0) g/dL Hct 34.3 L (39.6-50.0) % MCHC 30.6 L (32.0-37.0) g/dL RDW 14.9 H (11.5-14.5) % Plt Count (150-450) k/uL Immature Gran # 0.10 H (0.00-0.04) X 10*3/uL Neutrophils # 8.09 H (1.80-7.70) X 10*3/uL Lymphocytes # (1.0-4.8) k/uL Eosinophils # 0 L (0.04-0.35) X 10*3/uL Sodium 148 H (135-145) mmol/L Chloride 113 H 110 H (96-109) mmol/L Anion Gap 8.70 L (10.00-18.00) mmol/L Est GFR (CKD-EPI)NonAf 54.0 L 58.1 L (60.0-200.0) Glucose 115 H 132 H (70-110) mg/dL Calcium 8.0 L 8.0 L (8.7-10.3) mg/dL Total Bilirubin 2.20 H 1.50 H (0.30-1.20) mg/dL AST 86 H 78 H (14-35) U/L ALT 78 H 84 H (10-49) U/L Alkaline Phosphatase 28 L 27 L (41-126) U/L Total Protein 5.1 L 5.2 L (6.2-8.2) g/dL Albumin 3.1 L 3.0 L (3.8-4.9) g/dL Albumin/Globulin Ratio 1.50 L 1.36 L (1.60-3.17) g/dL 09/25/22 Range/Units 06:49 RBC 3.82 L (4.40-5.60) X 10*6/uL Hgb 11.4 L (13.0-17.0) g/dL Hct 34.4 L (39.6-50.0) % MCHC (32.0-37.0) g/dL RDW (11.5-14.5) % Plt Count 119 L (150-450) k/uL Immature Gran # (0.00-0.04) X 10*3/uL Neutrophils # (1.80-7.70) X 10*3/uL Lymphocytes # 0.6 L (1.0-4.8) k/uL Eosinophils # (0.04-0.35) X 10*3/uL Sodium (135-145) mmol/L Chloride (96-109) mmol/L Anion Gap (10.00-18.00) mmol/L Est GFR (CKD-EPI)NonAf (60.0-200.0) Glucose (70-110) mg/dL Calcium (8.7-10.3) mg/dL Total Bilirubin (0.30-1.20) mg/dL AST (14-35) U/L ALT (10-49) U/L Alkaline Phosphatase (41-126) U/L Total Protein (6.2-8.2) g/dL Albumin (3.8-4.9) g/dL Albumin/Globulin Ratio (1.60-3.17) g/dL CT scan - abdomen: report reviewed (Dilated stomach and proximal small bowel. Transition point is seen. Dilation appears improved involving the small bowel compared to old exam. Likely related to small bowel ileus and gastroparesis. Bilateral lower lobe infiltrates and atelectasis with pleural effusion which is worse than last com) Assessment and Plan (1) Ileus Narrative/Plan: 61-year-old male with multiple comorbidities who came in for altered mental status and was found to have abdominal distention and ileus. Patient has been seen by general surgery. Gastroenterology was initially consulted for nausea and vomiting however gastroenterology was not available in house until today. Patient does not had any further nausea or vomiting. NG tube was initially placed with decompression. Patient had NG tube removed 09/23/2022 and has been advanced to full liquid diet. He is passing gas, he has had a small bowel movement. Gen. surgery has been following closely. No plans on endoscopic evaluation. Continue antiemetics as needed. Continue Protonix for GI prophylaxis. Current Visit: No Status: Acute Code(s): K56.7 - ILEUS, UNSPECIFIED SNOMED Code(s): 130935650 (2) Pneumonia Current Visit: Yes Status: Acute Code(s): J18.9 - PNEUMONIA, UNSPECIFIED ORGANISM SNOMED Code(s): 407875127 Plan: 1. Continue symptomatic and supportive care 2. Diet per recommendations from general surgery 3. Antiemetics as needed 4. Protonix for GI prophylaxis Thank you for this consultation, we will sign off at this time. Dr. Hoa Jackman I agree with the dictator's note, documented as a scribe by Federica Casas.
--- NOTE | 2022-09-25 17:09 | P.PN ---
Progress Note - Text Progress Note Date: 09/25/22 Presenting complaint: Pneumonia. Abdomen distention Hospital course: I'm rounding for Dr. Emmett Decker Patient bit of bilateral aspiration pneumonia, and IV Zosyn, acute rhabdomyolysis, ileus. 09/25/2022: Passed flatus. Abdomen less distended. Advanced by surgery to full liquids. Tired. Breathing stable. In bed. Active Medications Clozapine (Clozapine 100 Mg Tab) 200 mg PO HS [facility] Stop: 09/27/22 23:00 Last Admin: 09/24/22 21:18 Dose: 200 mg Heparin Sodium (Porcine) (Heparin Sodium,Porcine/Pf 5,000 Unit/0.5 Ml Syringe) 5,000 unit SQ Q12HR [facility] Last Admin: 09/25/22 08:26 Dose: 5,000 unit Piperacillin Sod/Tazobactam (Sod 3.375 gm/ Sodium Chloride) 100 mls @ 25 mls/hr IVPB Q8HR [facility]; Protocol Last Admin: 09/25/22 16:58 Dose: 25 mls/hr Dextrose/Water (Dextrose 5%-Water Iv Soln) 1,000 mls @ 100 mls/hr IV .Q10H [facility] Last Admin: 09/25/22 16:58 Dose: 100 mls/hr Metoclopramide HCl (Metoclopramide 5 Mg/Ml 2 Ml Vial) 5 mg IVP Q6HR PRN PRN Reason: Nausea And Vomiting Last Admin: 09/18/22 18:02 Dose: 5 mg Naloxone HCl (Naloxone 0.4 Mg/Ml 1 Ml Vial) 0.2 mg IV Q2M PRN PRN Reason: Opioid Reversal Ondansetron HCl (Ondansetron 4 Mg/2 Ml Vial) 4 mg IVP Q8HR PRN PRN Reason: Nausea And Vomiting Pantoprazole Sodium (Pantoprazole 40 Mg/10 Ml Vial) 40 mg IVP DAILY [facility] Last Admin: 09/25/22 08:26 Dose: 40 mg Polymyxin/Trimethoprim Sulfate (Polymyxin B-Trimethoprim Sulf (10,000-1) Ophth Drops 10 Ml Btl) 1 drops BOTH EYES Q6HR [facility] Last Admin: 09/25/22 17:01 Dose: 1 drops On examination: VITAL SIGNS: 98.5, 95, 18, 138.87, 97% on 3 L GENERAL APPEARANCE: BMI 40.7, reclining in bed, awake, tired HEENT: Normal external appearance of nose and ear. Oral cavity normal EYES: Pupils equal. Conjunctiva normal. NECK: JVD not raised. Mass not palpable. RESPIRATORY: Respiratory effort increased. Decreased breath sounds CARDIOVASCULAR: First and second sounds normal. No edema. ABDOMEN: Soft. Mildly distended, nontender Liver and spleen not palpable. No mass palpable. PSYCHIATRY: Alert and oriented x3. Mood and affect tired INVESTIGATIONS, reviewed in the clinical context: White count 7.9 hemoglobin 11.4 platelets 119 sodium 142 potassium 4.1 creatinine 1.3 total bilirubin 1.5 AST 78 Assessment and plan: -Aspiration pneumonia, suspect gram-negative organism IV Zosyn -Acute ileus, improving Diet being advanced from clear liquids to full liquids by surgery. -Thrombocytopenia likely from infection Follow CBC -Hypernatremia from free water deficit: Better D5W -Chronically developmentally delayed On Clozaril IV Zosyn. Advanced to full liquid diet. Up in a chair. Oral intake improving.
[2022-09-25] MEDS: cloZAPine 100 MG TAB PO SCH (20:47)
[2022-09-26] MEDS: DEXTROSE 5% IN WATER 1,000 ML IV SCH ×2 (03:43→17:02)
[2022-09-26] MEDS: POLYMYXIN B-TRIMETHOPRIM SULF (10,000-1) OPHTH DROPS 10 ML BTL BOTH EYES SCH ×4 (06:13→18:33)
[2022-09-26 07:04] LABS: Basophils % (A) 0 %; Eosinophils % (A) 0 %; HCT 32.1 % (39.0-53.0); Lymphocytes # (A) 0.4 k/uL (1.0-4.8); Lymphocytes % (A) 7 %; MCH 30.3 pg (25.0-35.0); MCHC 34.3 g/dL (31.0-37.0); MCV 88.4 fL (80.0-100.0); Mean Platelet Volume 9.6; Monocytes # (A) 0.3 k/uL (0-1.0); Monocytes % (A) 4 %; Neutrophils # (A) 5.9 k/uL (1.3-7.7); Neutrophils % (A) 88 %; Platelet Count 120 k/uL (150-450); RBC 3.63 m/uL (4.30-5.90); RDW 15.5 % (11.5-15.5); WBC 6.7 k/uL (3.8-10.6)
[2022-09-26 07:19] LABS: African American GFR (CKD) 53 (>60 ml/min/1.73 sqM); Anion Gap 7 mmol/L; Blood Urea Nitrogen 17 mg/dL (9-20); Calcium 7.9 mg/dL (8.4-10.2); Carbon Dioxide 25 mmol/L (22-30); Chloride 110 mmol/L (98-107); Glucose 139 mg/dL (74-99); Non-African American GFR(CKD) 46 (>60 ml/min/1.73 sqM); Potassium 3.2 mmol/L (3.5-5.1); Sodium 142 mmol/L (137-145)
[2022-09-26] MEDS: PIPERACILLIN-TAZOBACTAM 3.375 GM in SODIUM CHLORIDE 0.9% 100 ML IVPB SCH ×4 (08:01→17:03)
[2022-09-26] MEDS: PANTOPRAZOLE 40 MG/10 ML VIAL IVP SCH (08:47)
[2022-09-26] MEDS: HEPARIN SODIUM,PORCINE/PF 5,000 UNIT/0.5 ML SYRINGE SQ SCH ×2 (08:47→20:39)
--- NOTE | 2022-09-26 15:50 | XR ---
EXAMINATION TYPE: XR abdomen 2V DATE OF EXAM: 09/26/2022 COMPARISON: 09/22/2022 HISTORY: Follow-up ileus TECHNIQUE: One view abdominal series FINDINGS: The osseous structures are intact. The bowel gas pattern is nonspecific. Sclerotic density overlying the left acetabulum most likely in the basis of a bone island. Persistent prominent bowel loops and gastric bubble distention are noted. Findings similar to prior exam. Bilateral lower lobe infiltrate and small effusion. Hypertrophic and degenerative change of the spine. IMPRESSION: 1. Persistent gastric bubble distention with multiple dilated small bowel loops. Correlate for ileus or obstruction. 2. Bilateral lower lobe infiltrate and small effusion.
--- NOTE | 2022-09-26 20:00 | P.PN ---
Progress Note - Text Progress Note Date: 09/26/22 Presenting complaint: Pneumonia. Abdomen distention Hospital course: I'm rounding for Dr. Emmett Decker Patient bit of bilateral aspiration pneumonia, and IV Zosyn, acute rhabdomyolysis, ileus. 09/25/2022: Passed flatus. Abdomen less distended. Advanced by surgery to full liquids. Tired. Breathing stable. In bed. 09/26/2022: In a recliner. Tired. Some abdominal distention. Doesn't remember having a BM. Reviewed abdominal x-ray. That showed small bowel distention. Active Medications Clozapine (Clozapine 100 Mg Tab) 200 mg PO HS [facility] Stop: 09/27/22 23:00 Last Admin: 09/25/22 20:47 Dose: 200 mg Heparin Sodium (Porcine) (Heparin Sodium,Porcine/Pf 5,000 Unit/0.5 Ml Syringe) 5,000 unit SQ Q12HR [facility] Last Admin: 09/26/22 08:47 Dose: 5,000 unit Piperacillin Sod/Tazobactam (Sod 3.375 gm/ Sodium Chloride) 100 mls @ 25 mls/hr IVPB Q8HR [facility]; Protocol Last Admin: 09/26/22 17:03 Dose: 25 mls/hr Dextrose/Water (Dextrose 5%-Water Iv Soln) 1,000 mls @ 100 mls/hr IV .Q10H [facility] Last Admin: 09/26/22 17:02 Dose: 100 mls/hr Metoclopramide HCl (Metoclopramide 5 Mg/Ml 2 Ml Vial) 5 mg IVP Q6HR PRN PRN Reason: Nausea And Vomiting Last Admin: 09/18/22 18:02 Dose: 5 mg Naloxone HCl (Naloxone 0.4 Mg/Ml 1 Ml Vial) 0.2 mg IV Q2M PRN PRN Reason: Opioid Reversal Ondansetron HCl (Ondansetron 4 Mg/2 Ml Vial) 4 mg IVP Q8HR PRN PRN Reason: Nausea And Vomiting Pantoprazole Sodium (Pantoprazole 40 Mg/10 Ml Vial) 40 mg IVP DAILY [facility] Last Admin: 09/26/22 08:47 Dose: 40 mg Polymyxin/Trimethoprim Sulfate (Polymyxin B-Trimethoprim Sulf (10,000-1) Ophth Drops 10 Ml Btl) 1 drops BOTH EYES Q6HR [facility] Last Admin: 09/26/22 18:33 Dose: 1 drops On examination: VITAL SIGNS: 98.2, 76, 20, 12/22 84, 98% on 3 L GENERAL APPEARANCE: Reclining in a recliner awake, tired HEENT: Normal external appearance of nose and ear. Oral cavity normal EYES: Pupils equal. Conjunctiva normal. NECK: JVD not raised. Mass not palpable. RESPIRATORY: Respiratory effort increased. Decreased breath sounds CARDIOVASCULAR: First and second sounds normal. No edema. ABDOMEN: Soft. Mildly distended, nontender Liver and spleen not palpable. No mass palpable. Bowel sounds sluggish PSYCHIATRY: Alert and oriented x3. Mood and affect tired INVESTIGATIONS, reviewed in the clinical context: Abdominal x-ray [September 26] small bowel distended White count 7.9 hemoglobin 11.4 platelets 119 sodium 142 potassium 4.1 creatinine 1.3 total bilirubin 1.5 AST 78 Assessment and plan: -Aspiration pneumonia, suspect gram-negative organism IV Zosyn -Acute ileus, full liquids by surgery. -Thrombocytopenia likely from infection Follow CBC -Hypernatremia from free water deficit: Better D5W -Chronically developmentally delayed On Clozaril IV Zosyn. full liquid diet, following with surgery. Up in a recliner .
[2022-09-26] MEDS: cloZAPine 100 MG TAB PO SCH (20:39)
[2022-09-27] MEDS: DEXTROSE 5% IN WATER 1,000 ML IV SCH ×3 (00:02→16:46)
[2022-09-27] MEDS: POLYMYXIN B-TRIMETHOPRIM SULF (10,000-1) OPHTH DROPS 10 ML BTL BOTH EYES SCH ×5 (00:03→23:46)
[2022-09-27] MEDS: PIPERACILLIN-TAZOBACTAM 3.375 GM in SODIUM CHLORIDE 0.9% 100 ML IVPB SCH ×4 (00:03→23:45)
[2022-09-27 04:27] LABS: Glucose,Whole Blood 123 mg/dL (70-110)
[2022-09-27 06:06] LABS: Basophils % (A) 0 %; Eosinophils % (A) 0 %; HCT 29.4 % (39.0-53.0); HGB 9.9 gm/dL (13.0-17.5); Hypochromasia Slight; Lymphocytes # (A) 0.5 k/uL (1.0-4.8); Lymphocytes % (A) 9 %; MCH 30.1 pg (25.0-35.0); MCHC 33.8 g/dL (31.0-37.0); MCV 88.8 fL (80.0-100.0); Mean Platelet Volume 9.5; Monocytes # (A) 0.3 k/uL (0-1.0); Monocytes % (A) 6 %; Neutrophils # (A) 4.3 k/uL (1.3-7.7); Neutrophils % (A) 84 %; Platelet Count 105 k/uL (150-450); Poikilocytosis Slight; RBC 3.31 m/uL (4.30-5.90); RDW 15.8 % (11.5-15.5); WBC 5.1 k/uL (3.8-10.6)
[2022-09-27] MEDS: HEPARIN SODIUM,PORCINE/PF 5,000 UNIT/0.5 ML SYRINGE SQ SCH ×2 (09:49→20:53)
[2022-09-27] MEDS: PANTOPRAZOLE 40 MG/10 ML VIAL IVP SCH (09:49)
--- NOTE | 2022-09-27 20:33 | P.PN ---
Progress Note - Text Progress Note Date: 09/27/22 Presenting complaint: Pneumonia. Abdomen distention Hospital course: I'm rounding for Dr. Emmett Decker Patient bit of bilateral aspiration pneumonia, and IV Zosyn, acute rhabdomyolysis, ileus. 09/25/2022: Passed flatus. Abdomen less distended. Advanced by surgery to full liquids. Tired. Breathing stable. In bed. 09/26/2022: In a recliner. Tired. Some abdominal distention. Doesn't remember having a BM. Reviewed abdominal x-ray. That showed small bowel distention. 09/27/2022: Under candidate. No BM. On full liquid diet. Being followed by surgery. Active Medications Clozapine (Clozapine 100 Mg Tab) 200 mg PO HS [facility] Stop: 10/04/22 23:00 Last Admin: 09/26/22 20:39 Dose: 200 mg Heparin Sodium (Porcine) (Heparin Sodium,Porcine/Pf 5,000 Unit/0.5 Ml Syringe) 5,000 unit SQ Q12HR [facility] Last Admin: 09/27/22 09:49 Dose: 5,000 unit Piperacillin Sod/Tazobactam (Sod 3.375 gm/ Sodium Chloride) 100 mls @ 25 mls/hr IVPB Q8HR [facility]; Protocol Last Admin: 09/27/22 16:16 Dose: 25 mls/hr Dextrose/Water (Dextrose 5%-Water Iv Soln) 1,000 mls @ 100 mls/hr IV .Q10H [facility] Last Admin: 09/27/22 16:46 Dose: Not Given Metoclopramide HCl (Metoclopramide 5 Mg/Ml 2 Ml Vial) 5 mg IVP Q6HR PRN PRN Reason: Nausea And Vomiting Last Admin: 09/18/22 18:02 Dose: 5 mg Naloxone HCl (Naloxone 0.4 Mg/Ml 1 Ml Vial) 0.2 mg IV Q2M PRN PRN Reason: Opioid Reversal Ondansetron HCl (Ondansetron 4 Mg/2 Ml Vial) 4 mg IVP Q8HR PRN PRN Reason: Nausea And Vomiting Pantoprazole Sodium (Pantoprazole 40 Mg/10 Ml Vial) 40 mg IVP DAILY [facility] Last Admin: 09/27/22 09:49 Dose: 40 mg Polymyxin/Trimethoprim Sulfate (Polymyxin B-Trimethoprim Sulf (10,000-1) Ophth Drops 10 Ml Btl) 1 drops BOTH EYES Q6HR [facility] Last Admin: 09/27/22 17:45 Dose: 1 drops On examination: VITAL SIGNS: 98.6, 86, 86, 18, 132/83, 99% on 3 L GENERAL APPEARANCE: Reclining in a recliner awake, tired HEENT: Normal external appearance of nose and ear. Oral cavity normal EYES: Pupils equal. Conjunctiva normal. NECK: JVD not raised. Mass not palpable. RESPIRATORY: Respiratory effort increased. Decreased breath sounds CARDIOVASCULAR: First and second sounds normal. No edema. ABDOMEN: Soft. Mildly distended, nontender Liver and spleen not palpable. No mass palpable. Bowel sounds sluggish PSYCHIATRY: Alert and oriented x3. Mood and affect tired INVESTIGATIONS, reviewed in the clinical context: 09/27/2022: White count 5.1 hemoglobin 9.9 platelets 105 Abdominal x-ray [September 26] small bowel distended White count 7.9 hemoglobin 11.4 platelets 119 sodium 142 potassium 4.1 creatinine 1.3 total bilirubin 1.5 AST 78 Assessment and plan: -Aspiration pneumonia, suspect gram-negative organism IV Zosyn -Acute ileus,: Slow to respond full liquids-follow with surgery. -Thrombocytopenia likely from infection Follow CBC -Hypernatremia from free water deficit: Better D5W -Chronically developmentally delayed On Clozaril IV Zosyn. full liquid diet, following with surgery. Repeat labs
[2022-09-27] MEDS: cloZAPine 100 MG TAB PO SCH (20:53)
[2022-09-28] MEDS: POLYMYXIN B-TRIMETHOPRIM SULF (10,000-1) OPHTH DROPS 10 ML BTL BOTH EYES SCH ×3 (06:49→18:08)
[2022-09-28 07:47] LABS: African American GFR (CKD) 46 (>60 ml/min/1.73 sqM); Anion Gap 9 mmol/L; Blood Urea Nitrogen 21 mg/dL (9-20); Calcium 8.8 mg/dL (8.4-10.2); Carbon Dioxide 25 mmol/L (22-30); Chloride 111 mmol/L (98-107); Glucose 144 mg/dL (74-99); Non-African American GFR(CKD) 40 (>60 ml/min/1.73 sqM); Potassium 4.4 mmol/L (3.5-5.1); Sodium 145 mmol/L (137-145)
[2022-09-28] MEDS: DEXTROSE 5% IN WATER 1,000 ML IV SCH ×2 (08:21→17:50)
[2022-09-28] MEDS: PIPERACILLIN-TAZOBACTAM 3.375 GM in SODIUM CHLORIDE 0.9% 100 ML IVPB SCH ×2 (08:23→15:56)
[2022-09-28] MEDS: HEPARIN SODIUM,PORCINE/PF 5,000 UNIT/0.5 ML SYRINGE SQ SCH ×2 (08:23→20:41)
[2022-09-28] MEDS: PANTOPRAZOLE 40 MG/10 ML VIAL IVP SCH (08:24)
--- NOTE | 2022-09-28 08:31 | P.PN ---
Subjective Progress Note Date: 09/24/22 Principal diagnosis: Pneumonia Patient is a 61-year-old male with a past medical history significant for developmental delay presenting to the ER after the patient was found to be on the floor did have episodes of vomiting coffee-ground emesis, chest x-ray with bilateral lower lobe pneumonia concerning for possible aspiration. On today's evaluation that is 09/24/2022 the patient continues to be afebrile, patient is breathing comfortably on nasal cannula oxygen , the patient denies any chest pain , no further vomiting or any diarrhea by the nursing staff patient overall not a very good historian Objective - Vital Signs Vital signs: Vital Signs Temp 97.5 F L 09/24/22 18:14 Pulse 94 09/24/22 18:14 Resp 18 09/24/22 18:14 BP 141/80 09/24/22 18:14 Pulse Ox 98 09/24/22 18:14 FiO2 Intake & Output 09/24/22 09/24/22 09/25/22 06:59 18:59 06:59 Intake Total 100 Output Total 400 Balance -400 100 Intake: IV 100 Zosyn 100 Output: Urine 400 Other: Voiding Method External Catheter External Catheter External Catheter - Exam GENERAL DESCRIPTION: Middle-aged male lying in bed, no distress. No tachypnea or accessory muscle of respiration use. LUNGS: Unlabored breathing. Decreased breath sound at the base HEART: S1, S2, regular rate and rhythm. No loud murmur ABDOMEN: Soft, no tenderness , guarding or rigidity, no organomegaly EXTREMITIES: No edema of feet. - Labs CBC & Chem 7: 09/27/22 05:23 09/28/22 06:01 Labs: Abnormal Lab Results - Last 24 Hours (Table) 09/24/22 09/24/22 Range/Units 07:11 07:11 RBC 3.72 L (4.40-5.60) X 10*6/uL Hgb 10.5 L (13.0-17.0) g/dL Hct 34.3 L (39.6-50.0) % MCHC 30.6 L (32.0-37.0) g/dL RDW 14.9 H (11.5-14.5) % Immature Gran # 0.10 H (0.00-0.04) X 10*3/uL Neutrophils # 8.09 H (1.80-7.70) X 10*3/uL Eosinophils # 0 L (0.04-0.35) X 10*3/uL Sodium 148 H (135-145) mmol/L Chloride 113 H (96-109) mmol/L Est GFR (CKD-EPI)NonAf 54.0 L (60.0-200.0) Glucose 115 H (70-110) mg/dL Calcium 8.0 L (8.7-10.3) mg/dL Total Bilirubin 2.20 H (0.30-1.20) mg/dL AST 86 H (14-35) U/L ALT 78 H (10-49) U/L Alkaline Phosphatase 28 L (41-126) U/L Total Protein 5.1 L (6.2-8.2) g/dL Albumin 3.1 L (3.8-4.9) g/dL Albumin/Globulin Ratio 1.50 L (1.60-3.17) g/dL Assessment and Plan (1) Pneumonia Current Visit: Yes Status: Acute Code(s): J18.9 - PNEUMONIA, UNSPECIFIED ORGANISM SNOMED Code(s): 435236351 Plan: 1patient presented to hospital after the patient has been found on the floor that this patient has been complaining of generalized weakness to have a mild cough not bring up any sputum and episode of vomiting concerning for possible aspiration pneumonia patient abdominal was soft on clinical examination urine has been negative and no evidence of any cellulitis. 2The patient fever has resolved and the white count has normalized the patient to continue with the Zosyn and monitor clinical course closely Time with Patient: Less than 30
--- NOTE | 2022-09-28 08:32 | P.PN ---
Subjective Progress Note Date: 09/18/22 Principal diagnosis: Pneumonia Patient is a 61-year-old male with a past medical history significant for developmental delay presenting to the ER after the patient was found to be on the floor did have episodes of vomiting coffee-ground emesis, chest x-ray with bilateral lower lobe pneumonia concerning for possible aspiration. On today's evaluation that is 09/25/2022 the patient remains to be afebrile, patient is breathing comfortably on nasal cannula oxygen , the patient denies any chest pain , no further vomiting or any diarrhea by the nursing staff, no new symptoms Objective - Vital Signs Vital signs: Vital Signs Temp 98.5 F 09/25/22 11:37 Pulse 95 09/25/22 11:37 Resp 18 09/25/22 11:37 BP 138/87 09/25/22 11:37 Pulse Ox 97 09/25/22 11:37 FiO2 Intake & Output 09/24/22 09/25/22 09/25/22 18:59 06:59 18:59 Intake Total 100 2230 Output Total 1100 Balance 100 1130 Intake: IV 100 1100 Dextrose 5% in Water 1, 1000 000 ml @ 100 mls/hr IV . Q10H [facility] Rx#:[id number] Zosyn 100 100 Oral 1130 Output: Urine 1100 Other: Voiding Method External Catheter External Catheter External Catheter - Exam GENERAL DESCRIPTION: Middle-aged male lying in bed, no distress. No tachypnea or accessory muscle of respiration use. LUNGS: Unlabored breathing. Decreased breath sound at the base HEART: S1, S2, regular rate and rhythm. No loud murmur ABDOMEN: Soft, no tenderness , guarding or rigidity, no organomegaly EXTREMITIES: No edema of feet. - Labs CBC & Chem 7: 09/27/22 05:23 09/28/22 06:01 Labs: Abnormal Lab Results - Last 24 Hours (Table) 09/25/22 09/25/22 Range/Units 06:02 06:49 RBC 3.82 L (4.30-5.90) m/uL Hgb 11.4 L (13.0-17.5) gm/dL Hct 34.4 L (39.0-53.0) % Plt Count 119 L (150-450) k/uL Lymphocytes # 0.6 L (1.0-4.8) k/uL Chloride 110 H (96-109) mmol/L Anion Gap 8.70 L (10.00-18.00) mmol/L Est GFR (CKD-EPI)NonAf 58.1 L (60.0-200.0) Glucose 132 H (70-110) mg/dL Calcium 8.0 L (8.7-10.3) mg/dL Total Bilirubin 1.50 H (0.30-1.20) mg/dL AST 78 H (14-35) U/L ALT 84 H (10-49) U/L Alkaline Phosphatase 27 L (41-126) U/L Total Protein 5.2 L (6.2-8.2) g/dL Albumin 3.0 L (3.8-4.9) g/dL Albumin/Globulin Ratio 1.36 L (1.60-3.17) g/dL Assessment and Plan (1) Pneumonia Current Visit: Yes Status: Acute Code(s): J18.9 - PNEUMONIA, UNSPECIFIED ORGANISM SNOMED Code(s): 090160864 Plan: 1patient presented to hospital after the patient has been found on the floor that this patient has been complaining of generalized weakness to have a mild cough not bring up any sputum and episode of vomiting concerning for possible aspiration pneumonia patient abdominal was soft on clinical examination urine has been negative and no evidence of any cellulitis. 2The patient fever has resolved and the white count has normalized 3patient to continue the Zosyn while monitoring clinical course closely Time with Patient: Less than 30
--- NOTE | 2022-09-28 08:33 | P.PN ---
Subjective Progress Note Date: 09/26/22 Principal diagnosis: Pneumonia Patient is a 61-year-old male with a past medical history significant for developmental delay presenting to the ER after the patient was found to be on the floor did have episodes of vomiting coffee-ground emesis, chest x-ray with bilateral lower lobe pneumonia concerning for possible aspiration. On today's evaluation that is 09/26/2022 the patient continues to be afebrile, patient is breathing comfortably on nasal cannula oxygen , the patient denies any chest pain shortness of breath or cough no abdominal pain no nausea, no further vomiting or diarrhea reported by nursing staff Objective - Vital Signs Vital signs: Vital Signs Temp 97.9 F 09/26/22 13:00 Pulse 96 09/26/22 13:00 Resp 18 09/26/22 13:00 BP 182/83 09/26/22 13:00 Pulse Ox 96 09/26/22 13:00 FiO2 Intake & Output 09/25/22 09/26/22 09/26/22 18:59 06:59 18:59 Intake Total 240 Output Total 1150 1225 1450 Balance -1150 -1225 -1210 Intake: Oral 240 Output: Urine 1150 1225 1450 Other: Voiding Method External Catheter External Catheter External Catheter - Exam GENERAL DESCRIPTION: Middle-aged male up in the chair, no distress. No tachypnea or accessory muscle of respiration use. LUNGS: Unlabored breathing. Decreased breath sound at the base HEART: S1, S2, regular rate and rhythm. No loud murmur ABDOMEN: Soft, no tenderness , guarding or rigidity, no organomegaly EXTREMITIES: No edema of feet. - Labs CBC & Chem 7: 09/27/22 05:23 09/28/22 06:01 Labs: Abnormal Lab Results - Last 24 Hours (Table) 09/26/22 09/26/22 Range/Units 06:43 06:43 RBC 3.63 L (4.30-5.90) m/uL Hgb 11.0 L (13.0-17.5) gm/dL Hct 32.1 L (39.0-53.0) % Plt Count 120 L (150-450) k/uL Lymphocytes # 0.4 L (1.0-4.8) k/uL Potassium 3.2 L (3.5-5.1) mmol/L Chloride 110 H (98-107) mmol/L Creatinine 1.58 H (0.66-1.25) mg/dL Glucose 139 H (74-99) mg/dL Calcium 7.9 L (8.4-10.2) mg/dL Assessment and Plan (1) Pneumonia Current Visit: Yes Status: Acute Code(s): J18.9 - PNEUMONIA, UNSPECIFIED ORGANISM SNOMED Code(s): 788046338 Plan: 1patient presented to hospital after the patient has been found on the floor that this patient has been complaining of generalized weakness to have a mild cough not bring up any sputum and episode of vomiting concerning for possible aspiration pneumonia patient abdominal was soft on clinical examination urine has been negative and no evidence of any cellulitis. 2The patient fever has resolved and the white count has normalized 3patient seemed to have shown clinical improvement and will continue the Zosyn while monitoring clinical course closely Time with Patient: Less than 30
--- NOTE | 2022-09-28 08:34 | P.PN ---
Subjective Progress Note Date: 09/27/22 Principal diagnosis: Pneumonia Patient is a 61-year-old male with a past medical history significant for developmental delay presenting to the ER after the patient was found to be on the floor did have episodes of vomiting coffee-ground emesis, chest x-ray with bilateral lower lobe pneumonia concerning for possible aspiration. On today's evaluation that is 09/27/2022 the patient remains to be afebrile, patient is breathing comfortably on 3 L nasal cannula oxygen , the patient denies any chest pain shortness of breath or cough, the patient denies abdominal pain no further vomiting or diarrhea reported by nursing staff, patient been tolerating his diet Objective - Vital Signs Vital signs: Vital Signs Temp 98 F 09/27/22 12:15 Pulse 94 09/27/22 12:15 Resp 18 09/27/22 12:15 BP 119/74 09/27/22 12:15 Pulse Ox 98 09/27/22 12:15 FiO2 Intake & Output 09/26/22 09/27/22 09/27/22 18:59 06:59 18:59 Intake Total 480 Output Total 2250 1750 Balance -1770 -1750 Weight 136.078 kg Intake: Oral 480 Output: Urine 2250 1750 Other: Voiding Method External Catheter External Catheter External Catheter - Exam GENERAL DESCRIPTION: Middle-aged male up in the chair, no distress. No tachypnea or accessory muscle of respiration use. LUNGS: Unlabored breathing. Decreased breath sound at the base HEART: S1, S2, regular rate and rhythm. No loud murmur ABDOMEN: Soft, no tenderness , guarding or rigidity, no organomegaly EXTREMITIES: No edema of feet. - Labs CBC & Chem 7: 09/27/22 05:23 09/28/22 06:01 Labs: Abnormal Lab Results - Last 24 Hours (Table) 09/27/22 09/27/22 Range/Units 04:25 05:23 RBC 3.31 L (4.30-5.90) m/uL Hgb 9.9 L (13.0-17.5) gm/dL Hct 29.4 L (39.0-53.0) % RDW 15.8 H (11.5-15.5) % Plt Count 105 L (150-450) k/uL Lymphocytes # 0.5 L (1.0-4.8) k/uL POC Glucose (mg/dL) 123 H (70-110) mg/dL Assessment and Plan (1) Pneumonia Current Visit: Yes Status: Acute Code(s): J18.9 - PNEUMONIA, UNSPECIFIED ORGANISM SNOMED Code(s): 311909274 Plan: 1patient presented to hospital after the patient has been found on the floor that this patient has been complaining of generalized weakness to have a mild cough not bring up any sputum and episode of vomiting concerning for possible aspiration pneumonia patient abdominal was soft on clinical examination urine has been negative and no evidence of any cellulitis. 2The patient fever has resolved and the white count has normalized 3patient seemed to have shown clinical improvement and currently being treated with Zosyn, plan to finish therapy with a short course of oral Augmentin Time with Patient: Less than 30
[2022-09-28] MEDS: polyethylene glycoL 3350 17 GM POWD.PACK PO SCH (15:58)
--- NOTE | 2022-09-28 18:28 | P.PN ---
Progress Note - Text Progress Note Date: 09/28/22 Presenting complaint: Pneumonia. Abdomen distention Hospital course: I'm rounding for Dr. Emmett Decker Patient bit of bilateral aspiration pneumonia, and IV Zosyn, acute rhabdomyolysis, ileus. 09/25/2022: Passed flatus. Abdomen less distended. Advanced by surgery to full liquids. Tired. Breathing stable. In bed. 09/26/2022: In a recliner. Tired. Some abdominal distention. Doesn't remember having a BM. Reviewed abdominal x-ray. That showed small bowel distention. 09/27/2022: . No BM. On full liquid diet. Being followed by surgery. 09/28/2022: On recliner.. Liquid diet. No abdominal tenderness. Tired. Oral intake 50-75%. Active Medications Clozapine (Clozapine 100 Mg Tab) 200 mg PO HS [facility] Stop: 10/04/22 23:00 Last Admin: 09/27/22 20:53 Dose: 200 mg Heparin Sodium (Porcine) (Heparin Sodium,Porcine/Pf 5,000 Unit/0.5 Ml Syringe) 5,000 unit SQ Q12HR [facility] Last Admin: 09/28/22 08:23 Dose: 5,000 unit Piperacillin Sod/Tazobactam (Sod 3.375 gm/ Sodium Chloride) 100 mls @ 25 mls/hr IVPB Q8HR [facility]; Protocol Last Admin: 09/28/22 15:56 Dose: 25 mls/hr Dextrose/Water (Dextrose 5%-Water Iv Soln) 1,000 mls @ 100 mls/hr IV .Q10H [facility] Last Admin: 09/28/22 17:50 Dose: 100 mls/hr Metoclopramide HCl (Metoclopramide 5 Mg/Ml 2 Ml Vial) 5 mg IVP Q6HR PRN PRN Reason: Nausea And Vomiting Last Admin: 09/18/22 18:02 Dose: 5 mg Naloxone HCl (Naloxone 0.4 Mg/Ml 1 Ml Vial) 0.2 mg IV Q2M PRN PRN Reason: Opioid Reversal Ondansetron HCl (Ondansetron 4 Mg/2 Ml Vial) 4 mg IVP Q8HR PRN PRN Reason: Nausea And Vomiting Pantoprazole Sodium (Pantoprazole 40 Mg/10 Ml Vial) 40 mg IVP DAILY [facility] Last Admin: 09/28/22 08:24 Dose: 40 mg Polyethylene Glycol (Polyethylene Glycol 3350 17 Gm Powd.Pack) 17 gm PO DAILY [facility] Last Admin: 09/28/22 15:58 Dose: 17 gm Polymyxin/Trimethoprim Sulfate (Polymyxin B-Trimethoprim Sulf (10,000-1) Ophth Drops 10 Ml Btl) 1 drops BOTH EYES Q6HR [facility] Last Admin: 09/28/22 18:08 Dose: 1 drops On examination: VITAL SIGNS: 97.2, 92, 16, 1 5981, and 6% on 3 L GENERAL APPEARANCE: in a recliner awake, tired HEENT: Normal external appearance of nose and ear. Oral cavity normal EYES: Pupils equal. Conjunctiva normal. NECK: JVD not raised. Mass not palpable. RESPIRATORY: Respiratory effort increased. Decreased breath sounds CARDIOVASCULAR: First and second sounds normal. No edema. ABDOMEN: Soft. Mildly distended, nontender Liver and spleen not palpable. No mass palpable. Bowel sounds sluggish PSYCHIATRY: Alert and oriented x3. Mood and affect tired INVESTIGATIONS, reviewed in the clinical context: 09/27/2022: White count 5.1 hemoglobin 9.9 platelets 105 Abdominal x-ray [September 26] small bowel distended White count 7.9 hemoglobin 11.4 platelets 119 sodium 142 potassium 4.1 creatinine 1.3 total bilirubin 1.5 AST 78 Assessment and plan: -Aspiration pneumonia, suspect gram-negative organism: Better IV Zosyn -Acute ileus,: Clinically better full liquids-follow with surgery. -Thrombocytopenia likely from infection Follow CBC -Hypernatremia from free water deficit: Better D5W -Chronically developmentally delayed On Clozaril IV Zosyn. full liquid diet, following with surgery. Repeat labs
[2022-09-28] MEDS: cloZAPine 100 MG TAB PO SCH (20:41)
[2022-09-29] MEDS: PIPERACILLIN-TAZOBACTAM 3.375 GM in SODIUM CHLORIDE 0.9% 100 ML IVPB SCH ×2 (01:27→09:34)
[2022-09-29] MEDS: DEXTROSE 5% IN WATER 1,000 ML IV SCH ×3 (01:27→21:49)
[2022-09-29] MEDS: POLYMYXIN B-TRIMETHOPRIM SULF (10,000-1) OPHTH DROPS 10 ML BTL BOTH EYES SCH ×3 (01:27→13:40)
[2022-09-29 08:53] LABS: Glucose,Whole Blood 106 mg/dL (70-110)
[2022-09-29] MEDS: PANTOPRAZOLE 40 MG/10 ML VIAL IVP SCH (09:34)
[2022-09-29] MEDS: HEPARIN SODIUM,PORCINE/PF 5,000 UNIT/0.5 ML SYRINGE SQ SCH ×2 (09:34→21:50)
[2022-09-29] MEDS: polyethylene glycoL 3350 17 GM POWD.PACK PO SCH (09:39)
--- NOTE | 2022-09-29 16:50 | P.PN ---
Progress Note - Text Progress Note Date: 09/29/22 Presenting complaint: Pneumonia. Abdomen distention Hospital course: I'm rounding for Dr. Emmett Decker Patient bit of bilateral aspiration pneumonia, and IV Zosyn, acute rhabdomyolysis, ileus. 09/25/2022: Passed flatus. Abdomen less distended. Advanced by surgery to full liquids. Tired. Breathing stable. In bed. 09/26/2022: In a recliner. Tired. Some abdominal distention. Doesn't remember having a BM. Reviewed abdominal x-ray. That showed small bowel distention. 09/27/2022: . No BM. On full liquid diet. Being followed by surgery. 09/28/2022: On recliner.. Liquid diet. No abdominal tenderness. Tired. Oral intake 50-75%. 09/29/2022: Last night manual significant size BM evacuation. Advanced to ground diet. Up in a recliner. Oral intake better. Active Medications Amoxicillin/Clavulanate Potassium (Amoxic-Pot Clav 875-125mg 1 Each Tab) 1 each PO DAILY [facility] TO [facility]; Protocol Clozapine (Clozapine 100 Mg Tab) 200 mg PO HS [facility] Stop: 10/04/22 23:00 Last Admin: 09/28/22 20:41 Dose: 200 mg Heparin Sodium (Porcine) (Heparin Sodium,Porcine/Pf 5,000 Unit/0.5 Ml Syringe) 5,000 unit SQ Q12HR [facility] Last Admin: 09/29/22 09:34 Dose: 5,000 unit Dextrose/Water (Dextrose 5%-Water Iv Soln) 1,000 mls @ 75 mls/hr IV .[id number] [facility] Last Admin: 09/29/22 13:39 Dose: 100 mls/hr Metoclopramide HCl (Metoclopramide 5 Mg/Ml 2 Ml Vial) 5 mg IVP Q6HR PRN PRN Reason: Nausea And Vomiting Last Admin: 09/18/22 18:02 Dose: 5 mg Naloxone HCl (Naloxone 0.4 Mg/Ml 1 Ml Vial) 0.2 mg IV Q2M PRN PRN Reason: Opioid Reversal Ondansetron HCl (Ondansetron 4 Mg/2 Ml Vial) 4 mg IVP Q8HR PRN PRN Reason: Nausea And Vomiting Pantoprazole Sodium (Pantoprazole 40 Mg/10 Ml Vial) 40 mg IVP DAILY [facility] Last Admin: 09/29/22 09:34 Dose: 40 mg Polyethylene Glycol (Polyethylene Glycol 3350 17 Gm Powd.Pack) 17 gm PO DAILY [facility] Last Admin: 09/29/22 09:39 Dose: 17 gm Psyllium Hydrophilic Mucilloid (Psyllium Husk 100% 6 Gm Packet) 6 gm PO DAILY [facility] On examination: VITAL SIGNS: 97.4, 77, 18, 145/84, 91% on 3 L GENERAL APPEARANCE: Sitting up in a recliner, awake HEENT: Normal external appearance of nose and ear. Oral cavity normal EYES: Pupils equal. Conjunctiva normal. NECK: JVD not raised. Mass not palpable. RESPIRATORY: Respiratory effort increased. Decreased breath sounds CARDIOVASCULAR: First and second sounds normal. No edema. ABDOMEN: Soft. Mildly distended, nontender Liver and spleen not palpable. No mass palpable. Bowel sounds sluggish PSYCHIATRY: Able to answers occasional simple questions. INVESTIGATIONS, reviewed in the clinical context: 09/28/2022: Creatinine 1.79 09/27/2022: White count 5.1 hemoglobin 9.9 platelets 105 Abdominal x-ray [September 26] small bowel distended White count 7.9 hemoglobin 11.4 platelets 119 sodium 142 potassium 4.1 creatinine 1.3 total bilirubin 1.5 AST 78 Assessment and plan: -Aspiration pneumonia, suspect gram-negative organism: Better IV Zosyn-changed to by mouth Augmentin -Acute ileus,: Clinically better Changed to ground diet. Being followed by surgery. -Cognitive impairment from developmental delay -Thrombocytopenia likely from infection Follow CBC -Hypernatremia from free water deficit: Better D5W -Chronically developmentally delayed On Clozaril -Disposition: [facility] IV Zosyn changed to Augmentin. Advanced to ground diet. Add Metamucil.
[2022-09-29] MEDS: PSYLLIUM HUSK 100% 6 GM PACKET PO SCH (17:11)
[2022-09-29] MEDS: cloZAPine 100 MG TAB PO SCH (21:50)
[2022-09-30] MEDS: PANTOPRAZOLE 40 MG/10 ML VIAL IVP SCH (10:57)
[2022-09-30] MEDS: HEPARIN SODIUM,PORCINE/PF 5,000 UNIT/0.5 ML SYRINGE SQ SCH ×2 (10:57→20:44)
[2022-09-30] MEDS: AMOXIC-POT CLAV 875-125MG 1 EACH TAB PO SCH (10:57)
[2022-09-30] MEDS: PSYLLIUM HUSK 100% 6 GM PACKET PO SCH (10:57)
[2022-09-30] MEDS: polyethylene glycoL 3350 17 GM POWD.PACK PO SCH (10:57)
[2022-09-30] MEDS: DEXTROSE 5% IN WATER 1,000 ML IV SCH (15:03)
[2022-09-30 16:53] LABS: Glucose,Whole Blood 112 mg/dL (70-110)
--- NOTE | 2022-09-30 18:11 | P.PN ---
Progress Note - Text Progress Note Date: 09/30/22 Presenting complaint: Pneumonia. Abdomen distention Hospital course: I'm rounding for Dr. Emmett Decker Patient bit of bilateral aspiration pneumonia, and IV Zosyn, acute rhabdomyolysis, ileus. 09/25/2022: Passed flatus. Abdomen less distended. Advanced by surgery to full liquids. Tired. Breathing stable. In bed. 09/26/2022: In a recliner. Tired. Some abdominal distention. Doesn't remember having a BM. Reviewed abdominal x-ray. That showed small bowel distention. 09/27/2022: . No BM. On full liquid diet. Being followed by surgery. 09/28/2022: On recliner.. Liquid diet. No abdominal tenderness. Tired. Oral intake 50-75%. 09/29/2022: Last night manual significant size BM evacuation. Advanced to ground diet. Up in a recliner. Oral intake better. 09/30/2022: Spoke to the patient's aide. Aide well. Unknown about bowel movement. We'll see how patient does. In a recliner. Active Medications Amoxicillin/Clavulanate Potassium (Amoxic-Pot Clav 875-125mg 1 Each Tab) 1 each PO DAILY [facility]; Protocol Last Admin: 09/30/22 10:57 Dose: Not Given Clozapine (Clozapine 100 Mg Tab) 200 mg PO HS [facility] Stop: 10/04/22 23:00 Last Admin: 09/29/22 21:50 Dose: 200 mg Heparin Sodium (Porcine) (Heparin Sodium,Porcine/Pf 5,000 Unit/0.5 Ml Syringe) 5,000 unit SQ Q12HR [facility] Last Admin: 09/30/22 10:57 Dose: Not Given Dextrose/Water (Dextrose 5%-Water Iv Soln) 1,000 mls @ 75 mls/hr IV .[id number] [facility] Last Admin: 09/30/22 15:03 Dose: Not Given Naloxone HCl (Naloxone 0.4 Mg/Ml 1 Ml Vial) 0.2 mg IV Q2M PRN PRN Reason: Opioid Reversal Ondansetron HCl (Ondansetron 4 Mg/2 Ml Vial) 4 mg IVP Q8HR PRN PRN Reason: Nausea And Vomiting Polyethylene Glycol (Polyethylene Glycol 3350 17 Gm Powd.Pack) 17 gm PO DAILY [facility] Last Admin: 09/30/22 10:57 Dose: Not Given Psyllium Hydrophilic Mucilloid (Psyllium Husk 100% 6 Gm Packet) 6 gm PO DAILY [facility] Last Admin: 09/30/22 10:57 Dose: Not Given On examination: VITAL SIGNS: 97.4, 77, 18, 145/84, 91% on 3 L GENERAL APPEARANCE: Sitting up in a recliner, awake HEENT: Normal external appearance of nose and ear. Oral cavity normal EYES: Pupils equal. Conjunctiva normal. NECK: JVD not raised. Mass not palpable. RESPIRATORY: Respiratory effort increased. Decreased breath sounds CARDIOVASCULAR: First and second sounds normal. No edema. ABDOMEN: Soft. Mildly distended, nontender Liver and spleen not palpable. No mass palpable. Bowel sounds sluggish PSYCHIATRY: Able to answers occasional simple questions. INVESTIGATIONS, reviewed in the clinical context: 09/28/2022: Creatinine 1.79 09/27/2022: White count 5.1 hemoglobin 9.9 platelets 105 Abdominal x-ray [September 26] small bowel distended White count 7.9 hemoglobin 11.4 platelets 119 sodium 142 potassium 4.1 creatinine 1.3 total bilirubin 1.5 AST 78 Assessment and plan: -Aspiration pneumonia, suspect gram-negative organism: Better IV Zosyn-changed to by mouth Augmentin -Acute ileus,: Clinically better Changed to ground diet. Being followed by surgery. -Cognitive impairment from developmental delay -Thrombocytopenia likely from infection Follow CBC -Hypernatremia from free water deficit: Better D5W -Chronically developmentally delayed On Clozaril -Disposition: [facility] Augmentin. Tolerating ground diet. Reminded nursing to documented bowel movement. Repeat labs
[2022-09-30] MEDS: cloZAPine 100 MG TAB PO SCH (20:44)
[2022-09-30 23:18] LABS: Anisocytosis Slight; Basophils % (A) 0 %; Eosinophils % (A) 0 %; HCT 28.2 % (39.0-53.0); HGB 9.3 gm/dL (13.0-17.5); Hypochromasia Slight; Lymphocytes # (A) 0.6 k/uL (1.0-4.8); Lymphocytes % (A) 9 %; MCH 29.6 pg (25.0-35.0); MCV 89.6 fL (80.0-100.0); Monocytes # (A) 0.4 k/uL (0-1.0); Monocytes % (A) 7 %; Neutrophils # (A) 5.2 k/uL (1.3-7.7); Neutrophils % (A) 83 %; Platelet Count 140 k/uL (150-450); RBC 3.15 m/uL (4.30-5.90); RDW 16.3 % (11.5-15.5); WBC 6.2 k/uL (3.8-10.6)
[2022-09-30 23:39] LABS: African American GFR (CKD) 39 (>60 ml/min/1.73 sqM); Anion Gap 9 mmol/L; Blood Urea Nitrogen 24 mg/dL (9-20); Calcium 8.6 mg/dL (8.4-10.2); Carbon Dioxide 27 mmol/L (22-30); Chloride 108 mmol/L (98-107); Glucose 129 mg/dL (74-99); Non-African American GFR(CKD) 34 (>60 ml/min/1.73 sqM); Sodium 144 mmol/L (137-145)
--- NOTE | 2022-10-01 00:02 | P.PN ---
Subjective Progress Note Date: 09/28/22 Principal diagnosis: Pneumonia Patient is a 61-year-old male with a past medical history significant for developmental delay presenting to the ER after the patient was found to be on the floor did have episodes of vomiting coffee-ground emesis, chest x-ray with bilateral lower lobe pneumonia concerning for possible aspiration. On today's evaluation that is 09/28/2022 the patient continues to be afebrile, patient is breathing comfortably on 3 L nasal cannula oxygen , the patient denies any chest pain shortness of breath or cough, the patient denies abdominal pain, patient has been tolerating his diet no further vomiting has been reported Objective - Vital Signs Vital signs: Vital Signs Temp 98.2 F 09/28/22 11:20 Pulse 19 L 09/28/22 11:20 Resp 19 09/28/22 11:20 BP 137/80 09/28/22 11:20 Pulse Ox 98 09/28/22 11:20 FiO2 Intake & Output 09/27/22 09/28/22 09/28/22 18:59 06:59 18:59 Intake Total 450 Output Total 1750 Balance -1750 450 Intake: IV 450 D5W 400 Zosyn 50 Output: Urine 1750 Other: Voiding Method External Catheter External Catheter External Catheter # Voids 2 - Exam GENERAL DESCRIPTION: Middle-aged male up in the chair, no distress. No tachypnea or accessory muscle of respiration use. LUNGS: Unlabored breathing. Decreased breath sound at the base HEART: S1, S2, regular rate and rhythm. No loud murmur ABDOMEN: Soft, no tenderness , guarding or rigidity, no organomegaly EXTREMITIES: No edema of feet. - Labs CBC & Chem 7: 09/30/22 22:53 09/30/22 22:53 Labs: Abnormal Lab Results - Last 24 Hours (Table) 09/28/22 Range/Units 06:01 Chloride 111 H (98-107) mmol/L BUN 21 H (9-20) mg/dL Creatinine 1.79 H (0.66-1.25) mg/dL Glucose 144 H (74-99) mg/dL Assessment and Plan (1) Pneumonia Current Visit: Yes Status: Acute Code(s): J18.9 - PNEUMONIA, UNSPECIFIED ORGANISM SNOMED Code(s): 076878860 Plan: 1patient presented to hospital after the patient has been found on the floor that this patient has been complaining of generalized weakness to have a mild cough not bring up any sputum and episode of vomiting concerning for possible aspiration pneumonia patient abdominal was soft on clinical examination urine has been negative and no evidence of any cellulitis. 2The patient fever has resolved and the white count has normalized 3patient has shown clinical improvement and will continue with Zosyn finishing therapy with oral Augmentin Time with Patient: Less than 30
--- NOTE | 2022-10-01 00:03 | P.PN ---
Subjective Progress Note Date: 09/29/22 Principal diagnosis: Pneumonia Patient is a 61-year-old male with a past medical history significant for developmental delay presenting to the ER after the patient was found to be on the floor did have episodes of vomiting coffee-ground emesis, chest x-ray with bilateral lower lobe pneumonia concerning for possible aspiration. On today's evaluation that is 09/29/2022 the patient remains to be afebrile, patient is breathing comfortably on nasal cannula oxygen , the patient denies any chest pain shortness of breath, did have occasional dry cough no nausea no vomiting no abdominal pain no diarrhea Objective - Vital Signs Vital signs: Vital Signs Temp 98.0 F 09/29/22 12:19 Pulse 93 09/29/22 12:19 Resp 18 09/29/22 12:19 BP 132/79 09/29/22 12:19 Pulse Ox 100 09/29/22 12:19 FiO2 Intake & Output 09/28/22 09/29/22 09/29/22 18:59 06:59 18:59 Intake Total 1400 1250 1311 Output Total 1200 550 Balance 1400 50 761 Weight 136.078 kg Intake: IV 1400 1250 Dextrose 5% in Water 1, 1200 1200 000 ml @ 100 mls/hr IV . Q10H [facility] Rx#:[id number] Zosyn 200 50 Oral 1311 Output: Urine 1200 550 Other: Voiding Method External Catheter External Catheter External Catheter # Bowel Movements 1 - Exam GENERAL DESCRIPTION: Middle-aged male up in the chair, no distress. No tachypnea or accessory muscle of respiration use. LUNGS: Unlabored breathing. Decreased breath sound at the base HEART: S1, S2, regular rate and rhythm. No loud murmur ABDOMEN: Soft, no tenderness , guarding or rigidity, no organomegaly EXTREMITIES: No edema of feet. - Labs CBC & Chem 7: 09/30/22 22:53 09/30/22 22:53 Assessment and Plan (1) Pneumonia Current Visit: Yes Status: Acute Code(s): J18.9 - PNEUMONIA, UNSPECIFIED ORGANISM SNOMED Code(s): 384164154 Plan: 1patient presented to hospital after the patient has been found on the floor that this patient has been complaining of generalized weakness to have a mild cough not bring up any sputum and episode of vomiting concerning for possible aspiration pneumonia patient abdominal was soft on clinical examination urine garcia s been negative and no evidence of any cellulitis. 2The patient fever has resolved and the white count has normalized 3patient has shown clinical improvement and antibiotic has been switched over t o oral Augmentin and continue supportive care
--- NOTE | 2022-10-01 00:05 | P.PN ---
Subjective Progress Note Date: 09/30/22 Principal diagnosis: Pneumonia Patient is a 61-year-old male with a past medical history significant for developmental delay presenting to the ER after the patient was found to be on the floor did have episodes of vomiting coffee-ground emesis, chest x-ray with bilateral lower lobe pneumonia concerning for possible aspiration. On today's evaluation that is 09/30/2022 the patient continues to be afebrile, patient is breathing comfortably on 4 L nasal cannula oxygen , the patient denies any chest pain shortness of breath, the patient did have occasional dry cough. Denies nausea no vomiting no abdominal pain no diarrhea has been tolerating his diet Objective - Vital Signs Vital signs: Vital Signs Temp 98.7 F 09/30/22 12:37 Pulse 90 09/30/22 12:37 Resp 16 09/30/22 12:37 BP 152/81 09/30/22 12:37 Pulse Ox 99 09/30/22 12:37 FiO2 Intake & Output 09/29/22 09/30/22 09/30/22 18:59 06:59 18:59 Intake Total 2361 Output Total 1999 1300 Balance 361 -1300 Weight 136.078 kg Intake: IV 1050 Dextrose 5% in Water 1, 1000 000 ml @ 75 mls/hr IV . [id number] [facility] Rx#:[id number] Zosyn 50 Oral 1311 Output: Urine 1999 1300 Other: Voiding Method External Catheter External Catheter - Exam GENERAL DESCRIPTION: Middle-aged male up in the chair, no distress. No tachypnea or accessory muscle of respiration use. LUNGS: Unlabored breathing. Decreased breath sound at the base HEART: S1, S2, regular rate and rhythm. No loud murmur ABDOMEN: Soft, no tenderness , guarding or rigidity, no organomegaly EXTREMITIES: No edema of feet. - Labs CBC & Chem 7: 09/30/22 22:53 09/30/22 22:53 Assessment and Plan (1) Pneumonia Current Visit: Yes Status: Acute Code(s): J18.9 - PNEUMONIA, UNSPECIFIED ORGANISM SNOMED Code(s): 723226452 Plan: 1patient presented to hospital after the patient has been found on the floor that this patient has been complaining of generalized weakness to have a mild cough not bring up any sputum and episode of vomiting concerning for possible aspiration pneumonia patient abdominal was soft on clinical examination urine has been negative and no evidence of any cellulitis. 2The patient fever has resolved and the white count has normalized which has been 5000 this morning 3patient has shown clinical improvement and patient will continue with a short course of oral Augmentin and monitor clinical course closely Time with Patient: Less than 30
[2022-10-01] MEDS: DEXTROSE 5% IN WATER 1,000 ML IV SCH ×3 (00:10→23:21)
[2022-10-01 06:55] LABS: African American GFR (CKD) 39 (>60 ml/min/1.73 sqM); Anion Gap 6 mmol/L; Blood Urea Nitrogen 25 mg/dL (9-20); Calcium 8.6 mg/dL (8.4-10.2); Carbon Dioxide 31 mmol/L (22-30); Chloride 109 mmol/L (98-107); Glucose 116 mg/dL (74-99); Non-African American GFR(CKD) 34 (>60 ml/min/1.73 sqM); Potassium 4.2 mmol/L (3.5-5.1); Sodium 146 mmol/L (137-145)
[2022-10-01 06:56] LABS: Anisocytosis Slight; Basophils % (A) 0 %; Eosinophils % (A) 0 %; HCT 29.6 % (39.0-53.0); HGB 9.9 gm/dL (13.0-17.5); Hypochromasia Slight; Lymphocytes # (A) 0.5 k/uL (1.0-4.8); Lymphocytes % (A) 8 %; MCH 29.9 pg (25.0-35.0); MCHC 33.6 g/dL (31.0-37.0); Monocytes # (A) 0.3 k/uL (0-1.0); Monocytes % (A) 5 %; Neutrophils # (A) 4.7 k/uL (1.3-7.7); Neutrophils % (A) 84 %; Platelet Count 131 k/uL (150-450); Poikilocytosis Slight; RBC 3.32 m/uL (4.30-5.90); RDW 16.7 % (11.5-15.5); WBC 5.6 k/uL (3.8-10.6)
[2022-10-01] MEDS: polyethylene glycoL 3350 17 GM POWD.PACK PO SCH (09:58)
[2022-10-01] MEDS: PSYLLIUM HUSK 100% 6 GM PACKET PO SCH (09:58)
[2022-10-01] MEDS: HEPARIN SODIUM,PORCINE/PF 5,000 UNIT/0.5 ML SYRINGE SQ SCH ×2 (09:58→22:40)
[2022-10-01] MEDS: AMOXIC-POT CLAV 875-125MG 1 EACH TAB PO SCH (09:58)
--- NOTE | 2022-10-01 19:38 | P.PN ---
Progress Note - Text Progress Note Date: 10/01/22 Presenting complaint: Pneumonia. Abdomen distention Hospital course: I'm rounding for Dr. Emmett Decker Patient bit of bilateral aspiration pneumonia, and IV Zosyn, acute rhabdomyolysis, ileus. 09/25/2022: Passed flatus. Abdomen less distended. Advanced by surgery to full liquids. Tired. Breathing stable. In bed. 09/26/2022: In a recliner. Tired. Some abdominal distention. Doesn't remember having a BM. Reviewed abdominal x-ray. That showed small bowel distention. 09/27/2022: . No BM. On full liquid diet. Being followed by surgery. 09/28/2022: On recliner.. Liquid diet. No abdominal tenderness. Tired. Oral intake 50-75%. 09/29/2022: Last night manual significant size BM evacuation. Advanced to ground diet. Up in a recliner. Oral intake better. 09/30/2022: Spoke to the patient's aide. Aide well. Unknown about bowel movement. We'll see how patient does. In a recliner. 10/01/2022: Spoke to the nurse. Patient eating well. Had a bowel movement. DC to [facility] tomorrow Active Medications Amoxicillin/Clavulanate Potassium (Amoxic-Pot Clav 875-125mg 1 Each Tab) 1 each PO DAILY [facility]; Protocol Last Admin: 10/01/22 09:58 Dose: 1 each Clozapine (Clozapine 100 Mg Tab) 200 mg PO HS [facility] Stop: 10/04/22 23:00 Last Admin: 09/30/22 20:44 Dose: 200 mg Heparin Sodium (Porcine) (Heparin Sodium,Porcine/Pf 5,000 Unit/0.5 Ml Syringe) 5,000 unit SQ Q12HR [facility] Last Admin: 10/01/22 09:58 Dose: 5,000 unit Dextrose/Water (Dextrose 5%-Water Iv Soln) 1,000 mls @ 75 mls/hr IV .[id number] [facility] Last Admin: 10/01/22 16:05 Dose: 75 mls/hr Naloxone HCl (Naloxone 0.4 Mg/Ml 1 Ml Vial) 0.2 mg IV Q2M PRN PRN Reason: Opioid Reversal Ondansetron HCl (Ondansetron 4 Mg/2 Ml Vial) 4 mg IVP Q8HR PRN PRN Reason: Nausea And Vomiting Polyethylene Glycol (Polyethylene Glycol 3350 17 Gm Powd.Pack) 17 gm PO DAILY [facility] Last Admin: 10/01/22 09:58 Dose: 17 gm Psyllium Hydrophilic Mucilloid (Psyllium Husk 100% 6 Gm Packet) 6 gm PO DAILY [facility] Last Admin: 10/01/22 09:58 Dose: 6 gm On examination: VITAL SIGNS: 98.7, 92, 16, 1 47 x 84, 98% on 4 L GENERAL APPEARANCE: Sitting up in a recliner, awake HEENT: Normal external appearance of nose and ear. Oral cavity normal EYES: Pupils equal. Conjunctiva normal. NECK: JVD not raised. Mass not palpable. RESPIRATORY: Respiratory effort increased. Decreased breath sounds CARDIOVASCULAR: First and second sounds normal. No edema. ABDOMEN: Soft. Mildly distended, nontender Liver and spleen not palpable. No mass palpable. Bowel sounds sluggish PSYCHIATRY: Able to answers occasional simple questions. INVESTIGATIONS, reviewed in the clinical context: 09/28/2022: Creatinine 1.79 09/27/2022: White count 5.1 hemoglobin 9.9 platelets 105 Abdominal x-ray [September 26] small bowel distended White count 7.9 hemoglobin 11.4 platelets 119 sodium 142 potassium 4.1 creatinine 1.3 total bilirubin 1.5 AST 78 Assessment and plan: -Aspiration pneumonia, suspect gram-negative organism: Better IV Zosyn-changed to by mouth Augmentin -Acute ileus,: Clinically better Changed to ground diet. Being followed by surgery. -Cognitive impairment from developmental delay -Thrombocytopenia likely from infection Follow CBC -Hypernatremia from free water deficit: Better D5W -Chronically developmentally delayed On Clozaril -Disposition: [facility] Continue current medications. Looking to discharge to [facility] tomorrow
[2022-10-01] MEDS: cloZAPine 100 MG TAB PO SCH (23:18)
[2022-10-02] MEDS: LACTULOSE 20 GM/30 ML CUP PO SCH (08:54)
[2022-10-02] MEDS: PSYLLIUM HUSK 100% 6 GM PACKET PO SCH (08:55)
[2022-10-02] MEDS: AMOXIC-POT CLAV 875-125MG 1 EACH TAB PO SCH (08:55)
[2022-10-02] MEDS: HEPARIN SODIUM,PORCINE/PF 5,000 UNIT/0.5 ML SYRINGE SQ SCH ×2 (08:55→20:55)
[2022-10-02] MEDS: DEXTROSE 5% IN WATER 1,000 ML IV SCH (16:23)
[2022-10-02] MEDS: cloZAPine 100 MG TAB PO SCH (20:54)
[2022-10-03] MEDS: DEXTROSE 5% IN WATER 1,000 ML IV SCH (05:32)
[2022-10-03] MEDS: HEPARIN SODIUM,PORCINE/PF 5,000 UNIT/0.5 ML SYRINGE SQ SCH ×2 (08:03→20:10)
[2022-10-03] MEDS: PSYLLIUM HUSK 100% 6 GM PACKET PO SCH (08:03)
[2022-10-03] MEDS: LACTULOSE 20 GM/30 ML CUP PO SCH (08:04)
[2022-10-03] MEDS: AMOXIC-POT CLAV 875-125MG 1 EACH TAB PO SCH (08:04)
--- NOTE | 2022-10-03 14:27 | P.PN ---
Subjective Progress Note Date: 10/03/22 Principal diagnosis: Bilateral aspiration pneumonia, on broad-spectrum antibiotics with IV Zosyn Abdominal distention with dilated gastric and small bowel surgery following being treated with conservative care Acute rhabdomyolysis due to fall Possible sepsis with leukocytosis Developed mentally delayed 10/02/2022, patient seen eval reexamined as a follow-up respiratory status stable patient responding in 1-2 sentences, afebrile temperature 90.8, hemodynamically stable, on room air saturation is 98%, patient is off of Zosyn on oral Augmentin tolerating well, continued to be gently rehydrated he remains on DVT peptic ulcer disease prophylaxis, labs reviewed white cell count normal, hemoglobin hematocrit is 9.9/29.6, platelet count 131, other labs reviewed sodium is 146, CO2 is 31, BUN/creatinine is 25/2.04 slightly up 09/24/2022, patient seen eval examined during the rounds labs reviewed medications reviewed, patient respond with one word, respiratory status marginal get short of breath activity and exertion, patient is gently being rehydrated, oxygen saturation is 92% on 3 L nasal cannula, down from 4 L, labs from today is pending , surgery following gastric output NG, likely will be removed later on today and patient will be started by mouth discussion with the RN revealed that patient can't swallow well will hold on swallow evaluation as patient able to do bedside swallow 09/23/2022, patient seen eval examined during rounds labs reviewed medications reviewed And discussed, patient mostly nonverbal but does respond however with single word responses, Chantelle output continued decline, T-max is 90) 4 hemodynamic stable saturation 93%. Sodium has been starting to trend back down today however is still elevated 155 with chloride of 122 BUN/creatinine 33/1.3 09/22/2022 patient seen eval examined awake and alert on supplemental oxygen, is present at bedside, NG tube aspirate dark but proximal tubing is clear, general surgery following patient still low intermittent suction, patient is hyponatremic has been on D5 which have been escalated 100 mL an hour, magnesium slightly elevated phosphorous normal, patient was 3.8, BUN/creatinine stable 37/1.49, patient remains on Zithromax, DVT prophylaxis and PPI along with Zosyn, last chest x-ray performed earlier this morning compared with prior x-ray of the right remains stable, the NG tube with the distal esophagus which has been advanced by RN, 09/21/2022, patient seen eval examined during the rounds labs reviewed medications reviewed, patient is awake on supplemental oxygen, patient is still have NG tube with low intermittent suction, some gurgling and upper airway has been noted, hemodynamic status however remains stable, current temperature 99.5, blood pressure is 137/77, respiratory 16, she is on 2 L oxygen saturation is sent, labs from today reviewed white cell count 11.4, hemoglobin hematocrit 11/35, chemistry reviewed BUN/creatinine 38/1.48, potassium 3.7 sodium up to 1 55, which is up from 149 yesterday, BUN/creatinine fluctuating lower remained stable patient remains nothing by mouth, remains on Zosyn every 8 hourly and IV fluid normal saline 09/20/2022, patient seen eval examined during rounds labs reviewed medications reviewed she has been evaluated by surgery considered for conservative care for gastric dilatation likely some component of gastroparesis, patient overall hemodynamically stable, now on room air breathing comfortably, remains afebrile T-max was 100.4 now 98.2, hemodynamic is stable with blood pressure 116/88 oxygen saturation is 94% room air, labs are not done today Patient is a 61-year-old male with a past medical history significant for developmental delay learning disability multiple skin cancers has been brought into the ER after the patient was noticed to be on the ground. Data mostly obtained from the chart as patient unable to give any detailed history, apparently the patient gets up around 7 and makes his breakfast however the patient did not get up that morning, family went to check on him around noon the patient was on the floor patient last seen approximately 1 in the morning and seems to be doing okay patient been feeling lethargic and not as active as the patient normally is patient recently being treated for bilateral conjunctivitis patient also have a mild cough. Patient is not bringing up any sputum the and denies having any chest pain no significant shortness of breath patient did have an episode of coffee-ground emesis. Patient was evaluated while in the ER per the nursing staff however the patient denies having any abdominal pain or any diarrhea with the symptom the patient has been evaluated by the ER physician on arrival to the ER patient was afebrile he did have low-grade fever of 99.9 F last night patient did have mild hypoxemia and need for supplemental oxygen patient did have white count of 14.2 and was noticed to be mildly anemic BUN/creatinine is mildly elevated liver enzymes are normal urine was negative influenza and COVID testing was negative patient did have a chest x-ray bilateral lower lobe pneumonia mostly on the left side the patient was started on Rocephin and Zithromax pulmonary was consulted for further management of respiratory status and antibiotic therapy , patient currently denies having any pain behind the ear no pain or drainage from his ears workup and evaluation in the emergency department includes a CBC with a rising WBC count of 13.9, stable hemoglobin of 11.1 slight drop likely due to hemodilution, mild hyponatremia with sodium of 149 BUN/creatinine remains stable 38/1.5, total CK is 729 consistent with fall stool for occult blood is negative, influenza A and B as well as COVID-19 and RSV has been negative as well. Radiographic studies including C-spine as well as computed tomography scan of the head negative for fracture or acute changes, chest x-ray bilateral lower lobe infiltrate, computed tomography scan of the chest confirmed presence of pneumonia, computed tomography scan of the abdominal pelvis revealed dilated stomach and proximal small bowel general surgery has been following, repeat chest x-ray earlier this morning noted to have a NG tube and for gastric decompression appears to have distention Objective - Vital Signs Vital signs: Vital Signs Temp 98.5 F 10/03/22 11:08 Pulse 91 10/03/22 11:08 Resp 18 10/03/22 11:08 BP 142/85 10/03/22 11:08 Pulse Ox 98 10/03/22 13:14 FiO2 Intake & Output 10/02/22 10/03/22 10/03/22 18:59 06:59 18:59 Intake Total 3800 120 Output Total 7128 138 6682 Balance 1974 Intake: Intake, IV Titration 900 Amount Dextrose 5% in Water 1, 900 000 ml @ 75 mls/hr IV . [id number] [facility] Rx#:[id number] Oral 2900 120 Output: Urine 8034 653 8104 Other: Voiding Method External Catheter External Catheter External Catheter # Voids 1 2 - Exam - Constitutional General appearance: average body habitus, cooperative, disheveled significantly improved compared to prior exam - EENT Eyes: PERRLA Ears: bilateral: normal - Neck Neck: normal ROM Carotids: bilateral: upstroke normal Thyroid: bilateral: normal size - Respiratory Respiratory: bilateral: diminished, dullness, rales - Cardiovascular Rhythm: regular Heart sounds: normal: S1, S2 - Gastrointestinal General gastrointestinal: decreased bowel sounds - Integumentary Integumentary: normal turgor - Musculoskeletal Musculoskeletal: generalized weakness, strength equal bilaterally - Labs CBC & Chem 7: 10/01/22 06:32 10/01/22 06:32 Assessment and Plan Assessment: Hypernatremia, improved Acute kidney injury, trend renal functions if continued to go worse may need nephrology evaluation Bilateral aspiration pneumonia, on broad-spectrum antibiotics with IV Zosyn now on oral Augmentin since white cell count is improved no fever, will repeat the chest x-ray and likely stop it Abdominal distention with dilated gastric and small bowel surgery following being treated with conservative care, with NG tube responding Acute rhabdomyolysis due to fall, severe CKs have been improving Possible sepsis with leukocytosis, improved Developed mentally delayed Plan: We'll continue D5 75 mL an hour, however as per sodium and by mouth intake we'll decrease it Continue broad-spectrum antibiotics, follow-up on chest x-ray and consider stopping it Monitor on supplemental oxygen, his sats are more than 95% on room air and DC his oxygen DVT prophylaxis with heparin subcu and peptic ulcer disease prophylaxis with Protonix 40 mg by mouth daily Deep breathing exercise incentive spirometry Continue and monitor and practice aspiration precautions, Further recommendations pending plan of care as per clinical response of the patient Time with Patient: Greater than 30
--- NOTE | 2022-10-03 14:46 | CDI ---
Documentation Clarification Form Date: 10/04/2022 02:33:59 PM From: Susu Branch CCS, CCDS Admit Date: 09/17/2022 05:40:00 PM Patient Name: Marques Herman Visit Number: [id number] Discharge Date: ATTENTION: The Clinical Documentation Specialists (CDI) and [facility] Coding Staff appreciate your assistance in clarifying documentation. Please respond to the clarification below the line at the bottom and electronically sign. The CDI & [facility] Coding staff will review the response and follow-up if needed. Please note: Queries are made part of the Legal Health Record. If you have any questions, please contact the author of this message via ITS. Dr. Marques Bustamante: Mild absolute anemia is documented in the 09/20 Surgery Consult and subsequent Progress Note 09/21 without further specificity. Additional specificity regarding the Type & Acuity of Anemia is requested. History/Risk Factors per the 09/19 H/P: Mental disability, Cardiomyopathy. Clinical indicators: Presented to the ED on 09/17 via EMS with Altered Mental Status. Admit with Pneumonia. Hemoglobin 09/17: 4.8, 12.2. 09/18: 12.6. 09/19: 11.1. 09/21: 11.2. 09/23: 11.3. 09/24: 10.5. 09/25: 11.4. 09/26: 11.0. 09/27: 9.9. 09/30: 9.3. 10/01: 9.9. Hematocrit 09/17: 14.3, 36.8. 09/18: 36.8. 09/19: 34.1. 09/21: 35.1. 09/23: 35.5. 09/24: 34.3. 09/25: 34.4. 09/26: 32.1. 09/27: 29.4. 09/30: 28.2. 10/01: 29.6. Treatment 09/17: Typed/Crossed: no transfusion, IV Na Chl 1,000 mls @ 999 mls/hr q1H, IV Zofran 4 mg q8H/prn, IV Rocephin 1 mg x1, IV Azithromycin 250 mls @ 250 mls/hr 24H. Home meds: Clozapine ODT, Augmentin. Please clarify the Type & Acuity of Anemia if known: [ ] Acute blood loss anemia [ ] Acute on chronic blood loss anemia [ ] Chronic blood loss anemia [ ] Hemolytic anemia [ ] Drug induced anemia [ ] Anemia due to chronic disease [x ] Unable to determine [ ] Other, please specify (Template Last Revised: December 2020) MTDD
--- NOTE | 2022-10-03 17:36 | XR ---
EXAMINATION TYPE: XR chest 1V DATE OF EXAM: 10/03/2022 COMPARISON: 09/22/2022 HISTORY: Pneumonia TECHNIQUE: Single view FINDINGS: There is some coarse linear density in the right lung. There is poor inspiration and elevat ion of the diaphragms. No heart failure seen. Bony thorax is intact. IMPRESSION: There is some patchy atelectasis at the lung bases also present on old exam. No heart genoveva lure. Small pleural effusions are also possible.
[2022-10-03] MEDS: cloZAPine 100 MG TAB PO SCH (20:10)
[2022-10-03 20:26] VITALS: RESP 16
--- NOTE | 2022-10-04 04:12 | DS ---
DISCHARGE SUMMARY DISCHARGE DIAGNOSES: 1. Aspiration pneumonia. 2. Rhabdomyolysis. 3. Community-acquired aspiration pneumonia. 4. Chronically developmental delay, is on Clozaril. 5. Thrombocytopenia secondary to infection. 6. Cognitive impairment with developmental delay. 7. Acute ileus, improved. MEDICATIONS: As mentioned above, 1. Augmentin 875 b.i.d. for 10 days. 2. Clozaril 200 mg at night. CONDITION: Stable. PROGNOSIS: Guarded. Ambulate as tolerated. Follow up with Dr. Guzman. The patient was admitted with aspiration pneumonia bilaterally, treated with IV antibiotics for multiple days and ileus with n.p.o., NG tube for multiple days, weaned off the NG tube, tolerated oral foods the last day prior to discharge. He will take constipation pills p.r.n. [facility], otherwise stayed on his Augmentin and Clozaril and should do well. PT, OT will be needed as he is mostly bed-bound here in the hospital. Diet as tolerated. Condition stable. Prognosis guarded. MMCLARISSAL / LYDIAN: [id number] /
[2022-10-04 05:47] LABS: WBC 4.1 k/uL (3.8-10.6)
[2022-10-04 05:48] LABS: Basophils % (A) 0 %; Eosinophils % (A) 0 %; HCT 30.7 % (39.0-53.0); HGB 10.2 gm/dL (13.0-17.5); Hypochromasia Slight; Lymphocytes # (A) 0.6 k/uL (1.0-4.8); Lymphocytes % (A) 15 %; MCH 29.6 pg (25.0-35.0); MCHC 33.3 g/dL (31.0-37.0); MCV 88.9 fL (80.0-100.0); Mean Platelet Volume 9.2; Monocytes # (A) 0.3 k/uL (0-1.0); Monocytes % (A) 6 %; Neutrophils # (A) 3.1 k/uL (1.3-7.7); Neutrophils % (A) 76 %; Platelet Count 151 k/uL (150-450); Poikilocytosis Slight; RBC 3.45 m/uL (4.30-5.90); RDW 15.5 % (11.5-15.5)
--- NOTE | 2022-10-04 07:28 | PN ---
PROGRESS NOTE DATE OF SERVICE: 10/02/2022 SUBJECTIVE: A 61-year-old, dehydration, lethargy with ileus, small-bowel obstruction, and aspiration pneumonia. He is much improved. He is talking, given better answers. He is breathing better on room air. He is tolerating oral intake. Antibiotics discussed for possible discharge home tomorrow. OBJECTIVE: LUNGS: Clear. CARDIOVASCULAR : S1, S2. ABDOMEN: Soft, nontender. PSYCH: He is pleasantly confused. ASSESSMENT: Dehydration, lethargy, status post bowel obstruction, aspiration pneumonia. Continue Augmentin and transfer to possible intermediate placement for chronic fatigue and weakness. MMODL / IJN: [id number] /
[2022-10-04] MEDS: LACTULOSE 20 GM/30 ML CUP PO SCH (10:58)
[2022-10-04] MEDS: AMOXIC-POT CLAV 875-125MG 1 EACH TAB PO SCH (10:58)
[2022-10-04] MEDS: HEPARIN SODIUM,PORCINE/PF 5,000 UNIT/0.5 ML SYRINGE SQ SCH ×2 (10:58→21:53)
[2022-10-04] MEDS: PSYLLIUM HUSK 100% 6 GM PACKET PO SCH (10:59)
[2022-10-04] MEDS: cloZAPine 100 MG TAB PO SCH (21:53)
--- NOTE | 2022-10-05 03:40 | PN ---
PROGRESS NOTE DATE OF SERVICE: 10/03/2022 A 61-year-old white male, dehydration, lethargy, ileus, small bowel obstruction, aspiration pneumonia. He is on antibiotics, rehydration, oral diet, infusion. Family wants physical therapy in town. We are going to discharge him home soon. He is on a regular diet. He continues on IV antibiotics. Prognosis guarded. MMRENETTA / GUY: [id number] /
[2022-10-05 05:16] VITALS: BP 143/83; PULSE 83; TEMP 98.5
--- NOTE | 2022-10-05 06:47 | PN ---
PROGRESS NOTE SUBJECTIVE: A 61-year-old white male who has a bowel obstruction, aspiration pneumonia is much better. Waiting for rehab placement on him. He is on Augmentin and Clozaril. Could be discharged to rehab center tomorrow. He is alert and oriented. He is just slow to respond. OBJECTIVE: CARDIOVASCULAR: S1, S2. LUNGS: Clear. ABDOMEN: Soft. PLAN: Discharge to rehab center tomorrow. Condition stable. Prognosis guarded. Please see further orders. MMODL / IJN: [id number] /
[2022-10-05] MEDS: AMOXIC-POT CLAV 875-125MG 1 EACH TAB PO SCH (08:10)
[2022-10-05] MEDS: HEPARIN SODIUM,PORCINE/PF 5,000 UNIT/0.5 ML SYRINGE SQ SCH (08:11)
[2022-10-05] MEDS: PSYLLIUM HUSK 100% 6 GM PACKET PO SCH (08:11)
[2022-10-05] MEDS: LACTULOSE 20 GM/30 ML CUP PO SCH (08:11)
--- NOTE | 2022-10-05 09:25 | P.PN ---
Subjective Progress Note Date: 10/05/22 Principal diagnosis: Bilateral aspiration pneumonia, on broad-spectrum antibiotics with IV Zosyn Abdominal distention with dilated gastric and small bowel surgery following being treated with conservative care Acute rhabdomyolysis due to fall Possible sepsis with leukocytosis Developed mentally delayed 10/04/2022, patient seen and evaluated examined patient able to on Cerner questions in simple terms, some cough is present with shortness of breath denies any chest pain, breathing more comfortably, T-max is 98, blood pressure is 143/50, saturations 96% on room air, and labs from today reviewed hemoglobin and hematocrit is 10.2/30.7, white cell count 4.1 patient remains on the Augmentin one tablet by mouth 2 times a day along with subcu heparin patient has been tolerating by mouth fairly well 10/03/2022, patient seen eval reexamined as a follow-up respiratory status stable patient responding in 1-2 sentences, afebrile temperature 90.8, hemodynamically stable, on room air saturation is 98%, patient is off of Zosyn on oral Augmentin tolerating well, continued to be gently rehydrated he remains on DVT peptic ulcer disease prophylaxis, labs reviewed white cell count normal, hemoglobin hematocrit is 9.9/29.6, platelet count 131, other labs reviewed sodium is 146, CO2 is 31, BUN/creatinine is 25/2.04 slightly up 09/24/2022, patient seen eval examined during the rounds labs reviewed medications reviewed, patient respond with one word, respiratory status marginal get short of breath activity and exertion, patient is gently being rehydrated, oxygen saturation is 92% on 3 L nasal cannula, down from 4 L, labs from today is pending , surgery following gastric output NG, likely will be removed later on today and patient will be started by mouth discussion with the RN revealed that patient can't swallow well will hold on swallow evaluation as patient able to do bedside swallow 09/23/2022, patient seen eval examined during rounds labs reviewed medications reviewed And discussed, patient mostly nonverbal but does respond however with single word responses, Chantelle output continued decline, T-max is 90) 4 hemodynamic stable saturation 93%. Sodium has been starting to trend back down today however is still elevated 155 with chloride of 122 BUN/creatinine 33/1.3 09/22/2022 patient seen eval examined awake and alert on supplemental oxygen, is present at bedside, NG tube aspirate dark but proximal tubing is clear, general surgery following patient still low intermittent suction, patient is hyponatremic has been on D5 which have been escalated 100 mL an hour, magnesium slightly elevated phosphorous normal, patient was 3.8, BUN/creatinine stable 37/1.49, patient remains on Zithromax, DVT prophylaxis and PPI along with Zosyn, last chest x-ray performed earlier this morning compared with prior x-ray of the right remains stable, the NG tube with the distal esophagus which has been advanced by RN, 09/21/2022, patient seen eval examined during the rounds labs reviewed medications reviewed, patient is awake on supplemental oxygen, patient is still have NG tube with low intermittent suction, some gurgling and upper airway has been noted, hemodynamic status however remains stable, current temperature 99.5, blood pressure is 137/77, respiratory 16, she is on 2 L oxygen saturation is sent, labs from today reviewed white cell count 11.4, hemoglobin hematocrit 11/35, chemistry reviewed BUN/creatinine 38/1.48, potassium 3.7 sodium up to 15 5, which is up from 149 yesterday, BUN/creatinine fluctuating lower remained stable patient remains nothing by mouth, remains on Zosyn every 8 hourly and IV fluid normal saline 09/20/2022, patient seen eval examined during rounds labs reviewed medications reviewed she has been evaluated by surgery considered for conservative care for gastric dilatation likely some component of gastroparesis, patient overall hemodynamically stable, now on room air breathing comfortably, remains afebrile T-max was 100.4 now 98.2, hemodynamic is stable with blood pressure 116/88 oxygen saturation is 94% room air, labs are not done today Patient is a 61-year-old male with a past medical history significant for developmental delay learning disability multiple skin cancers has been brought into the ER after the patient was noticed to be on the ground. Data mostly obtained from the chart as patient unable to give any detailed history, apparently the patient gets up around 7 and makes his breakfast however the patient did not get up that morning, family went to check on him around noon the patient was on the floor patient last seen approximately 1 in the morning and seems to be doing okay patient been feeling lethargic and not as active as the patient normally is patient recently being treated for bilateral conjunctivitis patient also have a mild cough. Patient is not bringing up any sputum the and denies having any chest pain no significant shortness of breath patient did have an episode of coffee-ground emesis. Patient was evaluated while in the ER per the nursing staff however the patient denies having any abdominal pain or any diarrhea with the symptom the patient has been evaluated by the ER physician on arrival to the ER patient was afebrile he did have low-grade fever of 99.9 F last night patient did have mild hypoxemia and need for supplemental oxygen patient did have white count of 14.2 and was noticed to be mildly anemic BUN/creatinine is mildly elevated liver enzymes are normal urine was negative influenza and COVID testing was negative patient did have a chest x-ray bilateral lower lobe pneumonia mostly on the left side the patient was started on Rocephin and Zithromax pulmonary was consulted for further management of respiratory status and antibiotic therapy , patient currently denies having any pain behind the ear no pain or drainage from his ears workup and evaluation in the emergency department includes a CBC with a rising WBC count of 13.9, stable hemoglobin of 11.1 slight drop likely due to hemodilution, mild hyponatremia with sodium of 149 BUN/creatinine remains stable 38/1.5, total CK is 729 consistent with fall stool for occult blood is negative, influenza A and B as well as COVID-19 and RSV has been negative as well. Radiographic studies including C-spine as well as computed tomography scan of the head negative for fracture or acute changes, chest x-ray bilateral lower lobe infiltrate, computed tomography scan of the chest confirmed presence of pneumonia, computed tomography scan of the abdominal pelvis revealed dilated stomach and proximal small bowel general surgery has been following, repeat chest x-ray earlier this morning noted to have a NG tube and for gastric decompression appears to have distention Objective - Vital Signs Vital signs: Vital Signs Temp 98.5 F 10/05/22 05:00 Pulse 83 10/05/22 05:00 Resp 16 10/05/22 05:00 BP 143/83 10/05/22 05:00 Pulse Ox 96 10/05/22 05:00 FiO2 Intake & Output 10/04/22 10/05/22 10/05/22 18:59 06:59 18:59 Intake Total 590 Output Total 1000 1200 Balance -1000 -610 Intake: Oral 590 Output: Urine 1000 1200 Other: Voiding Method External Catheter External Catheter External Catheter - Exam - Constitutional General appearance: average body habitus, cooperative, disheveled significantly improved compared to prior exam - EENT Eyes: PERRLA Ears: bilateral: normal - Neck Neck: normal ROM Carotids: bilateral: upstroke normal Thyroid: bilateral: normal size - Respiratory Respiratory: bilateral: diminished, dullness, rales - Cardiovascular Rhythm: regular Heart sounds: normal: S1, S2 - Gastrointestinal General gastrointestinal: decreased bowel sounds - Integumentary Integumentary: normal turgor - Musculoskeletal Musculoskeletal: generalized weakness, strength equal bilaterally - Labs CBC & Chem 7: 10/04/22 04:36 10/01/22 06:32 Assessment and Plan Assessment: Hypernatremia, improved Acute kidney injury, trend renal functions if continued to go worse may need nephrology evaluation Bilateral aspiration pneumonia, on broad-spectrum antibiotics with IV Zosyn now on oral Augmentin since white cell count is improved no fever, repeat x-rays reviewed some patchy infiltrate is still present we'll continue oral Augmentin Abdominal distention with dilated gastric and small bowel surgery following being treated with conservative care, patient is tolerating by mouth well Acute rhabdomyolysis due to fall, severe CKs have been improving Possible sepsis with leukocytosis, improved Developed mentally delayed Plan: We'll continue D5 75 mL an hour, however as per sodium and by mouth intake we'll decrease it Continue broad-spectrum antibiotics, follow-up on chest x-ray and consider stopping it Monitor on supplemental oxygen, his sats are more than 95% on room air and DC his oxygen DVT prophylaxis with heparin subcu and peptic ulcer disease prophylaxis with Protonix 40 mg by mouth daily Deep breathing exercise incentive spirometry Continue and monitor and practice aspiration precautions, Further recommendations pending plan of care as per clinical response of the patient Time with Patient: Greater than 30
--- NOTE | 2022-10-05 09:28 | P.PN ---
Subjective Progress Note Date: 10/04/22 Principal diagnosis: Bilateral aspiration pneumonia, on broad-spectrum antibiotics with IV Zosyn Abdominal distention with dilated gastric and small bowel surgery following being treated with conservative care Acute rhabdomyolysis due to fall Possible sepsis with leukocytosis Developed mentally delayed 10/04/2022, patient seen and evaluated examined patient able to on Cerner questions in simple terms, some cough is present with shortness of breath denies any chest pain, breathing more comfortably, T-max is 98, blood pressure is 143/50, saturations 96% on room air, and labs from today reviewed hemoglobin and hematocrit is 10.2/30.7, white cell count 4.1 patient remains on the Augmentin one tablet by mouth 2 times a day along with subcu heparin patient has been tole rating by mouth fairly well 10/03/2022, patient seen eval reexamined as a follow-up respiratory status stable patient responding in 1-2 sentences, afebrile temperature 90.8, hemodynamically stable, on room air saturation is 98%, patient is off of Zosyn on oral Augmentin tolerating well, continued to be gently rehydrated he remains on DVT peptic ulcer disease prophylaxis, labs reviewed white cell count normal, hemoglobin hematocrit is 9.9/29.6, platelet count 131, other labs reviewed sodium is 146, CO2 is 31, BUN/creatinine is 25/2.04 slightly up 09/24/2022, patient seen eval examined during the rounds labs reviewed medications reviewed, patient respond with one word, respiratory status marginal get short of breath activity and exertion, patient is gently being rehydrated, oxygen saturation is 92% on 3 L nasal cannula, down from 4 L, labs from today is pending , surgery following gastric output NG, likely will be removed later on today and patient will be started by mouth discussion with the RN revealed that patient can't swallow well will hold on swallow evaluation as patient able to do bedside swallow 09/23/2022, patient seen eval examined during rounds labs reviewed medications reviewed And discussed, patient mostly nonverbal but does respond however with single word responses, Chantelle output continued decline, T-max is 90) 4 hemodynamic stable saturation 93%. Sodium has been starting to trend back down today however is still elevated 155 with chloride of 122 BUN/creatinine 33/1.3 09/22/2022 patient seen eval examined awake and alert on supplemental oxygen, is present at bedside, NG tube aspirate dark but proximal tubing is clear, general surgery following patient still low intermittent suction, patient is hyponatremic has been on D5 which have been escalated 100 mL an hour, magnesium slightly elevated phosphorous normal, patient was 3.8, BUN/creatinine stable 37/1.49, patient remains on Zithromax, DVT prophylaxis and PPI along with Zosyn, last chest x-ray performed earlier this morning compared with prior x-ray of the right remains stable, the NG tube with the distal esophagus which has been advanced by RN, 09/21/2022, patient seen eval examined during the rounds labs reviewed medications reviewed, patient is awake on supplemental oxygen, patient is still have NG tube with low intermittent suction, some gurgling and upper airway has been noted, hemodynamic status however remains stable, current temperature 99.5, blood pressure is 137/77, respiratory 16, she is on 2 L oxygen saturation is sent, labs from today reviewed white cell count 11.4, hemoglobin hematocrit 11/35, chemistry reviewed BUN/creatinine 38/1.48, potassium 3.7 sodium up to 1 55, which is up from 149 yesterday, BUN/creatinine fluctuating lower remained stable patient remains nothing by mouth, remains on Zosyn every 8 hourly and IV fluid normal saline 09/20/2022, patient seen eval examined during rounds labs reviewed medications reviewed she has been evaluated by surgery considered for conservative care for gastric dilatation likely some component of gastroparesis, patient overall hemodynamically stable, now on room air breathing comfortably, remains afebrile T-max was 100.4 now 98.2, hemodynamic is stable with blood pressure 116/88 oxygen saturation is 94% room air, labs are not done today Patient is a 61-year-old male with a past medical history significant for developmental delay learning disability multiple skin cancers has been brought into the ER after the patient was noticed to be on the ground. Data mostly obtained from the chart as patient unable to give any detailed history, apparently the patient gets up around 7 and makes his breakfast however the patient did not get up that morning, family went to check on him around noon the patient was on the floor patient last seen approximately 1 in the morning and seems to be doing okay patient been feeling lethargic and not as active as the patient normally is patient recently being treated for bilateral conjunctivitis patient also have a mild cough. Patient is not bringing up any sputum the and denies having any chest pain no significant shortness of breath patient did have an episode of coffee-ground emesis. Patient was evaluated while in the ER per the nursing staff however the patient denies having any abdominal pain or any diarrhea with the symptom the patient has been evaluated by the ER physician on arrival to the ER patient was afebrile he did have low-grade fever of 99.9 F last night patient did have mild hypoxemia and need for supplemental oxygen patient did have white count of 14.2 and was noticed to be mildly anemic BUN/creatinine is mildly elevated liver enzymes are normal urine was negative influenza and COVID testing was negative patient did have a chest x-ray bilateral lower lobe pneumonia mostly on the left side the patient was started on Rocephin and Zithromax pulmonary was consulted for further management of respiratory status and antibiotic therapy , patient currently denies having any pain behind the ear no pain or drainage from his ears workup and evaluation in the emergency department includes a CBC with a rising WBC count of 13.9, stable hemoglobin of 11.1 slight drop likely due to hemodilution, mild hyponatremia with sodium of 149 BUN/creatinine remains stable 38/1.5, total CK is 729 consistent with fall stool for occult blood is negative, influenza A and B as well as COVID-19 and RSV has been negative as well. Radiographic studies including C-spine as well as computed tomography scan of the head negative for fracture or acute changes, chest x-ray bilateral lower lobe infiltrate, computed tomography scan of the chest confirmed presence of pneumonia, computed tomography scan of the abdominal pelvis revealed dilated stomach and proximal small bowel general surgery has been following, repeat chest x-ray earlier this morning noted to have a NG tube and for gastric decompression appears to have distention Objective - Vital Signs Vital signs: Vital Signs Temp 99.0 F 10/04/22 14:47 Pulse 90 10/04/22 14:47 Resp 16 10/04/22 14:47 BP 131/72 10/04/22 14:47 Pulse Ox 96 10/04/22 14:47 FiO2 Intake & Output 10/03/22 10/04/22 10/04/22 18:59 06:59 18:59 Output Total 7884 571 1221 Balance -1350 -700 -1000 Output: Urine 4910 481 7470 Other: Voiding Method External Catheter External Catheter External Catheter # Voids 2 # Bowel Movements 1 - Exam - Constitutional General appearance: average body habitus, cooperative, disheveled significantly improved compared to prior exam - EENT Eyes: PERRLA Ears: bilateral: normal - Neck Neck: normal ROM Carotids: bilateral: upstroke normal Thyroid: bilateral: normal size - Respiratory Respiratory: bilateral: diminished, dullness, rales - Cardiovascular Rhythm: regular Heart sounds: normal: S1, S2 - Gastrointestinal General gastrointestinal: decreased bowel sounds - Integumentary Integumentary: normal turgor - Musculoskeletal Musculoskeletal: generalized weakness, strength equal bilaterally - Labs CBC & Chem 7: 10/04/22 04:36 10/01/22 06:32 Labs: Abnormal Lab Results - Last 24 Hours (Table) 10/04/22 Range/Units 04:36 RBC 3.45 L (4.30-5.90) m/uL Hgb 10.2 L (13.0-17.5) gm/dL Hct 30.7 L (39.0-53.0) % Lymphocytes # 0.6 L (1.0-4.8) k/uL Assessment and Plan Assessment: Hypernatremia, improved Acute kidney injury, trend renal functions if continued to go worse may need nephrology evaluation Bilateral aspiration pneumonia, on broad-spectrum antibiotics with IV Zosyn now on oral Augmentin since white cell count is improved no fever, will repeat the chest x-ray and likely stop it Abdominal distention with dilated gastric and small bowel surgery following being treated with conservative care, with NG tube responding Acute rhabdomyolysis due to fall, severe CKs have been improving Possible sepsis with leukocytosis, improved Developed mentally delayed Plan: We'll continue Augmentin as x-ray still showing patchy infiltrate Monitor on supplemental oxygen, his sats are more than 95% on room air and DC his oxygen DVT prophylaxis with heparin subcu and peptic ulcer disease prophylaxis with Protonix 40 mg by mouth daily Deep breathing exercise incentive spirometry Continue and monitor and practice aspiration precautions, Further recommendations pending plan of care as per clinical response of the patient Time with Patient: Greater than 30
--- NOTE | 2022-10-05 12:24 | P.CONS ---
History of Present Illness - Chief Complaint Gait disturbance, encephalopathy - History of Present Illness I had the opportunity to see patient for inpatient rehab consultation today. Patient admitted to Dr. Emmett Decker September 17 with mental status change and found lying on floor. Seen by Dr. El Zuniga for pneumonia and associated sepsis. Seen by surgery for abdominal distention plan NG tube. Seen by Ilya. Diagnostic tests head CT with atrophy. C-spine CT with hypertrophic change. CT of abdomen and pelvis with dilated stomach. Abdominal x-ray with dilated small bowel loops, gastric bubble and bilateral lower lobe infiltrates and effusions. Chest x-ray demonstrates patchy atelectasis. Has started therapy. PT reports minimal assistance for bed mobility and transfer and superv ision for gait 200 feet with roller walker with one rest. OT reports independent with feeding, supervision for grooming and upper dressing, maximal assistance for lower dressing and toileting and moderate assistance for bathing. Minimal assistance functional ability and transfer. Previous functional history as elicited from patient and chart: 61-year-old right-handed male who lives with sister and mom. Patient has developmental delays. The patient reports that he is independent with dressing and a standup shower and gait without device previously. Review of Systems Review of systems: ENT: Denies sneezes or discharge. Eyes: Denies discharge or photophobia. Cardiac: Denies chest pain or palpitation. Pulmonary: Denies cough or shortness of breath. Gastrointestinal: Denies nausea, emesis, constipation, diarrhea. Genitourinary: Denies discharge or frequency. Musculoskeletal: Denies muscle or bone aches. Neurologic: Developmental delays. Endocrine: Denies shakes or sweats. Oncology: Denies cancers. Dermatologic: Denies rash, itching, pruritus. ALLERGY/immunology: Denies sneezes, rashes. 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 MASS ON POSTERIOR SCALP CURRENTLY. History of Any Multi-Drug Resistant Organisms: None Reported Additional Past Surgical History / Comment(s): RT Hand Surgery. Past Anesthesia/Blood Transfusion Reactions: No Reported Reaction Past Psychological History: Unable to Obtain Past Alcohol Use History: None Reported Past Drug Use History: None Reported - Past Family History Mother Family Medical History: Cancer Medications and Allergies Home Medications Medication Instructions Recorded Confirmed Type cloZAPine [cloZAPine ODT] 200 mg PO HS 09/19/22 09/19/22 History Amoxic-Pot Clav 875-125Mg 1 each PO DAILY 10 Days #20 tab 10/03/22 Rx [Augmentin 875-125] Allergies Allergy/AdvReac Type Severity Reaction Status Date / Time silicone AdvReac Body Verified 09/17/22 14:50 rejected finger implants Physical Exam Vitals: Vital Signs Temp Pulse Resp BP Pulse Ox 10/05/22 05:00 98.5 F 83 16 143/83 96 10/04/22 20:57 98.2 F 80 16 116/71 93 L 10/04/22 20:00 16 10/04/22 14:47 99.0 F 90 16 131/72 96 Intake and Output 10/04/22 10/05/22 10/05/22 22:59 06:59 14:59 Intake Total 590 Output Total 300 1200 Balance -300 -610 Intake: Oral 590 Output: Urine 300 1200 Other: Voiding Method External Catheter External Catheter Skin: Good color, texture, turgor. General: Overweight build and comfortable appearance. Head: Normocephalic, atraumatic. Eyes: Symmetric. Pupils equal round. Ears: Symmetric. Hearing within normal limits. Mouth: Clear. Neck: Supple. Carotid without bruit. Cardiac: Regular rate and rhythm. Lungs: Clear anteriorly and posteriorly. Abdomen: Soft active nontender. Extremities: Normal tone. Neurological: Mental status: Alert, cooperative, slowed mentation. Cranial nerves: Symmetric facial tone and trapezius. Motor: Normal strength and isolation all 4 limbs. Sensation: Intact throughout. DTRs: Symmetric and equal throughout. Mobility: Did not attempt to sit or stand on my own. Results CBC & Chem 7: 10/04/22 04:36 10/01/22 06:32 Assessment and Plan (1) Pneumonia Current Visit: Yes Status: Acute Code(s): J18.9 - PNEUMONIA, UNSPECIFIED ORGANISM SNOMED Code(s): 812631231 (2) Ileus Current Visit: No Status: Acute Code(s): K56.7 - ILEUS, UNSPECIFIED SNOMED Code(s): 971460607 (3) Inability to walk Current Visit: No Status: Acute Code(s): R26.2 - DIFFICULTY IN WALKING, NOT ELSEWHERE CLASSIFIED SNOMED Code(s): 330177028 Plan: Comments and plan: Patient diagnoses should include and cephalopathy related to pneumonia and found on floor. Patient is started therapies with some safety concerns noted. At this time we need to know family goals for patient to return to home and if these would require inpatient rehab stay.
--- NOTE | 2022-10-06 21:50 | CDI ---
Documentation Clarification Form Date: 10/06/2022 09:42:57 PM From: Talya Valero Phone: Admit Date: 09/17/2022 05:40:00 PM Patient Name: Marques Herman Visit Number: [id number] Discharge Date: 10/05/2022 03:20:00 PM ATTENTION: The Clinical Documentation Specialists (CDI) and [facility] Coding Staff appreciate your assistance in clarifying documentation. Please respond to the clarification below the line at the bottom and electronically sign. The CDI & [facility] Coding staff will review the response and follow-up if needed. Please note: Queries are made part of the Legal Health Record. If you have any questions, please contact the author of this message via ITS. Dr. Emmett Decker Rhabdomyolysis is documented per Consult 09/19/22. Additional clarification regarding the type of rhabdomyolysis is requested. History/Risk Factors: 61yo M, sepsis, AHRF, cardiomyopathy, LETY, found down, dehydration, [place], Rhabdomyolysis, intellectual disabilities, conjunctivitis Clinical Indicators: total CK is 729 Treatment: severe CKs have been improving Please clarify the type of rhabdomyolysis, if known: [ ] Traumatic rhabdomyolysis due to fall [ ] Non traumatic rhabdomyolysis due to (please specify) [ ] Other, please specify [ ] Unable to Determine (Template Last Revised: January 2021) MTDD
== END 2022-10-05 15:20 | DRG 871 ==
LOC: EC 13:52 → 5NMEDONC 17:40 → 2SICU 09-19 16:17 → 5NMEDONC 09-23 16:53
PROVIDERS: ADMIT Family Medicine; ATTEND Family Medicine
PROC: 0D9670Z Drainage of Stomach with Drainage Device, Via Natural or Artificial Opening (ICD-10-PCS; principal; 2022-09-19)
DX: A41.50 Gram-negative sepsis, unspecified (principal); J15.6 Pneumonia due to other Gram-negative bacteria; J96.01 Acute respiratory failure with hypoxia; J69.0 Pneumonitis due to inhalation of food and vomit; G93.40 Encephalopathy, unspecified; N17.9 Acute kidney failure, unspecified; E87.0 Hyperosmolality and hypernatremia; I42.9 Cardiomyopathy, unspecified; K56.7 Ileus, unspecified; E87.1 Hypo-osmolality and hyponatremia; J98.11 Atelectasis; Z68.41 Body mass index [BMI] 40.0-44.9, adult; F39 Unspecified mood [affective] disorder; D64.9 Anemia, unspecified; H70.93 Unspecified mastoiditis, bilateral; D69.59 Other secondary thrombocytopenia; H10.89 Other conjunctivitis; T79.6XXA Traumatic ischemia of muscle, initial encounter; H91.90 Unspecified hearing loss, unspecified ear; K31.84 Gastroparesis; F79 Unspecified intellectual disabilities; R26.2 Difficulty in walking, not elsewhere classified; E66.3 Overweight; E86.0 Dehydration; R74.8 Abnormal levels of other serum enzymes; W19.XXXA Unspecified fall, initial encounter; Z20.822 Contact with and (suspected) exposure to COVID-19; Z79.899 Other long term (current) drug therapy; Y92.009 Unspecified place in unspecified non-institutional (private) residence as the place of occurrence of the external cause; Z28.310 Unvaccinated for COVID-19; Z91.048 Other nonmedicinal substance allergy status
CPT/HCPCS: 36415; 70450; 71045; 71250; 72125; 74019; 74176; 80048; 80053; 81001; 82140; 82272; 82550; 83605; 83690; 83735; 84100; 84145; 84484; 85025; 85027; 85610; 85730; 86140; 86850; 86900; 86901; 87636; 93005; 94667; 94668; 94760; 96361; 96365; 96366; 96375; 99285

== ENCOUNTER → 2024-03-31 | Outpatient (CLI) | payer BC, MEDICARE, OTHER ==
[2024-03-31 17:31] LABS: Blood Urea Nitrogen 25.7 mg/dL (9.0-27.0); Carbon Dioxide 20.8 mmol/L (21.6-31.8); Chloride 106 mmol/L (96-109); Potassium 4.1 mmol/L (3.5-5.5); Sodium 143 mmol/L (135-145)
[2024-03-31 17:35] LABS: HCT 40.3 % (39.6-50.0); HGB 13.3 g/dL (13.0-17.0); MCH 29.6 pg (27.0-32.0); MCV 89.6 FL (80.0-97.0); Mean Platelet Volume 11.9 FL (9.5-12.2); NRBC Per 100 WBC 0 X 10*3/uL (0.00-0.01); Platelet Count 166 X 10*3/uL (140-440); RDW 14.2 % (11.5-14.5); WBC 7.03 X 10*3/uL (4.50-10.00)
== END | disposition home or self-care (01) ==
LOC: LABPAT 11:41
PROVIDERS: ATTEND Internal Medicine Interventional Cardiology
DX: Z01.812 Encounter for preprocedural laboratory examination (principal); R06.02 Shortness of breath
CPT/HCPCS: 80051; 82565; 84520; 85027

== ENCOUNTER 2024-04-03 07:57 | Day surgery (SDC) | payer MEDICARE, OTHER ==
[~2024-04-03 07:57] MED LIST changes: +ALPRAZolam 0.25 MG TAB PO PRN; +ALPRAZolam 0.5 MG TAB PO PRN; +ASPIRIN 325 MG TAB PO ONE; -DEXAMETHASONE SOD PHOSPHATE 10 MG/ML 1 ML VIAL IV ONE; +HEPARIN SODIUM,PORCINE (1 ML) 2,500 UNIT in SODIUM CHLORIDE 0.9% 250 ML IRRIGATION PRN; +HEPARIN SODIUM,PORCINE 10,000 UNIT in SODIUM CHLORIDE 0.9% 1,000 ML IRRIGATION PRN; -HEPARIN SODIUM,PORCINE 5,000 UNIT/ML 1 ML VIAL SQ ONE; -HYDROmorphone 1 MG/ML 1 ML SYRINGE IVP PRN; -LACTATED RINGERS 1,000 ML IV SCH; -MIDAZOLAM 2 MG/2 ML VIAL IV PRN; +NITROGLYCERIN SL TABS 0.4 MG TAB SUBLINGUAL PRN; -ONDANSETRON 4 MG/2 ML VIAL IVP ONE; -Pre Op ABX Message 1 EACH MISC MISCELLANE ONE; -SCOPOLAMINE 1.5MG/72HR PATCH TRANSDERM ONE; +SODIUM CHLORIDE 0.9% 1,000 ML in EMPTY BAG 1 BAG IV SCH
[2024-04-03] MEDS: SODIUM CHLORIDE 0.9% 1,000 ML IV ONE (08:18)
[2024-04-03 09:07] VITALS: RESP 16; TEMP 99.3
[2024-04-03] MEDS ORDERED: HEPARIN SODIUM 1,000 UN/ML (10ML VL) ONE (11:57)
[2024-04-03] MEDS ORDERED: VERAPAMIL 2.5 MG/ML 2 ML AMP ONE (11:57)
[2024-04-03] MEDS: VERAPAMIL SYRINGE (5 MG/10 ML) INTRAARTER ONE (12:07)
[2024-04-03] MEDS: MIDAZOLAM 2 MG/2 ML VIAL IVP ONE (12:07)
[2024-04-03] MEDS: LIDOCAINE 1% INJ 10MG/ML (5 ML VIAL-PF) SQ ONE (12:07)
[2024-04-03] MEDS ORDERED: fentaNYL (PF) 50 MCG/ML 2 ML AMP ONE (12:08)
[2024-04-03] MEDS: fentaNYL (PF) 50 MCG/ML 2 ML AMP IVP ONE (12:09)
[2024-04-03] MEDS: HEPARIN SODIUM 1,000 UN/ML (10ML VL) IVP ONE (12:10)
[2024-04-03] MEDS: IOPAMIDOL-370 100ML BTL INJ ONE (12:20)
[2024-04-03] MEDS ORDERED: RX INFO: IV CONTRAST WAS GIVEN 1 EACH MISC MISCELLANE PRN (12:30)
[2024-04-03] MEDS ORDERED: SODIUM CHLORIDE 0.9% 1,000 ML IV SCH (12:30)
--- NOTE | 2024-04-03 12:33 | P.PCN ---
Date of Procedure: 04/03/24 Operative Findings: CARDIAC CATHETERIZATION PERFORMING PHYSICIAN: Seun Carlton MD, RPVI PROCEDURE PERFORMED: 1. Selective right and left coronary angiogram 2. Left heart catheterization 3. Ultrasound-guided access of the right radial artery INDICATION: Symptomatic 63-year-old gentleman with abnormal myocardial perfusion imaging stress test COMPLICATION: None APPROACH: Right radial artery LEVEL OF SEDATION: Moderate with a sedation length of 16 minutes PROCEDURE DESCRIPTION: After obtaining an informed consent, the patient was brought to cardiac labor operator. Local anesthesia was performed using lidocaine subcutaneously. The right radial artery was cannulated using micropuncture technique under ultrasound guidance and the micropuncture wire passed easily then placed a 5-Chadian sheath over the wire. Subsequently the sheath was flushed and secured. Following that, 2 mg of verapamil along with 5000 unit heparin were given. Selective right and left coronary angiogram using a 6-Chadian JR4 and JL 3.5 catheters. Following that we did left heart catheterization using 6-Chadian pigtail catheter. The procedure was completed there was no complication. SELECTIVE CORONARY ANGIOGRAM: The right coronary artery: large-caliber vessel and a dominant vessel appears to be angiographically Left main: is angiographically normal The left circumflex: is angiographically normal and gives rises into multiple obtuse marginal branches appears to be normal The left anterior descending artery: the proximal LAD has mild disease appeared to be in the range of 30-40% HEMODYNAMICS: the LVEDP was about 8 mmHg was no significant gradient across aortic valve CONCLUSION: 1. Mild disease involving the proximal LAD 2. Normal left-sided filling
[2024-04-03 19:27] VITALS: BP 136/77; PULSE 74
== END 2024-04-03 15:53 | disposition home or self-care (01) ==
LOC: CATHCVL 07:57
PROVIDERS: ATTEND Internal Medicine Interventional Cardiology
DX: I42.9 Cardiomyopathy, unspecified (principal); I10 Essential (primary) hypertension; Z79.82 Long term (current) use of aspirin; Z79.899 Other long term (current) drug therapy
CPT/HCPCS: 93458; 76937; C1769; J2250; J2001; J3010; J1644; Q9967